=== PATIENT | male | born 1950 | race Caucasian/White ===

== ENCOUNTER 2016-04-30 11:04 | Emergency (ER) | payer MEDICARE, MEDICAID ==
[2016-04-30 11:28] VITALS: BP 114/54
--- NOTE | 2016-04-30 14:00 | UC ---
Yoshi Garcia Matthew, [facility] on 04/30/16 at 1247 . Lower Extremity/Ankle HPI - HPI Summary HPI Summary: Nurse's Note: pt states that over the past few weeks he's had a red, swollen, hard left lower leg that has been worsening, and is much worse over the past few days. pt's son states that the house pt is staying in may also have bedbugs. per pt's son, pt has "hardening of the arteries", and both legs have this problem off and on, though usually more on the right leg. on his right leg he had surgery 5 years ago and has had continual problems and infections with right leg. pt also sleeps with both legs dependent, he cannot elevate them. MD Note: MD Note; Afebrile, pulse oxygen 99%, 10/10 discomfort , weekly alcohol , .5 ppd smoker, NM 15 years ago, chronic right leg infections. In Room Note: A 66 y/o male presents to [facility] with increased pre tibial right leg pain. He always has chronic right leg pain. The patient has been taking amoxicillin for 5 years according to the son for a chronic knee infection. The patient is unable to move his right leg at the joint. He denies nausea, vomiting , and diarrhea today. He also has chronic back pain. Dr. Covington requested the patient present to [facility] for possible skin infection. No Hx of diabetes. Where the patient's living has an infestation of bed bugs and the son states the patient may have bee scratching his legs. - History of Current Complaint Chief Complaint: UCLowerExtremity Stated Complaint: LEG COMPLAINT Time Seen by Provider: 04/30/16 12:25 Hx Obtained From: Patient Onset/Duration: Still Present Severity Initially: Moderate Severity Currently: Moderate Pain Intensity: 10 Pain Scale Used: 0-10 Numeric - Allergies/Home Medications Allergies/Adverse Reactions: Allergies Allergy/AdvReac Type Severity Reaction Status Date / Time Fentanyl Allergy Severe Itching Verified 04/30/16 11:28 FENTANYL PATCH Allergy Severe SEVERE Uncoded 04/30/16 11:28 ITCHING PMH/Surg Hx/FS Hx/Imm Hx Endocrine History Of: Denies: Diabetes, Thyroid Disease Cardiovascular History Of: Reports: Cardiac Disorders - Heart attack 15 years ago, 8 years ago "on life support bc heart stopped", Myocardial Infarction, Deep Vein Thrombosis Denies: Hypertension, Pacemaker/ICD, Congestive Heart Failure Respiratory History Of: Reports: COPD, Asthma Denies: Bronchitis, Pulmonary Embolism GI/ History Of: Denies: Ulcer, Renal Disease Neurological History Of: Denies: Seizures, Migraine Psychological History Of: Reports: Depression Denies: Anxiety Other History Of: Negative For: Anticoagulant Therapy - Surgical History Surgical History: Yes Surgery Procedure, Year, and Place: femur rodding @ [facility] [place] in june 2012; RTHR June 2013; [place]ust 08 2013[place] [facility] [place] - Family History Known Family History: Positive: Cardiac Disease, Other - CANCER - Social History Alcohol Use: Weekly Alcohol Amount: NOT SINCE NEW YEARS Substance Use Type: None Smoking Status (MU): Current Every Day Smoker Type: Cigarettes Amount Used/How Often: 1 - 2 PPD Length of Time of Smoking/Using Tobacco: 50 YEARS Have You Smoked in the Last Year: Yes When Did the Patient Quit Smoking/Using Tobacco: 2 MONTHS AGO Household Exposure Type: Cigarettes - Immunization History Most Recent Influenza Vaccination: 2012 Most Recent Tetanus Shot: Within past 10 years Most Recent Pneumonia Vaccination: 2011 Review of Systems Constitutional: Negative Skin: Other - Right leg erythema Eyes: Negative ENT: Negative Respiratory: Negative Cardiovascular: Negative Gastrointestinal: Negative Genitourinary: Negative Motor: Negative Neurovascular: Negative Musculoskeletal: Myalgia - Increased right leg pain Neurological: Negative Psychological: Negative All Other Systems Reviewed And Are Negative: Yes Physical Exam Triage Information Reviewed: Yes Appearance: Other: - unkempt Vital Signs: Initial Vital Signs Temp 98.6 F 04/30/16 11:17 Pulse 94 04/30/16 11:17 Resp 16 04/30/16 11:17 BP 114/54 04/30/16 11:17 Pulse Ox 99 04/30/16 11:17 Vital Signs Reviewed: Yes Eyes: Positive: Conjunctiva Clear ENT: Positive: Hearing grossly normal, Pharynx normal, TMs normal, Other: - [place] CHIN. Negative: Muffled/hoarse voice Neck: Positive: Supple, Nontender Respiratory: Positive: Chest non-tender, Lungs clear, Normal breath sounds, No respiratory distress Cardiovascular: Positive: RRR, No Murmur Abdomen Description: Positive: Nontender, No Organomegaly, Soft Bowel Sounds: Positive: Present Musculoskeletal: Positive: Other: - THE RIGHT LEG WILL NOT EXTENDED AT THE KNEE JOIN; Neurological: Positive: Alert Psychological: Positive: Age Appropriate Behavior Skin Exam: Other - STASIS DERMATITIS BILATERAL LE; BOTH LEGS SHOW ERYTHEMA AND ITS DIFFICULTY TO TELL WHETHER THIS IS AN INFECTION OR CHRONIC Lower Extremity Course/Dx - Course Course Of Treatment: Discussed with the patient and his son who is his caregiver , the fact that his examination is difficulty because of chronic leg changes. The fact that hes c/o of increase RLE pain and erythema could be a new skin infection that would not be covered by the amoxicillin. I am therefore changing him to Keflex and the patient son will recheck with Dr. Covington on Monday. - Differential Dx/Diagnosis Differential Diagnosis/HQI/PQRI: Other - New onset RLE cellulitis vs chronic stasis changes Provider Diagnoses: Cellulitis, pre-tibial, right Discharge - Discharge Plan Condition: Stable Disposition: HOME Prescriptions: Cephalexin CAP* [Keflex CAP*] 500 mg PO TID #30 cap MDD 3 Patient Education Materials: Cellulitis (ED) Referrals: Anamika Covington MD [Primary Care Provider] - Additional Instructions: WE DISCUSSED: You may have a new skin infection of your right lower leg. It's hard to tell because of your chronic changes. Change your medication for the next 10 days and check with Dr. Covington on Monday. GO TO ED FOR INCREASED PAIN, TEMPERATURE, SWELLING REDNESS. Warm moist heat to the area of discomfort and redness. The documentation as recorded by the Yoshi acevedo Matthew accurately reflects the service I personally performed and the decisions made by me, Parveen Greenfield MD.
== END 2016-04-30 12:49 | disposition home or self-care (01) ==
LOC: UCEAST 11:04
DX: L03.90 Cellulitis, unspecified (principal); I25.2 Old myocardial infarction; F17.290 Nicotine dependence, other tobacco product, uncomplicated
CPT/HCPCS: 99212; G0463

== ENCOUNTER 2016-10-17 16:20 | Inpatient (IN) | payer MEDICARE, MEDICAID ==
[2016-10-17 17:05] LABS: Hematocrit 38 % (42-52); Hemoglobin 12.2 g/dl (14.0-18.0); Mean Corpuscular HGB Conc 32 g/dl (31-36); Mean Corpuscular Hemoglobin 25 pg (27-31); Mean Corpuscular Volume 79 fL (80-94); Mean Platelet Volume 8 um3 (7.4-10.4); Red Blood Count 4.81 10^6/ul (4.0-5.4); Red Cell Distribution Width 20 % (10.5-15); White Blood Count 8.3 10^3/ul (3.5-10.8)
[2016-10-17 17:19] LABS: Albumin 3.3 g/dL (3.2-5.2); BUN/Creatinine Ratio 7.5 (8-20); C Reactive Protein 4.94 mg/L (< 5.00); Calcium 8.3 mg/dL (8.6-10.3); EGFR African American 152.2 (>60); EGFR Non-African American 118.3 (>60); Globulin 5.6 g/dL (2-4); Potassium 3.8 mmol/L (3.5-5.0); Total Bilirubin 0.5 mg/dL (0.2-1.0); Total Protein 8.9 g/dL (6.4-8.9)
--- NOTE | 2016-10-17 18:01 | RAD ---
INDICATION: Right lower extremity swelling and erythema. COMPARISON: Comparison is made with a prior lower extremity venous duplex study from May 13, 2016. TECHNIQUE: Multiple real-time, color flow and Doppler tracings of the right lower extremity were obtained. FINDINGS: The common femoral, femoral, profunda femoral and popliteal veins all demonstrate normal compressibility, augmentation with compression and phasic response with respiration. The posterior tibial and peroneal veins demonstrate normal compressibility and augmentation with compression. IMPRESSION: NO EVIDENCE FOR DEEP VENOUS THROMBOSIS.
--- NOTE | 2016-10-17 18:51 | RAD ---
INDICATION: Shortness of breath. COMPARISON: Comparison is made with a prior chest x-ray study from November 14, 2013. TECHNIQUE: AP and lateral views of the chest were obtained. FINDINGS: The heart is within normal limits in size. Mediastinal and hilar contours appear within normal limits. The right lung base is cut off in the AP view limiting the study. The lungs are hyperinflated with flattening of the diaphragms consistent with chronic obstructive pulmonary disease. There are small bibasilar infiltrates. No pleural effusion is seen. IMPRESSION: 1. LIMITED STUDY. 2. SMALL BIBASILAR INFILTRATES. 3. COPD.
[2016-10-17] MEDS ORDERED: Ondansetron INJ* 2 MG/ML VIAL IV PRN (20:05)
[2016-10-17] MEDS ORDERED: Acetaminophen TAB* 325 MG PO PRN (20:10)
[2016-10-17] MEDS ORDERED: HYDROmorphone* 1 MG/ML 1 ML SYR IV SLOW PU PRN (20:11)
[2016-10-17] MEDS ORDERED: Vancomycin per Pharmacy* NOTE FOLLOW UP PRN (20:23)
[2016-10-17] MEDS ORDERED: Vancomycin(*) 1,000 MG in NS 0.9% 250 ML* 250 ML IVPB ONE (20:30)
[2016-10-17 20:35] LABS: Urine Bilirubin Negative (Negative); Urine Glucose Negative (Negative); Urine Nitrite Negative (Negative)
[2016-10-17] MEDS: Heparin VIAL(*) 5000 UNITS/ML VIAL (FIVE THOUSAND) SUBCUT SCH (21:55)
--- NOTE | 2016-10-18 00:16 | HP ---
CC: Anamika Covington MD * HISTORY AND PHYSICAL: DATE OF ADMISSION: 10/17/16 PRIMARY CARE PHYSICIAN: Anamika Covington MD. CHIEF COMPLAINT: Right leg pain. HISTORY OF PRESENT ILLNESS: The patient is a 66-year-old gentleman who presented to [facility] with a chief complaint of right leg pain. He cannot tell me precisely when it started but it has been getting worse over the last couple of months. He became more worried today when there was fluid actually draining out of his leg. His son insisted he go to the emergency room for evaluation. In fact, he was at his PCP's yesterday for evaluation and treatment. He denies any fevers, but has had chills occasionally. It is red, warm and somewhat tender. He took some pain medicine prescribed to him by his PCP, but he said it did not help that much. He denies any shortness of breath, chest pain or palpitations. In the ED, the patient was evaluated and found likely to have a cellulitis. There was also concern for a possible pneumonia but he has no white count, he is afebrile and he is not short of breath. PAST MEDICAL HISTORY: He has got a past medical history significant for COPD, thrombocytopenia, peripheral vascular disease, coronary artery disease, history of an HI, chronic hyponatremia, alcohol abuse, osteoporosis, GI bleed, history of factor v Leiden deficiency. PAST SURGICAL HISTORY: Significant for distal femur replacement, right hip ORIF , right hip replacement, hernia repair, ear surgery. MEDICATIONS: The patient is unaware of his medications. We will attempt to get the list tomorrow. ALLERGIES: Adverse reaction to FENTANYL. FAMILY HISTORY: Mother had a heart disease. Father had history of unknown cancer. SOCIAL HISTORY: He still smokes about 3 cigars a day. Occasional alcohol, last week he had 4 to 5 cans in 1 day. No recreational drug use. He apparently has a history of more significant alcohol use. He is a retired worker. He is . He has 2 sons. His son, Gera Miller, is his healthcare proxy. REVIEW OF SYSTEMS: A 14-point review of systems was completed with the patient. All pertinent positives and negatives are in the history of present illness, otherwise it is negative. PHYSICAL EXAMINATION GENERAL: A very pleasant gentleman, sitting up in bed, in no acute distress. VITAL SIGNS: Temperature 98 degrees, heart rate 90 beats per minute, respiratory rate 20 breaths per minute, pulse ox 92% on room air, blood pressure 130/72. HEENT: Normocephalic, atraumatic. Pupils equal, round, and reactive to light. Poor dentition. CHEST: Clear to auscultation and percussion bilaterally. CARDIOVASCULAR: S1, S2 appreciated. Regular rate and rhythm. ABDOMEN: Positive bowel sounds in all 4 quadrants. Soft and nontender. EXTREMITIES: No cyanosis or clubbing. He has got edema, redness, warmth and tenderness on his right lower calf. NEUROLOGIC: He is alert and oriented x3. Moves all extremities. SKIN: No rashes. The only abnormality is the erythema on his right lower extremity and the onychomycosis on his toenails. DIAGNOSTIC STUDIES/LABORATORY DATA: White count 8.3, hemoglobin 12.2, hematocrit 38, platelets 256,000. Sodium is 127, potassium 3.8, chloride 92, CO2 30, BUN 5, creatinine 0.67, glucose is 98, lactic acid is 1.2. Urinalysis is unremarkable. EKG shows normal sinus rhythm at 86 beats per minute. Normal axis. No acute ST or T-wave changes. Venous Duplex was interpreted by Radiology as no evidence for DVT. Chest x-ray showed limited study, small basilar infiltrates, bibasilar infiltrates and COPD. ASSESSMENT AND PLAN: 1. Cellulitis, likely diagnosis. I think it is unlikely he has a deep vein thrombosis, especially with a negative venous Duplex. Apparently he has factor V Leiden deficiency; however, and was supposed to be on anticoagulation. This has been in the past and he is still not on it. I am not sure how compliant he is with his followup and his medications. For now, I will put him on vancomycin and Zosyn because his cellulitis appears fairly significant and I do not know how long this has been going on for. It may benefit from ID consult. Right now, there does not appear to be any kind of a wound culture. 2. Chronic obstructive pulmonary disease. His current medications are unknown. We will await his medications and place him on them as soon as we are aware. 3. Gastroesophageal reflux disease. We will place him on PPIs that he has been on before. 4. Coronary artery disease. Again unclear what medications, but we will reinitiate once we are given his appropriate list. 5. Factor V Leiden deficiency. See above. Thought he should be on anticoagulation, but has not been. This should be addressed, but probably best as an outpatient. 6. FEN. Regular diet. 7. DVT prophylaxis. Heparin subcu. 8. The patient is a full code. TIME SPENT: Over 85 minutes were spent on this H and P; more than 45 minutes was spent in direct [id number] contact with the patient in evaluation, physical exam, counseling, and coordination of care. [id number]/[facility] #: [id number] MTDD
[2016-10-18] MEDS: Heparin VIAL(*) 5000 UNITS/ML VIAL (FIVE THOUSAND) SUBCUT SCH ×3 (05:56→21:56)
[2016-10-18] MEDS: Vancomycin(*) 1,000 MG in NS 0.9% 250 ML* 250 ML IVPB SCH ×2 (05:56→16:25)
[2016-10-18 09:22] LABS: Hematocrit 37 % (42-52); Hemoglobin 11.9 g/dl (14.0-18.0); Mean Corpuscular HGB Conc 32 g/dl (31-36); Mean Corpuscular Hemoglobin 25 pg (27-31); Mean Corpuscular Volume 80 fL (80-94); Mean Platelet Volume 8 um3 (7.4-10.4); Red Blood Count 4.68 10^6/ul (4.0-5.4); Red Cell Distribution Width 20 % (10.5-15); White Blood Count 7.4 10^3/ul (3.5-10.8)
[2016-10-18 09:23] LABS: Add Diff/Slide Review? Manual Diff Added; Comments Flag Yes
[2016-10-18 09:36] LABS: BUN/Creatinine Ratio 6.9 (8-20); Calcium 8.1 mg/dL (8.6-10.3); EGFR Non-African American 108.9 (>60); Potassium 4.1 mmol/L (3.5-5.0)
[2016-10-18 09:51] LABS: Add Path Review? YES; Eosinophils % 8 % (0-6); Hypochromasia 1+; Neutrophil % 70 % (38-83); Reactive Lymph % 1 % (0-6)
[2016-10-18] MEDS: Morphine INJ* 2 MG/ML 1 ML SYRINGE IV PRN ×4 (11:38→21:56)
--- NOTE | 2016-10-18 11:42 | PN ---
Subjective Date of Service: 10/18/16 Interval History: This is a 66 yo gentleman with multiple medical problems including PVD who presented yesterday with c/o RLE pain. Pain has been present for the last couple of month but progressively worse and he noted some drainage yesterday. He was admitted yesterday with concern for cellulitis but no leukocytosis or fever noted. Today, patient reports his pain and appearance of his leg is similar to the time of admission. He has remained afebrile. He reports improvement in pain with legs in a dependent position. Objective Active Medications: Acetaminophen (Tylenol Tab*) 650 mg PO Q4H PRN PRN Reason: FEVER/PAIN Last Admin: 10/18/16 09:17 Dose: 650 mg Heparin Sodium (Porcine) (Heparin Vial(*)) 5,000 units SUBCUT Q8HR ON LICENSE OF [facility] Last Admin: 10/18/16 05:56 Dose: 5,000 units Hydromorphone HCl (Dilaudid Iv*) 1 mg IV SLOW PU Q4H PRN PRN Reason: PAIN Piperacillin Sod/Tazobactam (Sod 3.375 gm/ Sodium Chloride) 100 mls @ 25 mls/ hr IVPB Q8H ON LICENSE OF [facility] Last Admin: 10/18/16 10:59 Dose: 25 mls/hr Vancomycin HCl 1,000 mg/ (Sodium Chloride) 250 mls @ 166.667 mls/hr IVPB Q8H ON LICENSE OF [facility] Last Admin: 10/18/16 05:56 Dose: 166.667 mls/hr Morphine Sulfate (Morphine Inj (Syringe)*) 2 mg IV Q2H PRN PRN Reason: PAIN Ondansetron HCl (Zofran Inj*) 4 mg IV Q4H PRN PRN Reason: NAUSEA Pharmacy Consult (Vancomycin Per Pharmacy*) 1 note FOLLOW UP . PRN PRN Reason: PER PROTOCOL Pharmacy Profile Note (Vancomycin Trough Check) 1 note FOLLOW UP 0530 ONE Stop: 10/19/16 05:31 Vital Signs: Temp Pulse Resp BP Pulse Ox 98.0 F 84 20 114/67 96 10/18/16 09:13 10/18/16 09:13 10/18/16 11:38 10/18/16 09:13 10/18/16 09:13 Oxygen Devices in Use Now: None Appearance: 66 yo gentleman who appears much older than stated age in NAD, but very uncomfortable with manipulation of his R leg Respiratory: Symmetrical Chest Expansion and Respiratory Effort, - - few exp wheezes noted Cardiovascular: NL Sounds; No Murmurs; No JVD, RRR Extremities: - - 1+RLE edema and trace LLE edema, RLE is very TTP, no palpable pulses Skin: - - erythema of RLE including the foot and lower leg to the knee Result Diagrams: 10/18/16 09:12 10/18/16 09:12 Assess/Plan/Problems-Billing Assessment: This is a 66 yo gentleman with COPD, thrombocytopenia, PVD, CAD with h/o AMI, chronic hyponatremia, alcoholism, factor V leiden who presented with c/o RLE pain who was admitted for possible cellulitis. - Patient Problems (1) Acute pain of right lower extremity Comment: Initial treatment for cellulitis, but he has no leukocytosis or fever He reports improvement with legs in a dependent position and he has no palpable distal pulses with known PVD, so concern for arterial insufficiency is higher on my differential Will cont abx, but obtain CTA with runoff to assess vascular status (2) COPD (chronic obstructive pulmonary disease) Comment: Few wheezes on exam but no hypoxia or resp distress to suggest exacerbation Cont home inhalers and prn DuoNebs (3) PVD (peripheral vascular disease) Comment: Start ASA, unsure if he is on a statin at home (4) CAD (coronary artery disease) Comment: No evidence of ACS Cont med management (5) Hyponatremia Comment: Mild and appears chronic Asymptomatic, will cont to monitor (6) Alcoholism Comment: No evidence of acute withdrawal at this time (7) Factor V Leiden mutation Comment: Reported h/o of anticoagulation, but patient is unclear on this history (8) Full code status (9) DVT prophylaxis Comment: SQ heparin Status and Disposition: Inpatient. Unsure of discharge plan at this time
[2016-10-18] MEDS ORDERED: Albuterol/Ipratropium NEB.SOL* Albuterol 2.5 MG/Ipratropium 0.5 MG 3 ML INH PRN (11:50)
--- NOTE | 2016-10-18 11:51 | ECHO ---
Patient: JONATAN LINK [facility] Rec#: [id number] : 1950 Date: 10/18/2016 Age: 66y Height: 175.3 cm / 69.0 in Weight: 75.3 kg / 166.0 lbs Sex: M BSA: 1.9 Room#: [facility] Admit Date#: 10/17/2016 Type: Inpatient Referring: Rashad Velazquez Reading: Dallas Mccauley MD Regional Coordinator: Isadora Hanley RN RDCS CC: Anamika Covington MD Transthoracic Echocardiogram Indication: Lower extremity edema BP: 105/57 HR: 87 Rhythm: NSR with PACs Findings History: CAD, [place], PVD, COPD, factor V Leiden deficiency, ETOH abuse, smokes cigars Technical Comments: The study is technically limited due to poor parasternal windows. The study is technically limited due to the patient's history of COPD. The study is technically limited due to the patient's smoking history. Completed at 1000. Left Ventricle: The left ventricular chamber size is normal. Septal wall hypertrophy is observed. There is a focal wall motion abnormality present.The posterior wall wall appears more hypokinetic than the anteroseptal inferior wall. There is mildly decreased left ventricular systolic function. The estimated ejection fraction is 40-45%. Abnormal left ventricular diastolic filling is observed, consistent with impaired relaxation. The absence of left atrial enlargement suggests this finding is not of a chronic nature. Left Atrium: The left atrial chamber size is normal. Right Ventricle: The right ventricle wall thickness is mildly increased. The right ventricular cavity size is normal. The right ventricular global systolic function is mildly reduced. Right Atrium: The right atrial cavity size is normal. There is evidence of an atrial septal aneurysm. Aortic Valve: The aortic valve leaflets are mildly thickened. There is no evidence of aortic regurgitation. There is no evidence of aortic stenosis. Mitral Valve: The mitral valve leaflets appear normal. There is a trace of mitral regurgitation. There is no evidence of mitral stenosis. Tricuspid Valve: The tricuspid valve leaflets are normal. There is trace to mild tricuspid regurgitation. There is evidence of moderate pulmonary hypertension. Pulmonic Valve: The pulmonic valve structure is not well visualized. Pericardium: There is no significant pericardial effusion. A pericardial fat pad is visualized. Aorta: The ascending aorta is not well visualized. The aortic arch is not well visualized. There is no dilation of the aortic root. Pulmonary Artery: The main pulmonary artery is not well visualized. Venous: The inferior vena cava is dilated. There is a greater than 50% respiratory change in the inferior vena cava dimension. Conclusions The posterior wall wall appears more hypokinetic than the anteroseptal inferior wall. There is mildly decreased left ventricular systolic function. The estimated ejection fraction is 40-45%. Abnormal left ventricular diastolic filling is observed, consistent with impaired relaxation. The absence of left atrial enlargement suggests this finding is not of a chronic nature. The right ventricular global systolic function is mildly reduced. There is a trace of mitral regurgitation. There is trace to mild tricuspid regurgitation. There is evidence of moderate pulmonary hypertension. The inferior vena cava is dilated. There is a greater than 50% respiratory change in the inferior vena cava dimension. Compared to 06/14/2012 the pulmonary HTN is now noted. Measurements Name Value Normal Range RVDdMajor (2D) 3.3 cm (2.2 - 4.4) RVAW (2D) 0.9 cm (0.2 - 0.5) RAd ISD 4CH 4.4 cm (3.4 - 4.9) RA (A4C)W 4 cm (2.9 - 4.6) IVSd (2D) 1.1 cm (0.6 - 1) LVPWd (2D) 1 cm (0.6 - 1) LVIDd (2D) 4.4 cm (3.6 - 5.4) LVIDs (2D) 3.4 cm - LV FS (2D) 23 % (25 - 45) Aortic Annulus 2.3 cm (1.4 - 2.6) Ao root diameter (2D) 3.2 cm (2.1 - 3.5) LA dimension (AP) 2D 3.6 cm (2.3 - 3.8) LAd ISD 4CH 4.3 cm (2.9 - 5.3) LA ISD 4CH W 3.7 cm (2.5 - 4.5) Name Value Normal Range LA ESV SP 4CH (A/L) 28 ml - LA ESV SP 2CH (A/L) 44 ml - LA ESV BP (A/L) 37 ml - LA ESV BP (A/L) index 19.4 ml/m2 - LA ESV SP 4CH (MOD) 25 ml - LA ESV SP 2CH (MOD) 38 ml - Name Value Normal Range MV E-wave Vmax 0.41 m/sec - MV deceleration time 174 msec - MV A-wave Vmax 0.83 m/sec - MV E:A ratio 0.5 ratio - LV septal e' Vmax 0.07 m/sec - LV lateral e' Vmax 0.08 m/sec - LV E:e' septal ratio 5.9 ratio - LV E:e' lateral ratio 5.1 ratio - Name Value Normal Range AV Vmax 1.3 m/sec - AV VTI 29.1 cm - AV peak gradient 6.4 mmHg - AV mean gradient 4.3 mmHg - LVOT Vmax 0.93 m/sec - LVOT VTI 17.6 cm - LVOT peak gradient 3.5 mmHg - LVOT mean gradient 1.7 mmHg - Name Value Normal Range TR Vmax 3.2 m/sec - TR peak gradient 41 mmHg - RAP 8 mmHg - RVSP 49 mmHg - IVC diameter 2.2 cm - Name Value Normal Range PV Vmax 0.61 m/sec -
[2016-10-18] MEDS ORDERED: Iohexol 350* (CONTRAST) 500 ML MDV IV ONE (11:52)
[2016-10-18] MEDS ORDERED: Spiriva Inhaler DEVICE* 1 EACH DEVICE SCH (12:00)
[2016-10-18] MEDS: Aspirin Low Dose CHEW TAB* 81 MG PO SCH (13:26)
--- NOTE | 2016-10-18 14:27 | RAD ---
Indication: Right lower extremity arterial insufficiency. Contrast: Administered 125.1 ml of OMNIPAQUE 350 mg/ml CTA of the abdominal aorta and lower extremity runoff was performed. Noncontrast and arterial phase images were obtained. The abdominal aorta demonstrates no aneurysmal dilatation. Celiac axis and superior mesenteric artery are patent although there is calcified origin of the superior mesenteric artery. Atherosclerotic aorta is noted. Calcified common iliac arteries are noted. Atherosclerosis of both external iliac artery is noted. The right common femoral artery, femoral artery and popliteal artery are limited in evaluation of the right lower extremity. The left lower extremity demonstrates atherosclerosis without definite stenosis of the left common femoral artery and femoral artery. Atherosclerosis of the distal left femoral artery is present. In the right calf pain appears to be a patent posterior artery and anterior tibial artery. The left calf demonstrates patent anterior tibial, peroneal and posterior tibial artery. The liver demonstrates hepatic steatosis. The pancreas demonstrates no mass or pancreatic ductal dilatation. The spleen is normal in size. No adrenal lesions are noted. The kidneys demonstrate symmetric nephrograms. Pancreas demonstrates no mass or pancreatic duct dilatation. The colon is filled with stool. IMPRESSION: Extensive hardware is noted in the right lower extremity. The calf vessels demonstrates patent posterior tibial and anterior tibial arteries. The left lower extremity demonstrates three-vessel runoff with atherosclerosis throughout. The aorta and iliac arteries demonstrates atherosclerosis.
[2016-10-18] MEDS: Tiotropium CAP.INH* CAP.INH/18 MCG INH SCH (14:53)
--- NOTE | 2016-10-18 17:33 | ED ---
Anoop Garcia Thomas, scribed for Orville Oswald MD on 10/17/16 at 1654 . Lower Extremity - HPI Summary HPI Summary: The pt is a 66 y/o M presenting to the ED c/o chronic R leg pain that began two months ago. The pain is aggravated by movement and the pain is alleviated by nothing. 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 Pt additionally c/o fluid drainage to his R leg, R leg erythema, and SOB .PMHx: ND , DVT, asthma, and COPD. PSHx: femur rodding, R knee replacement, and ear surgery. SHx: smoking (1/2 PPD), occasional alcohol use, no illicit drug use. FHx: cardiac disease, CA. The patient does not shower and reports that he occasionally takes sponge baths. - History of Current Complaint Chief Complaint: EDShortnessOfBreath Stated Complaint: SWELLING IN LEGS Time Seen by Provider: 10/17/16 16:39 Hx Obtained From: Patient Severity Currently: Moderate Timing: Constant Associated Signs And Symptoms: Positive: Other - POS: R leg pain, R leg erythema , drainage to R leg, and SOB Aggravating Factor(s): Movement Alleviating Factor(s): Nothing - Allergies/Home Medications Allergies/Adverse Reactions: Allergies Allergy/AdvReac Type Severity Reaction Status Date / Time Fentanyl Allergy Severe Itching Verified 04/30/16 11:28 FENTANYL PATCH Allergy Severe SEVERE Uncoded 04/30/16 11:28 ITCHING PMH/Surg Hx/FS Hx/Imm Hx Previously Healthy: No Endocrine/Hematology History: Reports: Hx Blood Disorders - factor 5 clotting disorder Denies: Hx Anticoagulant Therapy, Hx Diabetes, Hx Thyroid Disease Cardiovascular History: Reports: Hx Angina, Hx Coronary Artery Disease, Hx Deep Vein Thrombosis, Hx Myocardial Infarction, Hx Peripheral Vascular Disease, Other Cardiovascular Problems/Disorders - fACTOR V LEIDEN CLOTTING DISORDER Denies: Hx Cardiomegaly, Hx Congestive Heart Failure, Hx Hypertension, Hx Pacemaker/ICD, Hx Rheumatic Fever, Hx Valvular Heart Disease Respiratory History: Reports: Hx Asthma, Hx Chronic Obstructive Pulmonary Disease (COPD), Other Respiratory Problems/Disorders - [facility] smoker Denies: Hx Pulmonary Edema, Hx Pulmonary Embolism GI History: Reports: Hx Gastroesophageal Reflux Disease, Other GI Disorders - HX OF GI BLEED - NO PROBLEMS NOW Denies: Hx Cirrhosis, Hx Crohn's Disease, Hx Hiatal Hernia, Hx Irritable Bowel, Hx Jaundice, Hx Ulcer History: Denies: Hx Renal Disease, Other Problems/Disorders Musculoskeletal History: Reports: Hx Arthritis, Hx Back Problems, Hx Osteoporosis, Other Musculoskeletal History - Fx hip sp fall at home hx Denies: Hx Rheumatoid Arthritis, Hx Bursitis Sensory History: Reports: Hx Cataracts - HAVING CATARACT SURGERY, Hx Contacts or Glasses - for reading, Hx Hearing Problem - deaf R ear, 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 Denies: Hx Hearing Aid Opthamlomology History: Reports: Hx Cataracts - HAVING CATARACT SURGERY, Hx Contacts or Glasses - for reading Neurological History: Denies: Hx Headaches, Hx Migraine, Hx Seizures Comment Only: Other Neuro Impairments/Disorders - NEUROPATHY/HX SUBSTANCE ABUSE Psychiatric History: Reports: Hx Depression, Hx Substance Abuse Denies: Hx Anxiety, Hx Panic Disorder - Cancer History Hx Chemotherapy: No - Surgical History Surgery Procedure, Year, and Place: femur rodding @ [facility] [place] in june 2012; RTHR June 2013; Right total knee replacement august 08 2013, [facility] [place]. right ear surgery Hx Anesthesia Reactions: No - Immunization History Date of Tetanus Vaccine: 2010 Date of Influenza Vaccine: None Infectious Disease History: No Infectious Disease History: Reports: Hx of Known/Suspected MRSA Denies: Hx Hepatitis, Traveled Outside the [place] in Last 30 Days - Family History Known Family History: Positive: Cardiac Disease, Other - CANCER - Social History Alcohol Use: Weekly Alcohol Amount: NOT SINCE NEW YEARS Substance Use Type: Reports: None Hx Tobacco Use: Yes Smoking Status (MU): Current Every Day Smoker Type: Cigarettes Amount Used/How Often: 1 - 2 PPD Length of Time of Smoking/Using Tobacco: 50 YEARS Have You Smoked in the Last Year: Yes Review of Systems Positive: Shortness Of Breath Positive: Other - POS: R leg pain with drainage Positive: Other - POS: R leg erythema All Other Systems Reviewed And Are Negative: Yes Physical Exam - Summary Physical Exam Summary: VITAL SIGNS: Reviewed. GENERAL: ~Patient is an elderly male with poor hygiene who is lying comfortable in the stretcher. ~Patient is not in any acute respiratory distress. HEAD AND FACE: No signs of trauma. ~No ecchymosis, hematomas or skull depressions. No sinus tenderness. EYES: PERRLA, EOMI x 2, No injected conjunctiva, no nystagmus. EARS: Hearing grossly intact. Ear canals and tympanic membranes are within normal limits. MOUTH: Oropharynx within normal limits. NECK: Supple, trachea is midline, no adenopathy, no JVD, no carotid bruit, no c- spine tenderness, neck with full ROM. CHEST: Symmetric, no tenderness at palpation LUNGS: Clear to auscultation bilaterally. No wheezing or crackles. CVS: Regular rate and rhythm, S1 and S2 present, no murmurs or gallops appreciated. ABDOMEN: Soft, non-tender. No signs of distention. No rebound no guarding, and no masses palpated. Bowel sounds are normal. EXTREMITIES: He has RLE pain. The RLE is with positive erythema and positive tenderness to the calf. He has good pulses in his extremities. FROM in all major joints, no edema, no cyanosis or clubbing. NEURO: Alert and oriented x 3. No acute neurological deficits. Speech is normal and follows commands. SKIN: Dry and warm Triage Information Reviewed: Yes Vital Signs On Initial Exam: Initial Vitals Pulse BP Pulse Ox 155 121/57 89 10/17/16 16:26 10/17/16 16:26 10/17/16 16:26 Vital Signs Reviewed: Yes - Benito Coma Scale Coma Scale Total: 15 Diagnostics - Vital Signs Vital Signs Temp Pulse Resp BP Pulse Ox 10/17/16 16:33 98.7 F 85 16 121/57 99 10/17/16 16:30 83 16 125/62 97 10/17/16 16:26 155 121/57 89 - Laboratory Lab Results: Lab Results 10/17/16 10/17/16 10/17/16 Range/Units 16:45 16:45 16:45 WBC 8.3 (3.5-10.8) 10^3/ul RBC 4.81 (4.0-5.4) 10^6/ul Hgb 12.2 L (14.0-18.0) g/dl Hct 38 L (42-52) % MCV 79 L (80-94) fL MCH 25 L (27-31) pg MCHC 32 (31-36) g/dl RDW 20 H (10.5-15) % Plt Count 256 (150-450) 10^3/ul MPV 8 (7.4-10.4) um3 Neut % (Auto) 68.0 (38-83) % Lymph % (Auto) 11.0 L (25-47) % Gulf % (Auto) 14.9 H (1-9) % Eos % (Auto) 4.8 (0-6) % Baso % (Auto) 1.3 (0-2) % Absolute Neuts (auto) 5.6 (1.5-7.7) 10^3/ul Absolute Lymphs (auto) 0.9 L (1.0-4.8) 10^3/ul Absolute Monos (auto) 1.2 H (0-0.8) 10^3/ul Absolute Eos (auto) 0.4 (0-0.6) 10^3/ul Absolute Basos (auto) 0.1 (0-0.2) 10^3/ul Absolute Nucleated RBC 0.01 10^3/ul Nucleated RBC % 0.1 Sodium 127 L (133-145) mmol/L Potassium 3.8 (3.5-5.0) mmol/L Chloride 92 L (101-111) mmol/L Carbon Dioxide 30 (22-32) mmol/L Anion Gap 5 (2-11) mmol/L BUN 5 L (6-24) mg/dL Creatinine 0.67 (0.67-1.17) mg/dL Est GFR ( Amer) 152.2 (>60) Est GFR (Non-Af Amer) 118.3 (>60) BUN/Creatinine Ratio 7.5 L (8-20) Glucose 98 (70-100) mg/dL Lactic Acid 1.2 (0.5-2.0) mmol/L Calcium 8.3 L (8.6-10.3) mg/dL Total Bilirubin 0.50 (0.2-1.0) mg/dL AST 17 (13-39) U/L ALT 7 (7-52) U/L Alkaline Phosphatase 124 H (34-104) U/L C-Reactive Protein 4.94 (< 5.00) mg/L Total Protein 8.9 (6.4-8.9) g/dL Albumin 3.3 (3.2-5.2) g/dL Globulin 5.6 H (2-4) g/dL Albumin/Globulin Ratio 0.6 L (1-3) Result Diagrams: 10/18/16 09:12 10/18/16 09:12 Lab Statement: Any lab studies that have been ordered have been reviewed, and results considered in the medical decision making process. - Radiology CXR Xray Interpretation: Positive (See Comments) - 1. LIMITED STUDY. 2. SMALL BIBASILAR INFILTRATES. 3. COPD. Radiology Interpretation Completed By: Radiologist - EKG 18:37 Cardiac Rate: NL - 86 BPM EKG Interpretation: Sinus rhythm with no ST elevations. - Additional Comments Diagnostic Additional Comments: US Lower extremity. Interpreted by radiologist. Impression: No evidence for DVT. Lower Extremity Course/Dx - Course Assessment/Plan: The pt is a 66 y/o M presenting to the ED c/o chronic R leg pain that began two months ago. The pain is aggravated by movement and the pain is alleviated by nothing. 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 Pt additionally c/o fluid drainage to his R leg, R leg erythema, and SOB .PMHx: ND, DVT, asthma, and COPD. PSHx: femur rodding, R knee replacement, and ear surgery. SHx: smoking (1/2 PPD), occasional alcohol use, no illicit drug use. FHx: cardiac disease, CA. The patient does not shower and reports that he occasionally takes sponge baths. Test results are without significant abnormality except a chronic anemia and a chronic hyponatremia. The US of the RLE is negative for DVT. However, the CXR reveals 1. LIMITED STUDY. 2. SMALL BIBASILAR INFILTRATES. 3. COPD. I have made the hospitalists aware of the patients condition. The patient is a sign out from Dr. Oswald to Dr. Benedict pending the hospitalists evaluation of the patient. - Diagnoses Provider Diagnoses: Pneumonia, Cellulitis - Physician Notifications Discussed Care Of Patient With: Cory Patino Time Discussed With Above Provider: 19:22 Instructed by Provider To: Other - Dr. Patino was made aware of the patient at 19:22. Discharge - Discharge Plan Condition: Fair Disposition: OTHER Discharge Disposition Comment: Sign out from Dr. Oswald to Dr. Benedict pending hospitalist evaluation. The documentation as recorded by the Anoop acevedo Thomas accurately reflects the service I personally performed and the decisions made by me, Orville Oswald MD.
[2016-10-19] MEDS: Vancomycin(*) 1,000 MG in NS 0.9% 250 ML* 250 ML IVPB SCH ×2 (00:19→06:07)
[2016-10-19] MEDS ORDERED: Vancomycin Trough Check NOTE FOLLOW UP ONE (05:30)
[2016-10-19] MEDS: Heparin VIAL(*) 5000 UNITS/ML VIAL (FIVE THOUSAND) SUBCUT SCH ×3 (06:08→21:35)
[2016-10-19] MEDS: Morphine INJ* 2 MG/ML 1 ML SYRINGE IV PRN ×6 (06:15→23:35)
[2016-10-19] MEDS ORDERED: Furosemide IV* 10 MG/ML 2 ML VIAL (20 MG) IV ONE (07:10)
[2016-10-19 07:30] LABS: Hematocrit 34 % (42-52); Hemoglobin 10.6 g/dl (14.0-18.0); Mean Corpuscular HGB Conc 32 g/dl (31-36); Mean Corpuscular Hemoglobin 25 pg (27-31); Mean Corpuscular Volume 80 fL (80-94); Mean Platelet Volume 9 um3 (7.4-10.4); Red Cell Distribution Width 20 % (10.5-15); White Blood Count 5.8 10^3/ul (3.5-10.8)
[2016-10-19 07:48] LABS: BUN/Creatinine Ratio 7.1 (8-20); C Reactive Protein 6.02 mg/L (< 5.00); Calcium 7.9 mg/dL (8.6-10.3); EGFR African American 117.2 (>60); EGFR Non-African American 91.1 (>60); Potassium 3.6 mmol/L (3.5-5.0)
[2016-10-19] MEDS: Tiotropium CAP.INH* CAP.INH/18 MCG INH SCH (07:57)
[2016-10-19] MEDS: Aspirin Low Dose CHEW TAB* 81 MG PO SCH (08:17)
[2016-10-19] MEDS: ceFAZolin 1 GM VIAL(*) 1 GM in NS 0.9% 50 ML* 50 ML IVPB SCH ×3 (08:43→23:35)
[2016-10-19] MEDS ORDERED: traZODone TAB* 50 MG TAB PO PRN (11:30)
--- NOTE | 2016-10-19 11:46 | PN ---
Subjective Date of Service: 10/19/16 Interval History: Patient reports some improvement in his leg pain. Swelling appears somewhat improved. Remains afebrile. No c/o CP or SOB Objective Active Medications: Acetaminophen (Tylenol Tab*) 650 mg PO Q4H PRN PRN Reason: FEVER/PAIN Last Admin: 10/18/16 09:17 Dose: 650 mg Albuterol/Ipratropium (Duoneb (Albuterol 2.5 Mg/Ipratropium 0.5 Mg)) 1 neb INH Q4H PRN PRN Reason: SOB/WHEEZING Aspirin (Aspirin Low Dose Tab*) 81 mg PO DAILY [facility] Last Admin: 10/19/16 08:17 Dose: 81 mg Atorvastatin Calcium (Lipitor*) 10 mg PO DAILY [facility] Cilostazol (Pletal Tab*) 100 mg PO DAILY [facility] Device (Tiotropium Inhaler Device*) 1 each .SEE ORDER .USE w/ SPIRIVA CAPS [facility] Heparin Sodium (Porcine) (Heparin Vial(*)) 5,000 units SUBCUT Q8HR [facility] Last Admin: 10/19/16 06:08 Dose: 5,000 units Hydromorphone HCl (Dilaudid Iv*) 1 mg IV SLOW PU Q4H PRN PRN Reason: PAIN Cefazolin Sodium 1 gm/ Sodium (Chloride) 50 mls @ 200 mls/hr IVPB Q8H [facility] Last Admin: 10/19/16 08:43 Dose: 200 mls/hr Morphine Sulfate (Morphine Inj (Syringe)*) 2 mg IV Q2H PRN PRN Reason: PAIN Last Admin: 10/19/16 08:16 Dose: 2 mg Omeprazole (Prilosec Cap*) 40 mg PO DAILY [facility] Ondansetron HCl (Zofran Inj*) 4 mg IV Q4H PRN PRN Reason: NAUSEA Tiotropium [place] (Spiriva Cap.Inh*) 1 cap INH DAILY [facility] Last Admin: 10/19/16 07:57 Dose: 1 cap Trazodone HCl (Desyrel Tab*) 150 mg PO BEDTIME PRN PRN Reason: SLEEP Vital Signs: Temp Pulse Resp BP Pulse Ox 98.3 F 75 18 125/56 95 10/19/16 07:30 10/19/16 07:30 10/19/16 09:16 10/19/16 07:30 10/19/16 07:30 Oxygen Devices in Use Now: None Appearance: Chronically ill appearing 66 yo gentleman in NAD Respiratory: Symmetrical Chest Expansion and Respiratory Effort, Clear to Auscultation, - - breath sounds somewhat reduced diffusely Cardiovascular: NL Sounds; No Murmurs; No JVD, RRR Abdominal: NL Sounds; No Tenderness; No Distention Extremities: - - bilateral LE edema, R>L ~1+ Skin: - - RLE erythema to the knee, few excoriated areas, but nothing open Result Diagrams: 10/19/16 05:39 10/19/16 05:39 Additional Lab and Data: . Diagnostic Imaging: CTA aorta with runoff - patent R calf anterior and posterior tibial arteries, LLE shows intact flow with evidence of atherosclerosis Echo - EF 40-45% with diastolic dysfunction and dilated IVC Assess/Plan/Problems-Billing Assessment: This is a 66 yo gentleman with COPD, thrombocytopenia, PVD, CAD with h/o AMI, chronic hyponatremia, alcoholism, factor V leiden who presented with c/o RLE pain who was admitted for possible cellulitis. - Patient Problems (1) Acute pain of right lower extremity Comment: Initial treatment for cellulitis, but he has no leukocytosis or fever Arterial studies shows intact flow in the R calf Cont abx, switched to Cefazolin Echo demonstrated fluid overload, initiate diuresis with IV Lasix (2) Chronic combined systolic and diastolic CHF (congestive heart failure) Comment: Echo demonstrates mild fluid overload, but no evidence of acute exacerbation EF 40-45% Start IV Lasix (3) COPD (chronic obstructive pulmonary disease) Comment: Few wheezes on exam but no hypoxia or resp distress to suggest exacerbation Cont home inhalers and prn DuoNebs (4) PVD (peripheral vascular disease) Comment: Start ASA Cont atorvastatin and cilostazol (5) CAD (coronary artery disease) Comment: No evidence of ACS Cont med management (6) Hyponatremia Comment: Mild and appears chronic Asymptomatic, will cont to monitor (7) Alcoholism Comment: No evidence of acute withdrawal at this time (8) Factor V Leiden mutation Comment: Reported h/o of anticoagulation, but patient is unclear on this history (9) Full code status (10) DVT prophylaxis Comment: SQ heparin Status and Disposition: Inpatient. Anticipate dc in 1-2d
[2016-10-19] MEDS: Cilostazol TAB* 100 MG PO SCH (13:08)
[2016-10-20] MEDS: Morphine INJ* 2 MG/ML 1 ML SYRINGE IV PRN ×4 (04:21→23:49)
[2016-10-20] MEDS: Heparin VIAL(*) 5000 UNITS/ML VIAL (FIVE THOUSAND) SUBCUT SCH ×3 (05:13→21:18)
[2016-10-20] MEDS: Tiotropium CAP.INH* CAP.INH/18 MCG INH SCH (08:01)
[2016-10-20] MEDS: ceFAZolin 1 GM VIAL(*) 1 GM in NS 0.9% 50 ML* 50 ML IVPB SCH ×3 (08:19→23:48)
[2016-10-20] MEDS: Omeprazole CAP* 20 MG PO SCH (08:20)
[2016-10-20] MEDS: Cilostazol TAB* 100 MG PO SCH (08:20)
[2016-10-20] MEDS: Aspirin Low Dose CHEW TAB* 81 MG PO SCH (08:20)
[2016-10-20] MEDS: Atorvastatin* 10 MG TAB PO SCH (08:21)
--- NOTE | 2016-10-20 10:33 | PN ---
Subjective Date of Service: 10/20/16 Interval History: Patient reports little change in symptoms. He continues to have pain in the RLE and reports more comfort with his legs in a dependent position. Objective Active Medications: Acetaminophen (Tylenol Tab*) 650 mg PO Q4H PRN PRN Reason: FEVER/PAIN Last Admin: 10/18/16 09:17 Dose: 650 mg Albuterol/Ipratropium (Duoneb (Albuterol 2.5 Mg/Ipratropium 0.5 Mg)) 1 neb INH Q4H PRN PRN Reason: SOB/WHEEZING Aspirin (Aspirin Low Dose Tab*) 81 mg PO DAILY [facility] Last Admin: 10/20/16 08:20 Dose: 81 mg Atorvastatin Calcium (Lipitor*) 10 mg PO DAILY [facility] Last Admin: 10/20/16 08:21 Dose: 10 mg Cilostazol (Pletal Tab*) 100 mg PO DAILY [facility] Last Admin: 10/20/16 08:20 Dose: 100 mg Device (Tiotropium Inhaler Device*) 1 each .SEE ORDER .USE w/ SPIRIVA CAPS [facility] Heparin Sodium (Porcine) (Heparin Vial(*)) 5,000 units SUBCUT Q8HR [facility] Last Admin: 10/20/16 05:13 Dose: 5,000 units Hydromorphone HCl (Dilaudid Iv*) 1 mg IV SLOW PU Q4H PRN PRN Reason: PAIN Cefazolin Sodium 1 gm/ Sodium (Chloride) 50 mls @ 200 mls/hr IVPB Q8H [facility] Last Admin: 10/20/16 08:19 Dose: 200 mls/hr Morphine Sulfate (Morphine Inj (Syringe)*) 2 mg IV Q2H PRN PRN Reason: PAIN Last Admin: 10/20/16 08:35 Dose: 2 mg Omeprazole (Prilosec Cap*) 40 mg PO DAILY [facility] Last Admin: 10/20/16 08:20 Dose: 40 mg Ondansetron HCl (Zofran Inj*) 4 mg IV Q4H PRN PRN Reason: NAUSEA Tiotropium [place] (Spiriva Cap.Inh*) 1 cap INH DAILY [facility] Last Admin: 10/20/16 08:01 Dose: 1 cap Trazodone HCl (Desyrel Tab*) 150 mg PO BEDTIME PRN PRN Reason: SLEEP Vital Signs: Temp Pulse Resp BP Pulse Ox 98.3 F 90 18 116/63 92 10/20/16 07:41 10/20/16 08:02 10/20/16 08:35 10/20/16 07:41 10/20/16 08:02 Oxygen Devices in Use Now: None Appearance: 66 yo gentleman who appears older than stated age. He appears mildly uncomfortable Respiratory: Symmetrical Chest Expansion and Respiratory Effort, Clear to Auscultation Cardiovascular: NL Sounds; No Murmurs; No JVD, RRR Extremities: - - bilateral LE edema, R>L with extreme TTP over the R lower leg Skin: - - RLE erythema Neurological: Alert and Oriented x 3 Result Diagrams: 10/19/16 05:39 10/19/16 05:39 Additional Lab and Data: . Diagnostic Imaging: CTA aorta with runoff - patent R calf anterior and posterior tibial arteries, LLE shows intact flow with evidence of atherosclerosis Echo - EF 40-45% with diastolic dysfunction and dilated IVC Assess/Plan/Problems-Billing Assessment: This is a 66 yo gentleman with COPD, thrombocytopenia, PVD, CAD with h/o AMI, chronic hyponatremia, alcoholism, factor V leiden who presented with c/o RLE pain who was admitted for possible cellulitis. - Patient Problems (1) Acute pain of right lower extremity Comment: Initial treatment for cellulitis, but he has no leukocytosis or fever Arterial studies shows intact flow in the R calf Cont empiric tx for cellulitis with IV abx, switched to Cefazolin Echo demonstrated fluid overload, initiated diuresis with IV Lasix with good response Will attempt compression for further treatment of his LE edema in hopes it will help improve his pain (2) Chronic combined systolic and diastolic CHF (congestive heart failure) Comment: Echo demonstrates mild fluid overload, but no evidence of acute exacerbation EF 40-45% Start IV Lasix (3) COPD (chronic obstructive pulmonary disease) Comment: Few wheezes on exam but no hypoxia or resp distress to suggest exacerbation Cont home inhalers and prn DuoNebs (4) PVD (peripheral vascular disease) Comment: Start ASA Cont atorvastatin and cilostazol (5) CAD (coronary artery disease) Comment: No evidence of ACS Cont med management (6) Hyponatremia Comment: Mild and appears chronic Asymptomatic, will cont to monitor (7) Alcoholism Comment: No evidence of acute withdrawal at this time (8) Factor V Leiden mutation Comment: Reported h/o of anticoagulation, but patient is unclear on this history (9) Full code status (10) DVT prophylaxis Comment: SQ heparin Status and Disposition: Inpatient. Anticipate dc in 1-2d
--- NOTE | 2016-10-20 18:57 | PN ---
Hospitalist Progress Note Patient's family arrived this evening and provided a history to his nurse that he has a h/o prosthesis infection and has been on suppressive antibiotic therapy. Will order contrasted MRI to eval for osteomyelitis that may explain his pain and indolent history. Patient's family has also requested an orthopedic evaluation which can be addressed tomorrow.
--- NOTE | 2016-10-20 21:21 | RAD ---
INDICATION: Right lower extremity pain evaluate for osteomyelitis. COMPARISON: Comparison is made with a prior CT of the abdomen and pelvis and lower extremities from October 18, 2016 and a prior x-ray study of the right knee from June 29, 2015. TECHNIQUE: Axial, sagittal and coronal T1 and T2-weighted images of the right lower leg were obtained. The exam is limited due to motion artifact. The patient refused intravenous contrast and refused to finish the study. FINDINGS: There is a metallic knee prostheses which causes artifact limiting the study. There is diffuse soft tissue swelling present throughout the right lower leg. No focal fluid collection or abscess is seen. No bone marrow edema or suspicious findings for osteomyelitis are seen. IMPRESSION: LIMITED STUDY, NO GROSS EVIDENCE FOR OSTEOMYELITIS OR ABSCESS.
[2016-10-21] MEDS: Morphine INJ* 2 MG/ML 1 ML SYRINGE IV PRN ×2 (04:07→08:23)
[2016-10-21] MEDS: Heparin VIAL(*) 5000 UNITS/ML VIAL (FIVE THOUSAND) SUBCUT SCH ×3 (05:53→21:00)
--- NOTE | 2016-10-21 08:04 | PN ---
Subjective Date of Service: 10/21/16 Interval History: Mr. Miller reports severe pain to his right leg, from the knee down into his foot. He notes that he has had severe pain for quite some time. He denies chest pain, SOB, nausea, or abdominal pain. Objective Active Medications: Acetaminophen (Tylenol Tab*) 650 mg PO Q4H PRN Albuterol/Ipratropium (Duoneb (Albuterol 2.5 Mg/Ipratropium 0.5 Mg)) 1 neb INH Q4H PRN Aspirin (Aspirin Low Dose Tab*) 81 mg PO DAILY JORDON Atorvastatin Calcium (Lipitor*) 10 mg PO DAILY JORDON Cilostazol (Pletal Tab*) 100 mg PO DAILY JORDON Device (Tiotropium Inhaler Device*) 1 each .SEE ORDER .USE w/ SPIRIVA CAPS JORDON Heparin Sodium (Porcine) (Heparin Vial(*)) 5,000 units SUBCUT Q8HR JORDON Hydromorphone HCl (Dilaudid Iv*) 1 mg IV SLOW PU Q4H PRN Cefazolin Sodium 1 gm/ Sodium (Chloride) 50 mls @ 200 mls/hr IVPB Q8H JORDON Morphine Sulfate (Morphine Inj (Syringe)*) 2 mg IV Q2H PRN Omeprazole (Prilosec Cap*) 40 mg PO DAILY JORDON Ondansetron HCl (Zofran Inj*) 4 mg IV Q4H PRN Tiotropium [place] (Spiriva Cap.Inh*) 1 cap INH DAILY JORDON Trazodone HCl (Desyrel Tab*) 150 mg PO BEDTIME PRN Vital Signs 10/20/16 10/20/16 10/20/16 08:00 08:02 08:35 Temperature Pulse Rate 90 Respiratory 18 14 18 Rate Blood Pressure (mmHg) O2 Sat by Pulse 92 Oximetry 10/20/16 10/20/16 10/20/16 09:35 11:26 14:45 Temperature 98.9 F Pulse Rate 102 Respiratory 18 16 18 Rate Blood Pressure 109/50 (mmHg) O2 Sat by Pulse 94 Oximetry 10/20/16 10/20/16 10/20/16 15:40 15:45 19:27 Temperature 98.5 F 98.4 F Pulse Rate 92 89 Respiratory 16 18 20 Rate Blood Pressure 116/55 114/55 (mmHg) O2 Sat by Pulse 95 96 Oximetry 10/20/16 10/20/16 10/20/16 20:00 23:17 23:49 Temperature 98.7 F Pulse Rate 86 Respiratory 18 17 18 Rate Blood Pressure 114/49 (mmHg) O2 Sat by Pulse 96 Oximetry 10/21/16 10/21/16 10/21/16 00:49 03:40 04:07 Temperature 98.7 F Pulse Rate 75 Respiratory 16 16 18 Rate Blood Pressure 122/59 (mmHg) O2 Sat by Pulse 98 Oximetry 10/21/16 05:07 Temperature Pulse Rate Respiratory 18 Rate Blood Pressure (mmHg) O2 Sat by Pulse Oximetry Oxygen Devices in Use Now: None Appearance: Male sitting up in chair in NAD Eyes: No Scleral Icterus Ears/Nose/Mouth/Throat: Mucous Membranes Moist Neck: Trachea Midline Respiratory: Symmetrical Chest Expansion and Respiratory Effort, Clear to Auscultation Cardiovascular: NL Sounds; No Murmurs; No JVD Abdominal: NL Sounds; No Tenderness; No Distention Lymphatic: No Cervical Adenopathy Extremities: - - +1 edema, compression jorge wraps in place Skin: No Rash or Ulcers Neurological: Alert and Oriented x 3, NL Muscle Strength and Tone Result Diagrams: 10/19/16 05:39 10/19/16 05:39 Additional Lab and Data: . Diagnostic Imaging: CTA aorta with runoff - patent R calf anterior and posterior tibial arteries, LLE shows intact flow with evidence of atherosclerosis Echo - EF 40-45% with diastolic dysfunction and dilated IVC Assess/Plan/Problems-Billing Assessment: Mr. Miller is a 66 yo gentleman with COPD, thrombocytopenia, PVD, CAD with h/o AMI, chronic hyponatremia, alcoholism, factor V leiden who presented with c/ o RLE pain who was admitted for possible cellulitis. - Patient Problems (1) Acute pain of right lower extremity Comment: - Patient reports chronic right lower extremity pain, unclear that there has been any acute change based on his description today. - Stop cefazolin, no clear evidence for cellulitis. Resume routine amoxicillin for hx of joint prosthesis infection. - Arterial studies shows intact flow in the R calf. Continue pletal for PVD. - No evidence of infection to right knee prosthesis, MRI negative, CRP essentially normal. - No evidence of DVT, doppler negative. - Continue lasix and compression for edema with new weeping noted at PCP visit which prompted referral to ED. - Continue tramadol and oxycodone for now. (2) COPD (chronic obstructive pulmonary disease) Comment: - Patient with wheezing that appears to be all upper airway. Lungs are essentially clear to ausculation. - No evidence of acute exacerbation. - Cont spiriva and duonebs prn, monitor closely. (3) Alcoholism Comment: - No evidence of acute withdrawal. (4) CAD (coronary artery disease) Comment: - Asymptomatic. - Continue aspirin and atorvastatin. (5) Chronic combined systolic and diastolic CHF (congestive heart failure) Comment: - Echo demonstrates EF 40-45%. - Switch to po lasix. (6) Factor V Leiden mutation Comment: - Patient no longer on anticoagulation due to hx of GI bleed. (7) Anemia Comment: - Chronic normocytic, but Hgb drifting down during this admission. - Check stool for occult blood. Check iron, B12, folate. Suspect secondary to chronic alcoholism. - Dr. Covington's records note iron deficiency anemia, start iron supplementation with senna to prevent constipation. (8) Hyponatremia Comment: - Asymptomatic, mild, chronic. - Monitor. 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 - Noted to be on amoxicillin suppressive therapy "for life" per Dr. Covington. (10) DVT prophylaxis Comment: - SQ heparin (11) Full code status Status and Disposition: Inpatient.
[2016-10-21] MEDS: Omeprazole CAP* 20 MG PO SCH (08:22)
[2016-10-21] MEDS: Cilostazol TAB* 100 MG PO SCH (08:22)
[2016-10-21] MEDS: Tiotropium CAP.INH* CAP.INH/18 MCG INH SCH (08:22)
[2016-10-21] MEDS: Atorvastatin* 10 MG TAB PO SCH (08:23)
[2016-10-21] MEDS: ceFAZolin 1 GM VIAL(*) 1 GM in NS 0.9% 50 ML* 50 ML IVPB SCH (08:23)
[2016-10-21] MEDS: Aspirin Low Dose CHEW TAB* 81 MG PO SCH (08:23)
[2016-10-21] MEDS: Ferrous Sulfate TAB* 325 MG PO SCH (08:37)
[2016-10-21] MEDS: Amoxicillin PO (*) 500 MG CAP PO SCH ×3 (11:00→21:01)
[2016-10-21] MEDS: Furosemide TAB* 20 MG PO SCH (11:00)
[2016-10-21] MEDS: oxyCODONE/Acetamin 5/325 MG* TAB PO PRN ×4 (11:00→23:24)
[2016-10-21 11:12] LABS: Folate 9.83 ng/mL (>3.99)
[2016-10-21] MEDS: Senna TAB PO SCH (21:01)
[2016-10-22] MEDS: oxyCODONE/Acetamin 5/325 MG* TAB PO PRN ×3 (03:39→15:05)
[2016-10-22] MEDS: Heparin VIAL(*) 5000 UNITS/ML VIAL (FIVE THOUSAND) SUBCUT SCH ×3 (05:30→21:33)
[2016-10-22] MEDS: Tiotropium CAP.INH* CAP.INH/18 MCG INH SCH (07:36)
[2016-10-22] MEDS: Atorvastatin* 10 MG TAB PO SCH (08:06)
[2016-10-22] MEDS: Ferrous Sulfate TAB* 325 MG PO SCH (08:06)
[2016-10-22] MEDS: Aspirin Low Dose CHEW TAB* 81 MG PO SCH (08:06)
[2016-10-22] MEDS: Omeprazole CAP* 20 MG PO SCH (08:06)
[2016-10-22] MEDS: Cilostazol TAB* 100 MG PO SCH (08:06)
[2016-10-22] MEDS: Amoxicillin PO (*) 500 MG CAP PO SCH ×3 (08:06→21:14)
[2016-10-22] MEDS: Furosemide TAB* 20 MG PO SCH (08:07)
--- NOTE | 2016-10-22 12:14 | PN ---
Subjective Date of Service: 10/22/16 Interval History: Mr. Miller states that he is feeling relatively well today. He continues to have pain in his right knee but it is better than yesterday. He is not interested in continuing with oxycodone now and would like to go back to his tramadol. He denies chest pain, SOB, nausea, or abdominal pain. Objective Active Medications: Acetaminophen (Tylenol Tab*) 650 mg PO Q4H PRN Albuterol/Ipratropium (Duoneb (Albuterol 2.5 Mg/Ipratropium 0.5 Mg)) 1 neb INH Q4H PRN Amoxicillin (Amoxicillin Po (*)) 500 mg PO TID JORDON Aspirin (Aspirin Low Dose Tab*) 81 mg PO DAILY JORDON Atorvastatin Calcium (Lipitor*) 10 mg PO DAILY JORDON Cilostazol (Pletal Tab*) 100 mg PO DAILY JORDON Device (Tiotropium Inhaler Device*) 1 each .SEE ORDER .USE w/ SPIRIVA CAPS JORDON Ferrous Sulfate (Ferrous Sulfate Tab*) 325 mg PO DAILY JORDON Furosemide (Lasix Tab*) 20 mg PO DAILY JORDON Heparin Sodium (Porcine) (Heparin Vial(*)) 5,000 units SUBCUT Q8HR JORDON Omeprazole (Prilosec Cap*) 40 mg PO DAILY JORDON Ondansetron HCl (Zofran Inj*) 4 mg IV Q4H PRN Oxycodone/Acetaminophen (Percocet 5/325 Tab*) 1 tab PO Q4H PRN Oxycodone/Acetaminophen (Percocet 5/325 Tab*) 2 tab PO Q4H PRN Senna (Senokot Tab*) 1 tab PO BEDTIME JORDON Tiotropium [place] (Spiriva Cap.Inh*) 1 cap INH DAILY JORDON Trazodone HCl (Desyrel Tab*) 150 mg PO BEDTIME PRN Vital Signs 10/21/16 10/21/16 10/21/16 15:16 15:28 17:22 Temperature 98.3 F Pulse Rate 94 Respiratory 20 20 18 Rate Blood Pressure 110/48 (mmHg) O2 Sat by Pulse 94 Oximetry 10/21/16 10/21/16 10/21/16 19:28 19:33 20:00 Temperature 98.6 F Pulse Rate 87 Respiratory 18 16 18 Rate Blood Pressure 116/54 (mmHg) O2 Sat by Pulse 93 Oximetry 10/21/16 10/21/16 10/22/16 23:24 23:36 01:24 Temperature 98.0 F Pulse Rate 85 Respiratory 16 16 18 Rate Blood Pressure 117/62 (mmHg) O2 Sat by Pulse 95 Oximetry 10/22/16 10/22/16 10/22/16 03:06 03:37 03:39 Temperature 98.0 F Pulse Rate 81 Respiratory 18 16 16 Rate Blood Pressure 124/68 (mmHg) O2 Sat by Pulse 98 Oximetry 10/22/16 10/22/16 10/22/16 05:31 07:22 08:00 Temperature 98.4 F Pulse Rate 74 Respiratory 16 16 18 Rate Blood Pressure 115/60 (mmHg) O2 Sat by Pulse 93 Oximetry 10/22/16 10/22/16 08:06 11:22 Temperature 97.9 F Pulse Rate 86 Respiratory 18 16 Rate Blood Pressure 108/60 (mmHg) O2 Sat by Pulse 93 Oximetry Oxygen Devices in Use Now: None Appearance: Male sitting up in bed in NAD Eyes: No Scleral Icterus Ears/Nose/Mouth/Throat: Mucous Membranes Moist Neck: Trachea Midline Respiratory: Symmetrical Chest Expansion and Respiratory Effort, Clear to Auscultation Cardiovascular: NL Sounds; No Murmurs; No JVD Abdominal: NL Sounds; No Tenderness; No Distention Lymphatic: No Cervical Adenopathy Extremities: - - R knee contracted, +1 edema with compression stockings on Neurological: Alert and Oriented x 3, - Nutrition: Taking PO's Result Diagrams: 10/19/16 05:39 10/19/16 05:39 Additional Lab and Data: . Diagnostic Imaging: CTA aorta with runoff - patent R calf anterior and posterior tibial arteries, LLE shows intact flow with evidence of atherosclerosis Echo - EF 40-45% with diastolic dysfunction and dilated IVC Assess/Plan/Problems-Billing Assessment: Mr. Miller is a 66 yo gentleman with COPD, thrombocytopenia, PVD, CAD with h/o AMI, chronic hyponatremia, alcoholism, factor V leiden who presented with c/ o RLE pain who was admitted for possible cellulitis. - Patient Problems (1) Acute pain of right lower extremity Comment: - Patient reports chronic right lower extremity pain, unclear that there has been any acute change based on his description. - Stop cefazolin, no clear evidence for cellulitis. Resume routine amoxicillin for hx of joint prosthesis infection. - Arterial studies shows intact flow in the R calf. Continue pletal for PVD. - No evidence of infection to right knee prosthesis, MRI negative, CRP essentially normal. - No evidence of DVT, doppler negative. - Continue lasix and compression for edema with new weeping noted at PCP visit which prompted referral to ED. - Continue tramadol and oxycodone for now. (2) COPD (chronic obstructive pulmonary disease) Comment: - Patient with wheezing that appears to be all upper airway. Lungs are essentially clear to ausculation. - No evidence of acute exacerbation. - Cont spiriva and duonebs prn, monitor closely. (3) Alcoholism Comment: - No evidence of acute withdrawal. (4) CAD (coronary artery disease) Comment: - Asymptomatic. - Continue aspirin and atorvastatin. (5) Chronic combined systolic and diastolic CHF (congestive heart failure) Comment: - Echo demonstrates EF 40-45%. - Switch to po lasix. (6) Factor V Leiden mutation Comment: - Patient no longer on anticoagulation due to hx of GI bleed. (7) Anemia Comment: - Chronic normocytic, but Hgb drifting down during this admission. - Check stool for occult blood. Check iron, B12, folate. Suspect secondary to chronic alcoholism. - Dr. Covington's records note iron deficiency anemia, start iron supplementation with senna to prevent constipation. (8) Hyponatremia Comment: - Asymptomatic, mild, chronic. - Monitor. 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 - Noted to be on amoxicillin suppressive therapy "for life" per Dr. Covington. (10) DVT prophylaxis Comment: - SQ heparin (11) Full code status Status and Disposition: Inpatient. Patient from home, concern for safety of living situation with son. Hearing Impaired [employer]iner[employer] following.
[2016-10-22] MEDS: Senna TAB PO SCH (21:15)
[2016-10-23] MEDS: oxyCODONE/Acetamin 5/325 MG* TAB PO PRN (04:10)
[2016-10-23] MEDS: Heparin VIAL(*) 5000 UNITS/ML VIAL (FIVE THOUSAND) SUBCUT SCH (05:27)
[2016-10-23] MEDS ORDERED: traMADol TAB* 50 MG PO PRN (07:19)
[2016-10-23] MEDS: Tiotropium CAP.INH* CAP.INH/18 MCG INH SCH (07:58)
[2016-10-23 09:10] VITALS: BP 114/59
[2016-10-23] MEDS: Cilostazol TAB* 100 MG PO SCH (09:20)
[2016-10-23] MEDS: Furosemide TAB* 20 MG PO SCH (09:20)
[2016-10-23] MEDS: Amoxicillin PO (*) 500 MG CAP PO SCH (09:20)
[2016-10-23] MEDS: Omeprazole CAP* 20 MG PO SCH (09:20)
[2016-10-23] MEDS: Aspirin Low Dose CHEW TAB* 81 MG PO SCH (09:20)
[2016-10-23] MEDS: Ferrous Sulfate TAB* 325 MG PO SCH (09:21)
[2016-10-23] MEDS: Atorvastatin* 10 MG TAB PO SCH (09:21)
--- NOTE | 2016-10-23 09:51 | PN ---
Subjective Date of Service: 10/23/16 Interval History: Mr. Miller is eager for discharge to home. He continues to complain of chronic right knee pain. He denies chest pain, SOB, nausea, or abdominal pain. Objective Active Medications: Acetaminophen (Tylenol Tab*) 650 mg PO Q4H PRN Albuterol/Ipratropium (Duoneb (Albuterol 2.5 Mg/Ipratropium 0.5 Mg)) 1 neb INH Q4H PRN Amoxicillin (Amoxicillin Po (*)) 500 mg PO TID JORDON Aspirin (Aspirin Low Dose Tab*) 81 mg PO DAILY JORDON Atorvastatin Calcium (Lipitor*) 10 mg PO DAILY JORDON Cilostazol (Pletal Tab*) 100 mg PO DAILY JORDON Device (Tiotropium Inhaler Device*) 1 each .SEE ORDER .USE w/ SPIRIVA CAPS JORDON Ferrous Sulfate (Ferrous Sulfate Tab*) 325 mg PO DAILY JORDON Furosemide (Lasix Tab*) 20 mg PO DAILY JORDON Heparin Sodium (Porcine) (Heparin Vial(*)) 5,000 units SUBCUT Q8HR JORDON Omeprazole (Prilosec Cap*) 40 mg PO DAILY JORDON Ondansetron HCl (Zofran Inj*) 4 mg IV Q4H PRN Senna (Senokot Tab*) 1 tab PO BEDTIME JORDON Tiotropium [place] (Spiriva Cap.Inh*) 1 cap INH DAILY JORDON Tramadol HCl (Ultram*) 100 mg PO Q6HR PRN Trazodone HCl (Desyrel Tab*) 150 mg PO BEDTIME PRN Vital Signs 10/22/16 10/22/16 10/22/16 10:06 11:22 15:05 Temperature 97.9 F Pulse Rate 86 Respiratory 16 16 16 Rate Blood Pressure 108/60 (mmHg) O2 Sat by Pulse 93 Oximetry 10/22/16 10/22/16 10/22/16 15:17 17:05 20:00 Temperature 98.0 F Pulse Rate 91 Respiratory 16 18 16 Rate Blood Pressure 122/63 (mmHg) O2 Sat by Pulse 97 Oximetry 10/22/16 10/23/16 10/23/16 20:01 00:13 04:00 Temperature 98.4 F 98.6 F 98.4 F Pulse Rate 87 79 82 Respiratory 16 16 18 Rate Blood Pressure 128/50 111/55 126/59 (mmHg) O2 Sat by Pulse 95 94 94 Oximetry 10/23/16 10/23/16 10/23/16 04:10 06:10 07:35 Temperature 98.9 F Pulse Rate 66 Respiratory 20 16 22 Rate Blood Pressure 114/59 (mmHg) O2 Sat by Pulse 96 Oximetry 10/23/16 10/23/16 10/23/16 07:59 08:00 09:21 Temperature Pulse Rate 68 Respiratory 14 22 16 Rate Blood Pressure (mmHg) O2 Sat by Pulse 92 Oximetry Oxygen Devices in Use Now: None Appearance: Male sitting up in chair in NAD Eyes: No Scleral Icterus Ears/Nose/Mouth/Throat: Mucous Membranes Moist Neck: Trachea Midline Respiratory: Symmetrical Chest Expansion and Respiratory Effort, Clear to Auscultation Cardiovascular: NL Sounds; No Murmurs; No JVD Abdominal: NL Sounds; No Tenderness; No Distention Lymphatic: No Cervical Adenopathy Extremities: - - Improved edema to B LEs, no further weeping noted today Skin: No Rash or Ulcers Neurological: Alert and Oriented x 3, NL Muscle Strength and Tone, - - Right knee contracted Nutrition: Taking PO's Result Diagrams: 10/19/16 05:39 10/19/16 05:39 Additional Lab and Data: . Microbiology and Other Data: Microbiology 10/21/16 14:30 Stool Occult Blood (MAHNAZ) - Final Stool Diagnostic Imaging: CTA aorta with runoff - patent R calf anterior and posterior tibial arteries, LLE shows intact flow with evidence of atherosclerosis Echo - EF 40-45% with diastolic dysfunction and dilated IVC Assess/Plan/Problems-Billing Assessment: Mr. Miller is a 66 yo gentleman with COPD, thrombocytopenia, PVD, CAD with h/o AMI, chronic hyponatremia, alcoholism, factor V leiden who presented with c/ o RLE pain who was admitted for possible cellulitis. - Patient Problems (1) Acute pain of right lower extremity Comment: - Patient reports chronic right lower extremity pain, unclear that there has been any acute change based on his description. - Stop cefazolin, no clear evidence for cellulitis. Resume routine amoxicillin for hx of joint prosthesis infection. - Arterial studies shows intact flow in the R calf. Continue pletal for PVD. - No evidence of infection to right knee prosthesis, MRI negative, CRP essentially normal. - No evidence of DVT, doppler negative. - Continue lasix and compression for edema with new weeping noted at PCP visit which prompted referral to ED. - Continue tramadol for pain, patient not a good candidate for opiate therapy as PCP notes that he is often lost to follow up outpatient. (2) COPD (chronic obstructive pulmonary disease) Comment: - Patient with wheezing that appears to be all upper airway. Lungs are essentially clear to ausculation. - No evidence of acute exacerbation. - Cont spiriva and duonebs prn, monitor closely. (3) Alcoholism Comment: - No evidence of acute withdrawal. (4) CAD (coronary artery disease) Comment: - Asymptomatic. - Continue aspirin and atorvastatin. (5) Chronic combined systolic and diastolic CHF (congestive heart failure) Comment: - Echo demonstrates EF 40-45%. - Switch to po lasix. (6) Factor V Leiden mutation Comment: - Patient no longer on anticoagulation due to hx of GI bleed. (7) Anemia Comment: - Chronic normocytic, but Hgb drifting down during this admission. - Stool for occult blood negative. Suspect secondary to chronic alcoholism. - Dr. Covington's records note iron deficiency anemia, start iron supplementation with senna to prevent constipation. (8) Hyponatremia Comment: - Asymptomatic, mild, chronic. - Monitor. 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 - Noted to be on amoxicillin suppressive therapy "for life" per Dr. Covington. (10) DVT prophylaxis Comment: - SQ heparin (11) Full code status Status and Disposition: Inpatient. Reviewed discharge plan with nurse outreach case manager and patient's family. Patient appears to be safe at home at this point with support from his son. Discharge to home.
--- NOTE | 2016-10-23 22:37 | DS ---
CC: Dr. Covington * HOSPITAL MEDICINE DISCHARGE SUMMARY: DATE OF ADMISSION: 10/17/16 DATE OF DISCHARGE: 10/23/16 PRIMARY CARE PHYSICIAN: Dr. Covington. ATTENDING PHYSICIAN: Dr. Hernan Huddleston * (dictation provided by Georgette Drake NP ) PRIMARY DIAGNOSES: 1. Acute on chronic right lower extremity pain. 2. Acute on chronic congestive heart failure exacerbation with lower extremity edema. SECONDARY DIAGNOSES: 1. Chronic obstructive pulmonary disease. 2. History of alcoholism. 3. History of coronary artery disease, history of myocardial infarction. 4. History of chronic combined systolic and diastolic congestive heart failure. 5. History of factor V Leiden mutation, not on anticoagulation due to gastrointestinal bleed. 6. Chronic iron deficiency anemia. 7. Chronic hyponatremia, mild. 8. History of infection of prosthetic knee joint with Clostridium perfringens since 2013. 9. Chronic thrombocytopenia. 10. Peripheral vascular disease. 11. History of gastrointestinal bleed. PAST SURGICAL HISTORY: 1. Distal femur replacement. 2. Right hip ORIF. 3. Right hip replacement. 4. Hernia repair. 5. Ear surgery. MEDICATIONS: 1. Spiriva 1 cap inhaled q.a.m. 2. Atorvastatin 10 mg p.o. daily. 3. Cyanocobalamin 1000 mg p.o. daily. 4. Pletal 100 mg p.o. daily. 5. Amoxicillin 500 mg p.o. t.i.d. 6. Tylenol 650 mg p.o. q.4 hours p.r.n. 7. Vitamin D3 1000 units p.o. daily. 8. Multivitamin with minerals 1 tab p.o. daily. 9. Tramadol 100 mg p.o. q.6 hours p.r.n. pain. 10. Omeprazole 40 mg p.o. daily. 11. Trazodone 150 mg p.o. at bedtime p.r.n. 12. Senna 1 tab p.o. at bedtime. 13. Polyethylene glycol 17 g p.o. daily p.r.n. constipation. 14. Furosemide 20 mg p.o. daily. 15. Ferrous sulfate 325 mg p.o. daily. I called the patient's pharmacy to determine if he has been on Dilantin, per them he has not picked that up since June. At this point, I am not continuing it until he follows up with Dr. Covington to discuss its indications and necessity. HOSPITAL COURSE: Mr. Miller is a 66-year-old male with a past medical history of coronary artery disease with ID, chronic alcoholism, chronic nicotine use with COPD, and contracted right knee with history of infected right knee hardware, as well as combined diastolic and systolic CHF, who presented to the hospital on 10/17/16, with concern for shortness of breath and drainage from the legs noted at primary care physician's office. Please see dictated H and P from Dr. Cory Patino for complete details. In brief, I spoke with Dr. Covington on the phone, she indicated that the patient appeared short of breath at rest in her office. He also had significant drainage from his legs and they were both very swollen. She, therefore, requested that he come to the emergency room for evaluation. In the emergency room, the patient had labs that were essentially unremarkable just reflecting his chronic anemia and chronic hyponatremia. He had no evidence of infection with a normal white blood cell count and he was afebrile and his vital signs are stable. He had a venous Doppler study of the right lower extremity, which showed no evidence for DVT. He had a chest x-ray that showed small bibasilar infiltrates only, although this was not interpreted to reflect a true pneumonia based on paucity of other evidence to support that. Initially, it was felt that Mr. Miller had cellulitis and he was admitted for treatment of that with vancomycin and Zosyn. Mr. Miller had a transthoracic echocardiogram on 10/18/16, which showed persistent estimated ejection fraction of 40% to 45% with abnormal diastolic filling observed. It showed a new moderate pulmonary hypertension. The patient also had an aorta with run-off CTA, which showed " hardware is noted in the right lower extremity, the calf vessels demonstrate patent posterior tibial and anterior tibial arteries. The left lower extremity demonstrates 3-vessel run off with atherosclerosis throughout. The aorta and iliac arteries demonstrate atherosclerosis." Though it was initially felt that Mr. Miller had cellulitis, as his hospitalization unfolded, it was felt more likely that the patient had lower extremity edema related to his CHF without clear evidence of infection. He had been switched over to cefazolin and this was ultimately discontinued. He has done well with Lasix therapy and compression wraps to both legs. He now has significantly decreased edema and no further weeping noted. There is no erythema or purulent drainage to suggest infection. Because of the patient's history of infected hardware to his right knee back in 2013, he did undergo a lower extremity MRI on 10/20/16. It showed "limited study, no gross evidence for osteomyelitis or abscess." It was not felt that there was any evidence that the extremity was newly infected and the plan was to continue the patient's routine amoxicillin. Mr. Miller has severe contractures to the right knee, and therefore, he has to sit up in the chair at all times due to the fact that he feels very uncomfortable lying in bed. I considered initiating narcotic therapy regimen for his pain so he could have greater mobility; however, on discussing this with Dr. Covington, she noted that the patient was frequently lost to follow up and due to his history of alcoholism and limited support system that narcotics might not be the best option. I spoke with Mr. Miller about this as well and he is agreeing to continue on his tramadol therapy. I will note that he certainly remains uncomfortable and has limited mobility and that he would benefit from greater analgesia if he comes into a situation where he has greater stability in his home life. Mr. Miller is doing well today. Plans are for him to be discharged to home to follow up closely with Dr. Covington in her office, an appointment will be made for him. He is also noted to be following up with the wound clinic for open area on his leg. DISPOSITION: Home. DIET: Low salt. ACTIVITY: As tolerated. FOLLOWUP PLANS: Please follow up with Dr. Covington, an appointment will be made in the next 1 to 2 weeks. TIME SPENT: Approximately 60 minutes was spent in the discharge of this patient , more than half the time spent with the patient at the bedside reviewing the events leading up to this hospitalization, performing the physical examination, and reviewing my plan of care. GEORGETTE DRAKE NP [id number]/CPS #: [id number] MTDD
== END 2016-10-23 12:40 | disposition home or self-care (01) | DRG 602 ==
LOC: ED 16:20 → MED 20:11
PROVIDERS: ADMIT Internal Medicine; ATTEND Internal Medicine
DX: L03.115 Cellulitis of right lower limb (principal); I50.43 Acute on chronic combined systolic (congestive) and diastolic (congestive) heart failure; D68.51 Activated protein C resistance; D69.6 Thrombocytopenia, unspecified; E87.1 Hypo-osmolality and hyponatremia; I73.9 Peripheral vascular disease, unspecified; J44.9 Chronic obstructive pulmonary disease, unspecified; I25.10 Atherosclerotic heart disease of native coronary artery without angina pectoris; D50.9 Iron deficiency anemia, unspecified; Z96.641 Presence of right artificial hip joint; F10.20 Alcohol dependence, uncomplicated; Y90.1 Blood alcohol level of 20-39 mg/100 ml; F17.210 Nicotine dependence, cigarettes, uncomplicated; K21.9 Gastro-esophageal reflux disease without esophagitis; M81.0 Age-related osteoporosis without current pathological fracture; Z82.49 Family history of ischemic heart disease and other diseases of the circulatory system; I25.2 Old myocardial infarction; Z80.9 Family history of malignant neoplasm, unspecified
CPT/HCPCS: 36415; 71020; 75635; 80048; 80053; 80202; 81003; 82272; 82607; 82728; 82746; 83540; 83550; 83605; 85025; 85060; 86140; 87040; 93005; 93306; 94640; A9270-GY; J0690; J1644; J1940; J2270; J2543; J3370; Q9967

== ENCOUNTER 2017-04-10 11:41 | Emergency (ER) | payer MEDICARE, MEDICAID ==
[2017-04-10] MEDS ORDERED: NS 0.9% 1000 ML*IV.FLUID IV ONE (12:06)
[2017-04-10] MEDS ORDERED: Cefepime(*) 2 GM in NS 0.9% 50 ML* 50 ML IVPB ONE (12:12)
[2017-04-10] MEDS ORDERED: metroNIDAZOLE IV 500 MG/100ML* 500 MG/100 ML BAG IVPB ONE (12:12)
[2017-04-10] MEDS ORDERED: Vancomycin(*) 1,000 MG in NS 0.9% 250 ML* 250 ML IVPB ONE (12:12)
[2017-04-10] MEDS ORDERED: NS 0.9% 50 ML* 100 ML ONE (12:20)
[2017-04-10] MEDS ORDERED: NS 0.9% 250 ML* 500 ML ONE (12:20)
[2017-04-10] MEDS ORDERED: Cefepime 2 GM in Dextrose(*) 2 GM/50 ML BAG IV STA (12:23)
[2017-04-10 12:24] LABS: Hematocrit 35 % (42-52); Hemoglobin 11.5 g/dl (14.0-18.0); Mean Corpuscular HGB Conc 33 g/dl (31-36); Mean Corpuscular Hemoglobin 27 pg (27-31); Mean Corpuscular Volume 81 fL (80-94); Mean Platelet Volume 8 um3 (7.4-10.4); Platelet Count 379 10^3/ul (150-450); Red Blood Count 4.36 10^6/ul (4.0-5.4); Red Cell Distribution Width 22 % (10.5-15); White Blood Count 31.1 10^3/ul (3.5-10.8)
[2017-04-10] MEDS ORDERED: Vancomycin(*) 1,000 MG in NS 0.9% 250 ML* 250 ML IVPB STA (12:25)
[2017-04-10 12:40] LABS: INR 1.67 (0.77-1.02)
[2017-04-10 12:41] LABS: EGFR Non-African American 186.7 (>60)
[2017-04-10 12:47] LABS: Urine Appearance Clear; Urine Blood 1+ (Negative); Urine Color Amber; Urine Ketones Trace (Negative); Urine Protein 1+(30 mg/dL) (Negative); Urine Specific Gravity 1.017 (1.010-1.030); Urine Urobilinogen Negative (Negative)
--- NOTE | 2017-04-10 13:05 | RAD ---
Indication: Altered mental status. Severe swelling to lower abdomen radiating to both feet. COPD. Comparison: October 17, 2016 chest radiograph and October 18, [address] Technique: Upright AP 1227 hours Report: Chronic RIGHT lower lobe volume loss with partial atelectasis. Small dependent RIGHT pleural effusion not excluded. Upper normal heart size. Unremarkable central pulmonary vasculature and mediastinal contours. IMPRESSION: 1.Chronic RIGHT lower lobe volume loss with partial atelectasis. Small dependent RIGHT pleural effusion not excluded. 2. No evidence for pulmonary edema.
[2017-04-10 13:10] LABS: ABS Basophils 0.3 10^3/ul (0-0.2); ABS Eosinophils 0 10^3/ul (0-0.6); ABS Lymphocytes 0.7 10^3/ul (1.0-4.8); ABS Neutrophils 29.1 10^3/ul (1.5-7.7); ABS Nucleated RBC 0 10^3/ul; Eosinophil % 0.1 % (0-6); Lymphocyte % 2.1 % (25-47); Nucleated Red Blood Cells % 0.1
[2017-04-10] MEDS ORDERED: NS 0.9% 1000 ML* 1,000 ML IV SCH (13:45)
--- NOTE | 2017-04-10 14:09 | RAD ---
HISTORY: Altered mental status COMPARISONS: October 05, 2013 TECHNIQUE: Multiple contiguous axial CT scans were obtained of the head without intravenous contrast. FINDINGS: The study is limited by patient motion artifact. HEMORRHAGE/INFARCT: There is no hemorrhage or acute infarct. MASSES/SHIFT: There is no mass or shift. EXTRA-AXIAL SPACES: There are no extra-axial fluid collections. SULCI AND VENTRICLES: There is mild diffuse and proportional enlargement of the sulci and ventricles. CEREBRUM: There are no focal parenchymal abnormalities. BRAINSTEM: There are no focal parenchymal abnormalities. CEREBELLUM: There are no focal parenchymal abnormalities. VESSELS: The vessels are grossly normal. PARANASAL SINUSES: The paranasal sinuses are clear. ORBITS: The orbits are unremarkable. BONES AND SOFT TISSUE: No bone or soft tissue abnormalities are noted. OTHER: None IMPRESSION: NO ACUTE INTRACRANIAL PATHOLOGY.
--- NOTE | 2017-04-10 14:13 | RAD ---
CLINICAL HISTORY: Soft tissue swelling, erythema, altered mental status COMPARISON: September 22, 2013 TECHNIQUE: Multiple contiguous axial CT scans were obtained of the abdomen and pelvis, without intravenous contrast enhancement. Coronal and sagittal multiplanar reformations are submitted for review. Oral contrast was not administered. FINDINGS: The study is limited by the lack of intravenous contrast. This limits evaluation of the solid organs and vasculature. Evaluation is also limited by patient motion artifact. LUNG BASES: There is patchy linear opacification of the right middle lobe LIVER: The liver is normal in shape, size, contour, and attenuation. BILE DUCTS: There is no intrahepatic or extrahepatic biliary dilatation. GALLBLADDER: The gallbladder is normal, without pericholecystic inflammatory change. PANCREAS: The pancreas is normal, without mass or ductal dilatation. SPLEEN: Normal in size and appearance. UPPER GI TRACT: Evaluation of the gastrointestinal tract is limited by incomplete gastric distention. The upper GI tract is unremarkable. SMALL BOWEL AND MESENTERY: The small bowel is normal in contour, course, and caliber. There is no obstruction or dilatation. COLON: The colon is normal in contour, course, caliber. There is no pericolonic inflammatory change. ADRENALS: Normal bilaterally. KIDNEYS: The kidneys are normal in shape, size, contour, and axis. There is no hydronephrosis or nephrolithiasis. BLADDER: The bladder is not well evaluated secondary to streak artifact from a right hip prosthesis, and from the presence of a Etienne catheter. PELVIC ORGANS: The pelvic organs are not well evaluated secondary to streak artifact from a right hip prosthesis. AORTA: There is extensive calcific atherosclerotic disease of the abdominal aorta and its branches, without aneurysmal dilatation IVC: Unremarkable LYMPH NODES: There are enlarged right inguinal lymph nodes measuring up to 1.7 cm in short axis. ABDOMINAL WALL: There is no evidence for abdominal wall hernia. BONES AND SOFT TISSUES: The patient is status post right hip arthroplasty. There is diffuse osteopenia. There are multiple chronic or age indeterminate compression deformities of the lumbar spine, with progression at L3 compared to September 22, 2013. There is no significant osseous retropulsion. There is subcutaneous edema along the right thigh and proximal lower extremity. There is atrophy of the gluteal musculature on the right. OTHER: None IMPRESSION: 1. RIGHT INGUINAL LYMPHADENOPATHY. 2. THERE IS SUBCUTANEOUS EDEMA ALONG THE PROXIMAL RIGHT LOWER EXTREMITY. 3. ATHEROSCLEROSIS. 4. MULTIPLE CHRONIC AND AGE-INDETERMINATE COMPRESSION FRACTURES, WITH PROGRESSION AT L2 TO COMPARED TO SEPTEMBER 22, 2013. THERE IS NO SIGNIFICANT OSSEOUS RETROPULSION.
--- NOTE | 2017-04-10 14:37 | RAD ---
INDICATION: Soft tissue swelling, erythema, deformity. COMPARISON: Comparison is made with a prior x-ray study of the right hip from June 29, 2015 and a prior x-ray study of the right knee from August 08, 2013. TECHNIQUE: Contiguous axial sections were obtained of the right lower extremity. Images were reconstructed in the sagittal and coronal planes. FINDINGS: There is diffuse soft tissue swelling present throughout the right thigh, calf and foot with fluid tracking in the subcutaneous tissues. There is also suggestion of deep soft tissue swelling in the thigh. No focal fluid collection or abscess is seen. The bones are osteopenic. There are total right hip and knee prostheses. There is a transverse slightly comminuted fracture of the mid diaphysis of the femur between the 2 stems of the metallic rods of the prostheses. The fracture fragments are overriding. The distal fragment is displaced one shaft diameter posterior relative to the proximal fragment. In addition the distal fragment is angulated posterior and medial relative to the proximal fragment. There is a catheter within the urinary bladder. No free intraperitoneal fluid is seen. The visualized portion of the small bowel colon appear nondistended. IMPRESSION: 1. THERE IS A DISPLACED ANGULATED PERIPROSTHETIC FRACTURE PRESENT IN THE MID DIAPHYSIS OF THE RIGHT FEMUR LOCATED BETWEEN THE STEMS OF THE TOTAL HIP AND TOTAL KNEE PROSTHESES. 2. FINDINGS MOST CONSISTENT WITH CELLULITIS AND POSSIBLE FASCIITIS IN THE RIGHT LOWER EXTREMITY.
[2017-04-10] MEDS ORDERED: NS 0.9% 1000 ML* 2,000 ML IV ONE (15:02)
[2017-04-10] MEDS ORDERED: Folic Acid IV* 1 MG/0.2 ML SYRINGE IV ONE (15:02)
[2017-04-10] MEDS ORDERED: Thiamine IV* 100 MG/ML 2 ML VIAL IV ONE (15:02)
--- NOTE | 2017-04-10 15:44 | ED ---
Perfecto Garcia Jennifer, scribed for Aashish Hollingsworth MD on 04/10/17 at 1212 . Altered Mental Status - HPI Summary HPI Summary: The patient is a 67 year old male who was brought into the ED with AMS today. The patient was shaking uncontrollably and unresponsive today when his son went to visit him. The patient lives with his brother in a poorly kept house that smells of feces. He was confused, immobile, his right leg was swollen, and he had redness in his lower abdomen. The son reports he did not observe any of these symptoms when he visited his father last week. The son also states that the patient has his heart and artery in his stomach and has blood flow problems in the legs. The patient was told he could lose both legs if he didnt stop smoking, but he never stopped smoking. LEVEL 5 CAVEAT: HPI limited due to AMS. - History Of Current Complaint Chief Complaint: EDAltMentalStatus Stated Complaint: ABD PAIN Time Seen by Provider: 04/10/17 11:49 Hx Obtained From: Family/Quarter Doper, EMS Onset/Duration: Still Present Severity Currently: Severe - Allergies/Home Medications Allergies/Adverse Reactions: Allergies Allergy/AdvReac Type Severity Reaction Status Date / Time fentanyl Allergy Itching Verified 04/10/17 12:19 Home Medications: Home Medications Cholecalciferol TAB* [Vitamin D TAB*] 1,000 unit PO DAILY 04/10/17 [History Confirmed 04/10/17] Cyanocobalamin TAB* [Vitamin B12 TAB*] 1,000 mcg PO DAILY 04/10/17 [History Confirmed 04/10/17] Hydrocortisone 2.5% CREAM(NF) 1 applic TOPICAL BID 04/10/17 [History Confirmed 04/10/17] PMH/Surg Hx/FS Hx/Imm Hx Endocrine/Hematology History: Reports: Hx Blood Disorders - factor 5 clotting disorder Denies: Hx Anticoagulant Therapy, Hx Diabetes, Hx Thyroid Disease Cardiovascular History: Reports: Hx Angina, Hx Coronary Artery Disease, Hx Deep Vein Thrombosis, Hx Myocardial Infarction, Hx Peripheral Vascular Disease, Other Cardiovascular Problems/Disorders - fACTOR V LEIDEN CLOTTING DISORDER Denies: Hx Cardiomegaly, Hx Congestive Heart Failure, Hx Hypertension, Hx Pacemaker/ICD, Hx Rheumatic Fever, Hx Valvular Heart Disease Respiratory History: Reports: Hx Asthma, Hx Chronic Obstructive Pulmonary Disease (COPD), Other Respiratory Problems/Disorders - Group Home smoker Denies: Hx Pulmonary Edema, Hx Pulmonary Embolism GI History: Reports: Hx Gastroesophageal Reflux Disease, Other GI Disorders - HX OF GI BLEED - NO PROBLEMS NOW Denies: Hx Cirrhosis, Hx Crohn's Disease, Hx Hiatal Hernia, Hx Irritable Bowel, Hx Jaundice, Hx Ulcer History: Denies: Hx Renal Disease, Other Problems/Disorders Musculoskeletal History: Reports: Hx Arthritis, Hx Back Problems, Hx Osteoporosis, Other Musculoskeletal History - Fx hip sp fall at home hx Denies: Hx Rheumatoid Arthritis, Hx Bursitis Sensory History: Reports: Hx Cataracts - HAVING CATARACT SURGERY, Hx Contacts or Glasses - for reading, Hx Hearing Problem - deaf R ear, 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 Denies: Hx Hearing Aid Opthamlomology History: Reports: Hx Cataracts - HAVING CATARACT SURGERY, Hx Contacts or Glasses - for reading Neurological History: Denies: Hx Headaches, Hx Migraine, Hx Seizures Comment Only: Other Neuro Impairments/Disorders - NEUROPATHY/HX SUBSTANCE ABUSE Psychiatric History: Reports: Hx Depression, Hx Substance Abuse Denies: Hx Anxiety, Hx Panic Disorder - Cancer History Hx Chemotherapy: No - Surgical History Surgery Procedure, Year, and Place: femur rodding @ [facility] [place] in june 2012; RTHR June 2013; Right total knee replacement august 08 2013, [facility] [place]. right ear surgery, HERNIA REPAIR Hx Anesthesia Reactions: No - Immunization History Date of Tetanus Vaccine: 2010 Date of Influenza Vaccine: None Infectious Disease History: Reports: Hx of Known/Suspected MRSA Denies: Hx Hepatitis - Family History Known Family History: Positive: Cardiac Disease, Other - CANCER - Social History Alcohol Use: Weekly Alcohol Amount: NOT SINCE NEW YEARS Substance Use Type: Reports: None Hx Tobacco Use: Yes Smoking Status (MU): Current Every Day Smoker Type: Cigarettes Amount Used/How Often: 1 - 2 PPD Length of Time of Smoking/Using Tobacco: 50 YEARS Have You Smoked in the Last Year: Yes Review of Systems - ROS Summary Review of Systems Summary: LEVEL 5 CAVET Positive: Other - Right leg swollen, redness of lower abdomen Positive: Other - Confused, unresponsive All Other Systems Reviewed And Are Negative: No - Comments Additional Review of Systems Comments: LEVEL 5 CAVEAT: ROS limited due to AMS. Physical Exam - Summary Physical Exam Summary: General: awake, responds to voice. Skin: warm, color reflects adequate perfusion, dry Head: normal Eyes: EOMI, LATASHA ENT: normal Neck: supple, nontender Respiratory: CTA, breath sounds present Cardiovascular: No pulse is palpated. Capillary refill is poor. Abdomen: soft, nontender Bowel: present Musculoskeletal: Right leg, from the thigh up to the abdomen, is erythematous and swollen. Right foot is dusky. Neurological: sensory/motor intact LEVEL 5 CAVEAT: Physical Exam limited due to AMS. Triage Information Reviewed: Yes Vital Signs On Initial Exam: Initial Vitals Temp Pulse Resp BP Pulse Ox 96.1 F 97 26 156/102 92 04/10/17 12:00 04/10/17 12:00 04/10/17 12:00 04/10/17 12:00 04/10/17 12:00 Vital Signs Reviewed: Yes - [place] Coma Scale Best Eye Response: 4 - Spontaneous Best Motor Response: 5 - Purposeful Movement Best Verbal Response: 4 - Confused Coma Scale Total: 13 Diagnostics - Vital Signs Vital Signs Temp Pulse Resp BP Pulse Ox 04/10/17 15:34 97.5 F 109 28 158/97 96 04/10/17 14:30 109 22 94 04/10/17 14:20 103 26 119/73 96 04/10/17 14:10 100 28 110/73 99 04/10/17 14:08 104/80 04/10/17 14:03 101 29 79/48 90 04/10/17 14:00 90 21 71/47 90 04/10/17 13:51 52 21 91/73 80 04/10/17 13:50 22 04/10/17 13:40 101 22 98 04/10/17 13:30 27 107/90 04/10/17 13:20 19 125/72 04/10/17 13:10 95 25 110/68 97 04/10/17 13:08 94 25 104/51 97 04/10/17 13:00 95 25 108/62 97 04/10/17 12:55 98 04/10/17 12:50 25 04/10/17 12:32 91 26 94 04/10/17 12:30 109/65 04/10/17 12:00 96.1 F 97 26 156/102 92 - Laboratory Lab Results: Lab Results 04/10/17 04/10/17 04/10/17 Range/Units 12:10 12:10 12:10 WBC (3.5-10.8) 10^3/ul RBC (4.0-5.4) 10^6/ul Hgb (14.0-18.0) g/dl Hct (42-52) % MCV (80-94) fL MCH (27-31) pg MCHC (31-36) g/dl RDW (10.5-15) % Plt Count (150-450) 10^3/ul MPV (7.4-10.4) um3 Neut % (Auto) (38-83) % Lymph % (Auto) (25-47) % [place] % (Auto) (1-9) % Eos % (Auto) (0-6) % Baso % (Auto) (0-2) % Absolute Neuts (auto) (1.5-7.7) 10^3/ul Absolute Lymphs (auto) (1.0-4.8) 10^3/ul Absolute Monos (auto) (0-0.8) 10^3/ul Absolute Eos (auto) (0-0.6) 10^3/ul Absolute Basos (auto) (0-0.2) 10^3/ul Absolute Nucleated RBC 10^3/ul Nucleated RBC % INR (Anticoag Therapy) (0.77-1.02) APTT (26.0-36.3) seconds VBG pH (7.33-7.43) VBG pCO2 (41-51) mmHg VBG pO2 (35-45) mmHg VBG HCO3 (24-28) mmol/L VBG O2 Saturation (70-80) % VBG Base Excess (0-4) Sodium 107 L* (133-145) mmol/L Potassium 4.3 (3.5-5.0) mmol/L Chloride 72 L (101-111) mmol/L Carbon Dioxide 25 (22-32) mmol/L Anion Gap 10 (2-11) mmol/L BUN 8 (6-24) mg/dL Creatinine 0.45 L (0.67-1.17) mg/dL Est GFR ( Amer) 240.2 (>60) Est GFR (Non-Af Amer) 186.7 (>60) BUN/Creatinine Ratio 17.8 (8-20) Glucose 81 (70-100) mg/dL Lactic Acid (0.5-2.0) mmol/L Calcium 7.6 L (8.6-10.3) mg/dL Total Bilirubin 0.70 (0.2-1.0) mg/dL AST 52 H (13-39) U/L ALT 27 (7-52) U/L Alkaline Phosphatase 115 H (34-104) U/L Troponin I 0.05 H* (<0.04) ng/mL C-Reactive Protein 147.80 H (< 5.00) mg/L B-Natriuretic Peptide 208 H ( - 100) pg/mL Total Protein 6.3 L (6.4-8.9) g/dL Albumin 2.6 L (3.2-5.2) g/dL Globulin 3.7 (2-4) g/dL Albumin/Globulin Ratio 0.7 L (1-3) Lipase < 10 L (11.0-82.0) U/L Procalcitonin 0.3 (<0.6) ng/mL Urine Color Urine Appearance Urine pH (5-9) Ur Specific [place] (1.010-1.030) Urine Protein (Negative) Urine Ketones (Negative) Urine Blood (Negative) Urine Nitrate (Negative) Urine Bilirubin (Negative) Urine Urobilinogen (Negative) Ur Leukocyte Esterase (Negative) Urine WBC (Auto) (Absent) Urine RBC (Auto) (Absent) Urine Bacteria (Absent) Urine Glucose (Negative) Blood Type Antibody Screen 04/10/17 04/10/17 04/10/17 Range/Units 12:10 12:10 12:10 WBC 31.1 H (3.5-10.8) 10^3/ul RBC 4.36 (4.0-5.4) 10^6/ul Hgb 11.5 L (14.0-18.0) g/dl Hct 35 L (42-52) % MCV 81 (80-94) fL MCH 27 (27-31) pg MCHC 33 (31-36) g/dl RDW 22 H (10.5-15) % Plt Count 379 (150-450) 10^3/ul MPV 8 (7.4-10.4) um3 Neut % (Auto) 93.5 H (38-83) % Lymph % (Auto) 2.1 L (25-47) % [place] % (Auto) 3.2 (1-9) % Eos % (Auto) 0.1 (0-6) % Baso % (Auto) 1.1 (0-2) % Absolute Neuts (auto) 29.1 H (1.5-7.7) 10^3/ul Absolute Lymphs (auto) 0.7 L (1.0-4.8) 10^3/ul Absolute Monos (auto) 1.0 H (0-0.8) 10^3/ul Absolute Eos (auto) 0 (0-0.6) 10^3/ul Absolute Basos (auto) 0.3 H (0-0.2) 10^3/ul Absolute Nucleated RBC 0 10^3/ul Nucleated RBC % 0.1 INR (Anticoag Therapy) 1.67 H (0.77-1.02) APTT 41.4 H (26.0-36.3) seconds VBG pH (7.33-7.43) VBG pCO2 (41-51) mmHg VBG pO2 (35-45) mmHg VBG HCO3 (24-28) mmol/L VBG O2 Saturation (70-80) % VBG Base Excess (0-4) Sodium (133-145) mmol/L Potassium (3.5-5.0) mmol/L Chloride (101-111) mmol/L Carbon Dioxide (22-32) mmol/L Anion Gap (2-11) mmol/L BUN (6-24) mg/dL Creatinine (0.67-1.17) mg/dL Est GFR ( Amer) (>60) Est GFR (Non-Af Amer) (>60) BUN/Creatinine Ratio (8-20) Glucose (70-100) mg/dL Lactic Acid (0.5-2.0) mmol/L Calcium (8.6-10.3) mg/dL Total Bilirubin (0.2-1.0) mg/dL AST (13-39) U/L ALT (7-52) U/L Alkaline Phosphatase (34-104) U/L Troponin I (<0.04) ng/mL C-Reactive Protein (< 5.00) mg/L B-Natriuretic Peptide ( - 100) pg/mL Total Protein (6.4-8.9) g/dL Albumin (3.2-5.2) g/dL Globulin (2-4) g/dL Albumin/Globulin Ratio (1-3) Lipase (11.0-82.0) U/L Procalcitonin (<0.6) ng/mL Urine Color Urine Appearance Urine pH (5-9) Ur Specific [place] (1.010-1.030) Urine Protein (Negative) Urine Ketones (Negative) Urine Blood (Negative) Urine Nitrate (Negative) Urine Bilirubin (Negative) Urine Urobilinogen (Negative) Ur Leukocyte Esterase (Negative) Urine WBC (Auto) (Absent) Urine RBC (Auto) (Absent) Urine Bacteria (Absent) Urine Glucose (Negative) Blood Type O Positive Antibody Screen Negative 04/10/17 04/10/17 04/10/17 Range/Units 12:10 12:20 12:25 WBC (3.5-10.8) 10^3/ul RBC (4.0-5.4) 10^6/ul Hgb (14.0-18.0) g/dl Hct (42-52) % MCV (80-94) fL MCH (27-31) pg MCHC (31-36) g/dl RDW (10.5-15) % Plt Count (150-450) 10^3/ul MPV (7.4-10.4) um3 Neut % (Auto) (38-83) % Lymph % (Auto) (25-47) % [place] % (Auto) (1-9) % Eos % (Auto) (0-6) % Baso % (Auto) (0-2) % Absolute Neuts (auto) (1.5-7.7) 10^3/ul Absolute Lymphs (auto) (1.0-4.8) 10^3/ul Absolute Monos (auto) (0-0.8) 10^3/ul Absolute Eos (auto) (0-0.6) 10^3/ul Absolute Basos (auto) (0-0.2) 10^3/ul Absolute Nucleated RBC 10^3/ul Nucleated RBC % INR (Anticoag Therapy) (0.77-1.02) APTT (26.0-36.3) seconds VBG pH 7.45 H (7.33-7.43) VBG pCO2 36 L (41-51) mmHg VBG pO2 19 L (35-45) mmHg VBG HCO3 24.3 (24-28) mmol/L VBG O2 Saturation 32.2 L (70-80) % VBG Base Excess 1.2 (0-4) Sodium (133-145) mmol/L Potassium (3.5-5.0) mmol/L Chloride (101-111) mmol/L Carbon Dioxide (22-32) mmol/L Anion Gap (2-11) mmol/L BUN (6-24) mg/dL Creatinine (0.67-1.17) mg/dL Est GFR ( Amer) (>60) Est GFR (Non-Af Amer) (>60) BUN/Creatinine Ratio (8-20) Glucose (70-100) mg/dL Lactic Acid 3.9 H* (0.5-2.0) mmol/L Calcium (8.6-10.3) mg/dL Total Bilirubin (0.2-1.0) mg/dL AST (13-39) U/L ALT (7-52) U/L Alkaline Phosphatase (34-104) U/L Troponin I (<0.04) ng/mL C-Reactive Protein (< 5.00) mg/L B-Natriuretic Peptide ( - 100) pg/mL Total Protein (6.4-8.9) g/dL Albumin (3.2-5.2) g/dL Globulin (2-4) g/dL Albumin/Globulin Ratio (1-3) Lipase (11.0-82.0) U/L Procalcitonin (<0.6) ng/mL Urine Color Lynnette Urine Appearance Clear Urine pH 5.0 (5-9) Ur Specific [place] 1.017 (1.010-1.030) Urine Protein 1+(30 mg/dl) H (Negative) Urine Ketones Trace H (Negative) Urine Blood 1+ H (Negative) Urine Nitrate Negative (Negative) Urine Bilirubin Negative (Negative) Urine Urobilinogen Negative (Negative) Ur Leukocyte Esterase Negative (Negative) Urine WBC (Auto) Trace(0-5/hpf) (Absent) Urine RBC (Auto) Trace(0-2/hpf) (Absent) Urine Bacteria Absent (Absent) Urine Glucose Negative (Negative) Blood Type Antibody Screen Result Diagrams: 04/10/17 12:10 04/10/17 12:10 Lab Statement: Any lab studies that have been ordered have been reviewed, and results considered in the medical decision making process. - Radiology CXR Xray Interpretation: Positive (See Comments) - 1.Chronic RIGHT lower lobe volume loss with partial atelectasis. Small dependent RIGHT pleural effusion not excluded. 2. No evidence for pulmonary edema. Dr. Hollingsworth has reviewed this report. Radiology Interpretation Completed By: Radiologist - CT CT Brain CT Interpretation: No Acute Changes - NO ACUTE INTRACRANIAL PATHOLOGY. Dr. Hollingsworth has reviewed this report. CT Interpretation Completed By: Radiologist CT Abd/Pel CT Interpretation: Positive (See Comments) - 1. RIGHT INGUINAL LYMPHADENOPATHY. 2. THERE IS SUBCUTANEOUS EDEMA ALONG THE PROXIMAL RIGHT LOWER EXTREMITY. 3. ATHEROSCLEROSIS. 4. MULTIPLE CHRONIC AND AGE-INDETERMINATE COMPRESSION FRACTURES, WITH PROGRESSION AT L2 TO COMPARED TO SEPTEMBER 22, 2013. THERE IS NO SIGNIFICANT OSSEOUS RETROPULSION. Dr. Hollingsworth has reviewed this report. CT Interpretation Completed By: Radiologist CT Lower Extremities CT Interpretation: Positive (See Comments) - 1. THERE IS A DISPLACED ANGULATED PERIPROSTHETIC FRACTURE PRESENT IN THE MID DIAPHYSIS OF THE RIGHT FEMUR LOCATED BETWEEN THE STEMS OF THE TOTAL HIP AND TOTAL KNEE PROSTHESES. 2. FINDINGS MOST CONSISTENT WITH CELLULITIS AND POSSIBLE FASCIITIS IN THE RIGHT LOWER EXTREMITY. Dr. Hollingsworth has reviewed this report. CT Interpretation Completed By: Radiologist - EKG 12:44 Cardiac Rate: NL EKG Rhythm: Sinus Rhythm - 92 BPM Ectopy: None EKG Interpretation: QT interval prolonged at 515 Altered Mental Statu Course/Dx - Course Course Of Treatment: BP noted and advised to follow up with PCP. Allergies noted. Medications reviewed. DISCUSSED WITH ORTHOPEDICS; DR ROD AND DR GALLARDO. HERE AT [facility] [place], WE ARE UNABLE TO CARE FOR THIS TYPE OF FEMUR FRACTURE. TRANSFER TO [facility]. ACCEPTED IN TRANSFER TO THE ICU BY DR OLGUIN. SPLINTED RIGHT LEG IN POSITION. DP PULSES PALPATED BEFORE AND AFTER SPLINTING. CAPILLARY REFILL IS SLIGHTLY DELAYED IN BOTH FEET. PER SON, RT KNEE ALWAYS IS FLEXED; THE PATIENT HAS NOT BEEN ABLE TO STRAIGHTEN IT FOR YEARS. TREATED WITH NS FOR SEPSIS AND HYPONATREMIA. - Diagnoses Discharge Diagnoses: Blood pressure elevated without history of HTN, Sepsis, Cellulitis, Open femur fracture, right - Provider Notifications Discussed Care Of Patient With: Raf Boyce Time Discussed With Above Provider: 13:23 Instructed by Provider To: Other - Dr. Boyce, extension service specialist in charge, recommends that the patient go to [place]. Dr. Rod, orthopedic surgeon, agrees that the femur fracture is beyond the capabilities of [facility] [place] and recommends the patient go to [place]. - Critical Care Time Critical Care Time: 75-104 min Discharge - Discharge Plan Condition: Guarded Disposition: TRANS HIGHER LVL OF CARE FAC Referrals: Anamika Covington MD [Primary Care Provider] - Additional Instructions: Your blood pressure was elevated during todays visit; please follow up with your primary care provider within a week for further evaluation. Follow up with your primary care physician. Return to the emergency department for any new or worsening symptoms. The documentation as recorded by the Perfecto acevedo Jennifer accurately reflects the service I personally performed and the decisions made by me, Aashish Hollingsworth MD.
[2017-04-10] MEDS ORDERED: Thiamine IV* 100 MG in NS 0.9% 100 ML* 100 ML IV ONE (16:00)
[2017-04-10] MEDS ORDERED: NS 0.9% IVPB ONE (16:00)
[2017-04-10] MEDS ORDERED: FOLIC ACID IVPB ONE (16:00)
[2017-04-10 16:23] VITALS: BP 103/64
== END 2017-04-10 17:06 | disposition short-term general hospital (02) ==
LOC: ED 11:41
DX: S72.91XB Unspecified fracture of right femur, initial encounter for open fracture type I or II (principal); R03.0 Elevated blood-pressure reading, without diagnosis of hypertension; L03.90 Cellulitis, unspecified; A41.9 Sepsis, unspecified organism; R41.82 Altered mental status, unspecified; M97.01XA Periprosthetic fracture around internal prosthetic right hip joint, initial encounter; X58.XXXA Exposure to other specified factors, initial encounter; Y92.9 Unspecified place or not applicable; F17.210 Nicotine dependence, cigarettes, uncomplicated
CPT/HCPCS: 36415; 70450; 71045; 74176; 80053; 81003; 81015; 82803; 83605; 83690; 83880; 84145; 84484; 85025; 85610; 85730; 86140; 86850; 86900; 86901; 87040; 93005; 96365; 99285; J0692; J3370; J3411; J3490

== ENCOUNTER 2018-03-06 15:20 | Inpatient (IN) | payer MEDICARE, MEDICAID ==
[2018-03-06] MEDS ORDERED: Nicotine Inhaler* 10 MG AMP INH PRN (15:28)
[2018-03-06] MEDS ORDERED: LORazepam TAB(*) 1 MG PO PRN (15:28)
[2018-03-06] MEDS ORDERED: Mouth Piece, Nicotine* 1 EACH CARTRIDGE INH PRN (15:52)
--- NOTE | 2018-03-06 16:19 | ED ---
GI/ HPI - HPI Summary HPI Summary: This patient is a 68 year old M brought in by ambulance with a chief complaint of incontinence since the last few weeks. The patients son called EMS because the patient has been binge drinking and is unable to care for himself. The patient was discharged from [facility] in January for rehab. Patient reports erythema under abdominal fold. PMHX hearing problems, right leg amputation 2 years ago. SHX lives at home with son, EtOH abuse. - History of Current Complaint Chief Complaint: EDSubstanceAbuse Time Seen by Provider: 03/06/18 15:26 Stated Complaint: 2208 Hx Obtained From: Patient, EMS Onset/Duration: Started Weeks Ago Pain Intensity: 0 - Additional Pertinent History Primary Care Physician: BENSON - Allergy/Home Medications Allergies/Adverse Reactions: Allergies Allergy/AdvReac Type Severity Reaction Status Date / Time fentanyl Allergy Itching Verified 03/06/18 15:59 Home Medications: Home Medications Aspirin [Aspirin EC] 81 mg PO DAILY 03/06/18 [History Confirmed 03/06/18] Cephalexin CAP* [Keflex 500 CAP*] 500 mg PO QID 03/06/18 [History Confirmed 03/24] DULoxetine DR CAP* [Cymbalta CAP*] 30 mg PO DAILY 03/06/18 [History Confirmed ] Gabapentin CAP(*) [Neurontin 100 mg CAP(*)] 300 mg PO TID 03/06/18 [History Confirmed 03/06/18] Hydrocodone/Acetaminophen [Hydrocodone-Acetamin 5-325 mg] 1 tab PO TID PRN 03/06 [History Confirmed 03/06/18] Lisinopril [Lisinopril 2.5 MG-] 2.5 mg PO DAILY 03/06/18 [History Confirmed 03/24] Nystatin TOP POWDER* 1 applic TOPICAL BID PRN 03/06/18 [History Confirmed ] Ondansetron TAB* [Zofran 4 MG Tab*] 4 mg PO Q6H PRN 03/06/18 [History Confirmed 03/06/18] Oxycodone HCl 5 mg PO TID PRN 03/06/18 [History Confirmed 03/06/18] Pantoprazole TAB (NF) [Protonix TAB (NF)] 40 mg PO DAILY 03/06/18 [History Confirmed 03/06/18] Sennosides/Docusate Sodium [Ra P-Col Rite Tablet] 2 tab PO BID 03/06/18 [ History Confirmed 03/06/18] PMH/Surg Hx/FS Hx/Imm Hx Endocrine/Hematology History: Reports: Hx Blood Disorders - factor 5 clotting disorder Denies: Hx Anticoagulant Therapy, Hx Diabetes, Hx Thyroid Disease Cardiovascular History: Reports: Hx Angina, Hx Coronary Artery Disease, Hx Deep Vein Thrombosis, Hx Myocardial Infarction, Hx Peripheral Vascular Disease, Other Cardiovascular Problems/Disorders - fACTOR V LEIDEN CLOTTING DISORDER Denies: Hx Cardiomegaly, Hx Congestive Heart Failure, Hx Hypertension, Hx Pacemaker/ICD, Hx Rheumatic Fever, Hx Valvular Heart Disease Respiratory History: Reports: Hx Asthma, Hx Chronic Obstructive Pulmonary Disease (COPD), Other Respiratory Problems/Disorders - Fdc smoker Denies: Hx Pulmonary Edema, Hx Pulmonary Embolism GI History: Reports: Hx Gastroesophageal Reflux Disease, Other GI Disorders - HX OF GI BLEED - NO PROBLEMS NOW Denies: Hx Cirrhosis, Hx Crohn's Disease, Hx Hiatal Hernia, Hx Irritable Bowel, Hx Jaundice, Hx Ulcer History: Denies: Hx Renal Disease, Other Problems/Disorders Musculoskeletal History: Reports: Hx Arthritis, Hx Back Problems, Hx Osteoporosis, Other Musculoskeletal History - Fx hip sp fall at home hx Denies: Hx Rheumatoid Arthritis, Hx Bursitis Sensory History: Reports: Hx Cataracts - HAVING CATARACT SURGERY, Hx Contacts or Glasses - for reading, Hx Hearing Problem - deaf R ear, 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 Denies: Hx Hearing Aid Opthamlomology History: Reports: Hx Cataracts - HAVING CATARACT SURGERY, Hx Contacts or Glasses - for reading Neurological History: Denies: Hx Headaches, Hx Migraine, Hx Seizures Comment Only: Other Neuro Impairments/Disorders - NEUROPATHY/HX SUBSTANCE ABUSE Psychiatric History: Reports: Hx Depression, Hx Substance Abuse Denies: Hx Anxiety, Hx Panic Disorder - Cancer History Hx Chemotherapy: No - Surgical History Surgery Procedure, Year, and Place: femur rodding [place] [facility] [place]; RTHR June 2013; Right total knee replacement august 08 2013, [facility] [place]. right ear surgery, HERNIA REPAIR Hx Anesthesia Reactions: No - Immunization History Date of Tetanus Vaccine: 2010 Date of Influenza Vaccine: None Infectious Disease History: No Infectious Disease History: Reports: Hx of Known/Suspected MRSA Denies: Hx Hepatitis, Traveled Outside the [place] in Last 30 Days - Family History Known Family History: Positive: Cardiac Disease, Other - CANCER - Social History Alcohol Use: Daily Alcohol Amount: NOT SINCE NEW YEARS Substance Use Type: Reports: None Hx Tobacco Use: Yes Smoking Status (MU): Heavy Every Day Tobacco Smoker Type: Cigarettes Amount Used/How Often: 1 - 2 PPD Length of Time of Smoking/Using Tobacco: 50 YEARS Have You Smoked in the Last Year: Yes Review of Systems Positive: Rash - under abd fold Positive: Other - EtOH abuse All Other Systems Reviewed And Are Negative: Yes Physical Exam - Summary Physical Exam Summary: Appearance: Unkempt looking, elderly, lying in bed comfortably. When changed, had a large amount of stool in his pants that he was unaware of. Skin: Warm, dry, no obvious rash Eyes: sclera anicteric, no conjunctival pallor ENT: mucous membranes moist, pharynx appears normal Neck: Supple, nontender Respiratory: Clear to auscultation, no signs of respiratory distress Cardiovascular: Normal S1, S2. No murmurs. Normal distal pulses in tibial and radial bilaterally. Abdomen: Soft, nontender, normal active bowel sounds present Musculoskeletal: Normal, Strength/ROM Intact. Right AKA, knee amputation Neurological: A&Ox3, awake and alert, mentation is normal, speech is fluent and appropriate Psychiatric: affect is normal, does not appear anxious or depressed Triage Information Reviewed: Yes Vital Signs On Initial Exam: Initial Vitals Temp Pulse Resp BP Pulse Ox 97.3 F 76 16 120/67 95 03/06/18 15:26 03/06/18 15:26 03/06/18 15:26 03/06/18 15:26 03/06/18 15:26 Vital Signs Reviewed: Yes Diagnostics - Vital Signs Vital Signs Temp Pulse Resp BP Pulse Ox 03/06/18 15:26 97.3 F 76 16 120/67 95 - Laboratory Result Diagrams: 03/07/18 06:23 03/07/18 06:23 Lab Statement: Any lab studies that have been ordered have been reviewed, and results considered in the medical decision making process. GIGU Course/Dx - Course Course Of Treatment: This patient is a 68 year old M brought in by ambulance with a chief complaint of incontinence since the last few weeks. The patients son called EMS because the patient has been binge drinking and is unable to care for himself. The patient was discharged from [facility] in January for rehab. Patient reports erythema under abdominal fold. Test results with no significant abnormalities except for sodium 118 L. In the ED course the patient was given Lorazepam, IV fluids, and Nicotine. We discussed patient care with Dr. Eduardo and they recommended admission. - Diagnoses Provider Diagnoses: Hyponatremia, Altered mental status, Alcoholism - Physician Notifications Discussed Care Of Patient With: Jodie Eduardo Time Discussed With Above Provider: 17:15 Instructed by Provider To: Admit As Inpatient Discharge - Sign-Out/Discharge Documenting (check all that apply): Patient Departure - admission - Discharge Plan Condition: Fair Disposition: ADMITTED TO [facility] - Billing Disposition and Condition Condition: FAIR Disposition: Admitted to [facility] - Attestation Statements Document Initiated by Marshall: Yes Documenting Scribe: Poli Meyer Provider For Whom Marshall is Documenting (Include Credential): Bright Francis MD Scribe Attestation: Poli Garcia scribed for Bright Francis MD on 03/07/18 at 1823. Scribe Documentation Reviewed: Yes Provider Attestation: The documentation as recorded by the Poli acevedo accurately reflects the service I personally performed and the decisions made by Bright khalil MD Status of Scribe Document: Viewed
[2018-03-06 16:35] LABS: ABS Basophils 0.1 10^3/ul (0-0.2); ABS Eosinophils 0.2 10^3/ul (0-0.6); ABS Lymphocytes 2.1 10^3/ul (1.0-4.8); ABS Monocytes 1.3 10^3/ul (0-0.8); ABS Neutrophils 7.2 10^3/ul (1.5-7.7); ABS Nucleated RBC 0 10^3/ul; Eosinophil % 1.8 %; Hematocrit 35 % (42-52); Hemoglobin 11.1 g/dl (14.0-18.0); Lymphocyte % 19.4 %; Mean Corpuscular HGB Conc 32 g/dl (31-36); Mean Corpuscular Hemoglobin 22 pg (27-31); Mean Corpuscular Volume 70 fL (80-94); Mean Platelet Volume 8.8 fL (7.4-10.4); Nucleated Red Blood Cells % 0; Platelet Count 268 10^3/ul (150-450); Red Blood Count 5.03 10^6/ul (4.00-5.40); Red Cell Distribution Width 19 % (10.5-15); White Blood Count 10.8 10^3/ul (3.5-10.8)
[2018-03-06 16:47] LABS: Albumin 3.9 g/dL (3.2-5.2); Albumin/Globulin Ratio 1.1 (1-3); BUN/Creatinine Ratio 5.7 (8-20); Calcium 8.5 mg/dL (8.6-10.3); EGFR Non-African American 154.1 (>60); Globulin 3.4 g/dL (2-4); Potassium 3.9 mmol/L (3.5-5.0); Total Bilirubin 0.4 mg/dL (0.2-1.0); Total Protein 7.3 g/dL (6.4-8.9)
[2018-03-06] MEDS ORDERED: NS 0.9% 1000 ML* 1,000 ML IV ONE (16:51)
[2018-03-06 17:29] LABS: Urine Appearance Clear; Urine Bilirubin Negative (Negative); Urine Blood Negative (Negative); Urine Color Yellow; Urine Glucose Negative (Negative); Urine Ketones Negative (Negative); Urine Nitrite Negative (Negative); Urine Protein Negative (Negative); Urine Specific Gravity 1.005 (1.010-1.030); Urine Urobilinogen Negative (Negative)
[2018-03-06 17:41] LABS: TSH (Thyroid Stimulating Horm) 0.82 mcIU/mL (0.34-5.60)
[2018-03-06 17:55] LABS: Barbiturates Urine Screen None Detected (None Detect); Benzodiazepine Urine Screen None Detected (None Detect); Urine Cannabinoids Screen None Detected (None Detect)
[2018-03-06] MEDS ORDERED: Acetaminophen TAB* 325 MG PO PRN (17:57)
[2018-03-06] MEDS ORDERED: Nystatin TOP POWDER* 15 GM BTL TOPICAL PRN (18:00)
[2018-03-06] MEDS ORDERED: traZODone TAB* 100 MG PO PRN (18:00)
[2018-03-06] MEDS: oxyCODONE TAB* 5 MG TAB PO PRN (18:59)
[2018-03-06] MEDS ORDERED: Docusate CAP* 100 MG PO PRN (20:12)
--- NOTE | 2018-03-06 20:26 | HP ---
CC: Dr. Anamika Covington * HISTORY AND PHYSICAL: DATE OF ADMISSION: 03/06/18. PROVIDER: Mamta Gonzales NP. PRIMARY CARE PROVIDER: Dr. Anamika Covington. ATTENDING PHYSICIAN WHILE IN THE HOSPITAL: Dr. Millie Abraham * (dictated by Mamta Gonzales NP). CHIEF COMPLAINT: Posterior thigh pain. HISTORY OF PRESENT ILLNESS: The patient reports that his son called the ambulance due to the inability to control his pain to right posterior thigh and an area of an open sore. According to the emergency room record, it was reported to them that the son had called EMS because the father had been binge drinking as he was unable to care for himself and was discharged from [facility] in January and has increased incontinence for the last few weeks. The patient himself reports that he has an open sore on the right posterior thigh that has been there for approximately 1 week. He does report a fever, but did not take his temperature. The patient reports that he drinks 4 cans of beer daily and did not drink 4 cans of beer today. He also reports urinary urgency x1 week, but no frequency, burning or hematuria. He denies any cough, hemoptysis or shortness of breath. He denies any nausea, vomiting or diarrhea or abdominal pain. He denies any focal weakness or sensory loss. Denies any dysphagia. He does report an open sore to the right posterior thigh that is very painful. He denies any psychosis or anxiety. PAST MEDICAL HISTORY: Significant for: 1. History of alcohol abuse. 2. ID. 3. Back pain. 4. Osteoporosis. 5. COPD. 6. Thrombocytopenia history. 7. Peripheral vascular disease. 8. Coronary artery disease. 9. Chronic hyponatremia. 10. History of GI bleed. 11. History of factor V Leiden deficiency. PAST SURGICAL HISTORY: 1. Right hip ORIF. 2. Hernia repair. 3. Ear surgery. 4. Right [id number] amputation. HOME MEDICATIONS: 1. Nystatin powder topically b.i.d. 2. Trazodone 100 mg p.o. at bedtime as needed. 3. Senna 2 tabs p.o. b.i.d. 4. Protonix 40 mg p.o. daily. 5. Oxycodone 5 mg p.o. t.i.d. p.r.n. 6. Zofran 4 mg p.o. q.6 hours as needed. 7. Lisinopril 2.5 mg p.o. daily. 8. Hydrocodone/acetaminophen 5/325 mg 1 tablet p.o. every 8 hours as needed. 9. Gabapentin 300 mg p.o. t.i.d. 10. Duloxetine 30 mg p.o. daily. 11. Keflex 500 mg p.o. 4 times a day. 12. Aspirin 81 mg p.o. daily. ALLERGIES TO MEDICATIONS: FENTANYL. FAMILY HISTORY: Brother with heart disease, at the age of 50. No reported history of diabetes. Cancer: Brother, father, and mother all with lung cancer. SOCIAL HISTORY: The patient reports he smokes a half a pack per day. He does report he drinks approximately 4 beers daily. Denies any illicit drug use. He is single. He lives with his son. Surrogate decision in the event he is unable to make his own decisions is his son. He is a full code. REVIEW OF SYSTEMS: The patient reports fevers at home. He denies any chest pain, cough, hemoptysis or shortness of breath. Denies any nausea, vomiting or diarrhea. He denies any gross hematuria or dysuria. He does report urgency x1 week. He denies any weakness or sensory loss, visual complaints, dysphagia, arthralgias or myalgias. He does complain of posterior right thigh pain with open sore. He denies any anxiety or depression. PHYSICAL EXAMINATION GENERAL: At this time, Mr. Miller is a 68-year-old male. He appears uncomfortable sitting on the stretcher in the emergency room. VITAL SIGNS: Blood pressure 114/59, heart rate 72, respirations are 16, O2 saturation 95%, temperature was 97.3 on arrival. HEENT: Head is atraumatic and normocephalic. Eyes: EOMs are intact. Sclerae are anicteric and not pale. Oral mucosa appears to be dry. NECK: Supple. LUNGS: With expiratory wheezes bilaterally, diminished throughout. CARDIAC: S1, S2. Regular rate and rhythm. No murmurs, rubs or gallops. ABDOMEN: Soft and nontender. Bowel sounds are present x4. EXTREMITIES: Left pedal pulse is +1. He is able to move his upper extremities with 5/5 strength, his left lower leg with 4/5 strength. His right lower leg is amputated. Stump is warm to touch. NEUROLOGIC: He is awake, alert, oriented x3. Speech is clear. He is hard of hearing. There are no gross focal deficits. SKIN: He has a round open area noted to the right posterior thigh with surrounding erythema. DIAGNOSTIC STUDIES/LAB DATA: WBCs are 10.8, RBCs 5.03, hemoglobin 11.1, hematocrit was 35, platelet count was 268,000. Sodium was 118, potassium 3.9, chloride was 86, carbon dioxide was 25, anion gap was 7, BUN was 13, creatinine 0.53, glucose was 95, calcium 8.5. ASTs were 12, ALTs were 4, TSH was 0.82. Urine color was yellow, appearance clear, pH was 6, specific gravity 1.005. Urine protein, ketones, blood, nitrites, bilirubin, urobilinogen, and leukocyte esterase, and glucose were all negative. Urine opiates, barbiturates, amphetamines, benzodiazepines, cocaine, and cannabis were all not detected. Serum alcohol was 226. EKG pending. Chest x-ray is pending. ASSESSMENT AND PLAN: Mr. Miller is a 68-year-old male, who presented to the emergency room today with the complaints of increased pain to right posterior thigh. Per EMS report, the patient has had increased incontinence times a week and unable to care for himself at home as well as binge drinking. He will be admitted inpatient for: 1. Hyponatremia. I suspect this is related to alcohol abuse. He did receive 1 L normal saline bolus in the emergency room. I will start normal saline at 125 an hour. I will repeat electrolyte panel at 10 p.m. tonight and monitor his sodium. We will also repeat a BMP and CBC in the a.m. I will get a serum osmolality, a urine sodium and osmolality as well. 2. Right posterior thigh open wound/cellulitis. The patient was started on Keflex yesterday. I will continue Keflex 500 mg p.o. 4 times a day and monitor the wound for any changes. I will get a wound culture as well. 3. Coronary artery disease. Continue him on aspirin 81 mg p.o. daily. 4. Hypertension. He will continue on lisinopril 2.5 mg p.o. daily. 5. Chronic pain. He will continue on gabapentin 300 mg p.o. t.i.d. 6. Anxiety/depression. I am going to hold his Cymbalta at this time as it can be contributing to his hyponatremia. 7. FEN. He can be placed on a heart healthy, decaf-okay diet. 8. DVT prophylaxis. I will place him on Lovenox 40 mg subcu q.24 hours. 9. Code status. He is a full code. TIME SPENT: Time spent on this admission was 60 minutes, greater than half of that time was spent [id number] with the patient obtaining my history and physical and the other half of the time was spent going over my plan of care and implementing my plan of care. I have discussed this with my attending, Dr. Millie Abraham. She is in agreement with my plan. MAMTA GONZALES NP [id number]/CPS #: [id number] JOSÉ ANTONIO
[2018-03-06] MEDS: Cephalexin CAP* 500 MG PO SCH (20:43)
[2018-03-06] MEDS: Enoxaparin(*) 40 MG/0.4 ML SYR SUBCUT SCH (20:43)
[2018-03-06] MEDS: oxyCODONE/Acetamin 5/325 MG* TAB PO PRN (20:45)
[2018-03-06] MEDS ORDERED: Gabapentin CAP(*) 300 MG PO SCH (21:00)
[2018-03-06] MEDS ORDERED: Senna/Docusate (NF) TAB PO SCH (21:00)
[2018-03-06] MEDS: NS 0.9% 1000 ML* 1,000 ML IV SCH (22:15)
[2018-03-06] MEDS ORDERED: LORazepam TAB(*) 1 MG PO SCH (23:45)
[2018-03-06] MEDS ORDERED: Thiamine IV* 100 MG/ML 2 ML VIAL IM ONE (23:51)
[2018-03-07 00:26] LABS: Potassium 4.1 mmol/L (3.5-5.0)
[2018-03-07] MEDS: oxyCODONE TAB* 5 MG TAB PO PRN (01:08)
[2018-03-07] MEDS ORDERED: Vancomycin(*) 1,000 MG in NS 0.9% 250 ML* 250 ML IVPB ONE ×2 (04:51→10:30)
--- NOTE | 2018-03-07 04:53 | PN ---
Progress Note - Progress Note Date of Service: 03/07/18 Note: Paged due to significant phantom limb pain - Nasal swab positive for MRSA. Will give one dose of Vancomycin and recommend reassessing antibiotic regimen in AM. Will increase his gabapentin to QID for phantom pain. Hesitant to increase his opiates in setting of his EtOH abuse history. Not currently scoring high on WAM protocol.
[2018-03-07] MEDS: Gabapentin CAP(*) 300 MG PO SCH ×5 (05:11→21:41)
[2018-03-07 07:06] LABS: ABS Basophils 0.1 10^3/ul (0-0.2); ABS Eosinophils 0.2 10^3/ul (0-0.6); ABS Lymphocytes 1.3 10^3/ul (1.0-4.8); ABS Monocytes 1.4 10^3/ul (0-0.8); ABS Neutrophils 5.2 10^3/ul (1.5-7.7); ABS Nucleated RBC 0 10^3/ul; Eosinophil % 2.4 %; Hematocrit 33 % (42-52); Hemoglobin 10.4 g/dl (14.0-18.0); Lymphocyte % 15.7 %; Mean Corpuscular HGB Conc 32 g/dl (31-36); Mean Corpuscular Hemoglobin 22 pg (27-31); Mean Corpuscular Volume 70 fL (80-94); Mean Platelet Volume 9.3 fL (7.4-10.4); Nucleated Red Blood Cells % 0; Platelet Count 217 10^3/ul (150-450); Red Blood Count 4.71 10^6/ul (4.00-5.40); Red Cell Distribution Width 20 % (10.5-15); White Blood Count 8.2 10^3/ul (3.5-10.8)
[2018-03-07 07:35] LABS: BUN/Creatinine Ratio 7.8 (8-20); Calcium 8.6 mg/dL (8.6-10.3); EGFR Non-African American 161.1 (>60); Potassium 4.2 mmol/L (3.5-5.0)
[2018-03-07] MEDS: NS 0.9% 1000 ML* 1,000 ML IV SCH (08:40)
[2018-03-07] MEDS: Aspirin EC TAB* 81 MG TAB.EC PO SCH (08:47)
[2018-03-07] MEDS: Cephalexin CAP* 500 MG PO SCH ×3 (08:47→17:54)
[2018-03-07] MEDS: Lisinopril TAB* 5 MG PO SCH (08:47)
[2018-03-07] MEDS: Thiamine TAB* 100 MG TAB PO SCH (08:48)
[2018-03-07] MEDS: Multivitamins/Minerals TAB PO SCH (08:48)
[2018-03-07] MEDS: Folic Acid TAB* 1 MG PO SCH (08:48)
[2018-03-07] MEDS: Omeprazole CAP (NF) 20 MG CAP.DR PO SCH (08:48)
[2018-03-07] MEDS ORDERED: DULoxetine DR CAP* 30 MG CAP.DR PO SCH (09:00)
--- NOTE | 2018-03-07 17:53 | PN ---
Subjective Date of Service: 03/07/18 Interval History: HOSPITALIST PROGRESS NOTE Patient seen and examined at bedside. Care reviewed and d/w Mamta Jeffrey RN. He c/o right stump pain and is concerned it is more swollen than the left. " This is not normal!" Family History: Unchanged from Admission Social History: Unchanged from Admission Past Medical History: Unchanged from Admission Objective Active Medications: Acetaminophen (Tylenol Tab*) 650 mg PO Q4H PRN PRN Reason: FEVER/PAIN Aspirin (Aspirin Ec Tab*) 81 mg PO DAILY [facility] Last Admin: 03/07/18 08:47 Dose: 81 mg Cephalexin HCl (Keflex Cap*) 500 mg PO QID [facility] Last Admin: 03/07/18 13:55 Dose: 500 mg Device (Nicotine Mouth Piece*) 1 each INH ONCE PRN PRN Reason: CRAVINGS Docusate Sodium (Colace Cap*) 100 mg PO BID PRN PRN Reason: CONSTIPATION Enoxaparin Sodium (Lovenox(*)) 40 mg SUBCUT Q24H [facility] Last Admin: 03/06/18 20:43 Dose: 40 mg Folic Acid (Folvite Tab*) 1 mg PO DAILY [facility] Last Admin: 03/07/18 08:48 Dose: 1 mg Gabapentin (Neurontin Cap(*)) 300 mg PO QID [facility] Last Admin: 03/07/18 13:54 Dose: 300 mg Sodium Chloride (Ns 0.9% 1000 Ml*) 1,000 mls @ 125 mls/hr IV PER RATE [facility] Last Admin: 03/07/18 08:40 Dose: 125 mls/hr Vancomycin HCl 1,000 mg/ (Sodium Chloride) 250 mls @ 166.667 mls/hr IVPB Q8H [facility]; Protocol Lisinopril (Prinivil Tab*) 2.5 mg PO DAILY [facility] Last Admin: 03/07/18 08:47 Dose: 2.5 mg Lorazepam (Ativan Tab(*)) 0 - 6 mg PO .PER [facility] PROTOCOL [facility]; Protocol Multivitamins/Minerals (Theragran/Minerals Tab*) 1 tab PO DAILY [facility] Last Admin: 03/07/18 08:48 Dose: 1 tab Nicotine (Nicotine Inhaler*) 10 mg INH Q2H PRN PRN Reason: CRAVING Nystatin (Nystatin Top Powder*) 1 applic TOPICAL BID PRN PRN Reason: RASH Last Admin: 03/07/18 00:24 Dose: 1 applic Omeprazole (Prilosec Cap*) 20 mg PO DAILY@0730 JORDON Last Admin: 03/07/18 08:48 Dose: 20 mg Oxycodone HCl (Roxycodone Tab*) 5 mg PO TID PRN PRN Reason: PAIN Last Admin: 03/07/18 01:08 Dose: 5 mg Oxycodone/Acetaminophen (Percocet 5/325 Tab*) 1 tab PO Q4H PRN PRN Reason: Pain Last Admin: 03/06/18 20:45 Dose: 1 tab Pharmacy Profile Note (Vancomycin Trough Check) 1 note FOLLOW UP ONCE ONE Stop: 03/08/18 12:31 Thiamine HCl (Vitamin B-1 Tab*) 100 mg PO DAILY [facility] Last Admin: 03/07/18 08:48 Dose: 100 mg Trazodone HCl (Desyrel Tab*) 100 mg PO BEDTIME PRN PRN Reason: SLEEP Vital Signs - 8 hr 03/07/18 03/07/18 03/07/18 11:00 11:45 12:00 Temperature 98.0 F Pulse Rate 87 Respiratory 18 18 18 Rate Blood Pressure 119/63 (mmHg) O2 Sat by Pulse 95 Oximetry 03/07/18 13:54 Temperature Pulse Rate Respiratory 18 Rate Blood Pressure (mmHg) O2 Sat by Pulse Oximetry Oxygen Devices in Use Now: None Appearance: Elderly gentlema with disheveled appearance sitting up in bed in NAD Eyes: No Scleral Icterus Ears/Nose/Mouth/Throat: Mucous Membranes Moist Neck: Trachea Midline Respiratory: Symmetrical Chest Expansion and Respiratory Effort, Clear to Auscultation Cardiovascular: RRR - Normal S1 and S2 Extremities: - - Right stump is swollen, with decubitus ulcer on posterior aspect, + erythema, no drainage Neurological: Alert and Oriented x 3, - - Very PICAYUNE Result Diagrams: 03/07/18 06:23 03/07/18 06:23 Microbiology and Other Data: Microbiology 03/07/18 03:15 Nasal Screen MRSA (PCR) - Final Nasal Mrsa Detected Assess/Plan/Problems-Billing Assessment: Mr Miller is a 68yo M with PMH of ETOH abuse, CAD, GI bleed, back pain, COPD, PVD, GI bleed, Factor V Leiden, right AKA, who presented to ED with c/o right thigh pain, found to have right thigh pressure ulcer with surrounding cellulitis and severe hyponatremia. - Patient Problems (1) Hyponatremia Comment: - Severe hyponatremia - likely beer potomania on top of SIADH. - Improving. (2) Pressure ulcer Comment: - Posterior right thigh, present on admission. - Wound care appreciated - cover with Duoderm. (3) Cellulitis Comment: - Right posterior thigh - wound culture grew MRSA - continue Vancomycin. - US was negative for DVT. - ID consult requested. (4) Alcoholism Comment: - No evidence of withdrawal at this time. - Continue WAM protocol. (5) Chronic pain Comment: - Neuropathic in nature - continue Gabapentin. (6) DVT prophylaxis Comment: - Lovenox. (7) Full code status Status and Disposition: Inpatient.
[2018-03-07] MEDS ORDERED: NS 0.9% 1000 ML* 1,000 ML IV SCH (17:54)
[2018-03-07] MEDS: Enoxaparin(*) 40 MG/0.4 ML SYR SUBCUT SCH (21:41)
[2018-03-08] MEDS: oxyCODONE TAB* 5 MG TAB PO PRN ×2 (01:24→15:55)
[2018-03-08] MEDS: Vancomycin(*) 1,000 MG in NS 0.9% 250 ML* 250 ML IVPB SCH ×3 (03:27→20:01)
[2018-03-08 05:43] LABS: BUN/Creatinine Ratio 8.6 (8-20); Calcium 8.6 mg/dL (8.6-10.3); EGFR Non-African American 138.9 (>60); Potassium 3.8 mmol/L (3.5-5.0)
[2018-03-08] MEDS: Folic Acid TAB* 1 MG PO SCH (09:26)
[2018-03-08] MEDS: Omeprazole CAP (NF) 20 MG CAP.DR PO SCH (09:26)
[2018-03-08] MEDS: Lisinopril TAB* 5 MG PO SCH (09:27)
[2018-03-08] MEDS: Aspirin EC TAB* 81 MG TAB.EC PO SCH (09:27)
[2018-03-08] MEDS: Multivitamins/Minerals TAB PO SCH (09:27)
[2018-03-08] MEDS: Thiamine TAB* 100 MG TAB PO SCH (09:27)
[2018-03-08] MEDS: Gabapentin CAP(*) 300 MG PO SCH ×4 (09:28→20:02)
[2018-03-08] MEDS ORDERED: Vancomycin Trough Check NOTE FOLLOW UP ONE (12:30)
--- NOTE | 2018-03-08 15:21 | CONS ---
CONSULTATION REPORT: DATE OF CONSULT: 03/08/18 REQUESTING PHYSICIAN: Dr. Moncada. CONSULTING SERVICE: Infectious Disease. REASON FOR CONSULT: Right thigh stump infection. IMPRESSION: 1. Status post right [id number] amputation and now decubitus ulceration of the right posterior thigh with surrounding cellulitis. Wound culture grew methicillin- resistant Staphylococcus aureus. His leg is overall improving. 2. Alcohol abuse on date of admission. 3. Status post right hip arthroplasty. 4. Coronary artery disease. RECOMMENDATIONS: We will continue vancomycin here probably another 24 hours and then as long as he is continuing to improve, we can change antibiotics to Bactrim as isolate is tetracycline resistant. 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 Ultrasound showed no DVT, but he was found to have a decubitus ulceration, was cultured, growing MRSA. He was started on vancomycin. He thinks the pain and swelling is much improved over the last day and half. His white count obtained on admission down to 8000 yesterday. PAST MEDICAL HISTORY: 1. Right knee arthroplasty and infection, status post yjqso-pbq-[id number] amputation. 2. Right hip open reduction internal fixation. 3. Hernia repair. 4. Alcohol abuse. 5. Coronary artery disease and AR. 6. Osteoporosis. 7. COPD. 8. Thrombocytopenia. 9. Peripheral vascular disease. 10. Hyponatremia. 11. GI bleed. 12. Factor V Leiden deficiency. ALLERGIES: FENTANYL. MEDICATIONS: 1. Tylenol. 2. Aspirin. 3. Enoxaparin. 4. Folic acid. 5. Gabapentin. 6. Lisinopril. 7. Multivitamin. 8. Nicotine inhaler. 9. Omeprazole. 10. Thiamine. 11. Trazodone. 12. Vancomycin 1 g IV every 8 hours. SOCIAL HISTORY: He lives on his own. Smokes tobacco. Drinks 4 beers a day. No injection drugs. FAMILY HISTORY: Brother with heart disease, at age 50 from same. Brother and parents both have lung cancer. REVIEW OF SYSTEMS: A 14-point review is all negative as noted above in the history of present illness. PHYSICAL EXAM: Vital Signs: Temperature 36.7, heart rate 70, respiratory rate 18, blood pressure 128/77, oxygen saturation 95% on room air. In general, he is awake, not in distress. Neurologic: He is oriented x3. Follows all commands. HEENT: There is no conjunctival hemorrhage. Oropharynx without lesions. Neck: Neck is supple without mass. Heart is regular rate and rhythm without murmurs, rubs, or gallops. Lungs are clear to auscultation bilaterally. Abdomen: Soft, nontender, nondistended. Bowel sounds present. Skin: There are no rash or hemorrhage. Musculoskeletal: Right above-knee amputation site is well healed. There is a right posterior thigh area of devitalized skin with the surrounding edema, mild tenderness, and erythema. LABORATORY DATA: White blood cell count 8, hemoglobin 10, platelets 217, creatinine 0.5. Please see impressions and recommendations outlined above. Thank you for asking me to see Mr. Miller in consultation. [id number]/[facility] #: [id number] JOSÉ ANTONIO
--- NOTE | 2018-03-08 15:36 | PN ---
Subjective Date of Service: 03/08/18 Interval History: HOSPITALIST PROGRESS NOTE Patient seen and examined at bedside. Care reviewed and d/w Mamta Jeffrey RN. He is in good spirits today. Right stump pain is less intense, appetite is good. Family History: Unchanged from Admission Social History: Unchanged from Admission Past Medical History: Unchanged from Admission Objective Active Medications: Acetaminophen (Tylenol Tab*) 650 mg PO Q4H PRN PRN Reason: FEVER/PAIN Aspirin (Aspirin Ec Tab*) 81 mg PO DAILY [facility] Last Admin: 03/08/18 09:27 Dose: 81 mg Device (Nicotine Mouth Piece*) 1 each INH ONCE PRN PRN Reason: CRAVINGS Docusate Sodium (Colace Cap*) 100 mg PO BID PRN PRN Reason: CONSTIPATION Enoxaparin Sodium (Lovenox(*)) 40 mg SUBCUT Q24H [facility] Last Admin: 03/07/18 21:41 Dose: 40 mg Folic Acid (Folvite Tab*) 1 mg PO DAILY [facility] Last Admin: 03/08/18 09:26 Dose: 1 mg Gabapentin (Neurontin Cap(*)) 300 mg PO QID [facility] Last Admin: 03/08/18 14:10 Dose: 300 mg Vancomycin HCl 1,000 mg/ (Sodium Chloride) 250 mls @ 166.667 mls/hr IVPB Q8H [facility]; Protocol Last Admin: 03/08/18 12:18 Dose: 166.667 mls/hr Sodium Chloride (Ns 0.9% 1000 Ml*) 1,000 mls @ 75 mls/hr IV PER RATE [facility] Lisinopril (Prinivil Tab*) 2.5 mg PO DAILY [facility] Last Admin: 03/08/18 09:27 Dose: 2.5 mg Lorazepam (Ativan Tab(*)) 0 - 6 mg PO .PER [place] PROTOCOL [facility]; Protocol Multivitamins/Minerals (Theragran/Minerals Tab*) 1 tab PO DAILY [facility] Last Admin: 03/08/18 09:27 Dose: 1 tab Nicotine (Nicotine Inhaler*) 10 mg INH Q2H PRN PRN Reason: CRAVING Nystatin (Nystatin Top Powder*) 1 applic TOPICAL BID PRN PRN Reason: RASH Last Admin: 03/07/18 00:24 Dose: 1 applic Omeprazole (Prilosec Cap*) 20 mg PO DAILY@0730 [facility] Last Admin: 03/08/18 09:26 Dose: 20 mg Oxycodone HCl (Roxycodone Tab*) 5 mg PO TID PRN PRN Reason: PAIN Last Admin: 03/08/18 01:24 Dose: 5 mg Oxycodone/Acetaminophen (Percocet 5/325 Tab*) 1 tab PO Q4H PRN PRN Reason: Pain Last Admin: 03/06/18 20:45 Dose: 1 tab Thiamine HCl (Vitamin B-1 Tab*) 100 mg PO DAILY [facility] Last Admin: 03/08/18 09:27 Dose: 100 mg Trazodone HCl (Desyrel Tab*) 100 mg PO BEDTIME PRN PRN Reason: SLEEP Vital Signs - 8 hr 03/08/18 03/08/18 03/08/18 08:13 09:28 09:30 Temperature 98.0 F Pulse Rate 77 Respiratory 18 16 18 Rate Blood Pressure 128/77 (mmHg) O2 Sat by Pulse 95 Oximetry 03/08/18 03/08/18 12:35 14:10 Temperature 98.0 F Pulse Rate 79 Respiratory 20 16 Rate Blood Pressure 136/60 (mmHg) O2 Sat by Pulse 96 Oximetry Oxygen Devices in Use Now: None Appearance: Elderly disheveled gentleman sitting up in recliner in [facility]. Eyes: No Scleral Icterus Ears/Nose/Mouth/Throat: Mucous Membranes Moist Neck: Trachea Midline Respiratory: Symmetrical Chest Expansion and Respiratory Effort, Clear to Auscultation Cardiovascular: RRR - Normal S1 and S2 Extremities: - - Right stump shows less edema and erythema Neurological: Alert and Oriented x 3, - - Very AGUA CALIENTE Result Diagrams: 03/07/18 06:23 03/08/18 05:17 Microbiology and Other Data: Microbiology 03/07/18 03:15 Nasal Screen MRSA (PCR) - Final Nasal Mrsa Detected Assess/Plan/Problems-Billing Assessment: Mr Miller is a 68yo M with PMH of ETOH abuse, CAD, GI bleed, back pain, COPD, PVD, GI bleed, Factor V Leiden, right AKA, who presented to ED with c/o right thigh pain, found to have right thigh pressure ulcer with surrounding cellulitis and severe hyponatremia. - Patient Problems (1) Hyponatremia Comment: - Severe hyponatremia - likely beer potomania on top of SIADH. - Improving - sodium up to 133 - will d/c IVF. (2) Pressure ulcer Comment: - Posterior right thigh stage 2 pressure ulcer, present on admission. - Wound care appreciated - cover with Duoderm. (3) Cellulitis Comment: - Right posterior thigh - wound culture grew MRSA - continue Vancomycin. - US was negative for DVT. - ID consult requested. (4) Alcoholism Comment: - No evidence of withdrawal at this time. - Continue WAM protocol. (5) Chronic pain Comment: - Neuropathic in nature - continue Gabapentin. (6) DVT prophylaxis Comment: - Lovenox. (7) Full code status (8) Physical deconditioning Comment: - PT evaluation. - Patient will benefit of SNF as he's having difficulty caring for self at home. Status and Disposition: Inpatient.
[2018-03-08] MEDS: Enoxaparin(*) 40 MG/0.4 ML SYR SUBCUT SCH (20:02)
[2018-03-08] MEDS: Melatonin 3 MG TAB PO SCH (20:02)
[2018-03-08] MEDS: oxyCODONE/Acetamin 5/325 MG* TAB PO PRN (23:58)
[2018-03-09] MEDS: Enoxaparin(*) 40 MG/0.4 ML SYR SUBCUT SCH ×2 (00:13→20:12)
[2018-03-09] MEDS: Vancomycin(*) 1,000 MG in NS 0.9% 250 ML* 250 ML IVPB SCH (03:06)
[2018-03-09] MEDS ORDERED: Vancomycin per Pharmacy* NOTE FOLLOW UP PRN (08:42)
[2018-03-09] MEDS: Multivitamins/Minerals TAB PO SCH (09:07)
[2018-03-09] MEDS: Aspirin EC TAB* 81 MG TAB.EC PO SCH (09:07)
[2018-03-09] MEDS: Lisinopril TAB* 5 MG PO SCH (09:08)
[2018-03-09] MEDS: oxyCODONE TAB* 5 MG TAB PO PRN (09:08)
[2018-03-09] MEDS: Gabapentin CAP(*) 300 MG PO SCH ×4 (09:08→20:12)
[2018-03-09] MEDS: Thiamine TAB* 100 MG TAB PO SCH (09:08)
[2018-03-09] MEDS: Folic Acid TAB* 1 MG PO SCH (09:09)
[2018-03-09] MEDS: Omeprazole CAP (NF) 20 MG CAP.DR PO SCH (09:09)
[2018-03-09 11:05] LABS: Hematocrit 33 % (42-52); Hemoglobin 10.5 g/dl (14.0-18.0); Mean Corpuscular HGB Conc 32 g/dl (31-36); Mean Corpuscular Hemoglobin 22 pg (27-31); Mean Corpuscular Volume 70 fL (80-94); Mean Platelet Volume 8.9 fL (7.4-10.4); Platelet Count 210 10^3/ul (150-450); Red Blood Count 4.76 10^6/ul (4.00-5.40); Red Cell Distribution Width 20 % (10.5-15); White Blood Count 8.3 10^3/ul (3.5-10.8)
[2018-03-09 11:19] LABS: Albumin 3.6 g/dL (3.2-5.2); Albumin/Globulin Ratio 0.9 (1-3); BUN/Creatinine Ratio 7.5 (8-20); Calcium 8.9 mg/dL (8.6-10.3); EGFR Non-African American 154.1 (>60); Globulin 3.8 g/dL (2-4); Magnesium 1.7 mg/dL (1.9-2.7); Phosphorus 3.8 mg/dL (2.5-5.0); Potassium 4.1 mmol/L (3.5-5.0); Total Bilirubin 0.5 mg/dL (0.2-1.0); Total Protein 7.4 g/dL (6.4-8.9)
--- NOTE | 2018-03-09 17:01 | PN ---
Subjective Date of Service: 03/09/18 Interval History: Pt seen and examined. Meds and labs reviewed. CC: N/A ROS: Denied INFANTE/dizziness, F/C, N/V, CP, SOB, increased cough, sputum production , abd pain, diarrhea, constipation, dysuria, myalgias, arthralgias, throat pain , and new skin lesions. The rest of the 14 point ROS are unremarkable. PHYSICAL EXAM: GEN APPEARANCE: Awake, not in acute distress HEENT: NC/AT, PERRLA, moist oral mucosa, (-) throat erythema NECK: Soft, supple, (-) cervical LAD, (-)JVD HEART: S1S2 WNL, RRR, No MRG CHEST: CTA, BL, GAE, No R/R, intermittent mild wheeze ABD: Soft, ND/NT, NABS 4x Q EXT: No C/C/R. AKA SKIN: Warm to touch PSYCH: No active psychosis, hallucinations, depression, SI/HI Family History: Unchanged from Admission Social History: Unchanged from Admission Past Medical History: Unchanged from Admission Review of Systems - Measurements Intake and Output: Intake and Output Last 24 Hours 03/07/18 03/08/18 03/09/18 03/10/18 06:59 06:59 06:59 06:59 Intake Total 2446 1970 1805 1210 Output Total 1900 3465 2600 1530 Balance 546 -149 -795 -320 Weight 169 lb 8 oz Intake: IV Fluids 1926 550 ABX - VANCOMYCIN 250 NS (0.9%) 926 300 IVPB 250 ABX - VANCOMYCIN 250 Oral 520 1170 1805 1210 Output: Urine 1900 3465 2600 1530 Liquid Stool 0 Other: Estimated Void Medium # Bowel Movements 1 Estimated Stool Amount Large Small Objective Active Medications: Acetaminophen (Tylenol Tab*) 650 mg PO Q4H PRN PRN Reason: FEVER/PAIN Aspirin (Aspirin Ec Tab*) 81 mg PO DAILY [facility] Last Admin: 03/09/18 09:07 Dose: 81 mg Device (Nicotine Mouth Piece*) 1 each INH ONCE PRN PRN Reason: CRAVINGS Docusate Sodium (Colace Cap*) 100 mg PO BID PRN PRN Reason: CONSTIPATION Enoxaparin Sodium (Lovenox(*)) 40 mg SUBCUT Q24H [facility] Last Admin: 03/09/18 00:13 Dose: 40 mg Folic Acid (Folvite Tab*) 1 mg PO DAILY [facility] Last Admin: 03/09/18 09:09 Dose: 1 mg Gabapentin (Neurontin Cap(*)) 300 mg PO QID [facility] Last Admin: 03/09/18 14:44 Dose: 300 mg Lisinopril (Prinivil Tab*) 2.5 mg PO DAILY [facility] Last Admin: 03/09/18 09:08 Dose: 2.5 mg Lorazepam (Ativan Tab(*)) 0 - 6 mg PO .PER [facility] PROTOCOL [facility]; Protocol Melatonin (Melatonin) 6 mg PO BEDTIME [facility]; Protocol Last Admin: 03/08/18 20:02 Dose: 6 mg Multivitamins/Minerals (Theragran/Minerals Tab*) 1 tab PO DAILY [facility] Last Admin: 03/09/18 09:07 Dose: 1 tab Nicotine (Nicotine Inhaler*) 10 mg INH Q2H PRN PRN Reason: CRAVING Nystatin (Nystatin Top Powder*) 1 applic TOPICAL BID PRN PRN Reason: RASH Last Admin: 03/07/18 00:24 Dose: 1 applic Omeprazole (Prilosec Cap*) 20 mg PO DAILY@0730 [facility] Last Admin: 03/09/18 09:09 Dose: 20 mg Oxycodone HCl (Roxycodone Tab*) 5 mg PO TID PRN PRN Reason: PAIN Last Admin: 03/09/18 09:08 Dose: 5 mg Oxycodone/Acetaminophen (Percocet 5/325 Tab*) 1 tab PO Q4H PRN PRN Reason: Pain Last Admin: 03/08/18 23:58 Dose: 1 tab Thiamine HCl (Vitamin B-1 Tab*) 100 mg PO DAILY [facility] Last Admin: 03/09/18 09:08 Dose: 100 mg Trazodone HCl (Desyrel Tab*) 100 mg PO BEDTIME PRN PRN Reason: SLEEP Trimethoprim/Sulfamethoxazole (Bactrim Ds 800/160 Tab*) 1 tab PO ONCE ONE Stop: 03/10/18 09:01 Vital Signs - 8 hr 03/09/18 03/09/18 03/09/18 09:06 09:08 11:55 Temperature 98.5 F 98.6 F Pulse Rate 85 81 Respiratory 16 16 12 Rate Blood Pressure 123/63 138/77 (mmHg) O2 Sat by Pulse 97 97 Oximetry 03/09/18 03/09/18 14:44 15:50 Temperature 98.4 F Pulse Rate 81 Respiratory 18 16 Rate Blood Pressure 132/68 (mmHg) O2 Sat by Pulse 96 Oximetry Oxygen Devices in Use Now: None Result Diagrams: 03/09/18 10:54 03/09/18 10:54 Microbiology and Other Data: Microbiology 03/07/18 03:15 Nasal Screen MRSA (PCR) - Final Nasal Mrsa Detected Assess/Plan/Problems-Billing Assessment: Mr Miller is a 68yo M with PMH of ETOH abuse, CAD, GI bleed, back pain, COPD, PVD, GI bleed, Factor V Leiden, right AKA, who presented to ED with c/o right thigh pain, found to have right thigh pressure ulcer with surrounding cellulitis and severe hyponatremia. - Patient Problems (1) Hyponatremia Current Visit: Yes Status: Acute Code(s): E87.1 - HYPO-OSMOLALITY AND HYPONATREMIA SNOMED Code(s): 32858651 Comment: - Severe hyponatremia - likely beer potomania on top of SIADH per Dr. Manuela rowley -Agree that pt is hypovolemic, however, will obtain FENa, urine sodium, urine Osm, and serum Osm, as well as TSH and Cortisol levels to confirm above suspicion -Stable (2) Pressure ulcer Current Visit: Yes Status: Acute Code(s): L89.90 - PRESSURE ULCER OF UNSPECIFIED SITE, UNSPECIFIED STAGE SNOMED Code(s): 961569327 Comment: - Posterior right thigh stage 2 pressure ulcer, present on admission. - Wound care appreciated - cover with Duoderm. (3) Cellulitis Current Visit: Yes Status: Acute Code(s): L03.90 - CELLULITIS, UNSPECIFIED SNOMED Code(s): 059082338 Comment: - Right posterior thigh - wound culture grew MRSA - continue Vancomycin. - US was negative for DVT. -Appreciate ID input; Continue vanco for now and consider transitioning to Bactrim later (4) Alcoholism Current Visit: Yes Status: Acute Code(s): F10.20 - ALCOHOL DEPENDENCE, UNCOMPLICATED SNOMED Code(s): 8519342 Comment: - No evidence of withdrawal at this time. - Continue WAM protocol. (5) Chronic pain Current Visit: Yes Status: Acute Code(s): G89.29 - OTHER CHRONIC PAIN SNOMED Code(s): 07321394 Comment: - Neuropathic in nature - continue Gabapentin. (6) DVT prophylaxis Current Visit: Yes Status: Acute Code(s): EFQ0252 - SNOMED Code(s): 252968935 Comment: - Lovenox. Status and Disposition: -Pt refuses AJNICE, therefore, will continue to observe and possible D/C in 1-2 days -For ambulatory sats in AM
[2018-03-09] MEDS: oxyCODONE/Acetamin 5/325 MG* TAB PO PRN (20:12)
[2018-03-09] MEDS: Melatonin 3 MG TAB PO SCH (20:12)
[2018-03-10 06:19] LABS: Albumin 3.7 g/dL (3.2-5.2); Albumin/Globulin Ratio 1.2 (1-3); BUN/Creatinine Ratio 7.1 (8-20); Calcium 8.7 mg/dL (8.6-10.3); EGFR Non-African American 144.7 (>60); Hematocrit 33 % (42-52); Hemoglobin 10.6 g/dl (14.0-18.0); Magnesium 1.8 mg/dL (1.9-2.7); Mean Corpuscular HGB Conc 32 g/dl (31-36); Mean Corpuscular Hemoglobin 22 pg (27-31); Mean Corpuscular Volume 71 fL (80-94); Mean Platelet Volume 9.1 fL (7.4-10.4); Phosphorus 4.7 mg/dL (2.5-5.0); Platelet Count 220 10^3/ul (150-450); Potassium 3.8 mmol/L (3.5-5.0); Red Blood Count 4.72 10^6/ul (4.00-5.40); Red Cell Distribution Width 20 % (10.5-15); Total Bilirubin 0.4 mg/dL (0.2-1.0); Total Protein 6.7 g/dL (6.4-8.9); White Blood Count 8.7 10^3/ul (3.5-10.8)
[2018-03-10] MEDS: Folic Acid TAB* 1 MG PO SCH (08:36)
[2018-03-10] MEDS: Lisinopril TAB* 5 MG PO SCH (08:36)
[2018-03-10] MEDS: Multivitamins/Minerals TAB PO SCH (08:37)
[2018-03-10] MEDS: Omeprazole CAP (NF) 20 MG CAP.DR PO SCH (08:37)
[2018-03-10] MEDS: Thiamine TAB* 100 MG TAB PO SCH (08:37)
[2018-03-10] MEDS: Aspirin EC TAB* 81 MG TAB.EC PO SCH (08:37)
[2018-03-10] MEDS: Gabapentin CAP(*) 300 MG PO SCH ×4 (08:38→20:00)
[2018-03-10] MEDS ORDERED: Sulfamethox/Trimethoprim DS 800/160* TAB PO ONE (09:00)
[2018-03-10] MEDS ORDERED: Magnesium Sulfate 2 GM IV* 2 GM/50 ML BAG IVPB ONE (10:32)
--- NOTE | 2018-03-10 19:08 | PN ---
Subjective Date of Service: 03/10/18 Interval History: Pt seen and examined. Meds and labs reviewed. CC: N/A ROS: Denied INFANTE/dizziness, F/C, N/V, CP, SOB, increased cough, sputum production , abd pain, diarrhea, constipation, dysuria, myalgias, arthralgias, throat pain , and new skin lesions. The rest of the 14 point ROS are unremarkable. PHYSICAL EXAM: GEN APPEARANCE: Awake, not in acute distress HEENT: NC/AT, PERRLA, moist oral mucosa, (-) throat erythema NECK: Soft, supple, (-) cervical LAD, (-)JVD HEART: S1S2 WNL, RRR, No MRG CHEST: CTA, BL, GAE, No W/R/R ABD: Soft, ND/NT, NABS 4x Q EXT: No C/C/R. AKA SKIN: Warm to touch PSYCH: No active psychosis, hallucinations, depression, SI/HI Family History: Unchanged from Admission Social History: Unchanged from Admission Past Medical History: Unchanged from Admission Objective Active Medications: Acetaminophen (Tylenol Tab*) 650 mg PO Q4H PRN PRN Reason: FEVER/PAIN Aspirin (Aspirin Ec Tab*) 81 mg PO DAILY [facility] Last Admin: 03/10/18 08:37 Dose: 81 mg Device (Nicotine Mouth Piece*) 1 each INH ONCE PRN PRN Reason: CRAVINGS Last Admin: 03/10/18 11:28 Dose: 1 each Docusate Sodium (Colace Cap*) 100 mg PO BID PRN PRN Reason: CONSTIPATION Enoxaparin Sodium (Lovenox(*)) 40 mg SUBCUT Q24H [facility] Last Admin: 03/09/18 20:12 Dose: 40 mg Folic Acid (Folvite Tab*) 1 mg PO DAILY [facility] Last Admin: 03/10/18 08:36 Dose: 1 mg Gabapentin (Neurontin Cap(*)) 300 mg PO QID [facility] Last Admin: 03/10/18 17:39 Dose: 300 mg Lisinopril (Prinivil Tab*) 2.5 mg PO DAILY [facility] Last Admin: 03/10/18 08:36 Dose: 2.5 mg Lorazepam (Ativan Tab(*)) 0 - 6 mg PO .PER [facility] PROTOCOL [facility]; Protocol Melatonin (Melatonin) 6 mg PO BEDTIME [facility]; Protocol Last Admin: 03/09/18 20:12 Dose: 6 mg Multivitamins/Minerals (Theragran/Minerals Tab*) 1 tab PO DAILY [facility] Last Admin: 03/10/18 08:37 Dose: 1 tab Nicotine (Nicotine Inhaler*) 10 mg INH Q2H PRN PRN Reason: CRAVING Last Admin: 03/10/18 11:28 Dose: 10 mg Nystatin (Nystatin Top Powder*) 1 applic TOPICAL BID PRN PRN Reason: RASH Last Admin: 03/07/18 00:24 Dose: 1 applic Omeprazole (Prilosec Cap*) 20 mg PO DAILY@0730 [facility] Last Admin: 03/10/18 08:37 Dose: 20 mg Oxycodone HCl (Roxycodone Tab*) 5 mg PO TID PRN PRN Reason: PAIN Last Admin: 03/09/18 09:08 Dose: 5 mg Oxycodone/Acetaminophen (Percocet 5/325 Tab*) 1 tab PO Q4H PRN PRN Reason: Pain Last Admin: 03/09/18 20:12 Dose: 1 tab Thiamine HCl (Vitamin B-1 Tab*) 100 mg PO DAILY [facility] Last Admin: 03/10/18 08:37 Dose: 100 mg Trazodone HCl (Desyrel Tab*) 100 mg PO BEDTIME PRN PRN Reason: SLEEP Vital Signs - 8 hr 03/10/18 03/10/18 03/10/18 12:17 13:34 15:20 Temperature 98.1 F 97.8 F Pulse Rate 78 81 Respiratory 18 18 16 Rate Blood Pressure 113/62 132/72 (mmHg) O2 Sat by Pulse 96 96 Oximetry 03/10/18 03/10/18 17:18 17:39 Temperature Pulse Rate Respiratory 18 18 Rate Blood Pressure (mmHg) O2 Sat by Pulse Oximetry Oxygen Devices in Use Now: None Result Diagrams: 03/10/18 05:43 03/10/18 05:43 Microbiology and Other Data: Microbiology 03/07/18 03:15 Nasal Screen MRSA (PCR) - Final Nasal Mrsa Detected Assess/Plan/Problems-Billing Assessment: Mr Miller is a 68yo M with PMH of ETOH abuse, CAD, GI bleed, back pain, COPD, PVD, GI bleed, Factor V Leiden, right AKA, who presented to ED with c/o right thigh pain, found to have right thigh pressure ulcer with surrounding cellulitis and severe hyponatremia. - Patient Problems (1) Hyponatremia Current Visit: Yes Status: Acute Code(s): E87.1 - HYPO-OSMOLALITY AND HYPONATREMIA SNOMED Code(s): 24213473 Comment: - Severe hyponatremia - likely beer potomania on top of SIADH per Dr. Manuela rowley -Stable -Still waiting on urine labs ordered but likely too late by now as Sodium concentration almost normal (2) Pressure ulcer Current Visit: Yes Status: Acute Code(s): L89.90 - PRESSURE ULCER OF UNSPECIFIED SITE, UNSPECIFIED STAGE SNOMED Code(s): 765228920 Comment: - Posterior right thigh stage 2 pressure ulcer, present on admission. - Wound care appreciated - cover with Duoderm. (3) Cellulitis Current Visit: Yes Status: Acute Code(s): L03.90 - CELLULITIS, UNSPECIFIED SNOMED Code(s): 004850240 Comment: - Right posterior thigh - wound culture grew MRSA - continue Vancomycin. - US was negative for DVT. -Appreciate ID input; Continue vanco for now and consider transitioning to Bactrim later (4) Alcoholism Current Visit: Yes Status: Acute Code(s): F10.20 - ALCOHOL DEPENDENCE, UNCOMPLICATED SNOMED Code(s): 0991411 Comment: - No evidence of withdrawal at this time. - Continue WAM protocol. (5) Chronic pain Current Visit: Yes Status: Acute Code(s): G89.29 - OTHER CHRONIC PAIN SNOMED Code(s): 82518749 Comment: - Neuropathic in nature - continue Gabapentin. (6) DVT prophylaxis Current Visit: Yes Status: Acute Code(s): ODL3904 - SNOMED Code(s): 562208377 Comment: - Lovenox. Status and Disposition: -Pt refuses JANICE, therefore, will continue to observe and possible D/C in 1-2 days -Continue PT and possible D/C in AM -Touch base with ID
[2018-03-10] MEDS: Melatonin 3 MG TAB PO SCH (20:00)
[2018-03-10] MEDS: Enoxaparin(*) 40 MG/0.4 ML SYR SUBCUT SCH (20:03)
[2018-03-11] MEDS: Folic Acid TAB* 1 MG PO SCH (08:24)
[2018-03-11] MEDS: oxyCODONE/Acetamin 5/325 MG* TAB PO PRN (08:24)
[2018-03-11] MEDS: Thiamine TAB* 100 MG TAB PO SCH (08:24)
[2018-03-11] MEDS: Multivitamins/Minerals TAB PO SCH (08:24)
[2018-03-11] MEDS: Gabapentin CAP(*) 300 MG PO SCH ×2 (08:24→12:39)
[2018-03-11] MEDS: Omeprazole CAP (NF) 20 MG CAP.DR PO SCH (08:24)
[2018-03-11] MEDS: Aspirin EC TAB* 81 MG TAB.EC PO SCH (08:25)
[2018-03-11] MEDS: Lisinopril TAB* 5 MG PO SCH (08:25)
[2018-03-11] MEDS ORDERED: Sulfamethox/Trimethoprim DS 800/160* TAB PO SCH (11:00)
[2018-03-11 14:30] VITALS: BP 121/60
--- NOTE | 2018-03-11 23:09 | DS ---
CC: Dr. Eliza Hardy; Dr. Bright Francis; Dr. Aly Acuña; Dr. Anamika Covington.* DISCHARGE SUMMARY: DATE OF ADMISSION: 03/06/18 DATE OF DISCHARGE: 03/11/18 DISCHARGE DIAGNOSES: 1. Severe hyponatremia, improved to almost normal, likely due to beer potomania. 2. ulcer. 3. Cellulitis of the right posterior thigh, improved. DISCHARGE MEDICATIONS: 1. Aspirin 81 mg p.o. q. daily. 2. Gabapentin 300 mg p.o. t.i.d. 3 Lisinopril 2.5 mg p.o. q. daily. 4. Nicotine inhaler 10 mg inhalation q.2 hours p.r.n. 5. Nystatin powder 1 application topically b.i.d. 6. Oxycodone 5 mg p.o. t.i.d. p.r.n. 7. Pantoprazole 40 mg p.o. q. daily. 8. TMP-SMX 1 tab p.o. b.i.d. 800/160 mg tab for 5 more days, then stop. 9. Trazodone 100 mg p.o. q.h.s. 10. Duloxetine DR capsule 30 mg p.o. q. daily. 11. Floranex tablets 2 tabs p.o. q. daily for 8 days. 12. Ondansetron 4 mg p.o. q.6 p.r.n. 13. Senna Plus 2 tabs p.o. b.i.d. HISTORY OF PRESENT ILLNESS/HOSPITAL COURSE: The patient is a 68-year-old gentleman with a history of ETOH abuse, CAD status post MO and COPD, who was in his usual state of health until he started complaining of posterior thigh pain a few days prior to admission where his son called the ambulance due to his inability to control his pain where they also mentioned right posterior thigh pain as well as an area of an open sore that they were concerned about. On evaluation, he was diagnosed with a right posterior thigh open wound and cellulitis as well as severe hyponatremia likely due to beer potomania. Unfortunately, during his hospital stay, I had ordered urine lytes and urine osmolality and they were not sent or the patient was unwilling to have the laboratories drawn, and by the time the most recent laboratories done yesterday showed resolution or close to resolution of his hyponatremia at 134 and hence, while ordered, the urine lytes and laboratory tests to confirm a possible SIADH on top of beer potomania could not be confirmed, although this is the impression at the time of his admission, likely due to beer potomania as discussed above given the temporal sequence of events as well as its quick resolution to close to normal. His cellulitis was initially treated on IV antibiotics and was then subsequently seen by Dr. Acuña who recommended completion of his antibiotic therapy with Bactrim and hence, he will be placed on 5 more days of Bactrim on discharge to complete a 10-day treatment therapy. He was also seen by Physical Therapy, who recommended that he be placed on subacute rehab on discharge. Unfortunately, the patient declined this offer and for the past day and a half, we have been working on him physically and was once again reevaluated by physical therapist who recommended certain activities that will decrease the chances of fall and for him to recover his strength faster and hence, we will defer. He had been advised to follow up and/or call his PCP within 3 days post DC. He was advised to follow up with Dr. Acuña 1 week post DC and to call his office and make/confirm an appointment. He had also been advised and is aware that it is recommended that he discharged to subacute rehab; however, given his refusal we will defer with the patient and hence the patient has been set up for an outpatient PT for discharge to home. He was advised that if his symptoms resume or develop new ones or feel unwell for any reason, to call his PCP first. If her PCP cannot entertain him due to scheduling issues alone, he was advised to call [facility] if the issue is nonemergent. He was advised to call my office regarding any questions , concerns, or further clarifications regarding his discharge plans and/or prescriptions and to take his medications as prescribed. The patient was also found to be hypomagnesemic and his magnesium has been replenished prior to his discharge; however, he is aware that he has a repeat magnesium level to be done as an outpatient in 3 days post DC and he will need to touch base with his primary care to see if he needs more supplementation. REVIEW OF SYSTEMS: The patient currently denies any headaches, dizziness, fevers, chills, nausea, vomiting, chest pain, shortness of breath, increased cough nor sputum production. Denies any abdominal pain, diarrhea, constipation , pain and/or increased frequency on urination, myalgias or arthralgias, throat pain or new skin lesions. The rest of the 14-point review of systems are otherwise unremarkable. PHYSICAL EXAMINATION: Shows the most recent vital signs of records with BP of 127/63, heart rate of 85 beats per minute, 18 per minute respiratory rate, saturating 97% on room air, temperature of 97.4 degrees Fahrenheit. General Appearance: The patient is awake, not in acute distress. HEENT: Normocephalic , atraumatic. PERRLA. Extraocular muscles intact. Negative for icterus. Moist oral mucosa. Negative throat erythema. Neck is soft, supple with no cervical lymphadenopathy, no JVD. Heart: S1, S2 within normal limits. Regular rate and rhythm. No murmurs, rubs, or gallops. Chest: Clear to auscultation bilaterally. Good air entry. No wheezes, rales, or rhonchi. Abdomen is soft, nondistended, nontender. Normoactive bowel sounds x4 quadrants. Extremities: No cyanosis, clubbing or edema, with a right AKA. Psychiatric: No active psychosis, depression, suicidal or homicidal ideation. Skin is warm to touch. TIME SPENT: The total time spent evaluating the patient, reviewing pertinent data, and appropriate documentation is 65 minutes. [id number]/CPS #: [id number] MTDD
== END 2018-03-11 14:36 | disposition home or self-care (01) | DRG 644 ==
LOC: ED 15:20 → MEDTELE 17:57
PROVIDERS: ADMIT Pediatrics; ATTEND Student in an Organized Health Care Education/Training Program
DX: E22.2 Syndrome of inappropriate secretion of antidiuretic hormone (principal); L03.115 Cellulitis of right lower limb; D68.2 Hereditary deficiency of other clotting factors; L89.892 Pressure ulcer of other site, stage 2; E83.42 Hypomagnesemia; J44.9 Chronic obstructive pulmonary disease, unspecified; Y90.7 Blood alcohol level of 200-239 mg/100 ml; I25.10 Atherosclerotic heart disease of native coronary artery without angina pectoris; Z89.611 Acquired absence of right leg above knee; M54.9 Dorsalgia, unspecified; M81.0 Age-related osteoporosis without current pathological fracture; F10.20 Alcohol dependence, uncomplicated; B95.62 Methicillin resistant Staphylococcus aureus infection as the cause of diseases classified elsewhere; R32 Unspecified urinary incontinence; G89.29 Other chronic pain; G54.6 Phantom limb syndrome with pain; F41.8 Other specified anxiety disorders; F17.210 Nicotine dependence, cigarettes, uncomplicated; I73.9 Peripheral vascular disease, unspecified; I25.2 Old myocardial infarction; Z79.82 Long term (current) use of aspirin; Z79.891 Long term (current) use of opiate analgesic; Z79.899 Other long term (current) drug therapy; Z88.8 Allergy status to other drugs, medicaments and biological substances; Z82.49 Family history of ischemic heart disease and other diseases of the circulatory system
CPT/HCPCS: 36415; 71046; 80048; 80051; 80053; 80202; 80307; 80320; 81003; 83735; 84100; 84443; 85025; 85027; 87641; 99284; A9270-GY; G0480; G8978-GP-CI; G8979-GP-CI; J1650; J3370; J3411; J3475

== ENCOUNTER 2018-04-27 11:04 | Inpatient (IN) | payer MEDICARE, MEDICAID ==
[2018-04-27] MEDS ORDERED: Ondansetron INJ* 2 MG/ML VIAL IV ONE (11:17)
[2018-04-27] MEDS ORDERED: NS 0.9% 1000 ML** 1,000 ML IV ONE ×2 (11:17→13:02)
--- NOTE | 2018-04-27 11:18 | ED ---
Nausea/Vomiting/Diarrhea HPI - HPI Summary HPI Summary: Patient is a 68-year-old male who presents emergency department for abdominal pain and vomiting times one week. She denies diarrhea, fever, cough, chest pain , shortness of breath. Patient states he resides at home with his son. Pt. denies a hx of ETOH abuse but it appears pt. was admitted last month for alcoholism related complications. Symptoms are moderate in severity. No current modifying factors. - History of Current Complaint Chief Complaint: EDNauseaVomitDiarrh Stated Complaint: GENERAL ILLNESS Time Seen by Provider: 04/27/18 11:14 Hx Obtained From: Patient Pain Intensity: 0 - Allergies/Home Medications Allergies/Adverse Reactions: Allergies Allergy/AdvReac Type Severity Reaction Status Date / Time fentanyl Allergy Itching Verified 03/06/18 15:59 Home Medications: Home Medications Aspirin EC TAB* [Ecotrin EC Low Dose 81 MG*] 81 mg PO DAILY 04/27/18 [History Confirmed 04/27/18] HYDROcodone/ACETAMIN 5-325 MG* [[place] 5-325 TAB*] 1 tab PO TID PRN 04/27/18 [ History Confirmed 04/27/18] Ipratropium/Albuterol Sulfate [Iprat-Albut 0.5-3(2.5) mg/3 ml] 3 ml INH QID PRN 04/27/18 [History Confirmed 04/27/18] Lisinopril TAB* [Prinivil TAB*] 2.5 mg PO DAILY 04/27/18 [History Confirmed ] Nystatin TOP POWDER* 1 applic TOPICAL Q8HR PRN 04/27/18 [History Confirmed 04/27] Sennosides/Docusate Sodium [Ra P-Col Rite Tablet] 1 tab PO DAILY PRN 04/27/18 [ History Confirmed 04/27/18] PMH/Surg Hx/FS Hx/Imm Hx Endocrine/Hematology History: Reports: Hx Blood Disorders - factor 5 clotting disorder Denies: Hx Anticoagulant Therapy, Hx Diabetes, Hx Thyroid Disease Cardiovascular History: Reports: Hx Angina, Hx Coronary Artery Disease, Hx Deep Vein Thrombosis, Hx Myocardial Infarction, Hx Peripheral Vascular Disease, Other Cardiovascular Problems/Disorders - fACTOR V LEIDEN CLOTTING DISORDER Denies: Hx Cardiomegaly, Hx Congestive Heart Failure, Hx Hypertension, Hx Pacemaker/ICD, Hx Rheumatic Fever, Hx Valvular Heart Disease Respiratory History: Reports: Hx Asthma, Hx Chronic Obstructive Pulmonary Disease (COPD), Other Respiratory Problems/Disorders - Snf smoker Denies: Hx Pulmonary Edema, Hx Pulmonary Embolism GI History: Reports: Hx Gastroesophageal Reflux Disease, Other GI Disorders - HX OF GI BLEED - NO PROBLEMS NOW Denies: Hx Cirrhosis, Hx Crohn's Disease, Hx Hiatal Hernia, Hx Irritable Bowel, Hx Jaundice, Hx Ulcer History: Denies: Hx Renal Disease, Other Problems/Disorders Musculoskeletal History: Reports: Hx Arthritis, Hx Back Problems, Hx Osteoporosis, Other Musculoskeletal History - Fx hip sp fall at home hx Denies: Hx Rheumatoid Arthritis, Hx Bursitis Sensory History: Reports: Hx Cataracts - HAVING CATARACT SURGERY, Hx Contacts or Glasses - for reading, Hx Hearing Problem - deaf R ear, 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 Denies: Hx Hearing Aid Opthamlomology History: Reports: Hx Cataracts - HAVING CATARACT SURGERY, Hx Contacts or Glasses - for reading Neurological History: Denies: Hx Headaches, Hx Migraine, Hx Seizures Comment Only: Other Neuro Impairments/Disorders - NEUROPATHY/HX SUBSTANCE ABUSE Psychiatric History: Reports: Hx Depression, Hx Substance Abuse Denies: Hx Anxiety, Hx Panic Disorder - Cancer History Hx Chemotherapy: No - Surgical History Surgery Procedure, Year, and Place: femur rodding [place] [facility] [place]; RTHR June 2013; Right total knee replacement august 08 2013, [facility] [place]. right ear surgery, HERNIA REPAIR Hx Anesthesia Reactions: No - Immunization History Date of Tetanus Vaccine: 2010 Date of Influenza Vaccine: None Infectious Disease History: Unable to Obtain/Confirm Infectious Disease History: Reports: Hx of Known/Suspected MRSA Denies: Hx Hepatitis, Traveled Outside the [place] in Last 30 Days - Family History Known Family History: Positive: Cardiac Disease, Other - CANCER - Social History Alcohol Use: Daily Alcohol Amount: NOT SINCE NEW YEARS Substance Use Type: Reports: None Hx Tobacco Use: Yes Smoking Status (MU): Heavy Every Day Tobacco Smoker Type: Cigarettes Amount Used/How Often: 1 - 2 PPD Length of Time of Smoking/Using Tobacco: 50 YEARS Have You Smoked in the Last Year: Yes Review of Systems Constitutional: Negative Eyes: Negative ENT: Negative Cardiovascular: Negative Respiratory: Negative Positive: Abdominal Pain, Vomiting Genitourinary: Negative Musculoskeletal: Negative Neurological: Negative All Other Systems Reviewed And Are Negative: Yes Physical Exam Triage Information Reviewed: Yes Vital Signs On Initial Exam: Initial Vitals Temp Pulse Resp BP Pulse Ox 96.2 F 86 20 152/74 95 04/27/18 11:05 04/27/18 11:05 04/27/18 11:05 04/27/18 11:05 04/27/18 11:05 Vital Signs Reviewed: Yes Appearance: Positive: Pain Distress - Pt. sitting up in bed, appears uncomfortable but nontoxic. Holding emesis bag with small amount of brownish liquid in it. Appears holding than stated age. Skin: Positive: Warm, Dry Head/Face: Positive: Normal Head/Face Inspection Eyes: Positive: Normal, EOMI Neck: Positive: Supple Respiratory/Lung Sounds: Positive: Clear to Auscultation Cardiovascular: Positive: Normal Abdomen Description: Positive: Other: - Distended with diffuse tenderness. Neurological: Positive: Normal, CN Intact II-III Psychiatric: Positive: Affect/Mood Appropriate Diagnostics - Vital Signs Vital Signs Temp Pulse Resp BP Pulse Ox 04/27/18 11:05 96.2 F 86 20 152/74 95 - Laboratory Result Diagrams: 04/29/18 07:23 04/29/18 07:23 Lab Statement: Any lab studies that have been ordered have been reviewed, and results considered in the medical decision making process. Naus/Vom/Diarrhea Course/Dx - Course Course Of Treatment: Pt. presenting with abd. pain and vomiting. He is afebrile with stable VS. Pt. started on IV fluids and zofran. ECG nonacute. Labs show significant leukocytosis of 21k. Low Na, Cl, CO2, and ca. CXR shows lower lobe infiltrate per radiology. Pt. given a dose of zosyn. CT abd./pelvis per radiology: IMPRESSION: #. Consider chronic or recurrent diffuse severe esophagitis with periesophageal. inflammatory change versus long segment infiltrating esophageal tumor with mediastinal. extension. Correlate with clinical assessment and consider endoscopy for further. evaluation. #. Cholelithiasis without additional CT abnormality of the gallbladder. #. Normal appendix documented. Colonic diverticulosis without findings of acute. diverticulitis. #. Negative for ascites. #. Negative for lymphadenopathy. #. Negative for obstructive uropathy. Hospitalist consulted for admission. I spoke with Dr. Solo and pt has been accepted to her service. They will consult GI and get endoscopy set up for further evaluation of potential esophageal mass. Pt. has had no further vomiting in ED and has remained stable. - Differential Dx/Diagnosis Differential Diagnoses - Male: SC, Bowel Obstruction, Diverticulitis, Pancreatitis, Gall Bladder Disease, Ureteral Calculi, Aspiration, Gastroenteritis (Viral), Gastroenteritis (Bacterial), Vomiting, Colitis Provider Diagnosis: Pneumonia, Esophageal mass Discharge - Sign-Out/Discharge Documenting (check all that apply): Patient Departure Patient Received Moderate/Deep Sedation with Procedure: No - Discharge Plan Condition: Stable Disposition: ADMITTED TO [facility] - Billing Disposition and Condition Condition: STABLE Disposition: Admitted to [facility]
[2018-04-27 12:35] LABS: Hematocrit 36 % (42-52); Hemoglobin 11.4 g/dl (14.0-18.0); Mean Corpuscular HGB Conc 32 g/dl (31-36); Mean Corpuscular Hemoglobin 22 pg (27-31); Mean Corpuscular Volume 70 fL (80-94); Mean Platelet Volume 8.3 fL (7.4-10.4); Platelet Count 370 10^3/ul (150-450); Red Blood Count 5.18 10^6/ul (4.00-5.40); Red Cell Distribution Width 19 % (10.5-15)
[2018-04-27 12:41] LABS: Alcohol < 10 mg/dL (<10)
[2018-04-27 12:55] LABS: ALT 5 U/L (7-52); AST 13 U/L (13-39); Albumin 4.1 g/dL (3.2-5.2); Albumin/Globulin Ratio 1.1 (1-3); Alkaline Phosphatase 90 U/L (34-104); Anion Gap 11 mmol/L (2-11); BUN/Creatinine Ratio 10.2 (8-20); Blood Urea Nitrogen 5 mg/dL (6-24); CO2 Carbon Dioxide 24 mmol/L (22-32); Calcium 9.4 mg/dL (8.6-10.3); Chloride 85 mmol/L (101-111); EGFR African American 204.2 (>60); EGFR Non-African American 168.8 (>60); Globulin 3.8 g/dL (2-4); Glucose 114 mg/dL (70-100); Potassium 3.9 mmol/L (3.5-5.0); Sodium 120 mmol/L (135-145); Total Protein 7.9 g/dL (6.4-8.9)
[2018-04-27 12:57] LABS: Troponin I 0.03 ng/mL (<0.04)
[2018-04-27] MEDS ORDERED: Iohexol 300* (CONTRAST) 10 ML SDV IV ONE (13:59)
[2018-04-27] MEDS ORDERED: ED Piperacillin/Tazobac 3.375 3.375 GM/100 ML PREMIX.SET IVPB ONE (14:10)
[2018-04-27] MEDS ORDERED: Piperacillin/Tazobac (*) 3.375 GM BAG ONE (14:57)
[2018-04-27] MEDS ORDERED: Nystatin TOP POWDER* 15 GM BTL TOPICAL PRN (15:13)
[2018-04-27] MEDS ORDERED: NS 0.9% 500 ML* 500 ML IV ONE (15:13)
[2018-04-27] MEDS ORDERED: Benzonatate CAP* 100 MG PO PRN (15:14)
[2018-04-27] MEDS ORDERED: Ondansetron INJ* 2 MG/ML VIAL IV PRN (15:14)
[2018-04-27] MEDS ORDERED: Acetaminophen TAB* 325 MG PO PRN (15:14)
[2018-04-27] MEDS ORDERED: Albuterol/Ipratropium NEB.SOL* Albuterol 2.5 MG/Ipratropium 0.5 MG 3 ML INH PRN (15:48)
[2018-04-27] MEDS ORDERED: Trimethobenzamide CAP* 300 MG PO PRN (15:58)
[2018-04-27 16:27] LABS: Magnesium 1.5 mg/dL (1.9-2.7)
[2018-04-27] MEDS ORDERED: Pantoprazole* 80 mg IN NS 80 MG/250 ML BAG IVPB SCH (16:30)
[2018-04-27 16:31] LABS: Activated Partial Thrombo Time 35.2 seconds (26.0-36.3); INR 0.98 (0.77-1.02)
[2018-04-27 16:54] LABS: % Iron Saturation 7 % (15-55); Iron 29 ug/dL (50-212); Total Iron Binding Capacity 399 mcg/dL (250-450); Transferrin 285 mg/dL (203-362)
[2018-04-27] MEDS ORDERED: Azithromycin IV(*) 500 MG in NS 0.9% 250 ML* 250 ML IVPB SCH (17:00)
[2018-04-27 17:13] LABS: Ferritin 12.2 ng/mL (24-336)
[2018-04-27] MEDS ORDERED: Magnesium Sulf 4 GM/100 ML IV* 4,000 MG/100 ML BAG IVPB ONE (18:15)
[2018-04-27] MEDS: Sucralfate SUSP 1 GM/10 ml 10 ML UDC PO SCH ×2 (18:18→20:00)
[2018-04-27 19:41] LABS: Hematocrit 35 % (42-52); Hemoglobin 10.8 g/dl (14.0-18.0)
[2018-04-27] MEDS: Gabapentin CAP(*) 300 MG PO SCH (19:48)
[2018-04-27] MEDS: HYDROcodone/ACETAMIN 5-325 MG* 1 TAB PO PRN (19:49)
[2018-04-27] MEDS: guaiFENesin ER TAB 600 MG PO SCH (19:49)
[2018-04-27 20:00] LABS: Calcium 8.5 mg/dL (8.6-10.3); Potassium 3.7 mmol/L (3.5-5.0)
[2018-04-27] MEDS ORDERED: Zosyn per Pharmacy* NOTE FOLLOW UP SCH (20:00)
[2018-04-27 20:06] LABS: BUN/Creatinine Ratio 7.8 (8-20); EGFR Non-African American 161.1 (>60)
[2018-04-27] MEDS ORDERED: Famotidine IV* 10 MG/ML 2 ML (20 mg) IV SCH (21:00)
[2018-04-27] MEDS ORDERED: Famotidine IV * 20 MG in NS 0.9% 100 ML* 100 ML IVPB SCH (21:00)
[2018-04-27 21:07] LABS: Urine Appearance Clear; Urine Bacteria Absent (Absent); Urine Bilirubin Negative (Negative); Urine Blood Negative (Negative); Urine Color Yellow; Urine Glucose Negative (Negative); Urine Ketones 1+ (Negative); Urine Nitrite Negative (Negative); Urine Protein 1+(30 mg/dL) (Negative); Urine Red Blood Cell Trace(0-2/hpf) (Absent); Urine Urobilinogen Negative (Negative); Urine White Blood Cell Trace(0-5/hpf) (Absent)
--- NOTE | 2018-04-27 21:19 | HP ---
CC: Dr. Anamika Covington * HISTORY AND PHYSICAL: DATE OF ADMISSION: 04/27/18 PRIMARY CARE PROVIDER: Dr. Anamika Covington. MY ATTENDING WHILE IN THE HOSPITAL: Dr. Karen Moncada.* (DICTATED BY ERNESTO JEAN) CHIEF COMPLAINT: Coffee-ground emesis x1 day. HISTORY OF PRESENT ILLNESS: Mr. Miller is a 68-year-old male with past medical history significant for alcohol abuse, myocardial infarction, history of GI bleeding associated with severe erosive esophagitis and chronic hyponatremia, who presents to the emergency department with severe vomiting of coffee-ground emesis and blood clots for 1 day in association with epigastric abdominal pain. The patient has a history of this in 2012, but his erosive esophagitis at the time was able to be resolved with treatment on repeat EGD in 2013. The patient until the day before had been in his normal state of health, though the patient is generally relatively sedentary and non-communicative per his family. The patient had no fevers, chills, or chest pain. The patient has chronic shortness of breath. The patient has been vomiting approximately every 10 to 15 minutes overnight. The patient had been unable to take anything in by mouth and has felt that when he did take anything by mouth, that made his pain worse. The patient became less responsive on the morning of 04/27/18 and his family activated EMS at that time. The patient was recently diagnosed with pneumonia approximately 3 weeks ago and treated with antibiotics. The patient is generally uncooperative with medical care, but has been taking his meds per his son, who lives with him. The patient was recently admitted to this institution with lower extremity cellulitis. The patient has abdominal pain at the time of this interview, which he describes as epigastric, moderate intensity , but is unable to describe the quality. He denies any radiation. The patient has no other respiratory symptoms. In the emergency department, the patient was found to have an elevated white blood cell count of 21.0, slight anemia with a microcytic pattern consistent with iron efficiency, hyponatremia, and otherwise unremarkable labs. The patient had an abdomen and pelvis CT, which showed inflammation of the esophagus concerning for possible esophageal cancer and a chest x-ray with lobar consolidation in the right lower lung. The patient has been coughing significantly with his vomiting over the past day. Due to concern for upper GI bleeding, erosive esophagitis, and possible aspiration pneumonia, we are asked to follow the patient for admission to hospital. PAST MEDICAL HISTORY: Alcohol abuse, NC, heart failure, reduced ejection fraction, COPD, osteoporosis, peripheral vascular disease, coronary artery disease, chronic hyponatremia, factor V Leiden, erosive esophagitis with GI bleeding, femur fracture complicated by osteomyelitis necessitating right above- knee amputation. PAST SURGICAL HISTORY: Right hip ORIF with revisions, hernia repair, right above- knee amputation. MEDICATIONS: 1. Trazodone 100 mg p.o. at bedtime as needed. 2. Pantoprazole 40 mg p.o. daily. 3. Neurontin 300 mg p.o. t.i.d. 4. Duloxetine 30 mg p.o. daily. 5. [place] 5/325 one tab p.o. t.i.d. as needed. 6. Ipratropium albuterol sulfate 3 mL inhalation q.i.d. as needed. 7. Lisinopril 2.5 mg p.o. daily. 8. Nystatin 1 application topical q.8 hours as needed. 9. Aspirin 81 mg p.o. daily. 10. Senna/docusate 1 tab p.o. daily as needed. ALLERGIES: FENTANYL. FAMILY HISTORY: The patient's father had lung cancer and esophageal cancer. The patient's mother had lung cancer. The patient had a brother who of an NC. Brother of lung cancer and a son who of complications of cirrhosis. This patient has another son who has severe acid reflux, but who is otherwise alive and well. SOCIAL HISTORY: The patient smokes approximately 7 to 8 cigarettes a day. The patient attempted to quit, but only was successful in doing so for 2 months. The patient quit drinking 4 months ago, but has a significant history of alcohol abuse. The patient denies having illicit drug use. The patient has worked at [employer], but has been on disability since he is 39 years old. The patient reports he has one child. The patient's surrogate decision maker will be his son, Gera Miller. REVIEW OF SYSTEMS: A 14-point review of systems was reviewed with the patient and is negative except as above in the HPI, except the patient has been complaining of urinary frequency and a feeling of incomplete emptying. PHYSICAL EXAMINATION GENERAL: The patient is a 68-year-old male who appears much older than stated age and sitting in the bed in moderate distress from abdominal pain, slightly increased work of breathing. VITAL SIGNS: At the time of evaluation, temperature 96.2, pulse rate 96, respiratory rate 18, oxygen saturate 93% on room air, blood pressure 131/62. HEENT: Head normocephalic, atraumatic. Sclerae anicteric. No conjunctival injection. Nasal mucosa dry. No pharyngeal erythema, discharge, or exudate. NECK: Supple, nontender. No lymphadenopathy. No carotid bruit auscultated. No JVD. RESPIRATORY: Severely diminished breath sounds. No wheezes, rales, or rhonchi. CARDIAC: Tachycardic. No clicks, murmurs, gallops, or rubs. Distant heart sounds, likely due to COPD. ABDOMEN: Soft, tender to palpation over the epigastric area. Hypertympanic to percussion over the epigastric area as well. Tympanic to percussion, otherwise. Bowel sounds present and normoactive in all 4 quadrants. No hepatosplenomegaly. No abdominal bruits auscultated. No hepatojugular reflux. GENITOURINARY: No suprapubic or CVA tenderness. Bladder nonpalpable. NEUROLOGIC: Cranial nerves II through XII intact. No focal deficits. The patient is alert and oriented x3, but drowsy. SKIN: The patient's right leg is surgically absent below the knee. PSYCHIATRIC: Pleasant and cooperative. LABORATORY DATA: White blood cell count 12.1, hemoglobin 11.4, hematocrit 36, MCV 70, MCH 22, platelet count 370. Sodium 120, potassium 3.9, chloride 85, carbon dioxide 24, anion gap 11, BUN 5, creatinine 0.49, glucose 114, calcium 9.4. Bilirubin 0.8, AST 13, ALT 5, alkaline phosphatase 90. Troponin I 0.03. Protein 7.9, albumin 4.1, globulin 3.8, lipase 11, serum alcohol less than 10. DIAGNOSTIC STUDIES: Abdomen and pelvis CT read as chronic or recurrent diffuse severe esophagitis with paraesophageal inflammatory change versus long segment infiltrating esophageal tumor with mediastinal expansion, correlate with clinical assessment, consider endoscopy for further evaluation, cholelithiasis without additional CT abnormality of the gallbladder, normal appendix and documented colonic diverticulosis without findings of the acute diverticulitis. Negative for ascites. Negative for lymphadenopathy. Negative for obstructive uropathy. Chest x-ray read as patchy right lower lung consolidation requiring followup until resolution to exclude underlying pulmonary parenchymal pathology. Electrocardiogram shows normal sinus rhythm, normal axis, incomplete right bundle- branch block, normal R-wave progression, rate 84, QTc of 551. ASSESSMENT AND PLAN: Impression: Mr. Miller is a 68-year-old male with a complicated past medical history significant for myocardial infarction, heart failure, reduced ejection fraction, chronic hyponatremia, and history of severe erosive esophagitis with upper gastrointestinal bleeding, who presents to the emergency department with nausea and vomiting for 1 day with coffee-ground emesis and signs of recurrent erosive esophagitis on CT examination of the abdomen. The patient was admitted to the hospital for management of upper gastrointestinal bleeding and erosive esophagitis with GI consultation, possible EGD, as well as treatment for likely aspiration pneumonia in association with his vomiting. 1. Likely erosive esophagitis causing upper gastrointestinal bleeding. The patient has a history of severe erosive esophagitis. The patient has been on pantoprazole 40 mg daily. The patient, however, has evidence of worsening esophagitis on his CT scan. The patient is started on pantoprazole drip, sucralfate suspension. The patient will be n.p.o. The patient also will have famotidine IV. The patient will be seen in consultation by Dr. Lew Dale of Gastroenterology with consideration for an endoscopy with possible biopsies to assess for esophageal cancer with concerns on the abdomen. The patient will have antiemetics as needed; however, concern will be exercised with this given patient's prolonged QT interval. The patient will have Tigan initially with a repeat EKG in the morning. We will attempt to replace patient's electrolytes if indicated. Magnesium is currently pending. 2. Pneumonia with sepsis. The patient has a patchy infiltrate on chest x-ray consistent with aspiration pneumonia. The patient is tachycardic and has leukocytosis. The patient will be started on Zosyn and azithromycin for empiric coverage of aspiration pneumonia as well as Legionella. The patient will have urinary antigens. The patient has received 2 L of fluid while in the emergency department. The patient will have 500 mL more to complete his 30 mL/ kg bolus. The patient will not receive additional fluids after that due to reduced ejection fraction. He will be monitored closely for hypotension. The patient will have 2 IVs in case he needs further fluid resuscitation or blood products. 3. Anemia. The patient has what appears to be chronic iron deficiency anemia, which is consistent with his baseline. We will repeat iron panel at this time. The patient may need IV iron if his blood cultures come back negative. The patient is not on iron supplementation at home. 4. Heart failure, reduced ejection fraction. The patient is not on full treatment for this. We will hold lisinopril at this time. The patient's more recent EF was 40 to 45%. If the patient begins to show signs of fluid overload , we will repeat echocardiogram. 5. Coronary artery disease. Hold patient's aspirin. The patient is not on a statin at home. The patient's most recent LDL in 2017 was 64. We will not start statin therapy at this time. 6. Factor V Leiden. Due to his concern for GI bleed, the patient will not have DVT prophylaxis. The patient is a heterozygote and has not been on anticoagulation for a long period due to GI bleeding. 7. Hyponatremia. The patient has a sodium of 120, which has slightly decreased from his baseline. Differential for this includes a poor solute intake, which has been the previous cause of his hyponatremia; however, SIADH from vomiting is also on differential. The patient received a normal saline bolus while in the emergency department. We will recheck a short-interval BMP to assess for changes in his sodium. The patient will be monitored closely for changes in mental status. 8. DVT prophylaxis held in the setting of gastrointestinal bleeding. 9. FEN. The patient will be n.p.o. except for medications, pending possible EGD and GI consultation. The patient is on fluids as above. 10. Disposition. The patient is admitted inpatient. 11. Estimated length of stay is greater than 2 days. TIME SPENT: Approximately 75 minutes spent on the admission of this patient, 45 of which was spent [id number] with the patient obtaining history and physical and discussing treatment plan. The plan was discussed with my attending, Dr. Karen Moncada, and she is in agreement. ERNESTO JEAN [id number]/[facility] #: [id number] JOSÉ ANTONIO
[2018-04-27] MEDS: ZOSYN 3.375 GM Q8H per EXTENDED INFUSION IVPB SCH ×2 (22:32)
[2018-04-28] MEDS: ZOSYN 3.375 GM IVPB SCH ×6 (05:18→17:46)
[2018-04-28] MEDS: ZOSYN 3.375 GM Q8H per EXTENDED INFUSION IVPB SCH ×2 (05:18)
[2018-04-28] MEDS: Sucralfate SUSP 1 GM/10 ml 10 ML UDC PO SCH ×4 (05:19→22:47)
[2018-04-28] MEDS: Pantoprazole* 80 mg IN NS 80 MG/250 ML BAG IVPB SCH ×3 (05:51→22:53)
[2018-04-28 06:49] LABS: Hematocrit 33 % (42-52); Hemoglobin 10.4 g/dl (14.0-18.0); Mean Corpuscular HGB Conc 31 g/dl (31-36); Mean Corpuscular Hemoglobin 22 pg (27-31); Mean Corpuscular Volume 71 fL (80-94); Mean Platelet Volume 8.9 fL (7.4-10.4); Platelet Count 308 10^3/ul (150-450); Red Blood Count 4.71 10^6/ul (4.00-5.40); Red Cell Distribution Width 20 % (10.5-15)
[2018-04-28 06:59] LABS: BUN/Creatinine Ratio 5.5 (8-20); Calcium 8.5 mg/dL (8.6-10.3); EGFR African American 178.7 (>60); EGFR Non-African American 147.7 (>60); Magnesium 1.9 mg/dL (1.9-2.7); Potassium 3.6 mmol/L (3.5-5.0)
[2018-04-28 07:29] LABS: ABS Basophils 0.1 10^3/ul (0-0.2); ABS Eosinophils 0 10^3/ul (0-0.6); ABS Lymphocytes 1.1 10^3/ul (1.0-4.8); ABS Neutrophils 16.7 10^3/ul (1.5-7.7); ABS Nucleated RBC 0 10^3/ul; Eosinophil % 0.1 %; Lymphocyte % 5.5 %; Nucleated Red Blood Cells % 0.1
[2018-04-28] MEDS ORDERED: Midazolam* 1 MG/ML 10 ML VIAL (10 MG) ONE (10:05)
[2018-04-28] MEDS ORDERED: Meperidine Ampule* 100 MG/2 ML AMPUL IV SLOW PU ONE (11:00)
[2018-04-28] MEDS: Gabapentin CAP(*) 300 MG PO SCH ×3 (11:56→22:46)
--- NOTE | 2018-04-28 12:01 | CONS ---
GASTROENTEROLOGY CONSULT: DATE: 04/28/18 CONSULTING PHYSICIAN: ERNESTO Calvo. REASON FOR CONSULTATION: Repetitive vomiting and coffee-ground emesis. HISTORY: This 68-year-old man with alcoholism, COPD, and continued intermittent abuse of those toxins was brought in with a couple of days of recurring vomiting. In the emergency room, he was found to have pulmonary infiltrates with a white count of 21,000, though he did not appear septic. Sodium was 122 with a history of prior low sodium at times, down into the mid 120s recurrently and once on this year 118. He has a history of GERD, treated with a PPI, though it is unclear at this time whether he has been taking it. He is seen alone and is hard of hearing and has very limited medical insight. His family is not present. He lives with his son and [id number]. CT of the chest in the ER showed thickening of the esophagus and mediastinal abnormalities. There is a history of esophageal cancer reportedly in his father. All this will need to be re-verified from old records and with his son. Since admission, he has not had any further vomiting. He has appeared comfortable and afebrile. PAST MEDICAL HISTORY: 1. Alcoholism - recurrently over the years and most recent elevation this year 226. He has never had any alcoholic liver disease and his INR has been normal. His ALT has been generally under 20. 2. COPD - tobacco abuse. 3. Factor V Leiden - recurring DVTs in the setting of complex right leg surgeries 4 to 8 years ago. 4. 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 5. History of coronary artery disease, status post coronary angiogram at [facility] around 2011. 6. Chronic hyponatremia. 7. Erosive GERD - healed up with 1 year of PPI treatment as documented by 1- year followup endoscopy by Dr. Licona in 2013. 8. Colon polyps - 4 removed [place] [address] Fischer. 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 9. Status post right hip fracture surgery, then prosthesis and revisions. 10. Hard of hearing. MEDICATIONS: Per medication reconciliation at home, he is to be on pantoprazole 40 mg, lisinopril 2.5 mg, aspirin 81 mg, trazodone 100 mg h.s., Neurontin 100 mg t.i.d., duloxetine 30 mg, [place] 5/325, senna and docusate. He did make the comment, however, that he is not taking all of them as they are too weak anyway. SOCIAL HISTORY: He worked for [employer], but has been on disability since age 39. He lives with his only child, his son Gera and his . He still smokes upwards of half pack a day. REVIEW OF SYSTEMS: No history of seizure, CVA , fainting, hepatitis, alcoholic hepatitis. He had had thrombocytopenia, but in recent years platelet count has been over 200. He has had no intraabdominal surgery. He has had chronic iron deficiency with hemoglobin under 13, except for one value at 13.4 in December 2014 and MCV has generally been under 80 with the December 2014 being at 84 when presumably he was relatively iron replete. PHYSICAL EXAMINATION: He is a chronically ill appearing man with a full black rose, lying in bed, comfortable, but very hard of hearing. He is afebrile. Blood pressure 112/55. HEENT exam shows no icterus. Mucous membranes are little bit dry. He has no adenopathy. Breast sounds are diminished symmetrically. He has no rhonchi. Heart sounds are regular. The abdomen is obese with multiple faded, smudged tattoos. There is some protuberance, but no organomegaly palpated. There is no scar. Rectal deferred. There is a right AKA. The left leg has no edema. Neurologic is nonfocal with symmetric cranial nerves and movement of the arms. Ambulation cannot be tested. DIAGNOSTIC STUDIES/LAB DATA: Hemoglobin 10.4, hematocrit 33, MCV 71. Sodium 127, BUN 3, creatinine 0.55. Iron 29, TIBC 399, ferritin 12.2. LFTs normal. Albumin 4.1 in January 2018. B12 of 437 on . TSH 0.82. IMPRESSION: Debilitated man status post right leg amputation who presents with recurring nausea and vomiting. He has chronic iron deficiency anemia - reassessment of control of his gastroesophageal reflux disease is appropriate and he appears stable to undergo this. Repleting his iron would likely have to be done intravenously. This will be arduous given his overall situation and his family will have to be engaged. [id number]/[facility] #: [id number] [facility]
[2018-04-28] MEDS: DULoxetine DR CAP* 30 MG CAP.DR PO SCH (12:07)
[2018-04-28] MEDS: guaiFENesin ER TAB 600 MG PO SCH ×2 (12:07→22:46)
--- NOTE | 2018-04-28 12:27 | PRO ---
DATE: 04/28/18 - ROOM #422 REFERRING PHYSICIAN: Anamika Covington MD * PROCEDURE: Upper gastrointestinal endoscopy and biopsy of esophagus at 25 cm and nodule at EG junction 37 cm. INDICATION: This 68-year-old man with prior severe erosive GERD in 2012 healed up after a year of PPI therapy, was admitted with repetitive nausea and vomiting. It is not certain that he has been compliant with maintenance a.m. pantoprazole 40 mg. He has a chronic iron-deficiency anemia. Four colon polyps were removed in 2011, one a tubulo-villous adenoma. He has a family history of multiple cancers, potentially one in the colon. He has improved overnight. He has no sign of respiratory insufficiency, fever, or cough. ENDOSCOPIST: Dr. Dale MEDICATIONS: Midazolam 2, meperidine (he referenced FENTANYL allergy and it was chosen not to challenge that, although it was only itching that could be documented). He tolerated the exam very well. FINDINGS: He is a chronically ill appearing man with a full rose, in no respiratory distress whatsoever. He was positioned left side down, and moderate sedation induced easily, and he tolerated the exam very well. ESOPHAGOGASTRODUODENOSCOPY: Larynx - symmetric, limited views. Esophagus - easily entered, the mucosa is normal from about 17 down to 23 and then speckled exudate is seen diffusely and increasing through to about 29 when the exudate was confluent and circumferential down to the EG junction at 37. The esophagitis was severe. There were no focal ulcers. Uncertain about potential Padilla margin. Biopsies were taken at 25. Biopsies were also taken of an EG junction nodule about 7 o'clock. There was then a moderate hiatal hernia. There was no fundic prolapse as the patient was not gagging. Stomach - generally normal mucosa seen in the cardia, fundus, body, and antrum. No erosions were seen. Duodenum - the pylorus, bulb, and second through fourth portions were normal. IMPRESSION: 1. Moderate hiatal hernia. 2. Severe erosive gastroesophageal reflux disease over two-thirds of the esophagus - this is certainly enough to influence the CT result. 3. Focal esophagogastric nodule - probably inflammatory in nature and not the exclusive cause of the CT result. Repeat exam in 2 months would be indicated on intense treatment, if that can be orchestrated by the family. [id number]/[facility] #: [id number] [facility]
[2018-04-28] MEDS: HYDROcodone/ACETAMIN 5-325 MG* 1 TAB PO PRN (12:29)
--- NOTE | 2018-04-28 12:50 | PN ---
Subjective Date of Service: 04/28/18 Interval History: Patient feeling better today. Patient denies abdominal pain, nausea, hematemesis , diarrhea, constipation, or other pain. Patient is more alert than yesterday. Patient denies F/C, cough, SOB, lightheadedness, CP, or other pain. Patient is alert but has very little insight into his current situation. Family History: Unchanged from Admission Social History: Unchanged from Admission Past Medical History: Unchanged from Admission Objective Active Medications: Acetaminophen (Tylenol Tab*) 650 mg PO Q6H PRN PRN Reason: FEVER/PAIN Hydrocodone Bitart/Acetaminophen ([place] 5-325 Tab*) 1 tab PO TID PRN PRN Reason: PAIN Last Admin: 04/28/18 12:29 Dose: 1 tab Albuterol/Ipratropium (Duoneb (Albuterol 2.5 Mg/Ipratropium 0.5 Mg)) 1 neb INH Q4H PRN PRN Reason: SOB/WHEEZING Benzonatate (Tessalon Cap*) 100 mg PO BID PRN PRN Reason: COUGH Duloxetine HCl (Cymbalta Cap*) 30 mg PO DAILY [facility] Last Admin: 04/28/18 12:07 Dose: 30 mg Gabapentin (Neurontin Cap(*)) 300 mg PO TID [facility] Last Admin: 04/28/18 11:56 Dose: Not Given Guaifenesin (Mucinex*) 1,200 mg PO BID [facility] Last Admin: 04/28/18 12:07 Dose: 1,200 mg Azithromycin 500 mg/ Sodium (Chloride) 250 mls @ 250 mls/hr IVPB Q24H [facility] Last Admin: 04/27/18 18:18 Dose: 250 mls/hr Pantoprazole Sodium (Protonix Iv Bag*) 80 mg in 250 mls @ 25 mls/hr IVPB Q10H [facility] Last Admin: 04/28/18 05:51 Dose: 25 mls/hr Piperacillin Sod/Tazobactam (Sod 3.375 gm/ Sodium Chloride) 100 mls @ 200 mls/ hr IVPB 0000,0600,1200,1800 [facility] Last Admin: 04/28/18 12:09 Dose: 200 mls/hr Nicotine (Nicotine Inhaler*) 10 mg INH Q2H PRN PRN Reason: CRAVING Nystatin (Nystatin Top Powder*) 1 applic TOPICAL Q8HR PRN PRN Reason: ITCHING Pharmacy Consult (Zosyn Per Pharmacy*) 1 note FOLLOW UP .ZOSYN PER PHARMACY [facility] Sucralfate (Sucralfate Susp) 1 gm PO Q6H [facility] Last Admin: 04/28/18 12:09 Dose: 1 gm Trazodone HCl (Desyrel Tab*) 100 mg PO BEDTIME PRN PRN Reason: SLEEP Trimethobenzamide HCl (Tigan Cap*) 300 mg PO Q6H PRN PRN Reason: NAUSEA Vital Signs - 8 hr 04/28/18 04/28/18 07:37 12:29 Temperature 98.6 F Pulse Rate 93 Respiratory 18 20 Rate Blood Pressure 112/55 (mmHg) O2 Sat by Pulse 91 Oximetry Oxygen Devices in Use Now: None Appearance: Patient is a 68yo male who appears older than stated age and is sitting in the bed in [place]. Eyes: No Scleral Icterus, PERRLA Ears/Nose/Mouth/Throat: NL Teeth, Lips, Gums, Clear Oropharnyx, Mucous Membranes Moist Neck: NL Appearance and Movements; NL JVP, Trachea Midline Respiratory: Symmetrical Chest Expansion and Respiratory Effort, Clear to Auscultation Cardiovascular: NL Sounds; No Murmurs; No JVD, RRR, No Edema Abdominal: NL Sounds; No Tenderness; No Distention, No Hepatosplenomegaly Lymphatic: No Cervical Adenopathy Extremities: No Edema, No Clubbing, Cyanosis, - - Left leg surgically absent above knee. Skin: No Rash or Ulcers, No Nodules or Sclerosis Neurological: NL Sensation, NL Muscle Strength and Tone Result Diagrams: 04/28/18 06:08 04/28/18 06:08 Microbiology and Other Data: Microbiology 04/27/18 19:15 Legionella Urinary Antigen - Final Urine Negative Legionella Antigen Streptococcus pneumoniae Ag Screen - Final Negative S. pneumo Antigen Assess/Plan/Problems-Billing Assessment: Patient is a 68yo male with a PMH for GI Bleeding due to erosive esophagitis, HFrEF, COPD, Alcoholism, chronic hyponatremia, who presents to the hospital with severe nausea and vomiting for 1 day with hematemesis and was found to have recurrent severe erosive esophagitis. Patient also has hyponatremia and likely aspiriation pneumonia. - Patient Problems (1) Erosive esophagitis Current Visit: Yes Status: Acute Code(s): K22.10 - ULCER OF ESOPHAGUS WITHOUT BLEEDING SNOMED Code(s): 21246290 Comment: - Appreciate GI input, confirmed by EGD, Polyp, but no other signs of malignancy - Continue Sucralfate and Protonix Drip - Will need close follow up EGD - Symptoms have subsided at this time. - Continue to avoid anticoagulation at this time. (2) Anemia Current Visit: No Status: Acute Code(s): D64.9 - ANEMIA, UNSPECIFIED SNOMED Code(s): 325880431 Comment: - Chronic microcytic - Has Iron studies consistent with MARTIR - Cannot supplement orally due to Erosive Esophagitis - Start IV Iron when Blood Cultures negative. - Worsening with likely component of dilution and blood loss from esophagus. (3) CAD (coronary artery disease) Current Visit: No Status: Acute Code(s): I25.10 - ATHSCL HEART DISEASE OF [place] CORONARY ARTERY W/O ANG PCTRS SNOMED Code(s): 50196364 Comment: - Asymptomatic. - Continue atorvastatin. - Hold anticoagulants at this time. (4) COPD (chronic obstructive pulmonary disease) Current Visit: No Status: Acute Code(s): J44.9 - CHRONIC OBSTRUCTIVE PULMONARY DISEASE, UNSPECIFIED SNOMED Code(s): 50493389 Comment: - No signs of exacerbation - Cont spiriva and duonebs prn, monitor closely. (5) Chronic combined systolic and diastolic CHF (congestive heart failure) Current Visit: No Status: Acute Code(s): I50.42 - CHRONIC COMBINED SYSTOLIC AND DIASTOLIC HRT FAIL SNOMED Code(s): 913359743731839 Comment: - Echo demonstrates EF 40-45%. 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 (7) Aspiration pneumonia Current Visit: Yes Status: Acute Code(s): J69.0 - PNEUMONITIS DUE TO INHALATION OF FOOD AND VOMIT SNOMED Code(s): 468771391 Comment: - Due to extreme vomiting - Treat with Zosyn - With associated sepsis which has now resolved - No Current Respiratory symptoms. (8) Hyponatremia Current Visit: No Status: Acute Code(s): E87.1 - HYPO-OSMOLALITY AND HYPONATREMIA SNOMED Code(s): 49081596 Comment: - Chronic but below baseline on admission - Likely combination of solute deficiency and Transient SIADH with severe vomiting - Stop fluids, recheck this PM to avoid overcorrection. (9) Full code status Current Visit: No Status: Acute Code(s): Z78.9 - OTHER SPECIFIED HEALTH STATUS SNOMED Code(s): 491396662 Status and Disposition: Inpatient for GI bleed.
[2018-04-28 14:11] LABS: BUN/Creatinine Ratio 6.7 (8-20); Calcium 8.4 mg/dL (8.6-10.3); EGFR African American 161.6 (>60); EGFR Non-African American 133.6 (>60); Potassium 3.6 mmol/L (3.5-5.0)
[2018-04-29] MEDS: ZOSYN 3.375 GM IVPB SCH ×4 (01:11→05:36)
[2018-04-29] MEDS: Sucralfate SUSP 1 GM/10 ml 10 ML UDC PO SCH ×5 (05:36→22:19)
[2018-04-29 07:57] LABS: ABS Basophils 0.1 10^3/ul (0-0.2); ABS Eosinophils 0.1 10^3/ul (0-0.6); ABS Lymphocytes 1.3 10^3/ul (1.0-4.8); ABS Monocytes 1.3 10^3/ul (0-0.8); ABS Nucleated RBC 0 10^3/ul; Eosinophil % 1.1 %; Hematocrit 30 % (42-52); Hemoglobin 9.8 g/dl (14.0-18.0); Lymphocyte % 12.3 %; Mean Corpuscular HGB Conc 33 g/dl (31-36); Mean Corpuscular Hemoglobin 23 pg (27-31); Mean Corpuscular Volume 70 fL (80-94); Mean Platelet Volume 8.8 fL (7.4-10.4); Nucleated Red Blood Cells % 0; Platelet Count 273 10^3/ul (150-450); Red Blood Count 4.28 10^6/ul (4.00-5.40); Red Cell Distribution Width 20 % (10.5-15); White Blood Count 10.9 10^3/ul (3.5-10.8)
[2018-04-29 08:03] LABS: BUN/Creatinine Ratio 5.3 (8-20); Calcium 8.5 mg/dL (8.6-10.3); EGFR African American 171.5 (>60); EGFR Non-African American 141.7 (>60); Magnesium 1.6 mg/dL (1.9-2.7); Potassium 3.4 mmol/L (3.5-5.0)
[2018-04-29] MEDS: Gabapentin CAP(*) 300 MG PO SCH ×3 (10:17→22:17)
[2018-04-29] MEDS: guaiFENesin ER TAB 600 MG PO SCH ×2 (10:18→22:17)
[2018-04-29] MEDS: DULoxetine DR CAP* 30 MG CAP.DR PO SCH (10:19)
[2018-04-29] MEDS ORDERED: Senna/Docusate (NF) TAB PO PRN (11:21)
[2018-04-29] MEDS ORDERED: Docusate CAP* 100 MG PO PRN (11:26)
[2018-04-29] MEDS ORDERED: Senna TAB PO PRN (11:27)
[2018-04-29] MEDS ORDERED: Iron Sucrose* 200 MG in NS 0.9% 100 ML* 100 ML IVPB ONE (11:30)
[2018-04-29] MEDS ORDERED: Magnesium Sulfate IV* 3 GM in NS 0.9% 100 ML* 100 ML IVPB ONE (11:30)
[2018-04-29] MEDS: Pantoprazole* 80 mg IN NS 80 MG/250 ML BAG IVPB SCH (11:36)
--- NOTE | 2018-04-29 13:05 | PN ---
Subjective Date of Service: 04/29/18 Interval History: Patient is feeling well. Patient denies abdominal pain, nausea, chest pain, shortness of breath, cough, or other pain. Patient is anxious to go home. Patient denies F/C, dizziness, or other pain. Family History: Unchanged from Admission Social History: Unchanged from Admission Past Medical History: Unchanged from Admission Objective Active Medications: Acetaminophen (Tylenol Tab*) 650 mg PO Q6H PRN PRN Reason: FEVER/PAIN Hydrocodone Bitart/Acetaminophen ([place] 5-325 Tab*) 1 tab PO TID PRN PRN Reason: PAIN Last Admin: 04/28/18 12:29 Dose: 1 tab Albuterol/Ipratropium (Duoneb (Albuterol 2.5 Mg/Ipratropium 0.5 Mg)) 1 neb INH Q4H PRN PRN Reason: SOB/WHEEZING Amoxicillin/Clavulanate Potassium (Augmentin Tab*) 875 mg PO BID [facility] Benzonatate (Tessalon Cap*) 100 mg PO BID PRN PRN Reason: COUGH Docusate Sodium (Colace Cap*) 100 mg PO DAILY PRN PRN Reason: CONSTIPATION Duloxetine HCl (Cymbalta Cap*) 30 mg PO DAILY [facility] Last Admin: 04/29/18 10:19 Dose: 30 mg Gabapentin (Neurontin Cap(*)) 300 mg PO TID [facility] Last Admin: 04/29/18 10:17 Dose: 300 mg Guaifenesin (Mucinex*) 1,200 mg PO BID [facility] Last Admin: 04/29/18 10:18 Dose: 1,200 mg Magnesium Sulfate 3 gm/ Sodium (Chloride) 106 mls @ 53 mls/hr IVPB ONCE ONE Stop: 04/29/18 13:29 Potassium Chloride (Potassium Chloride 20 Meq/100 Ml Ivpremix*) 20 meq in 100 mls @ 50 mls/hr IV Q2H [facility] Stop: 04/29/18 17:59 Lisinopril (Prinivil Tab*) 2.5 mg PO DAILY [facility] Nicotine (Nicotine Inhaler*) 10 mg INH Q2H PRN PRN Reason: CRAVING Nystatin (Nystatin Top Powder*) 1 applic TOPICAL Q8HR PRN PRN Reason: ITCHING Pantoprazole Sodium (Protonix Tab*) 40 mg PO BID [facility] Senna (Senokot Tab*) 1 tab PO DAILY PRN PRN Reason: CONSTIPATION Sucralfate (Sucralfate Susp) 1 gm PO ACHS [facility] Trazodone HCl (Desyrel Tab*) 100 mg PO BEDTIME PRN PRN Reason: SLEEP Trimethobenzamide HCl (Tigan Cap*) 300 mg PO Q6H PRN PRN Reason: NAUSEA Vital Signs - 8 hr 04/29/18 04/29/18 04/29/18 07:49 08:00 10:17 Temperature 98.0 F Pulse Rate 77 Respiratory 18 16 18 Rate Blood Pressure 139/68 (mmHg) O2 Sat by Pulse 94 Oximetry Oxygen Devices in Use Now: None Appearance: Patient is a 68yo male who appears older than stated age and is sitting in the bed in [facility]. Eyes: No Scleral Icterus, PERRLA Ears/Nose/Mouth/Throat: NL Teeth, Lips, Gums, Clear Oropharnyx, Mucous Membranes Moist Neck: NL Appearance and Movements; NL JVP, Trachea Midline Respiratory: Symmetrical Chest Expansion and Respiratory Effort, Clear to Auscultation, - - Diminished. Cardiovascular: NL Sounds; No Murmurs; No JVD, RRR, No Edema Abdominal: NL Sounds; No Tenderness; No Distention, No Hepatosplenomegaly Lymphatic: No Cervical Adenopathy Extremities: No Edema, No Clubbing, Cyanosis, - - Right Leg surgically absent above knee. Skin: No Rash or Ulcers, No Nodules or Sclerosis Neurological: Alert and Oriented x 3, NL Sensation, NL Muscle Strength and Tone , - - CN II-XII intact. Result Diagrams: 04/29/18 07:23 04/29/18 07:23 Microbiology and Other Data: Microbiology 04/27/18 19:15 Legionella Urinary Antigen - Final Urine Negative Legionella Antigen Streptococcus pneumoniae Ag Screen - Final Negative S. pneumo Antigen Assess/Plan/Problems-Billing Assessment: Patient is a 68yo male with a PMH for GI Bleeding due to erosive esophagitis, HFrEF, COPD, Alcoholism, chronic hyponatremia, who presents to the hospital with severe nausea and vomiting for 1 day with hematemesis and was found to have recurrent severe erosive esophagitis. Patient also has hyponatremia and likely aspiriation pneumonia. - Patient Problems (1) Erosive esophagitis Current Visit: Yes Status: Acute Code(s): K22.10 - ULCER OF ESOPHAGUS WITHOUT BLEEDING SNOMED Code(s): 88174845 Comment: - Appreciate GI input, confirmed by EGD, Polyp, but no other signs of malignancy - Continue Sucralfate and Transition to PO Protonix BID - Will need close follow up EGD - Symptoms have subsided at this time. - Continue to avoid anticoagulation at this time. (2) Anemia Current Visit: No Status: Acute Code(s): D64.9 - ANEMIA, UNSPECIFIED SNOMED Code(s): 672933553 Comment: - Chronic microcytic - Has Iron studies consistent with MARTIR - Cannot supplement orally due to Erosive Esophagitis - Start IV Iron and will need additional dosing outpatient. - Worsening with likely component of dilution and blood loss from esophagus. - No Hemodynamic instability. (3) CAD (coronary artery disease) Current Visit: No Status: Acute Code(s): I25.10 - ATHSCL HEART DISEASE OF [place] CORONARY ARTERY W/O ANG PCTRS SNOMED Code(s): 95659970 Comment: - Asymptomatic. - Continue atorvastatin. - Hold anticoagulants at this time. (4) COPD (chronic obstructive pulmonary disease) Current Visit: No Status: Acute Code(s): J44.9 - CHRONIC OBSTRUCTIVE PULMONARY DISEASE, UNSPECIFIED SNOMED Code(s): 25760458 Comment: - No signs of exacerbation - Cont spiriva and duonebs prn, monitor closely. (5) Chronic combined systolic and diastolic CHF (congestive heart failure) Current Visit: No Status: Acute Code(s): I50.42 - CHRONIC COMBINED SYSTOLIC AND DIASTOLIC HRT FAIL SNOMED Code(s): 309790759085272 Comment: - Echo demonstrates EF 40-45%. 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 (7) Aspiration pneumonia Current Visit: Yes Status: Acute Code(s): J69.0 - PNEUMONITIS DUE TO INHALATION OF FOOD AND VOMIT SNOMED Code(s): 201181169 Comment: - Due to extreme vomiting - Treated with Zosyn, Transition to Augmentin - With associated sepsis which has now resolved - No Current Respiratory symptoms. (8) Hyponatremia Current Visit: No Status: Acute Code(s): E87.1 - HYPO-OSMOLALITY AND HYPONATREMIA SNOMED Code(s): 52947343 Comment: - Chronic but below baseline on admission - Likely combination of solute deficiency and Transient SIADH with severe vomiting - Stop fluids, rising at reasonable rate. (9) Full code status Current Visit: No Status: Acute Code(s): Z78.9 - OTHER SPECIFIED HEALTH STATUS SNOMED Code(s): 513302676 Status and Disposition: Inpatient for GI bleed. Hopeful discharge tomorrow.
[2018-04-29] MEDS: Pantoprazole TAB * 40 MG TAB PO SCH ×2 (13:26→22:16)
[2018-04-29] MEDS: KCL 20 MEQ/100 ML IVPREMIX* 20 MEQ/100 ML BAG IV SCH ×2 (16:56→23:18)
[2018-04-29] MEDS: Amoxicillin/Clavulanate TAB* 875 MG PO SCH (22:17)
[2018-04-29] MEDS: HYDROcodone/ACETAMIN 5-325 MG* 1 TAB PO PRN (23:14)
[2018-04-30] MEDS: KCL 20 MEQ/100 ML IVPREMIX* 20 MEQ/100 ML BAG IV SCH ×2 (00:07→02:05)
[2018-04-30 07:12] LABS: ABS Basophils 0.1 10^3/ul (0-0.2); ABS Eosinophils 0.1 10^3/ul (0-0.6); ABS Lymphocytes 1.2 10^3/ul (1.0-4.8); ABS Monocytes 1.2 10^3/ul (0-0.8); ABS Neutrophils 6.8 10^3/ul (1.5-7.7); ABS Nucleated RBC 0 10^3/ul; Eosinophil % 1.6 %; Hematocrit 32 % (42-52); Hemoglobin 10.1 g/dl (14.0-18.0); Lymphocyte % 12.6 %; Mean Corpuscular HGB Conc 32 g/dl (31-36); Mean Corpuscular Hemoglobin 23 pg (27-31); Mean Corpuscular Volume 71 fL (80-94); Mean Platelet Volume 8.8 fL (7.4-10.4); Nucleated Red Blood Cells % 0; Platelet Count 294 10^3/ul (150-450); Red Blood Count 4.46 10^6/ul (4.00-5.40); Red Cell Distribution Width 20 % (10.5-15); White Blood Count 9.4 10^3/ul (3.5-10.8)
[2018-04-30 07:26] LABS: Albumin 3.7 g/dL (3.2-5.2); Albumin/Globulin Ratio 1.1 (1-3); BUN/Creatinine Ratio 3.8 (8-20); Calcium 8.9 mg/dL (8.6-10.3); EGFR African American 190.7 (>60); EGFR Non-African American 157.6 (>60); Globulin 3.3 g/dL (2-4); Magnesium 1.6 mg/dL (1.9-2.7); Total Bilirubin 0.4 mg/dL (0.2-1.0)
[2018-04-30] MEDS ORDERED: Iron Sucrose* 200 MG in NS 0.9% 100 ML* 100 ML IVPB ONE (08:01)
[2018-04-30] MEDS ORDERED: Magnesium Sulf 4 GM/100 ML IV* 4,000 MG/100 ML BAG IVPB ONE (08:02)
[2018-04-30] MEDS: Sucralfate SUSP 1 GM/10 ml 10 ML UDC PO SCH ×4 (09:26→22:03)
[2018-04-30] MEDS: guaiFENesin ER TAB 600 MG PO SCH ×2 (09:26→21:39)
[2018-04-30] MEDS: DULoxetine DR CAP* 30 MG CAP.DR PO SCH (09:26)
[2018-04-30] MEDS: Amoxicillin/Clavulanate TAB* 875 MG PO SCH ×2 (09:27→21:39)
[2018-04-30] MEDS: Gabapentin CAP(*) 300 MG PO SCH ×3 (09:27→21:39)
[2018-04-30] MEDS: Lisinopril TAB* 5 MG PO SCH (09:27)
[2018-04-30] MEDS: Pantoprazole TAB * 40 MG TAB PO SCH ×2 (09:27→21:39)
[2018-04-30] MEDS: HYDROcodone/ACETAMIN 5-325 MG* 1 TAB PO PRN ×2 (09:42→21:39)
[2018-04-30] MEDS ORDERED: LORazepam INJ* 2 MG/ML 1 ML VIAL IV PUSH PRN ×2 (16:19→18:28)
--- NOTE | 2018-04-30 16:26 | PN ---
Subjective Date of Service: 04/30/18 Interval History: Patient is feeling well today. Patient denies N/V, abdominal pain, diarrhea, CP , SOB, diarrhea, melena, F/C. Patient was amenable for discharge this AM, but upon arrival of Son and daughter in law, patient became agitated and vomited. Son expressed serious concerns about his ability to care for his father at home. Son states there is no food or heat in the house. Son states that he feels that he cannot take care of his father any more and thinks he would need placement. Family History: Unchanged from Admission Social History: Unchanged from Admission Past Medical History: Unchanged from Admission Objective Active Medications: Acetaminophen (Tylenol Tab*) 650 mg PO Q6H PRN PRN Reason: FEVER/PAIN Hydrocodone Bitart/Acetaminophen ([place] 5-325 Tab*) 1 tab PO TID PRN PRN Reason: PAIN Last Admin: 04/30/18 09:42 Dose: 1 tab Albuterol/Ipratropium (Duoneb (Albuterol 2.5 Mg/Ipratropium 0.5 Mg)) 1 neb INH Q4H PRN PRN Reason: SOB/WHEEZING Amoxicillin/Clavulanate Potassium (Augmentin Tab*) 875 mg PO BID [facility] Last Admin: 04/30/18 09:27 Dose: 875 mg Benzonatate (Tessalon Cap*) 100 mg PO BID PRN PRN Reason: COUGH Docusate Sodium (Colace Cap*) 100 mg PO DAILY PRN PRN Reason: CONSTIPATION Duloxetine HCl (Cymbalta Cap*) 30 mg PO DAILY [facility] Last Admin: 04/30/18 09:26 Dose: 30 mg Gabapentin (Neurontin Cap(*)) 300 mg PO TID [facility] Last Admin: 04/30/18 15:56 Dose: 300 mg Guaifenesin (Mucinex*) 1,200 mg PO BID [facility] Last Admin: 04/30/18 09:26 Dose: 1,200 mg Lisinopril (Prinivil Tab*) 2.5 mg PO DAILY [facility] Last Admin: 04/30/18 09:27 Dose: 2.5 mg Nicotine (Nicotine Inhaler*) 10 mg INH Q2H PRN PRN Reason: CRAVING Nystatin (Nystatin Top Powder*) 1 applic TOPICAL Q8HR PRN PRN Reason: ITCHING Pantoprazole Sodium (Protonix Tab*) 40 mg PO BID [facility] Last Admin: 04/30/18 09:27 Dose: 40 mg Senna (Senokot Tab*) 1 tab PO DAILY PRN PRN Reason: CONSTIPATION Sucralfate (Sucralfate Susp) 1 gm PO ACHS [facility] Last Admin: 04/30/18 12:34 Dose: Not Given Trazodone HCl (Desyrel Tab*) 100 mg PO BEDTIME PRN PRN Reason: SLEEP Trimethobenzamide HCl (Tigan Cap*) 300 mg PO Q6H PRN PRN Reason: NAUSEA Vital Signs - 8 hr 04/30/18 04/30/18 04/30/18 09:27 09:42 12:09 Temperature 98.1 F Pulse Rate 71 Respiratory 16 20 18 Rate Blood Pressure 141/67 (mmHg) O2 Sat by Pulse 95 Oximetry 04/30/18 04/30/18 04/30/18 12:28 14:28 15:56 Temperature Pulse Rate Respiratory 20 18 18 Rate Blood Pressure (mmHg) O2 Sat by Pulse Oximetry Oxygen Devices in Use Now: None Appearance: Patient is a 68yo male who appears older than stated age and is sitting in the bed in [facility]. Eyes: No Scleral Icterus, PERRLA Ears/Nose/Mouth/Throat: NL Teeth, Lips, Gums, Clear Oropharnyx, Mucous Membranes Moist Neck: NL Appearance and Movements; NL JVP, Trachea Midline Respiratory: Symmetrical Chest Expansion and Respiratory Effort, - - Diminished throughout. Cardiovascular: NL Sounds; No Murmurs; No JVD, RRR, No Edema Abdominal: NL Sounds; No Tenderness; No Distention, No Hepatosplenomegaly Lymphatic: No Cervical Adenopathy Extremities: No Edema, No Clubbing, Cyanosis, - - Right lower extremity surgically absent above the knee. Skin: No Rash or Ulcers, No Nodules or Sclerosis Neurological: NL Sensation, NL Muscle Strength and Tone, - - Alert to Self and place. Confused generally. CN II-XII intact. Result Diagrams: 04/30/18 06:49 04/30/18 06:49 Microbiology and Other Data: Microbiology 04/27/18 19:15 Legionella Urinary Antigen - Final Urine Negative Legionella Antigen Streptococcus pneumoniae Ag Screen - Final Negative S. pneumo Antigen Assess/Plan/Problems-Billing Assessment: Patient is a 68yo male with a PMH for GI Bleeding due to erosive esophagitis, HFrEF, COPD, Alcoholism, chronic hyponatremia, who presents to the hospital with severe nausea and vomiting for 1 day with hematemesis and was found to have recurrent severe erosive esophagitis. Patient also has hyponatremia and likely aspiriation pneumonia. - Patient Problems (1) Erosive esophagitis Current Visit: Yes Status: Acute Code(s): K22.10 - ULCER OF ESOPHAGUS WITHOUT BLEEDING SNOMED Code(s): 56788307 Comment: - Appreciate GI input, confirmed by EGD, Polyp, but no other signs of malignancy - Continue Sucralfate and PO Protonix BID - Will need close follow up EGD - Symptoms have subsided at this time. - Continue to avoid anticoagulation at this time. (2) Anemia Current Visit: No Status: Acute Code(s): D64.9 - ANEMIA, UNSPECIFIED SNOMED Code(s): 196477457 Comment: - Chronic microcytic - Has Iron studies consistent with MARTIR - Cannot supplement orally due to Erosive Esophagitis - Start IV Iron and will need additional dosing outpatient. - Give doses as long as patient is in the hospital. - Polyps on previous colonoscopy, Outpatient GI provider will decide on timing of repeat colonoscopy if indicated. - Worsening with likely component of dilution and blood loss from esophagus. - No Hemodynamic instability. (3) CAD (coronary artery disease) Current Visit: No Status: Acute Code(s): I25.10 - ATHSCL HEART DISEASE OF [place] CORONARY ARTERY W/O ANG PCTRS SNOMED Code(s): 33726474 Comment: - Asymptomatic. - Continue atorvastatin - Hold anticoagulants at this time. (4) COPD (chronic obstructive pulmonary disease) Current Visit: No Status: Acute Code(s): J44.9 - CHRONIC OBSTRUCTIVE PULMONARY DISEASE, UNSPECIFIED SNOMED Code(s): 89287467 Comment: - No signs of exacerbation - Cont spiriva and duonebs prn, monitor closely. (5) Chronic combined systolic and diastolic CHF (congestive heart failure) Current Visit: No Status: Acute Code(s): I50.42 - CHRONIC COMBINED SYSTOLIC AND DIASTOLIC HRT FAIL SNOMED Code(s): 699008954898398 Comment: - Echo demonstrates EF 40-45%. 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 (7) Aspiration pneumonia Current Visit: Yes Status: Acute Code(s): J69.0 - PNEUMONITIS DUE TO INHALATION OF FOOD AND VOMIT SNOMED Code(s): 082833562 Comment: - Due to extreme vomiting - Transition to Augmentin - With associated sepsis which has now resolved - No Current Respiratory symptoms. (8) Hyponatremia Current Visit: No Status: Acute Code(s): E87.1 - HYPO-OSMOLALITY AND HYPONATREMIA SNOMED Code(s): 71917220 Comment: - Chronic but below baseline on admission - Likely combination of solute deficiency and Transient SIADH with severe vomiting - Now at baseline (9) Full code status Current Visit: No Status: Acute Code(s): Z78.9 - OTHER SPECIFIED HEALTH STATUS SNOMED Code(s): 495992623 Status and Disposition: Inpatient for GI bleed. Patient was scheduled for discharge today, but son has significant concerns about his ability to care for patient at home. Will attempt to get placement at SNF.
[2018-04-30] MEDS ORDERED: LORazepam INJ* 2 MG/ML 1 ML VIAL IM ONE (18:03)
[2018-04-30] MEDS ORDERED: LORazepam INJ* 2 MG/ML 1 ML VIAL IV PUSH ONE (18:03)
[2018-04-30] MEDS ORDERED: Haloperidol INJ IV/IM* 5 MG/ML AMP IM ONE (18:03)
[2018-04-30] MEDS ORDERED: Haloperidol INJ IV/IM* 5 MG/ML AMP IV SLOW PU PRN (18:29)
[2018-04-30] MEDS: traZODone TAB* 50 MG TAB PO PRN (21:39)
[2018-05-01] MEDS ORDERED: Iron Sucrose* 200 MG in NS 0.9% 100 ML* 100 ML IVPB ONE (08:00)
[2018-05-01] MEDS: Sucralfate SUSP 1 GM/10 ml 10 ML UDC PO SCH ×4 (08:43→22:32)
[2018-05-01] MEDS: Gabapentin CAP(*) 300 MG PO SCH ×3 (08:44→22:31)
[2018-05-01] MEDS: Amoxicillin/Clavulanate TAB* 875 MG PO SCH ×2 (08:44→22:32)
[2018-05-01] MEDS: guaiFENesin ER TAB 600 MG PO SCH ×2 (08:44→22:31)
[2018-05-01] MEDS: DULoxetine DR CAP* 30 MG CAP.DR PO SCH (08:44)
[2018-05-01] MEDS: Lisinopril TAB* 5 MG PO SCH (08:44)
[2018-05-01] MEDS: Pantoprazole TAB * 40 MG TAB PO SCH ×2 (08:44→22:31)
[2018-05-01] MEDS: HYDROcodone/ACETAMIN 5-325 MG* 1 TAB PO PRN (12:56)
[2018-05-01] MEDS ORDERED: Mouth Piece, Nicotine* 1 EACH CARTRIDGE ONE (13:05)
[2018-05-01] MEDS: Nicotine Inhaler* 10 MG AMP INH PRN ×2 (13:06→22:41)
--- NOTE | 2018-05-01 14:09 | PN ---
Subjective Date of Service: 05/01/18 Interval History: Patient seen and examined. No events today. Per RN, patient was combative overnight and required haldol, security at bedside for behavior. Today, patient appears calm with no recollection of events. Denies SOB, no chest pain, no fevers or chills. Extremely WALES. Family History: Unchanged from Admission Social History: Unchanged from Admission Past Medical History: Unchanged from Admission Objective Active Medications: Acetaminophen (Tylenol Tab*) 650 mg PO Q6H PRN PRN Reason: FEVER/PAIN Hydrocodone Bitart/Acetaminophen (Perkins 5-325 Tab*) 1 tab PO TID PRN PRN Reason: PAIN Last Admin: 05/01/18 12:56 Dose: 1 tab Albuterol/Ipratropium (Duoneb (Albuterol 2.5 Mg/Ipratropium 0.5 Mg)) 1 neb INH Q4H PRN PRN Reason: SOB/WHEEZING Amoxicillin/Clavulanate Potassium (Augmentin Tab*) 875 mg PO BID [facility] Last Admin: 05/01/18 08:44 Dose: 875 mg Benzonatate (Tessalon Cap*) 100 mg PO BID PRN PRN Reason: COUGH Docusate Sodium (Colace Cap*) 100 mg PO DAILY PRN PRN Reason: CONSTIPATION Duloxetine HCl (Cymbalta Cap*) 30 mg PO DAILY [facility] Last Admin: 05/01/18 08:44 Dose: 30 mg Gabapentin (Neurontin Cap(*)) 300 mg PO TID [facility] Last Admin: 05/01/18 12:56 Dose: 300 mg Guaifenesin (Mucinex*) 1,200 mg PO BID [facility] Last Admin: 05/01/18 08:44 Dose: 1,200 mg Haloperidol Lactate (Haldol Inj Iv/Im*) 2.5 mg IV SLOW PU Q6H PRN PRN Reason: AGITATION Lisinopril (Prinivil Tab*) 2.5 mg PO DAILY [facility] Last Admin: 05/01/18 08:44 Dose: 2.5 mg Lorazepam (Ativan Inj*) 1 mg IV PUSH Q4H PRN PRN Reason: ANXIETY Nicotine (Nicotine Inhaler*) 10 mg INH Q2H PRN PRN Reason: CRAVING Last Admin: 05/01/18 13:06 Dose: 10 mg Nystatin (Nystatin Top Powder*) 1 applic TOPICAL Q8HR PRN PRN Reason: ITCHING Pantoprazole Sodium (Protonix Tab*) 40 mg PO BID [facility] Last Admin: 05/01/18 08:44 Dose: 40 mg Senna (Senokot Tab*) 1 tab PO DAILY PRN PRN Reason: CONSTIPATION Sucralfate (Sucralfate Susp) 1 gm PO ACHS [facility] Last Admin: 05/01/18 13:04 Dose: 1 gm Trazodone HCl (Desyrel Tab*) 100 mg PO BEDTIME PRN PRN Reason: SLEEP Last Admin: 04/30/18 21:39 Dose: 100 mg Trimethobenzamide HCl (Tigan Cap*) 300 mg PO Q6H PRN PRN Reason: NAUSEA Vital Signs - 8 hr 05/01/18 05/01/18 05/01/18 07:54 08:44 10:03 Temperature 98.5 F Pulse Rate 88 Respiratory 18 18 18 Rate Blood Pressure 122/63 (mmHg) O2 Sat by Pulse 92 Oximetry 05/01/18 05/01/18 05/01/18 11:27 11:36 12:56 Temperature 98.4 F Pulse Rate 79 Respiratory 18 18 16 Rate Blood Pressure 134/66 (mmHg) O2 Sat by Pulse 95 Oximetry Oxygen Devices in Use Now: None Appearance: alert, NAD Eyes: No Scleral Icterus, PERRLA Ears/Nose/Mouth/Throat: - - edentulous and extremely hard of hearing Neck: NL Appearance and Movements; NL JVP, Trachea Midline Respiratory: Symmetrical Chest Expansion and Respiratory Effort, Clear to Auscultation Cardiovascular: NL Sounds; No Murmurs; No JVD, No Edema Abdominal: NL Sounds; No Tenderness; No Distention Extremities: No Edema, No Clubbing, Cyanosis Skin: No Rash or Ulcers Neurological: - - A&Ox2 Nutrition: Taking PO's Result Diagrams: 04/30/18 06:49 04/30/18 06:49 Microbiology and Other Data: Microbiology 04/27/18 19:15 Legionella Urinary Antigen - Final Urine Negative Legionella Antigen Streptococcus pneumoniae Ag Screen - Final Negative S. pneumo Antigen Assess/Plan/Problems-Billing Assessment: Patient is a 68yo male with a PMH for GI Bleeding due to erosive esophagitis, HFrEF, COPD, Alcoholism, chronic hyponatremia, who presents to the hospital with severe nausea and vomiting for 1 day with hematemesis and was found to have recurrent severe erosive esophagitis. Patient also has hyponatremia and likely aspiriation pneumonia. - Patient Problems (1) Aspiration pneumonia Code(s): J69.0 - PNEUMONITIS DUE TO INHALATION OF FOOD AND VOMIT SNOMED Code(s ): 949815048 Comment: - Resolving, 2/2 extreme vomiting - Transition to Augmentin - With associated sepsis which has now resolved (2) Erosive esophagitis Code(s): K22.10 - ULCER OF ESOPHAGUS WITHOUT BLEEDING SNOMED Code(s): 84098969 Comment: - Appreciate GI input, confirmed by EGD, Polyp, but no other signs of malignancy - Continue Sucralfate and PO Protonix BID - Will need close follow up EGD - Continue to avoid anticoagulation at this time. (3) Hyponatremia Code(s): E87.1 - HYPO-OSMOLALITY AND HYPONATREMIA SNOMED Code(s): 56821569 Comment: - Chronic but below baseline on admission - Likely combination of solute deficiency and Transient SIADH with severe vomiting - Now at baseline (4) Alcoholism Code(s): F10.20 - ALCOHOL DEPENDENCE, UNCOMPLICATED SNOMED Code(s): 5522325 Comment: - does not appear to be in withdrawal (5) Anemia Code(s): D64.9 - ANEMIA, UNSPECIFIED SNOMED Code(s): 113714673 Comment: - Chronic microcytic - Has Iron studies consistent with MARTIR - Cannot supplement orally due to Erosive Esophagitis - Start IV Iron and will need additional dosing outpatient - Give doses as long as patient is in the hospital. - Polyps on previous colonoscopy, Outpatient GI provider will decide on timing of repeat colonoscopy if indicated. - Worsening with likely component of dilution and blood loss from esophagus. - No Hemodynamic instability. (6) DVT prophylaxis Code(s): NBK1092 - SNOMED Code(s): 472308888 Comment: - SCDs, high risk for bleeding (7) Full code status Code(s): Z78.9 - OTHER SPECIFIED HEALTH STATUS SNOMED Code(s): 065131948 Status and Disposition: Medically stable for DC to STR when bed available.
--- NOTE | 2018-05-01 15:58 | CONSULT ---
Consult Consult: Consult for Medical Decision Making Capacity S: Psychiatry is asked to evaluate capacity in this 68 y.o. single, white male with a complicated medical history including heart disease and alcoholism, admitted to the Hospitalist service on April 27 due to hematemesis. He has been medically treated and stabilized, and was pending discharge back to his son's trailer in [place], when his son, who is his HCP, indicated to the treatment team that he can no longer care for the patient do to having extreme financial limitations. Apparently there is no heat or food in the trailer. The family is requesting SNF placement. The primary team attempted to speak with Mr. Miller about a [place] but he is adamantly opposed to it. On exam, Mr. Miller is sitting in a wide chair next to the door so he can watch the nurse's station. He is calm and cooperative. He is told about my understanding of his situation but he denies it, saying "Oh no, my son told me he can't wait for me to come home." He is aware of no psychosocial issues in the household; states there are eggs and toast for breakfast and his son and [id number] cook lunch and dinner for him. On the subject of SNF placement he bitterly protests this, saying that he proudly took care of both his aging parents prior to their deaths in their own home. He is unable to identify any risks associated with refusing SNF placement and refuses to consider that his family lacks the means to care for him. O: aging white male with a large, dishevelled rose, dark skinned; dressed in a patient gown; overweight with limited grooming, cooperative; euthymic mood with a full affect; denies SI or HI; insight and judgment poor given insistence on returning to his son's; awake and alert; knows date and month but not day of week, year or season. Fully oriented to place with intact immediate recall, poor attention and significant deficits in delayed recall. A/P: Capacity: During our interaction, Mr. Miller failed to demonstrate a reasonable understanding of his illness, the recommended treatment or the associated risks of refusing said treatment. In my judgment, he lacks the capacity to make an informed decision about accepting or declining SNF placement. Capacity is subject to change in these situations and psychiatry can be re-consulted in the event of any significant changes in his presentation/ situation. Thank you for the consult..
[2018-05-01] MEDS: traZODone TAB* 50 MG TAB PO PRN (22:38)
[2018-05-02] MEDS: Nicotine Inhaler* 10 MG AMP INH PRN (06:34)
[2018-05-02] MEDS: Sucralfate SUSP 1 GM/10 ml 10 ML UDC PO SCH ×2 (08:55→13:10)
[2018-05-02] MEDS: Lisinopril TAB* 5 MG PO SCH (08:56)
[2018-05-02] MEDS: Gabapentin CAP(*) 300 MG PO SCH ×2 (08:57→13:16)
[2018-05-02] MEDS: Amoxicillin/Clavulanate TAB* 875 MG PO SCH (08:58)
[2018-05-02] MEDS: Pantoprazole TAB * 40 MG TAB PO SCH (08:58)
[2018-05-02] MEDS: DULoxetine DR CAP* 30 MG CAP.DR PO SCH (08:59)
[2018-05-02] MEDS: guaiFENesin ER TAB 600 MG PO SCH (08:59)
[2018-05-02 12:52] VITALS: BP 156/65
--- NOTE | 2018-05-02 14:56 | DS ---
AMENDED REPORT NOW INCLUDES COSIGNER DESIGNATION CC: Dr. Anamika Covington; Dr. Christoph Rios, Psychiatry; Dr. Dale, GI * DATE OF ADMISSION: 04/27/2018. DATE OF DISCHARGE: 05/02/2018. PRIMARY CARE PHYSICIAN: Dr. Anamika Covington. MY ATTENDING PHYSICIAN FOR TODAY: Dr. Jodie Eduardo * (dictated by Musa Erickson, SHANE). HOSPITAL COURSE: Please refer to admission history and physical dated 2018. In short, this is a 68-year-old male patient with a past medical history of alcohol abuse, VT, GI bleeding secondary to sever erosive esophagitis and chronic hyponatremia who presented to the emergency department with complaint of vomiting with coffee ground emesis and some blood clots. The patient also stated that he had some epigastric pain. The patient again does have history of erosive esophagitis and alcohol abuse. He was admitted for upper GI bleeding , hyponatremia, and also was found to have some aspiration pneumonia secondary to extreme vomiting and was meeting criteria for sepsis. He underwent endoscopy with Dr. Dale on the 28 of April. Report of his endoscopy showed a moderate hiatal hernia, severe erosive GERD with two-thirds of the esophagus, focal esophagogastric nodule, probably inflammatory in nature. It is also significant to note that the initial CAT scan showed that there was a possibly a mass in the esophagus which was proved not to be present when the patient had his endoscopic procedure. The patient was placed on Carafate and PPI by GI. He did have laboratory work-up for his hyponatremia and also his low iron. He received the start of iron infusion on 04/28/2018. He will need this monthly. His sodium did begin to correct. He is chronically low. He came in with a sodium of 122 and is usually around 127- 128. At one point he was 129, but his normal sodium is usually in the high 120s. His urinalysis did not show any acute infective process. Toxicology screen and serum alcohol was less than 10. His hemoglobin remained stable for the duration of his stay. The patient did have one episode of combative behavior which required security to be at the bedside and the patient did seem to be a bit disoriented and had no recollection of the events the following day. For this reason, Dr. Ehmke was consulted for capacity. He determined the patient does not have capacity for medical decision making or to refuse going to a short-term rehab environment. At this point it was questionable whether the patient would be able to go home. There are some social situations with his family and living circumstances. Given his current state, it was recommended that he go to short- term rehab. This is a 68-year-old man with a past medical history for GI bleeding who presented with the same. He has had recurrent severe erosive esophagitis. He may also have some underlying dementia that perhaps would be vascular in nature given his extensive history of alcoholism. Also, some of his bizarre behavior while he was here could be attributed to aspiration pneumonia and his GI bleeding. His mood has been calm. He is very hard of hearing; however, he does not complain of any nausea or vomiting, no abdominal pain, no chest pain, no shortness of breath, no fevers or chills, and no further constitutional complaints. 10 point review of systems is otherwise negative. PHYSICAL EXAMINATION: On the day of discharge reveals a moderately disheveled gentleman looking slightly older than his stated age. Vital Signs: Blood pressure 156/65, heart rate 80, respiratory rate 16, O2 saturation 97 percent on room air with a temperature of 97.7. HEENT: The patient is atraumatic, normocephalic. PERRLA with nonicteric sclerae. Oral mucosa is moist. He is edentulous. Tongue is midline. Neck: Supple, nontender, no JVD noted, no carotid bruit auscultated. Cardiovascular: S1, S2 present. Rate and rhythm are regular. No murmurs, gallops or rubs. Lungs: Clear at the apices, diminished at the bases bilaterally with no wheezing, rhonchi or rales. Abdomen : Soft, nontender, nondistended. Positive bowel sounds all four quadrants. : Deferred. Musculoskeletal: There is no clubbing and no cyanosis. He has no pedal edema. 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 Stump is intact with no discoloration noted to skin. Neurologic: Today he is alert and oriented times three. He does not present with any focal deficits. I think he does have difficulty understanding the results of his healthcare needs and his need for rehab, but he is otherwise appropriate today. LABORATORY DATA: WBC 9.4, RBC 4.46, hemoglobin 10.1, hematocrit 32, platelets 294; sodium 125, potassium 4.0, chloride 93, CO2 26, BUN 2, creatinine 0.52, GFR 157.6, glucose 96, calcium 8.9, iron 29, TIBC 399, percent saturation 7, unsaturated iron binding is less than 384, transferrin 285, ferritin 12.2, bilirubin 0.40, ALT 11, AST 4, alk phos 74, albumin 3.7, globulin 3.3. IMAGING STUDIES: 1. The patient had a chest x-ray on the which showed patchy right lower lung consolidation, recommend follow-up to resolution. 2. CT of the abdomen and pelvis shows consider chronic or recurrent diffuse severe esophagitis with inflammatory changes, cholelithiasis, normal appendix, negative for ascites, negative for lymphadenopathy, negative for obstructive uropathy. DISCHARGE DIAGNOSES: 1. Nausea and vomiting secondary to chronic severe erosive esophagitis, now stable. 2. Iron deficiency anemia. 3. Coronary artery disease, stable. 4. COPD, stable. 5. History of combined systolic and diastolic congestive heart failure, stable. 6. Factor V Leiden mutation, stable. 7. Aspiration pneumonia secondary to vomiting, now stable, with concurrent sepsis, now resolved. 8. Hyponatremia, acute on chronic, currently stable. DISCHARGE MEDICATIONS: 1. Shepherd 5/325 one tab p.o. t.i.d. as needed. 2. DuoNeb four times a day as needed. 3. Duloxetine 30 mg daily. 4. Lisinopril 2.5 mg daily. 5. Gabapentin 300 mg three times a day. 6. Nystatin topical as needed. 7. Trazodone 100 mg at bedtime as needed. 8. Ra P-Col one tablet p.o. daily as needed. 9. Mucinex 1200 mg p.o. b.i.d. 10. Carafate 1 gm p.o. a.c. at bedtime. 11. Protonix 40 mg p.o. b.i.d. 12. Nicotine inhaler 10 mg q.2 hours as needed. 13. Tessalon 100 mg p.o. b.i.d. 14. Augmentin 875 mg p.o. b.i.d. 15. Tylenol 650 mg q.6 hours as needed. DISPOSITION: The patient was discharged to [facility]. DIET: He should have a heart-healthy to regular diet as tolerated. ACTIVITY: Progress as tolerated. FOLLOW-UP: The patient is going to short-term rehab; however, he should follow- up with his primary care provider, Dr. Covington, within one to two weeks after discharge and to continue iron infusions as an outpatient. He should also see Dr. Dale within one month for a follow-up EGD. CONDITION ON DISCHARGE: The patient was discharged in stable condition. Case Management discussed the discharge plan of care with the patient's son who is in agreement with the patient going to [facility]. TIME SPENT: Approximately 40 minutes interfacing with the patient, staff, and determining discharge plan of care. MUSA ERICKSON NP [id number]/[facility] #: [id number] JOSÉ ANTONIO
== END 2018-05-02 16:05 | DRG 871 ==
LOC: ED 11:04 → MED 15:14
PROVIDERS: ADMIT Internal Medicine; ATTEND Hospitalist
PROC: 0DB48ZX Excision of Esophagogastric Junction, Via Natural or Artificial Opening Endoscopic, Diagnostic (ICD-10-PCS; principal; 2018-04-28)
DX: A41.9 Sepsis, unspecified organism (principal); J69.0 Pneumonitis due to inhalation of food and vomit; K22.11 Ulcer of esophagus with bleeding; D68.51 Activated protein C resistance; E87.1 Hypo-osmolality and hyponatremia; I50.42 Chronic combined systolic (congestive) and diastolic (congestive) heart failure; D50.9 Iron deficiency anemia, unspecified; H91.91 Unspecified hearing loss, right ear; I25.10 Atherosclerotic heart disease of native coronary artery without angina pectoris; I73.9 Peripheral vascular disease, unspecified; J44.9 Chronic obstructive pulmonary disease, unspecified; K21.9 Gastro-esophageal reflux disease without esophagitis; M19.90 Unspecified osteoarthritis, unspecified site; F03.90 Unspecified dementia, unspecified severity, without behavioral disturbance, psychotic disturbance, mood disturbance, and anxiety; K22.9 Disease of esophagus, unspecified; K44.9 Diaphragmatic hernia without obstruction or gangrene; F32.9 Major depressive disorder, single episode, unspecified; F17.210 Nicotine dependence, cigarettes, uncomplicated; M81.0 Age-related osteoporosis without current pathological fracture; Z98.42 Cataract extraction status, left eye; Z86.718 Personal history of other venous thrombosis and embolism; I25.2 Old myocardial infarction; Z88.6 Allergy status to analgesic agent; Z98.41 Cataract extraction status, right eye; Z72.89 Other problems related to lifestyle; Z89.611 Acquired absence of right leg above knee; Z80.0 Family history of malignant neoplasm of digestive organs; Z80.1 Family history of malignant neoplasm of trachea, bronchus and lung; Z82.49 Family history of ischemic heart disease and other diseases of the circulatory system; Z86.010 Personal history of colon polyps
CPT/HCPCS: 36415; 71045; 74177; 80048; 80053; 80320; 81003; 81015; 82728; 83540; 83550; 83605; 83690; 83735; 84484; 85014; 85018; 85025; 85027; 85610; 85730; 87040; 87086; 87899; 88305; 88312; 93005; 99156; 99157; 99283; 99406; A9270-GY; G0480; G8978-GP-CK; G8979-GP-CK; G8980-GP-CK; G8987-GO-CI; G8988-GO-CI; G8989-GO-CI; J0456; J1630; J1756; J2060; J2175; J2250; J2405; J2543; J3475; J3480; Q9967

== ENCOUNTER 2018-08-14 20:01 | Inpatient (IN) | payer MEDICARE, MEDICAID ==
[2018-08-14] MEDS ORDERED: NS 0.9% 1000 ML** 1,000 ML IV ONE (20:19)
[2018-08-14] MEDS ORDERED: Albuterol/Ipratropium NEB.SOL* Albuterol 2.5 MG/Ipratropium 0.5 MG 3 ML INH ONE (20:20)
[2018-08-14] MEDS ORDERED: methylPREDNISolone 125 MG* 2 ML VIAL IV ONE (20:25)
[2018-08-14] MEDS ORDERED: Ondansetron INJ* 2 MG/ML VIAL IV ONE (20:25)
[2018-08-14] MEDS ORDERED: Ondansetron INJ* 2 MG/ML VIAL ONE (20:35)
[2018-08-14 20:51] LABS: Hematocrit 40 % (42-52); Hemoglobin 13.3 g/dL (14.0-18.0); Mean Corpuscular HGB Conc 33 g/dL (31-36); Mean Corpuscular Hemoglobin 25 pg (27-31); Mean Corpuscular Volume 75 fL (80-94); Mean Platelet Volume 8.2 fL (7.4-10.4); Platelet Count 297 10^3/uL (150-450); Red Blood Count 5.32 10^6 /uL (4.18-5.48); Red Cell Distribution Width 19 % (10-15); White Blood Count 15.1 10^3/uL (3.5-10.8)
--- NOTE | 2018-08-14 20:55 | ED ---
Complex/Multi-Sys Presentation - HPI Summary HPI Summary: This patient is a 68 year old M brought in by [facility] to [facility] with a chief complaint of one seizure since 1700 today. The patient rates the pain 3/ 10 in severity. Symptoms aggravated by nothing. Symptoms alleviated by nothing. Patient has a right leg amputation. Son reports headache. Per [id number]-hp-tmi, she and patient were playing cards today before patient started shaking and clenching his mouth, making strange noises, leaning over for 7 minutes. Patient fell out of his chair and on to the floor per [id number] and was unresponsive for about 20 minutes. [id number]-[id number]-azd called EMS. Upon arrival, EMS noted that patient lived in poor living conditions. EMS found patient on the floor and with a purple face. EMS states that patient was mumbling when EMS arrived. Patient had 100 BPM and stable blood pressure en route. Per daughter-in -law, patient was transferred from [facility] a few months ago to [facility]. Patient was at [facility] for the last 2-3 months because he was not able to care for himself per son. Patient left [facility] yesterday AMA per son. Per son, patient had 1 seizure 7 years ago while admitted to hospital for an infection. Since then, patient has been confused at baseline per son. Per son, patient has not had alcohol for 2 years but patient does smoke. Per son, patient had right leg amputated after surgery 2-3 years ago. Son denies Fhx seizure. Per son, patient does not use O2 at home. - History Of Current Complaint Chief Complaint: EDSeizure Time Seen by Provider: 08/14/18 20:05 Hx Obtained From: Patient, Family/Towel Stretcher - Son and gnpdsdht-[id number], EMS Hx From Patient Unobtainable Due To: Altered Mental Status Onset/Duration: Lasting Hours - 1900 today, Still Present Timing: Constant Severity Currently: Mild Aggravating Factor(s): Nothing Alleviating Factor(s): Nothing Associated Signs And Symptoms: Positive: Other - headache per son - Allergies/Home Medications Allergies/Adverse Reactions: Allergies Allergy/AdvReac Type Severity Reaction Status Date / Time fentanyl Allergy Itching Verified 03/06/18 15:59 PMH/Surg Hx/FS Hx/Imm Hx Previously Healthy: No Endocrine/Hematology History: Reports: Hx Blood Disorders - factor 5 clotting disorder Denies: Hx Anticoagulant Therapy, Hx Diabetes, Hx Thyroid Disease Cardiovascular History: Reports: Hx Angina, Hx Coronary Artery Disease, Hx Deep Vein Thrombosis, Hx Myocardial Infarction, Hx Peripheral Vascular Disease, Other Cardiovascular Problems/Disorders - fACTOR V LEIDEN CLOTTING DISORDER Denies: Hx Cardiomegaly, Hx Congestive Heart Failure, Hx Hypertension, Hx Pacemaker/ICD, Hx Rheumatic Fever, Hx Valvular Heart Disease Respiratory History: Reports: Hx Asthma, Hx Chronic Obstructive Pulmonary Disease (COPD), Other Respiratory Problems/Disorders - Snf smoker Denies: Hx Pulmonary Edema, Hx Pulmonary Embolism GI History: Reports: Hx Gastroesophageal Reflux Disease, Other GI Disorders - HX OF GI BLEED - NO PROBLEMS NOW Denies: Hx Cirrhosis, Hx Crohn's Disease, Hx Hiatal Hernia, Hx Irritable Bowel, Hx Jaundice, Hx Ulcer History: Denies: Hx Renal Disease, Other Problems/Disorders Musculoskeletal History: Reports: Hx Arthritis, Hx Back Problems, Hx Osteoporosis, Other Musculoskeletal History - Fx hip sp fall at home hx Denies: Hx Rheumatoid Arthritis, Hx Bursitis Sensory History: Reports: Hx Cataracts - HAVING CATARACT SURGERY, Hx Contacts or Glasses - for reading, Hx Hearing Problem - deaf R ear, 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 Denies: Hx Hearing Aid Opthamlomology History: Reports: Hx Cataracts - HAVING CATARACT SURGERY, Hx Contacts or Glasses - for reading Neurological History: Denies: Hx Headaches, Hx Migraine, Hx Seizures Comment Only: Other Neuro Impairments/Disorders - NEUROPATHY/HX SUBSTANCE ABUSE Psychiatric History: Reports: Hx Depression, Hx Substance Abuse Denies: Hx Anxiety, Hx Panic Disorder - Cancer History Hx Chemotherapy: No - Surgical History Surgery Procedure, Year, and Place: [place] [facility] [place]; RTHR June 2013; Right total knee replacement august 08 2013, [facility] [place]. right ear surgery, HERNIA REPAIR Hx Anesthesia Reactions: No - Immunization History Date of Tetanus Vaccine: 2010 Date of Influenza Vaccine: None Infectious Disease History: Unable to Obtain/Confirm Infectious Disease History: Reports: Hx of Known/Suspected MRSA Denies: Hx Hepatitis, Traveled Outside the [place] in Last 30 Days - Family History Known Family History: Positive: Cardiac Disease, Other - CANCER - Social History Alcohol Use: Daily Alcohol Amount: NOT SINCE NEW YEARS Hx Substance Use: No Substance Use Type: Reports: None Hx Tobacco Use: Yes Smoking Status (MU): Heavy Every Day Tobacco Smoker Type: Cigarettes Amount Used/How Often: 1 - 2 PPD Length of Time of Smoking/Using Tobacco: 50 YEARS Have You Smoked in the Last Year: Yes Review of Systems Negative: Fever Neurological: Other - AMS, seizure Positive: Headache All Other Systems Reviewed And Are Negative: Yes Physical Exam - Summary Physical Exam Summary: NORMAL PHYSICAL EXAM VITAL SIGNS: Reviewed. GENERAL: Patient is a well-developed and nourished MALE who is lying comfortable in the stretcher. Patient is not in any acute respiratory distress. Patient is unkept. Patient is wrenching. HEAD AND FACE: No signs of trauma. No ecchymosis, hematomas or skull depressions. No sinus tenderness. EYES: PERRLA, EOMI x 2, No injected conjunctiva, no nystagmus. EARS: Hearing grossly intact. Ear canals and tympanic membranes are within normal limits. MOUTH: Oropharynx within normal limits. NECK: Supple, trachea is midline, no adenopathy, no JVD, no carotid bruit, no c- spine tenderness, neck with full ROM CHEST: Symmetric, no tenderness at palpation LUNGS: Decreased breath sounds bilaterally. No wheezing or crackles. CVS: Regular rate and rhythm, S1 and S2 present, no murmurs or gallops appreciated. ABDOMEN: Soft, non-tender. No signs of distention. No rebound no guarding, and no masses palpated. Bowel sounds are normal. EXTREMITIES: FROM in all major joints, no edema, no cyanosis or clubbing. Right total extremity amputation below the right hip. NEURO: Only oriented to name SKIN: Dry and warm Triage Information Reviewed: Yes Vital Signs On Initial Exam: Initial Vitals Temp Pulse Resp BP Pulse Ox 97.8 F 96 18 126/76 93 08/14/18 20:05 08/14/18 20:05 08/14/18 20:05 08/14/18 20:05 08/14/18 20:05 Vital Signs Reviewed: Yes Diagnostics - Vital Signs Vital Signs Temp Pulse Resp BP Pulse Ox 08/14/18 20:05 97.8 F 96 18 126/76 93 - Laboratory Result Diagrams: 08/15/18 05:40 08/15/18 01:00 Lab Statement: Any lab studies that have been ordered have been reviewed, and results considered in the medical decision making process. - Radiology Chest X-ray Summary of Radiographic Findings: Hyperinflation, COPD, no acute infilitrate. Pending official report. - EKG 2031 Cardiac Rate: NL - 77 BPM EKG Rhythm: Sinus Rhythm Summary of EKG Findings: sinus rhythm, 77 BPM, non specific intraventricular conduction delay, non-specifc T wave changes Complex Multi-Symp Course/Dx Course Of Treatment: This patient is a 68 year old M brought in by [facility] to [facility] with a chief complaint of one seizure since 1700 today. The patient rates the pain 3/10 in severity. Symptoms aggravated by nothing. Symptoms alleviated by nothing. Patient has a right leg amputation. Son reports headache. Per lzjjakzp-xc-fkq, she and patient were playing cards today before patient started shaking and clenching his mouth, making strange noises, leaning over for 7 minutes. Patient fell out of his chair and on to the floor per jhveraws-ny-jjn and was unresponsive for about 20 minutes. Xabkieki-lk-clr called EMS. Upon arrival, EMS noted that patient lived in poor living conditions. EMS found patient on the floor and with a purple face. Physical Exam shows the patient is unkept, wrenching, has decreased breath sounds bilaterally, and has right total extremity amputation below the right hip. Lab results show sodium 117 and lactic acid 2.2. Chest X-ray impression: Hyperinflation, COPD, no acute infilitrate. EKG results: sinus rhythm, 77 BPM , non specific intraventricular conduction delay, non-specifc T wave changes. During ED course, the patient was given Albuterol, Heparin sodium, methylprednisolone sodium succinate, IV fluids, Ondansetron. At 2121, Dr. Carrillo, pediatric care coordinator, recommends giving hypertonic saline to patient. Patient was given hypertonic saline in ED. At 2125, Dr. Hardy, hospitalist, agrees to admit patient. Patient will be admitted and is agreeable. - Diagnoses Provider Diagnoses: Seizure, Hyponatremia - Physician Notifications Discussed Care Of Patient With: Sole Cates Time Discussed With Above Provider: 21:22 Instructed by Provider To: Other - Dr Carrillo, pediatric care coordinator, recommends giving hypertonic saline to patient. At 2125, Dr. Hardy, hospitalist, agrees to admit patient. Discharge - Sign-Out/Discharge Documenting (check all that apply): Patient Departure - Admit Patient Received Moderate/Deep Sedation with Procedure: No - Discharge Plan Condition: Stable Disposition: ADMITTED TO [facility] - Billing Disposition and Condition Condition: STABLE Disposition: Admitted to [facility] - Attestation Statements Document Initiated by Ivaibe: Yes Documenting Scribe: Yusra Joseph Provider For Whom Jessicae is Documenting (Include Credential): Trisha Julio MD Scribe Attestation: Yusra Garcia, scribed for Trisha Julio MD on 08/15/18 at 0607. Scribe Documentation Reviewed: Yes Provider Attestation: The documentation as recorded by the ivaibeYusra accurately reflects the service I personally performed and the decisions made by me, Trisha Julio MD Status of Scribe Document: Viewed
[2018-08-14 21:00] LABS: Activated Partial Thrombo Time 39.4 seconds (26.0-38.0); INR 0.98 (0.82-1.09)
[2018-08-14] MEDS ORDERED: Albuterol 2.5 MG/3 ML NEB.SOL* (0.083%) INH SCH (21:00)
[2018-08-14 21:09] LABS: ALT 7 U/L (7-52); AST 17 U/L (13-39); Albumin 4.3 g/dL (3.2-5.2); Albumin/Globulin Ratio 1.2 (1-3); Alkaline Phosphatase 91 U/L (34-104); BUN/Creatinine Ratio 9.2 (8-20); Blood Urea Nitrogen 6 mg/dL (6-24); C Reactive Protein 10.07 mg/L (<8.01); CO2 Carbon Dioxide 26 mmol/L (22-32); Calcium 9.4 mg/dL (8.6-10.3); Chloride 81 mmol/L (101-111); EGFR African American 147.4 (>60); EGFR Non-African American 121.8 (>60); Globulin 3.7 g/dL (2-4); Glucose 150 mg/dL (70-100); Potassium 3.7 mmol/L (3.5-5.0)
[2018-08-14 21:10] LABS: Troponin I 0.02 ng/mL (<0.04)
[2018-08-14 21:11] LABS: Anion Gap 10 mmol/L (2-11); Sodium 117 mmol/L (135-145)
[2018-08-14 21:16] LABS: Alcohol < 10 mg/dL (<10)
[2018-08-14] MEDS ORDERED: Sodium Chloride 3% HYPERTONIC* 250 ML IV ONE (21:27)
[2018-08-14] MEDS ORDERED: Morphine 4 MG/ML VIAL (1 ml) 4 MG/ML VIAL IV ONE (21:29)
[2018-08-14 21:30] LABS: ABS Basophils 0.1 10^3/ul (0-0.2); ABS Lymphocytes 1.1 10^3/ul (1.0-4.8); ABS Monocytes 1.6 10^3/ul (0-0.8); ABS Neutrophils 12.4 10^3/ul (1.5-7.7); Eosinophil % 0.1 %; Lymphocyte % 7.3 %
[2018-08-14] MEDS ORDERED: Ondansetron INJ* 2 MG/ML VIAL IV PRN (22:31)
[2018-08-14 23:00] LABS: Urine Potassium Concentration 21.4 mmol/L
[2018-08-14] MEDS ORDERED: Albuterol/Ipratropium NEB.SOL* Albuterol 2.5 MG/Ipratropium 0.5 MG 3 ML INH SCH (23:00)
[2018-08-14 23:08] LABS: Urine Benzodiazepine Screen None Detected (None Detect); Urine Opiates Screen None Detected (None Detect)
[2018-08-14 23:13] LABS: Urine Appearance Clear; Urine Bacteria Absent (Absent); Urine Bilirubin Negative (Negative); Urine Blood Negative (Negative); Urine Color Yellow; Urine Glucose Negative (Negative); Urine Ketones Trace (Negative); Urine Nitrite Negative (Negative); Urine Protein 2+(100 mg/dL) (Negative); Urine Red Blood Cell Trace(0-2/hpf) (Absent); Urine Specific Gravity 1.006 (1.010-1.030); Urine Squamous Epithelial Cell Present (Absent); Urine Urobilinogen Negative (Negative); Urine White Blood Cell Trace(0-5/hpf) (Absent)
[2018-08-14 23:38] LABS: TSH (Thyroid Stimulating Horm) 3.72 mcIU/mL (0.34-5.60)
[2018-08-14] MEDS: cefTRIAXone(*) 1 GM in NS 0.9% 50 ML* 50 ML IVPB SCH (23:55)
[2018-08-15] MEDS: Acetaminophen TAB* 325 MG PO PRN ×2 (00:16→20:35)
[2018-08-15] MEDS ORDERED: Albuterol/Ipratropium NEB.SOL* Albuterol 2.5 MG/Ipratropium 0.5 MG 3 ML INH PRN (01:00)
[2018-08-15 01:34] LABS: BUN/Creatinine Ratio 8.5 (8-20); Calcium 8.8 mg/dL (8.6-10.3); EGFR African American 164.8 (>60); EGFR Non-African American 136.2 (>60)
--- NOTE | 2018-08-15 01:35 | HP ---
ADMISSION HISTORY AND PHYSICAL: DATE OF ADMISSION: 08/14/18 ATTENDING PROVIDER: Dr. Eliza Hardy * (DICTATED BY MUSA BARNETT NP) PRIMARY CARE PROVIDER: The patient's primary care provider was Dr. Anamika Covington. The patient has most recently been a resident [facility]. ENTRY LEVEL RECRUITER AND HEALTHCARE PROXY: The patient's son, Gera Miller, phone number is [phone]. CHIEF COMPLAINT: Seizure. HISTORY OF PRESENT ILLNESS: Mr. Miller is a 68-year-old male patient that was brought to the emergency department by EMS services when he was found by his son to have a generalized seizure while residing at his son's house. Per the son's report, the patient was residing at [facility] for the last several months after being discharged from the hospital this past April. It is unclear why the patient was released from [facility]. The son explained that the patient did not have capacity; however, [facility] allowed the patient to sign out against medical advice. The notes from the patient's hospitalization in April of this year from his last discharge indicated that Dr. Rios, Psychiatry, did note that the patient did not have capacity at the time of discharge, which was why he was sent to rehabilitation facility. It is unclear whether the patient's capacity changed or not. The patient's son does not feel that the patient did have capacity either; however, the events reported that [facility] allowed the patient to sign out against medical advice and they told the patient's son to come and pick him up. The patient's son did pick him up because he was concerned for his father's safety and he brought him to his home, where he subsequently had a seizure today and then was brought to the emergency department in a postictal state. Upon arrival in the emergency department, he was found to have profound hyponatremia with a sodium of 117 and elevated white count and lactic acidosis. For these reasons, we were requested to evaluate the patient for admission to the ICU with infusion of hypertonic saline. PAST MEDICAL HISTORY: Significant for coronary artery disease, COPD, heart failure, factor V Leiden mutation, chronic hyponatremia, recent diagnosis of chronic severe erosive esophagitis, chronic alcoholism, phantom limb pain and chronic pain, and right above the knee amputation. PAST SURGICAL HISTORY: Includes right above the knee amputation. MEDICATIONS: The patient was released from [facility] without a medication list. The nursing staff is unable to confirm his medications at this time. ALLERGIES: Include allergy to FENTANYL. FAMILY HISTORY: Unknown. SOCIAL HISTORY: The patient does have history of tobacco abuse and history of alcoholism, both in remission. REVIEW OF SYSTEMS: His review of systems is unreliable. The patient is postictal and confused. He is wincing and grimacing in pain and retching and vomiting small amounts of foamy to bilious liquid. PHYSICAL EXAMINATION GENERAL: Reveals a very disheveled gentleman older than his stated age. VITAL SIGNS: Blood pressure 126/76, heart rate of 96, respiratory rate of 18, O2 saturation 93% on 4 L nasal cannula, temperature of 97.8. HEENT: The patient is atraumatic, normocephalic. PERRLA. Nonicteric sclerae. Oral mucosa is dry. The patient is edentulous. NECK: Supple, nontender. No JVD noted. No carotid bruits auscultated. LUNGS: Clear at the apices. Diminished throughout. Slight crackles at the bases with bilateral expiratory wheeze. No rhonchi noted. CARDIOVASCULAR: S1, S2 present. No murmurs, gallops, or rubs noted. Rate and rhythm are regular. ABDOMEN: Soft, nontender, nondistended. Moderately obese. Positive bowel sounds noted. : A Etienne has been inserted, draining medium-toned yellow urine. MUSCULOSKELETAL: There is no clubbing or cyanosis on the left lower extremity. The right lower extremity has been amputated above the knee. The stump is benign. NEUROLOGIC: The patient is postictal, drowsy. He does answer to his name. He replies that he thinks he is currently in [facility], requires frequent reorientation and does appear to be confused at this time. PSYCHIATRIC: Although confused, he is cooperative and currently otherwise appropriate. DIAGNOSTIC STUDIES/LAB DATA: WBCs 15.1, RBCs 5.32, hemoglobin 13.3, hematocrit 40, MCV 75, MCH 25, MCHC 33, RDW 19, platelets 297, MPV 8.2. Sodium 117, potassium 3.7, chloride 81, CO2 of 26, anion gap 10, BUN 6, creatinine 0.65 , GFR 121.8, BUN 9.2, glucose 150. Serum osmolality 255. Lactic acid 2.2. Calcium 9.4. Bilirubin 0.50, AST 17, ALT 7, alk phos 91. Troponin 0.02. CRP 10.07. BNP 94. Protein 8.0. Albumin 4.3, globulin 3.7, albumin-globulin ratio 1.2. Toxicology serum alcohol is less than 10. Arterial blood gas; pH is 7.42, CO2 of 40, pO2 of 93, bicarb 25.8, O2 saturation 99.0, base excess of 1.3. APTT 39.4, INR is 0.98. Imaging: Chest x-ray is pending official read, wet read shows some scarring and some potential fibrotic changes in the right lower lobe. No acute changes from his previous chest x-ray in April of this year. Does not appear to have any acute consolidation. Brain CT shows no acute intracranial pathology. He does have some prominence of the ventricles and sulci, most likely attributed to parenchymal volume loss, some chronic small vessel ischemic changes. IMPRESSION: Mr. Miller is a 68-year-old male patient with a complex medical history who presents today with profound hyponatremia, status post seizure. PLAN: The patient will be admitted to ICU. DIAGNOSES: 1. Hyponatremia, acute on chronic. Dr. Cates has been consulted by the emergency physician. She recommends hypertonic saline infusion of 250 mL which is currently being started in the ED. We will recheck sodium level in 2 to 3 hours post infusion and check sodium levels q.6 hours thereafter. Serum osmolality and FENa are being checked. The patient is known to have chronic hyponatremia at baseline, however, this latest event with the seizure is new for him. I think there is some question that the patient may have had seizure disorder secondary to alcoholism in the past; however, he has not had any alcohol that we are aware of since his discharge. He has been outside of the [facility] for some 30 hours and his serum alcohol was negative, so it is likely that this is not related to that. CT of his head is negative. We should consult Neurology in the morning and continue to reassess the status after his sodium normalizes. 2. In terms of his seizure, again we will consult Neurology in the morning and order an EEG and assess for any additional epileptiform changes. 3. For his history of chronic erosive esophagitis, the patient did have gastrointestinal bleed and erosive esophagitis earlier this year with EGD with Dr. Dale. We will place him on Protonix for now. We are pending clarification of his medications. We will not place him on DVT prophylaxis because of his high risk for bleeding given his history of factor V Leiden and history of gastric bleeding. For now, we will place him on oral Protonix. 4. For his history of chronic obstructive pulmonary disease, he is currently wheezy, does not appear to have consolidation. We will place him on DuoNeb. He has had 1 dose of Solu-Medrol IV; however, he does not appear to be in a chronic obstructive pulmonary disease exacerbation at this time. Also given his history of GI bleeding and erosive esophagitis, I would be concerned with putting him on IV steroids at this time unless it was really indicated. This is something again that can be assessed after his hyponatremia and seizure are under control. 5. History of coronary artery disease, currently stable. 6. History of congestive heart failure. There is no current or recent echocardiogram for the patient. He does not appear to be in cardiac distress or volume overloaded on his chest x-ray. I do not think we need to do an echocardiogram; however, if his volume status changes or he has any additional cardiac changes, we may need to do an echocardiogram during this admission. 7. History of EtOH abuse and alcoholic encephalopathy. In terms of the patient 's capacity, we should consider having the patient evaluated by Psychiatry again after his acute illness is over. His disposition in terms of returning back to a retirement whether it is [facility] or another facility should be discussed with the patient's family once disposition needs to be determined for discharge. I did discuss DNR with the patient's son. He did state that the patient is still a DNR, he does not have the patient's MOLST. This would need to be signed during this admission. 8. For DVT prophylaxis, the patient is high risk for bleeding. Chemoprophylaxis will be contraindicated. He can have an SCD to his intact leg. 9. Diet: He can have a regular diet with pureed consistency. 10. Ambulation: For now, we will place the patient on bedrest. 11. Disposition: The patient has been admitted to ICU. CRITICAL CARE TIME: Approximately 75 minutes on admission planning. This plan of care has been discussed with Dr. Eliza Hardy, the attending on this admission, and she is in agreement with this plan of care. MUSA BARNETT, GEAR LAPPER [id number]/[facility] #: [id number] JOSÉ ANTONIO
[2018-08-15 01:41] LABS: Potassium 4.4 mmol/L (3.5-5.0)
[2018-08-15] MEDS: Morphine 4 MG/ML VIAL (1 ml) 4 MG/ML VIAL IV PRN ×3 (01:42→08:59)
[2018-08-15 05:58] LABS: ABS Lymphocytes 0.7 10^3/ul (1.0-4.8); ABS Monocytes 0.1 10^3/ul (0-0.8); ABS Neutrophils 7.7 10^3/ul (1.5-7.7); Eosinophil % 0.1 %; Hematocrit 40 % (42-52); Hemoglobin 13.1 g/dL (14.0-18.0); Lymphocyte % 8.1 %; Mean Corpuscular HGB Conc 33 g/dL (31-36); Mean Corpuscular Hemoglobin 25 pg (27-31); Mean Corpuscular Volume 76 fL (80-94); Mean Platelet Volume 8.8 fL (7.4-10.4); Nucleated Red Blood Cells % 0.1; Platelet Count 276 10^3/uL (150-450); Red Blood Count 5.26 10^6 /uL (4.18-5.48); Red Cell Distribution Width 19 % (10-15); White Blood Count 8.5 10^3/uL (3.5-10.8)
[2018-08-15] MEDS ORDERED: Heparin VIAL(*) 5000 UNITS/ML VIAL (FIVE THOUSAND) SUBCUT SCH (06:00)
[2018-08-15 06:08] LABS: Albumin 3.9 g/dL (3.2-5.2); Albumin/Globulin Ratio 1.2 (1-3); BUN/Creatinine Ratio 8.9 (8-20); Calcium 8.5 mg/dL (8.6-10.3); EGFR Non-African American 144.7 (>60); Globulin 3.3 g/dL (2-4); Potassium 4.7 mmol/L (3.5-5.0); Total Bilirubin 0.3 mg/dL (0.2-1.0); Total Protein 7.2 g/dL (6.4-8.9)
[2018-08-15] MEDS: Gabapentin CAP(*) 300 MG PO SCH ×2 (08:59→20:35)
[2018-08-15] MEDS: Pantoprazole TAB * 40 MG TAB PO SCH (08:59)
[2018-08-15] MEDS ORDERED: Lisinopril TAB* 5 MG PO SCH (09:00)
[2018-08-15 11:47] LABS: BUN/Creatinine Ratio 12.3 (8-20); Calcium 9.4 mg/dL (8.6-10.3); EGFR African American 171.5 (>60); EGFR Non-African American 141.7 (>60); Potassium 4.6 mmol/L (3.5-5.0); Uric Acid 6.3 mg/dL (4.4-7.6)
--- NOTE | 2018-08-15 14:15 | EEG ---
ELECTROENCEPHALOGRAPHY: DATE OF STUDY: 08/15/18 DATE READ: 08/15/18 ORDERED BY: Meghan Erickson NP. CLINICAL PROBLEM: Mr. Miller is a 68-year-old man with a chronic history of hyponatremia, who presented with seizure-like activity. This EEG was requested to evaluate for epileptiform abnormalities or electrographic seizures. MEDICATIONS: 1. Albuterol. 2. Ceftriaxone. 3. Morphine. 4. Ondansetron. 5. Pantoprazole. TIMING OF RECORDIN to 1004. CLINICAL STATE: Awake and drowsy. REPORT: The background lacked organization with clearly defined anterior- posterior voltage and frequency gradients. There was poorly sustained slow posterior dominant rhythm of approximately 7.5 Hz. Instead, the background consisted of diffuse medium amplitude polymorphic 3-7 Hz delta and theta range slowing. There were paroxysms of diffuse, higher amplitude, 2-4 Hz delta slowing lasting 30-90 seconds seen throughout the recording. There was no evolution or propagation of the frequency. It seems like this more prominent delta slowing was seen predominantly during drowsy state. Hyperventilation and photic stimulation were not performed. Single electrode EKG showed a normal sinus rhythm with a rate of 80 beats per minute. Throughout the recording, there were no epileptiform discharges or electrographic seizures. CLINICAL IMPRESSION: This is an abnormal EEG due to the presence of diffuse reactive slowing and poorly sustained posterior dominant rhythm. These findings are suggestive of a nonspecific mild-moderate diffuse encephalopathy, which can be seen in the setting of toxic metabolic disturbance, hypoxic encephalopathy, postictal state, or medication effect. There were no epileptiform discharges or electrographic seizures. [id number]/[facility] #: [id number] [facility]ITAL[facility]ha
--- NOTE | 2018-08-15 16:38 | PN ---
Subjective Date of Service: 08/15/18 Interval History: Patient has difficulty communicating, he is MOAPA and confused. He wants nam removed. He has been dislodging IV, telemetry lines. Denies pain. I had discussion with son Gera earlier this afternoon, he states father's wishes are to be DNR, DNI. He agrees he is suffering and this could end peacefully. Family History: Unchanged from Admission Social History: Unchanged from Admission Past Medical History: Unchanged from Admission Objective Active Medications: Acetaminophen (Tylenol Tab*) 650 mg PO Q6H PRN PRN Reason: FEVER Last Admin: 08/15/18 00:16 Dose: 650 mg Albuterol (Ventolin 2.5 Mg/3 Ml Neb.Aileen*) 2.5 mg INH .Q20M [facility] Albuterol/Ipratropium (Duoneb (Albuterol 2.5 Mg/Ipratropium 0.5 Mg)) 1 neb INH [id number] AWAKE PRN PRN Reason: SOB/WHEEZING Gabapentin (Neurontin Cap(*)) 600 mg PO BID [facility] Last Admin: 08/15/18 08:59 Dose: 600 mg Ceftriaxone Sodium 1 gm/ (Sodium Chloride) 50 mls @ 200 mls/hr IVPB Q24H [facility] Last Admin: 08/14/18 23:55 Dose: 200 mls/hr Morphine Sulfate (Morphine 4 Mg/Ml Vial (1 Ml)) 4 mg IV Q4H PRN PRN Reason: PAIN Last Admin: 08/15/18 08:59 Dose: 4 mg Ondansetron HCl (Zofran Inj*) 4 mg IV Q6H PRN PRN Reason: NAUSEA Pantoprazole Sodium (Protonix Tab*) 40 mg PO DAILY [facility] Last Admin: 08/15/18 08:59 Dose: 40 mg Vital Signs - 8 hr 08/15/18 08/15/18 08/15/18 08:59 09:00 10:00 Temperature Pulse Rate 93 85 Respiratory 19 15 14 Rate Blood Pressure 151/86 122/69 (mmHg) O2 Sat by Pulse 96 93 Oximetry 08/15/18 08/15/18 08/15/18 11:00 11:38 12:00 Temperature 36.9 C Pulse Rate 85 82 Respiratory 14 24 Rate Blood Pressure 132/82 129/70 (mmHg) O2 Sat by Pulse 92 88 Oximetry 08/15/18 08/15/18 13:00 14:00 Temperature Pulse Rate 77 89 Respiratory 14 13 Rate Blood Pressure 124/78 (mmHg) O2 Sat by Pulse 93 91 Oximetry Oxygen Devices in Use Now: Nasal Cannula Appearance: awake, trying to answer questions, good eye contact, coughing Eyes: No Scleral Icterus Ears/Nose/Mouth/Throat: - - poor dentition Neck: NL Appearance and Movements; NL JVP Respiratory: Symmetrical Chest Expansion and Respiratory Effort, Clear to Auscultation Cardiovascular: NL Sounds; No Murmurs; No JVD, No Edema Abdominal: NL Sounds; No Tenderness; No Distention, No Hepatosplenomegaly Lymphatic: No Cervical Adenopathy Extremities: - - [place] amputee RLE Skin: No Rash or Ulcers Lines/Tubes/Other Access: Clean, Dry and Intact Peripheral IV Nutrition: Taking PO's Result Diagrams: 08/15/18 05:40 08/15/18 11:16 Additional Lab and Data: Laboratory Tests 08/14/18 08/14/18 08/15/18 20:35 20:53 01:00 ABG pH 7.42 ABG pCO2 40 ABG pO2 93 ABG HCO3 25.8 ABG O2 Saturation 99.0 H ABG Base Excess 1.3 Glucose Lactic Acid 2.2 H* 0.9 Cortisol 08/15/18 08/15/18 05:40 11:16 ABG pH ABG pCO2 ABG pO2 ABG HCO3 ABG O2 Saturation ABG Base Excess Glucose 150 H 139 H Lactic Acid Cortisol 6.03 Microbiology and Other Data: Microbiology 08/14/18 23:55 Nasal Screen MRSA (PCR) - Final Nasal Mrsa Not Detected Assess/Plan/Problems-Billing Assessment: 68 year old man with history of COPD, alcohol abuse, here with severe hyponatremia, seizure. - Patient Problems (1) Hyponatremia Current Visit: Yes Status: Acute Priority: High Code(s): E87.1 - HYPO- OSMOLALITY AND HYPONATREMIA SNOMED Code(s): 95276163 Comment: - Acute on chronic - Patient corrected nicely with hypertonic saline, now on fluid restriction - no need to further correct today, will liberalize fluid - Discussed case with Dr. Cates (2) COPD (chronic obstructive pulmonary disease) Current Visit: Yes Status: Acute Priority: Medium Code(s): J44.9 - CHRONIC OBSTRUCTIVE PULMONARY DISEASE, UNSPECIFIED SNOMED Code(s): 97857054 Comment: - Only signs of exacerbation would be cough and fever overnight - Restart spiriva and duonebs prn, continue ceftriaxone (3) Seizures Current Visit: Yes Status: Acute Priority: Medium Code(s): R56.9 - UNSPECIFIED CONVULSIONS SNOMED Code(s): 66725615 Comment: -Seizures very likely due to hyponatremia -EEG normal, neurology input appreciated. (4) Erosive esophagitis Current Visit: No Status: Acute Priority: Medium Code(s): K22.10 - ULCER OF ESOPHAGUS WITHOUT BLEEDING SNOMED Code(s): 81135989 Comment: - reviewed past GI consult - Continue PO Protonix QD - Continue to avoid anticoagulation at this time. (5) DVT prophylaxis Current Visit: No Status: Acute Priority: Low Code(s): SIU9520 - SNOMED Code(s): 031096661 Comment: - SCDs, high risk for bleeding Status and Disposition: inpatient, can go to medical floor.
--- NOTE | 2018-08-15 19:36 | CONS ---
CONSULTATION NOTE: DATE OF CONSULT: 08/15/18 REQUESTING PHYSICIAN: Dr. Chen/ER. REASON FOR CONSULT: Hyponatremia. HISTORY OF PRESENT ILLNESS: A 68-year-old male with history of coronary artery disease, COPD, heart failure, factor V Leiden mutation, chronic hyponatremia, severe erosive esophagitis, chronic alcoholism, phantom limb pain, right above- the-knee amputation, and multiple medical problems, came into the ER after he was noted to have a generalized seizure when he was residing at his son's house. The patient had been at [facility] for several months. It also appears that the patient may have signed out against medical advice at [facility]. When the patient was evaluated in the ER, the patient was noted to have a sodium of 117 with elevated white count and lactic acidosis. The patient has a history of chronic hyponatremia with multiple episodes of acute on chronic hyponatremia per review of his old labs, significantly seen in March and April of this year. The patient has been typically in the 125 to 128 range. In light of his seizure and hyponatremia to 117, ER contacted me and recommended giving 3% saline 250 cc over an hour to get him past his seizure threshold and quickly increase his sodium. The patient was examined this morning and appears to be somewhat confused with no focal deficits. The patient is hard of hearing, but able to answer questions appropriately and is alert and oriented. PAST MEDICAL HISTORY: 1. Coronary artery disease. 2. COPD. 3. Heart failure. 4. Factor V Leiden mutation. 5. Chronic hyponatremia. 6. Chronic severe erosive esophagitis. 7. Chronic alcoholism. 8. Phantom limb syndrome. 9. Chronic pain. 10. Right xmcoh-tsu-aovg amputation. PAST SURGICAL HISTORY: Right nbgkt-sig-shve amputation. MEDICATION LIST: 1. Trazodone 100 mg p.o. at bedtime p.r.n. 2. Guaifenesin 1200 p.o. b.i.d. 3. Sucralfate 1 g p.o. a.c. h.s. 4. Senna. 5. Pantoprazole 40 mg b.i.d. 6. Nystatin powder. 7. Nicotine inhaler. 8. Lisinopril 2.5 mg p.o. daily. 9. DuoNeb p.r.n. 10. Hydrocodone/acetaminophen 1 tab p.o. t.i.d. p.r.n. 11. Gabapentin 300 mg p.o. t.i.d. 12. Duloxetine 30 mg p.o. daily. 13. Benzonatate (Tessalon Perles) 100 mg p.o. b.i.d. p.r.n. 14. Augmentin 875 mg p.o. b.i.d. 15. Tylenol. FAMILY HISTORY: Unknown. SOCIAL HISTORY: The patient reports history of alcohol use, but reports that he has not been drinking recently. Has a history of heavy alcohol abuse, but currently reports that he does not drink. REVIEW OF SYSTEMS: Denies any complaints at that time. Reports that he is having some leg pain and other than that does not complain of any headaches, dizziness. Reports that he is feeling well. PHYSICAL EXAM: General: He is disheveled, older than stated age. Vitals: Blood pressure 126/76, heart rate 96, respiratory rate 18, oxygen saturation 93 % on 4 L nasal cannula, temperature 97.8. HEENT: NC/AT. No scleral icterus. Oral mucosa dry. Neck: No JVD noted. Lungs: Decreased breath sounds bilaterally, minimal crackles at the bases and some expiratory wheezes. Cardiovascular: S1, S2 present. Tachycardic at the time of exam. Abdomen: Soft, nontender, nondistended, moderately obese. No rebound. No guarding. Extremities noted to have right nwdls-fcv-riqh amputation, other leg with no edema. DIAGNOSTIC STUDIES/LAB DATA: WBC 15.1 yesterday, hemoglobin 13.3, hematocrit 40 , platelets noted to be 297. On admission, sodium 117, potassium 3.7, chloride 81, CO2 of 26, BUN 6, creatinine 0.6, glucose noted to be 150. BNP noted to be 94. Chest x-ray: Not with significant consolidation. Brain CT: No acute intracranial pathology. ASSESSMENT AND PLAN: A 68-year-old male with multiple medical problems and chronic hyponatremia, here with profound hyponatremia and seizure. 1. Hyponatremia, acute on chronic, hypotonic hyponatremia. At this time, the patient has received his 3% 250 cc and this has nicely increased the patient's sodium to get him out of the seizure threshold. At this time on repeat labs, his sodium noted to be 125, which is at goal. For the first 24 hours, we would like the sodium to not increase beyond 10 mEq per day, ideally keeping him in the 8 mEq per day range. As his sodium has improved and the patient's seizure has resolved, recommend not pursuing further correction of his hyponatremia today. The patient is currently on fluid restriction. We will lift his fluid restriction today to avoid overcorrection of his sodium to avoid complications of central pontine myelinolysis. The patient at this time is doing well, does not have any focal deficits. The patient can be reinitiated on his fluid restriction if needed tomorrow and recommend checking his sodium levels again. The etiology of his hyponatremia is likely multifactorial. The patient's urine osmolality also noted to be low with low urine sodium, which does not completely go with a syndrome of inappropriate antidiuretic hormone secretion picture. It is still possible that the patient has incomplete SIADH or SIADH and hypovolemia. Most likely, the patient has low solute intake and hyponatremia related to it in light of his malnutrition and chronic alcoholism. The patient currently does not drink a lot of beer even though he used to drink heavily in the past. Reset osmostat is also a consideration in this patient as his urine osmolality is low, but not significantly low and could have an incomplete picture. Recommend repeating a urine osmolality, serum osmolality tomorrow. The patient's normal uric acid level also goes against syndrome of inappropriate antidiuretic hormone secretion. Hypovolemia is also a consideration and low solute intake in the setting of his chronic medical problems and malnutrition. 2. TSH and cortisol level noted to be in normal range. Also recommend checking aldosterone and renin level to rule out mineralocorticoid deficiency as a cause of the patient's hyponatremia. 3. Interestingly, the patient's prior x-ray had right lower lobe consolidation. The patient's current x-ray does not show any mass or adenocarcinoma sort of lesion. However, if the hyponatremia is persistent, in light of his history, can consider getting CAT scan of his chest to conclusively rule out lung malignancy that could be triggering hyponatremia and syndrome of inappropriate antidiuretic hormone secretion. 4. We will follow with the primary medical team. [id number]/[facility] #: [id number] JOSÉ ANTONIO
[2018-08-15] MEDS: cefTRIAXone(*) 1 GM in NS 0.9% 50 ML* 50 ML IVPB SCH (23:32)
[2018-08-16 06:04] LABS: Hematocrit 37 % (42-52); Hemoglobin 12.1 g/dL (14.0-18.0); Mean Corpuscular HGB Conc 32 g/dL (31-36); Mean Corpuscular Hemoglobin 25 pg (27-31); Mean Corpuscular Volume 77 fL (80-94); Mean Platelet Volume 8.8 fL (7.4-10.4); Platelet Count 290 10^3/uL (150-450); Red Blood Count 4.87 10^6 /uL (4.18-5.48); Red Cell Distribution Width 19 % (10-15); White Blood Count 12.9 10^3/uL (3.5-10.8)
[2018-08-16 06:22] LABS: Albumin 4.1 g/dL (3.2-5.2); Albumin/Globulin Ratio 1.3 (1-3); BUN/Creatinine Ratio 16.1 (8-20); Calcium 9.2 mg/dL (8.6-10.3); EGFR African American 155.6 (>60); EGFR Non-African American 128.6 (>60); Globulin 3.2 g/dL (2-4); Potassium 4.1 mmol/L (3.5-5.0); Total Bilirubin 0.3 mg/dL (0.2-1.0); Total Protein 7.3 g/dL (6.4-8.9)
[2018-08-16 07:35] LABS: ABS Basophils 0.2 10^3/ul (0-0.2); ABS Monocytes 1.9 10^3/ul (0-0.8); ABS Neutrophils 8.8 10^3/ul (1.5-7.7); Eosinophil % 0.2 %; Lymphocyte % 15.4 %
[2018-08-16] MEDS: Gabapentin CAP(*) 300 MG PO SCH ×2 (07:57→21:13)
[2018-08-16] MEDS: Pantoprazole TAB * 40 MG TAB PO SCH (07:58)
[2018-08-16] MEDS ORDERED: Spiriva Inhaler DEVICE* 1 EACH DEVICE INH ONE (09:00)
[2018-08-16] MEDS: Tiotropium CAP.INH* CAP.INH/18 MCG (USE ORDER SET !) INH SCH (09:50)
[2018-08-16 14:55] LABS: Urine Appearance Clear; Urine Bacteria Absent (Absent); Urine Bilirubin Negative (Negative); Urine Blood 1+ (Negative); Urine Color Yellow; Urine Glucose Negative (Negative); Urine Ketones Negative (Negative); Urine Nitrite Negative (Negative); Urine Protein 1+(30 mg/dL) (Negative); Urine Red Blood Cell 3+(>10/hpf) (Absent); Urine Specific Gravity 1.013 (1.010-1.030); Urine Squamous Epithelial Cell Present (Absent); Urine Urobilinogen Negative (Negative); Urine White Blood Cell Trace(0-5/hpf) (Absent)
--- NOTE | 2018-08-16 15:44 | CONSULT ---
Palliative / Hospice Consult Ordering Provider: Shahbaz Chen - PCP-Adria Referal Reason: care after leaving the hospital - Subjective Code Status: DNR Advance Directives Location: No Advance Directives MOLST Part A Completed: Yes - on chart MOLST Part E Completed:: Yes - on chart - History or Present Illness History or Present Illness: 68 yo male with seizure secondary to hyponatremia and COPD recently left [facility] and was living with son Gera. PMH CAD-WA, CHF, factor V Leiden mutation, chronic hyponatremia, severe erosive esophagitis, chronic alcoholism, phantom leg pain & PVD. Studies CXR-COPD and bilat ateletasis, EKG-NSR, brain CT -chronic small vessel ischemic changes otherwise no acute changes, EEG- nonspecific mild-moderate diffuse encephalopathy, H/H 12.1/37, BUN/Cr 10/.62, egfr 128.6, Ca 9.2, tprot 7.3 and Alb 4.1. Pt is a smoker/ex etoh abuse, no drugs, retired from [employer] on disability for 40yrs, one son other son Gera is his HCP. Pt was recently released from [facility] and was at home with his son for less than 40hrs when he developed a seizure and was brought to the hospital. Pt has resided at [facility] in the past. All history is from the son and medical records, pt is unable to contribute. Lab Values: Abnormal Lab Results 08/16/18 08/16/18 08/16/18 05:29 05:29 05:29 WBC 12.9 H RBC 4.87 Hgb 12.1 L Hct 37 L MCV 77 L MCH 25 L MCHC 32 RDW 19 H Plt Count 290 MPV 8.8 Neut % (Auto) 68.3 Lymph % (Auto) 15.4 [place] % (Auto) 14.8 Eos % (Auto) 0.2 Baso % (Auto) 1.3 Absolute Neuts (auto) 8.8 H Absolute Lymphs (auto) 2.0 Absolute Monos (auto) 1.9 H Absolute Eos (auto) 0.0 Absolute Basos (auto) 0.2 Absolute Nucleated RBC 0.0 Nucleated RBC % 0.0 Sodium 131 L Potassium 4.1 Chloride 95 L Carbon Dioxide 27 Anion Gap 9 BUN 10 Creatinine 0.62 L Est GFR ( Amer) 155.6 Est GFR (Non-Af Amer) 128.6 BUN/Creatinine Ratio 16.1 Glucose 97 Serum Osmolality 281 Calcium 9.2 Total Bilirubin 0.30 AST 18 ALT 7 Alkaline Phosphatase 70 Total Protein 7.3 Albumin 4.1 Globulin 3.2 Albumin/Globulin Ratio 1.3 Urine Color Urine Appearance Urine pH Ur Specific [place] Urine Protein Urine Ketones Urine Blood Urine Nitrate Urine Bilirubin Urine Urobilinogen Ur Leukocyte Esterase Urine WBC (Auto) Urine RBC (Auto) Ur Squamous Epith Cells Urine Bacteria Urine Glucose 08/16/18 14:30 WBC RBC Hgb Hct MCV MCH MCHC RDW Plt Count MPV Neut % (Auto) Lymph % (Auto) [place] % (Auto) Eos % (Auto) Baso % (Auto) Absolute Neuts (auto) Absolute Lymphs (auto) Absolute Monos (auto) Absolute Eos (auto) Absolute Basos (auto) Absolute Nucleated RBC Nucleated RBC % Sodium Potassium Chloride Carbon Dioxide Anion Gap BUN Creatinine Est GFR ( Amer) Est GFR (Non-Af Amer) BUN/Creatinine Ratio Glucose Serum Osmolality Calcium Total Bilirubin AST ALT Alkaline Phosphatase Total Protein Albumin Globulin Albumin/Globulin Ratio Urine Color Yellow Urine Appearance Clear Urine pH 6.0 Ur Specific [place] 1.013 Urine Protein 1+(30 mg/dl) A Urine Ketones Negative Urine Blood 1+ A Urine Nitrate Negative Urine Bilirubin Negative Urine Urobilinogen Negative Ur Leukocyte Esterase Negative Urine WBC (Auto) Trace(0-5/hpf) Urine RBC (Auto) 3+(>10/hpf) A Ur Squamous Epith Cells Present A Urine Bacteria Absent Urine Glucose Negative Laboratory Last Values WBC 12.9 10^3/uL (3.5-10.8) H 08/16/18 05:29 RBC 4.87 10^6 /uL (4.18-5.48) 08/16/18 05:29 Hgb 12.1 g/dL (14.0-18.0) L 08/16/18 05:29 Hct 37 % (42-52) L 08/16/18 05:29 MCV 77 fL (80-94) L 08/16/18 05:29 MCH 25 pg (27-31) L 08/16/18 05:29 MCHC 32 g/dL (31-36) 08/16/18 05:29 RDW 19 % (10-15) H 08/16/18 05:29 Plt Count 290 10^3/uL (150-450) 08/16/18 05:29 MPV 8.8 fL (7.4-10.4) 08/16/18 05:29 Neut % (Auto) 68.3 % 08/16/18 05:29 Lymph % (Auto) 15.4 % 08/16/18 05:29 [place] % (Auto) 14.8 % 08/16/18 05:29 Eos % (Auto) 0.2 % 08/16/18 05:29 Baso % (Auto) 1.3 % 08/16/18 05:29 Absolute Neuts (auto) 8.8 10^3/ul (1.5-7.7) H 08/16/18 05:29 Absolute Lymphs (auto) 2.0 10^3/ul (1.0-4.8) 08/16/18 05:29 Absolute Monos (auto) 1.9 10^3/ul (0-0.8) H 08/16/18 05:29 Absolute Eos (auto) 0.0 10^3/ul (0-0.6) 08/16/18 05:29 Absolute Basos (auto) 0.2 10^3/ul (0-0.2) 08/16/18 05:29 Absolute Nucleated RBC 0.0 10^3/ul 08/16/18 05:29 Nucleated RBC % 0.0 08/16/18 05:29 INR (Anticoag Therapy) 0.98 (0.82-1.09) 08/14/18 20:34 APTT 39.4 seconds (26.0-38.0) H 08/14/18 20:34 ABG pH 7.42 (7.35-7.45) 08/14/18 20:53 ABG pCO2 40 mmHg (35-45) 08/14/18 20:53 ABG pO2 93 mmHg (80-100) 08/14/18 20:53 ABG HCO3 25.8 mmol/L (19-31) 08/14/18 20:53 ABG O2 Saturation 99.0 % (94.0-98.0) H 08/14/18 20:53 ABG Base Excess 1.3 mmol/L (-2.0-2.0) 08/14/18 20:53 Sodium 131 mmol/L (135-145) L 08/16/18 05:29 Potassium 4.1 mmol/L (3.5-5.0) 08/16/18 05:29 Chloride 95 mmol/L (101-111) L 08/16/18 05:29 Carbon Dioxide 27 mmol/L (22-32) 08/16/18 05:29 Anion Gap 9 mmol/L (2-11) 08/16/18 05:29 BUN 10 mg/dL (6-24) 08/16/18 05:29 Creatinine 0.62 mg/dL (0.67-1.17) L 08/16/18 05:29 Est GFR ( Amer) 155.6 (>60) 08/16/18 05:29 Est GFR (Non-Af Amer) 128.6 (>60) 08/16/18 05:29 BUN/Creatinine Ratio 16.1 (8-20) 08/16/18 05:29 Glucose 97 mg/dL (70-100) 08/16/18 05:29 Serum Osmolality 281 mOsm/kg (275-295) 08/16/18 05:29 Lactic Acid 0.9 mmol/L (0.5-2.0) 08/15/18 01:00 Uric Acid 6.3 mg/dL (4.4-7.6) 08/15/18 11:16 Calcium 9.2 mg/dL (8.6-10.3) 08/16/18 05:29 Total Bilirubin 0.30 mg/dL (0.2-1.0) 08/16/18 05:29 AST 18 U/L (13-39) 08/16/18 05:29 ALT 7 U/L (7-52) 08/16/18 05:29 Alkaline Phosphatase 70 U/L (34-104) 08/16/18 05:29 Troponin I 0.02 ng/mL (<0.04) 08/14/18 20:34 C-Reactive Protein 10.07 mg/L (<8.01) H 08/14/18 20:34 B-Natriuretic Peptide 94 pg/mL (<=100) 08/14/18 20:34 Total Protein 7.3 g/dL (6.4-8.9) 08/16/18 05:29 Albumin 4.1 g/dL (3.2-5.2) 08/16/18 05:29 Globulin 3.2 g/dL (2-4) 08/16/18 05:29 Albumin/Globulin Ratio 1.3 (1-3) 08/16/18 05:29 TSH 3.72 mcIU/mL (0.34-5.60) 08/14/18 20:34 Cortisol 6.03 mcg/dL 08/15/18 05:40 Urine Color Yellow 08/16/18 14:30 Urine Appearance Clear 08/16/18 14:30 Urine pH 6.0 (5-9) 08/16/18 14:30 Ur Specific [place] 1.013 (1.010-1.030) 08/16/18 14:30 Urine Protein 1+(30 mg/dl) (Negative) A 08/16/18 14:30 Urine Ketones Negative (Negative) 08/16/18 14:30 Urine Blood 1+ (Negative) A 08/16/18 14:30 Urine Nitrate Negative (Negative) 08/16/18 14:30 Urine Bilirubin Negative (Negative) 08/16/18 14:30 Urine Urobilinogen Negative (Negative) 08/16/18 14:30 Ur Leukocyte Esterase Negative (Negative) 08/16/18 14:30 Urine WBC (Auto) Trace(0-5/hpf) (Absent) 08/16/18 14:30 Urine RBC (Auto) 3+(>10/hpf) (Absent) A 08/16/18 14:30 Ur Squamous Epith Cells Present (Absent) A 08/16/18 14:30 Urine Bacteria Absent (Absent) 08/16/18 14:30 Hyaline Casts Present (Absent) A 08/14/18 22:48 Urine Osmolality 184 mOsm/kg (100-1150) 08/14/18 22:48 U Sodium Concentration 28 mmol/L 08/14/18 22:48 Urine Potassium 21.4 mmol/L 08/14/18 22:48 Ur Chloride Concentrat 27 mmol/L 08/14/18 22:48 Urine Glucose Negative (Negative) 08/16/18 14:30 Urine Opiates Screen None detected (None Detect) 08/14/18 22:48 Ur Barbiturates Screen None detected (None Detect) 08/14/18 22:48 Ur Phencyclidine Scrn None detected (None Detect) 08/14/18 22:48 Ur Amphetamines Screen None detected (None Detect) 08/14/18 22:48 U Benzodiazepines Scrn None detected (None Detect) 08/14/18 22:48 Urine Cocaine Screen None detected (None Detect) 08/14/18 22:48 U Cannabinoids Screen None detected (None Detect) 08/14/18 22:48 Serum Alcohol < 10 mg/dL (<10) 08/14/18 20:34 - Objective Active Medications: Acetaminophen (Tylenol Tab*) 650 mg PO Q6H PRN PRN Reason: FEVER Last Admin: 08/15/18 20:35 Dose: 650 mg Albuterol (Ventolin 2.5 Mg/3 Ml Neb.Aileen*) 2.5 mg INH .Q20M [facility] Albuterol/Ipratropium (Duoneb (Albuterol 2.5 Mg/Ipratropium 0.5 Mg)) 1 neb INH [id number] AWAKE PRN PRN Reason: SOB/WHEEZING Last Admin: 08/16/18 14:09 Dose: 1 neb Gabapentin (Neurontin Cap(*)) 600 mg PO BID [facility] Last Admin: 08/16/18 07:57 Dose: 600 mg Ceftriaxone Sodium 1 gm/ (Sodium Chloride) 50 mls @ 200 mls/hr IVPB Q24H [facility] Last Admin: 08/15/18 23:32 Dose: 200 mls/hr Morphine Sulfate (Morphine 4 Mg/Ml Vial (1 Ml)) 4 mg IV Q4H PRN PRN Reason: PAIN Last Admin: 08/15/18 08:59 Dose: 4 mg Ondansetron HCl (Zofran Inj*) 4 mg IV Q6H PRN PRN Reason: NAUSEA Pantoprazole Sodium (Protonix Tab*) 40 mg PO DAILY [facility] Last Admin: 08/16/18 07:58 Dose: 40 mg Tiotropium [place] (Spiriva Cap.Inh*) 1 cap INH DAILY [facility] Last Admin: 08/16/18 09:50 Dose: 1 cap Vital Signs: Vital Signs: Temp Pulse Resp BP Pulse Ox 98.2 F 86 18 120/83 97 08/16/18 08:00 08/16/18 14:09 08/16/18 14:09 08/16/18 08:00 08/16/18 14:09 Patient Weight: Weight 78.925 kg Intake and Output: Intake & Output 08/14/18 08/15/18 08/16/18 08/17/18 06:59 06:59 06:59 06:59 Intake Total 7660 311 5796 Output Total 2600 1175 Balance -1268 -540 1450 Weight 81 kg 78.925 kg Intake: IV Fluids 1252 25 10 NS to Maintain IV Patency 2 25 10 IVPB 50 60 Ceftiaxone 60 NS to Maintain IV Patency 50 Oral 30 550 1440 Output: Urine 450 Etienne 1800 725 Residual 800 Etienne 16 Fr 800 Other: Date of Last Bowel unknown Movement # Bowel Movements 0 0 # Voids 1 ADLs: Meal Record Start: 08/14/18 22: 47 Freq: ,,18 Status: Complete Protocol: Created 08/14/18 22:47 System (Rec: 08/14/18 22:47 System ICU-C12) Document 08/15/18 09:00 [id number] (Rec: 08/15/18 09:11 [id number] ICU-C10) Document 08/15/18 13:30 [id number] (Rec: 08/15/18 13:59 [id number] ICU-C10) ADLs: Meal Record Start: 08/15/18 16: 46 Freq: DAILY@0900,1400,1800 Status: Active Protocol: Created 08/15/18 16:46 [id number] (Rec: 08/15/18 16:46 [id number] ICU-C16) Document 08/16/18 08:44 [id number] (Rec: 08/16/18 08:44 [id number] MED-C09) Document 08/16/18 14:00 [id number] (Rec: 08/16/18 14:25 [id number] MED-C09) Intake and Output Start: 08/14/18 20: 20 Freq: Status: Active Protocol: Created 08/14/18 20:20 System (Rec: 08/14/18 20:20 System [id number]) Intake and Output Start: 08/14/18 22: 47 Freq: Q1HR Status: Complete Protocol: Created 08/14/18 22:47 System (Rec: 08/14/18 22:47 System ICU-C12) Document 08/15/18 00:00 [id number] (Rec: 08/15/18 00:51 [id number] ICU-C16) Document 08/15/18 00:54 [id number] (Rec: 08/15/18 00:54 [id number] ICU-C16) Document 08/15/18 01:51 [id number] (Rec: 08/15/18 01:51 [id number] ICU-C16) Document 08/15/18 02:58 [id number] (Rec: 08/15/18 02:59 [id number] ICU-C16) Document 08/15/18 04:00 [id number] (Rec: 08/15/18 04:54 [id number] ICU-C16) Document 08/15/18 04:54 [id number] (Rec: 08/15/18 04:54 [id number] ICU-C16) Document 08/15/18 05:45 [id number] (Rec: 08/15/18 05:45 [id number] ICU-C16) Document 08/15/18 06:47 [id number] (Rec: 08/15/18 06:49 [id number] ICU-C16) Document 08/15/18 07:25 [id number] (Rec: 08/15/18 07:25 [id number] ICU-C10) Document 08/15/18 09:00 [id number] (Rec: 08/15/18 09:02 [id number] ICU-M35) Document 08/15/18 11:26 [id number] (Rec: 08/15/18 11:27 [id number] ICU-C10) Document 08/15/18 13:00 [id number] (Rec: 08/15/18 13:23 [id number] ICU-C10) Document 08/15/18 13:58 [id number] (Rec: 08/15/18 13:59 [id number] ICU-C10) Intake and Output Start: 08/15/18 16: 46 Freq: DAILY@0600,1400,2200 Status: Active Protocol: Created 08/15/18 16:46 [id number] (Rec: 08/15/18 16:46 [id number] ICU-C16) Document 08/16/18 06:00 [id number] (Rec: 08/16/18 06:06 [id number] MED-C16) Document 08/16/18 14:00 [id number] (Rec: 08/16/18 15:16 [id number] MED-C09) Eyes: No Scleral Icterus Ears/Nose/Mouth/Throat: - - poor dentition Neck: NL Appearance and Movements; NL JVP Cardiovascular: NL Sounds; No Murmurs; No JVD, No Edema Abdominal: NL Sounds; No Tenderness; No Distention, No Hepatosplenomegaly - Assessment Assessment: 68 yo male with hyponatremia, COPD and erosive esophagitis - Plan Consult Plan (MU): Palliative Plan: Spoke with pt and son separately. Pt would like to live with son he would prefer not to go to SNF. Son is agreeable to caring for his dad at home. Recommended VNS with [employer] program for the extra support. Son also requesting a padded wheelchair. Case management is aware. Son had 3 questions first whether his dad still needs to be on a pureed diet saying he doesn't have a consulting technical manager to puree the food. Second he was inquiring if it is possible to get some Disulfiram in case his dad starts drinking again. Third son is concerned his dad may not have adequate pain relief although not sure pain management is an issue in the hospital. Son has made reference to the fact that he thinks his dad has 1-2 more years left before dying. Pt is not hospice eligible at this time. KPS 60%, PPS 60%. - Time On Unit Date of Evaluation: 08/16/18 Hospice Consult Time in: 15:00 Hospice Consult Time Out: 16:30 Hospice Consult Time Total: 90 > 50% of Time Spend In Counseling or Coordinating Care: Yes
--- NOTE | 2018-08-16 16:57 | PN ---
Subjective Date of Service: 08/16/18 Interval History: Patient has recovered greatly since yesterday. He is answering questions, able to get from bed to chair and use wheelchair. He has threatened to leave hospital and smoke a cigarette. He denies dyspnea, chest pain, abdo pain, headache. Dr. Felder spoke with son, there was concern about reason for pureed food. Patient had swallow eval yesterday, cannot chew. Apparently son Gera does not want him to return to [facility], or anywhere outside [place]. He was also asking about pain control, and antabuse. Family History: Unchanged from Admission Social History: Unchanged from Admission Past Medical History: Unchanged from Admission Objective Active Medications: Acetaminophen (Tylenol Tab*) 650 mg PO Q6H PRN PRN Reason: FEVER Last Admin: 08/15/18 20:35 Dose: 650 mg Albuterol (Ventolin 2.5 Mg/3 Ml Neb.Aileen*) 2.5 mg INH .Q20M [facility] Albuterol/Ipratropium (Duoneb (Albuterol 2.5 Mg/Ipratropium 0.5 Mg)) 1 neb INH [id number] AWAKE PRN PRN Reason: SOB/WHEEZING Last Admin: 08/16/18 14:09 Dose: 1 neb Gabapentin (Neurontin Cap(*)) 600 mg PO BID [facility] Last Admin: 08/16/18 07:57 Dose: 600 mg Ceftriaxone Sodium 1 gm/ (Sodium Chloride) 50 mls @ 200 mls/hr IVPB Q24H [facility] Last Admin: 08/15/18 23:32 Dose: 200 mls/hr Morphine Sulfate (Morphine 4 Mg/Ml Vial (1 Ml)) 4 mg IV Q4H PRN PRN Reason: PAIN Last Admin: 08/15/18 08:59 Dose: 4 mg Ondansetron HCl (Zofran Inj*) 4 mg IV Q6H PRN PRN Reason: NAUSEA Pantoprazole Sodium (Protonix Tab*) 40 mg PO DAILY [facility] Last Admin: 08/16/18 07:58 Dose: 40 mg Tiotropium [place] (Spiriva Cap.Inh*) 1 cap INH DAILY [facility] Last Admin: 08/16/18 09:50 Dose: 1 cap Vital Signs - 8 hr 08/16/18 08/16/18 08/16/18 09:54 10:56 14:09 Pulse Rate 75 86 Respiratory 18 16 18 Rate O2 Sat by Pulse 92 97 Oximetry Oxygen Devices in Use Now: Nasal Cannula Appearance: alert, no distress Eyes: No Scleral Icterus Ears/Nose/Mouth/Throat: - - poor dentition Neck: NL Appearance and Movements; NL JVP Respiratory: Symmetrical Chest Expansion and Respiratory Effort, - - diminished Cardiovascular: NL Sounds; No Murmurs; No JVD Neurological: - - oriented to person, place Lines/Tubes/Other Access: Clean, Dry and Intact Peripheral IV Nutrition: Taking PO's Result Diagrams: 08/16/18 05:29 08/16/18 05:29 Additional Lab and Data: Laboratory Tests 08/16/18 08/16/18 05:29 05:29 Glucose 97 Serum Osmolality 281 Microbiology and Other Data: Microbiology 08/14/18 23:55 Nasal Screen MRSA (PCR) - Final Nasal Mrsa Not Detected Assess/Plan/Problems-Billing Assessment: 68 year old man with history of COPD, alcohol abuse, here with severe hyponatremia, seizure. - Patient Problems (1) Hyponatremia Current Visit: Yes Status: Acute Priority: High Code(s): E87.1 - HYPO- OSMOLALITY AND HYPONATREMIA SNOMED Code(s): 24574868 Comment: - Acute on chronic - Patient corrected nicely with hypertonic saline, now on fluid restriction - Improved again today. Will recheck in AM. - Likely near baseline tomorrow. (2) COPD (chronic obstructive pulmonary disease) Current Visit: Yes Status: Acute Priority: Medium Code(s): J44.9 - CHRONIC OBSTRUCTIVE PULMONARY DISEASE, UNSPECIFIED SNOMED Code(s): 01033278 Comment: - No current sign of COPD exacerbation - Restart spiriva and duonebs prn, stop ceftriaxone (3) Seizures Current Visit: Yes Status: Acute Priority: Medium Code(s): R56.9 - UNSPECIFIED CONVULSIONS SNOMED Code(s): 17965464 Comment: -Seizure appears due to hyponatremia -EEG normal, neurology input appreciated. (4) Erosive esophagitis Current Visit: No Status: Acute Priority: Medium Code(s): K22.10 - ULCER OF ESOPHAGUS WITHOUT BLEEDING SNOMED Code(s): 50202146 Comment: - reviewed past GI consult - Continue PO Protonix QD - Continue to avoid anticoagulation at this time. (5) DVT prophylaxis Current Visit: No Status: Acute Priority: Low Code(s): SID4126 - SNOMED Code(s): 899128900 Comment: - SCDs, high risk for bleeding Status and Disposition: will discuss home care with [id number] Esther [phone]
[2018-08-16] MEDS: Acetaminophen TAB* 325 MG PO PRN (21:13)
[2018-08-16] MEDS ORDERED: Nicotine PATCH 14 MG/24 HR* PATCH TRANSDERM SCH (22:00)
[2018-08-17 06:08] LABS: BUN/Creatinine Ratio 15.3 (8-20); EGFR African American 164.8 (>60); EGFR Non-African American 136.2 (>60); Potassium 4.5 mmol/L (3.5-5.0)
[2018-08-17] MEDS: Gabapentin CAP(*) 300 MG PO SCH (07:35)
[2018-08-17] MEDS: Pantoprazole TAB * 40 MG TAB PO SCH (07:36)
[2018-08-17] MEDS: Tiotropium CAP.INH* CAP.INH/18 MCG (USE ORDER SET !) INH SCH (07:51)
[2018-08-17 12:20] VITALS: BP 120/61
--- NOTE | 2018-08-17 14:26 | PN ---
PROGRESS NOTE: DATE OF SERVICE: 08/17/18 SUBJECTIVE: The patient was seen and examined at bedside. The patient, alert, and oriented, able to answer all questions today, oriented x3. Vitals and labs have been reviewed. Sodium back to baseli ne. PHYSICAL EXAM: HEENT: NCAT. Heart: S1, S2 present, tachycardic at the time of exam. Lungs: Decr eased breath sounds bilaterally. Abdomen: Soft. Extremities: Noted to have AKA and the other extre mity with no edema. Neuro: Alert and oriented. ASSESSMENT AND PLAN: 1. Acute on chronic hypotonic hyponatremia, which has corrected nicely with 3%. Etiology likely seco ndary to low solute intake. In light of his malnutrition and chronic alcoholism, reset osmostat is a lso a consideration. The patient's sodium has corrected to his baseline. The patient's chest x-ray has also been reviewed, not suggestive of any mass and only noted to have linear atelectasis at the l marlyn bases and features of chronic obstructive pulmonary disease. 2. Can continue free water fluid restriction; however, recommend nutrition eval and improved solute intake with no sodium restriction. 3. Will follow up on as needed basis with primary medical team. [id number]/[facility] #: [id number]
[2018-08-17] MEDS ORDERED: Nicotine Patch Removal NOTE FOLLOW UP SCH (21:00)
--- NOTE | 2018-08-18 00:18 | DS ---
DISCHARGE SUMMARY: DATE OF ADMISSION: 08/14/18 DATE OF DISCHARGE: 08/17/18 ADMITTING PROVIDER: Meghan Erickson NP PRIMARY CARE PHYSICIAN: Anamika Covington MD CHIEF COMPLAINT: Generalized seizure, altered mental status. PRINCIPAL DIAGNOSIS: Seizure in the setting of severe hyponatremia (thought secondary to low solutes in the setting of malnutrition and chronic alcoholism). HISTORY OF PRESENT ILLNESS: Jacinto Miller is a 68-year-old male with a past medical history of coronary artery disease, COPD, heart failure, factor V Leiden mutation, chronic hyponatremia, recent severe erosive esophagitis, phantom limb pain (status post right above-knee amputation). He has been in [facility] since April until he signed out against medical advice that day prior to admission. He was brought home and was found to have a generalized seizure. Please see [facility] Meghan Erickson for full details. In the [facility] Emergency Room, she was found to have profound hyponatremia with sodium of 117, lactic acidosis, and leukocytosis. He was admitted to the ICU. Dr. Cates of Nephrology was consulted. They recommended hypertonic saline infusion 250 cc. Repeat sodium was 125 five hours later, then 126 and 127 approximately 13 hours later. The next day 131 and then 129. His uric acid level was normal at 6.3, cortisol 6.03 with a normal TSH of 3.72, serum osmolality 255, urine osmolality 184, urine sodium 28. Dr. Cates thought most consistent with low solutes from his malnutrition and reportedly remote alcoholism versus reset osmostat. Aldosterone and renin levels were checked and still pending on discharge. There was a consultation with Dr. Marcella Felder to help this gentleman with the best plan of care. Son , Gera, did not want the patient to be returned to [facility] or transferred anywhere outside of [place]. He and his , Alicia, wanted to take the patient home. Therefore, that was the discharge plan. He was not deemed eligible for hospice at this time, but was recommended for VNS with an AIM program along with setting up a padded wheelchair. The patient otherwise was eager to leave the hospital, he was once found trying to leave the floor, so he could smoke a cigarette despite nicotine supplementation. He was afebrile, hemodynamically stable, and he was not deemed to have acute skilled physical therapy needs by PT. He did have a speech swallow test. The speech pathology demonstrated mild to moderate oral dysphagia characterized by confusion, status, reduced mastication of solid foods, and he tolerated pureed texture and thin liquids well. He was recommended pureed texture and thin liquids, straws okay. He had negative blood cultures. No growth on urine culture. MRSA nares were negative (had been positive in the past). CRP was 10. Toxicology screen negative. He had an EEG, which was abnormal due to diffuse reactive slowing suggestive of nonspecific mild to moderate diffuse encephalopathy, which can be seen in the setting of toxic metabolic disturbance, hypoxic encephalopathy, postictal state , or medication effect. No epileptiform discharges or seizures detected. He had a CT of the brain, no acute pathology, but paraventricular and deep subcortical white matter nonspecific hypodensities most likely secondary to chronic small vessel ischemic changes. A chest x-ray demonstrated linear atelectasis at the lung bases bilaterally and evidence of COPD. DISCHARGE FOLLOWUP: Recommended with Dr. Anamika Covington, primary care provider within 7 days. BMP should be rechecked. DIET: Pureed solids and thin liquids, straws okay. MEDICATIONS: Please note that multiple attempts were made to contact [facility] , but they would not give a list of discharge medications given that he left against medical advice and reportedly all his records were wiped from their system. We were able to determine some via pharmacy electronic records via [employer], which include: 1. Nicotrol inhaler. 2. Trazodone 100 mg daily. 3. Baclofen 10 mg daily (this was held on discharge given can reduce seizure threshold). 4. Lisinopril 2.5 mg daily. 5. Gabapentin 300 mg p.o. t.i.d. 6. Duloxetine 30 mg daily. 7. It seems he is on hydrocodone/acetaminophen 5/325 t.i.d. p.r.n. versus scheduled, unclear. 8. Omeprazole 40 mg daily. Additional medications he is discharged with include: 1. Spiriva 1 capsule inhaled daily. 2. Nicotine patch 14 mg daily. 3. Tessalon 100 mg p.o. b.i.d. 4. Tylenol 650 mg p.o. q.6 hours p.r.n. 5. Guaifenesin 1200 mg p.o. b.i.d. 6. Sennosides-docusate 1 tab p.o. daily p.r.n. 7. Carafate 1 g p.o. a.c. h.s. TIME SPENT ON DISCHARGE: 40 minutes. DISPOSITION: Home. CONDITION: Guarded. [id number]/[facility] #: [id number] MTDD
[2018-08-19 14:48] LABS: Renin 0.9 ng/mL/h
== END 2018-08-17 17:00 | disposition home health service (06) | DRG 641 ==
LOC: ED 20:01 → ICU 22:09 → MED 08-15 18:54
PROVIDERS: ADMIT Nurse Practitioner Adult Health; ATTEND Internal Medicine
PROC: 4A00X4Z Measurement of Central Nervous Electrical Activity, External Approach (ICD-10-PCS; principal; 2018-08-15)
DX: E87.1 Hypo-osmolality and hyponatremia (principal); D68.51 Activated protein C resistance; K22.10 Ulcer of esophagus without bleeding; E46 Unspecified protein-calorie malnutrition; G93.40 Encephalopathy, unspecified; I25.10 Atherosclerotic heart disease of native coronary artery without angina pectoris; I73.9 Peripheral vascular disease, unspecified; J44.9 Chronic obstructive pulmonary disease, unspecified; K21.9 Gastro-esophageal reflux disease without esophagitis; M19.90 Unspecified osteoarthritis, unspecified site; M81.0 Age-related osteoporosis without current pathological fracture; H91.8X3 Other specified hearing loss, bilateral; F32.9 Major depressive disorder, single episode, unspecified; Z96.641 Presence of right artificial hip joint; F17.210 Nicotine dependence, cigarettes, uncomplicated; I50.9 Heart failure, unspecified; G54.6 Phantom limb syndrome with pain; E87.2 Acidosis; G89.29 Other chronic pain; R56.9 Unspecified convulsions; F10.20 Alcohol dependence, uncomplicated; Y90.9 Presence of alcohol in blood, level not specified; Z88.6 Allergy status to analgesic agent; I25.2 Old myocardial infarction; Z86.718 Personal history of other venous thrombosis and embolism; Z98.42 Cataract extraction status, left eye; Z98.41 Cataract extraction status, right eye; Z82.49 Family history of ischemic heart disease and other diseases of the circulatory system; Z89.611 Acquired absence of right leg above knee; Z68.26 Body mass index [BMI] 26.0-26.9, adult; Z66 Do not resuscitate
CPT/HCPCS: 36415; 70450; 71045; 80048; 80053; 80307; 80320; 81003; 81015; 82088; 82436; 82533; 82803; 83605; 83880; 83930; 83935; 84133; 84244; 84300; 84443; 84484; 84550; 85025; 85610; 85730; 86140; 87040; 87086; 87641; 93005; 94640; 95816; 99285; A9270-GY; G0480; G8978-GP-CI; G8979-GP-CI; G8980-GP-CI; G8987-GO-CJ; G8988-GO-CJ; G8989-GO-CJ; J0696; J2270; J2405; J2930

== ENCOUNTER 2019-09-10 11:41 | Inpatient (IN) ==
[2019-09-10] MEDS ORDERED: Clotrimazole 1% CREAM 30 gm TOPICAL ONE (11:54)
[2019-09-10] MEDS: Polymyx/Trimethoprim OPTH.SOL 1 BTL BOTH EYES SCH ×4 (12:20→23:29)
[2019-09-10 12:39] LABS: ABS Basophils 0.1 10^3/ul (0-0.2); ABS Eosinophils 0.2 10^3/ul (0-0.6); ABS Lymphocytes 1.1 10^3/ul (1.0-4.8); ABS Monocytes 1.5 10^3/ul (0-0.8); Eosinophil % 1.6 %; Hematocrit 46 % (42-52); Hemoglobin 15.4 g/dL (14.0-18.0); Lymphocyte % 10.8 %; Mean Corpuscular HGB Conc 33 g/dL (31-36); Mean Corpuscular Hemoglobin 27 pg (27-31); Mean Corpuscular Volume 80 fL (80-94); Mean Platelet Volume 8.5 fL (7.4-10.4); Platelet Count 272 10^3/uL (150-450); Red Blood Count 5.75 10^6 /uL (4.18-5.48); Red Cell Distribution Width 17 % (10-15); White Blood Count 10.3 10^3/uL (3.5-10.8)
[2019-09-10 12:57] LABS: Albumin 3.7 g/dL (3.2-5.2); Albumin/Globulin Ratio 1.1 (1-3); BUN/Creatinine Ratio 5.4 (8-20); C Reactive Protein 45.3 mg/L (<8.01); Calcium 8.7 mg/dL (8.6-10.3); EGFR African American 174.5 (>60); EGFR Non-African American 144.2 (>60); Globulin 3.4 g/dL (2-4); Total Bilirubin 0.6 mg/dL (0.2-1.0); Total Protein 7.1 g/dL (6.4-8.9)
[2019-09-10] MEDS ORDERED: NS 0.9% 1000 ml BAG 1,000 ML IV ONE (13:21)
[2019-09-10] MEDS ORDERED: Albuterol (2.5 MG) 0.5 % CONC 0.5 ML NEB.SOLN INH PRN (14:24)
[2019-09-10] MEDS ORDERED: Ondansetron 4 mg VIAL 2 MG/ML 2 ml VIAL IV PRN (14:24)
[2019-09-10] MEDS ORDERED: NS 0.9% 1000 ml BAG 1,000 ML IV SCH (14:30)
[2019-09-10 15:14] LABS: Urine Chloride Concentration < 22 mmol/L; Urine Sodium Concentration 18 mmol/L
[2019-09-10 15:22] LABS: Urine Appearance Clear; Urine Bilirubin Negative (Negative); Urine Blood Negative (Negative); Urine Color Yellow; Urine Glucose Negative (Negative); Urine Ketones Negative (Negative); Urine Nitrite Negative (Negative); Urine Protein Negative (Negative); Urine Specific Gravity 1.002 (1.010-1.030); Urine Urobilinogen Negative (Negative)
[2019-09-10 15:49] LABS: Urine Potassium Concentration 6.3 mmol/L
[2019-09-10] MEDS: Enoxaparin 40 MG/0.4 ML SYR(*) SUBCUT SCH (17:23)
[2019-09-10] MEDS: Sucralfate 1 gm SUSP 1 GM/10 ML UDC PO SCH ×2 (17:23→21:08)
[2019-09-10 22:48] LABS: BUN/Creatinine Ratio 4.3 (8-20); Calcium 7.2 mg/dL (8.6-10.3); Magnesium 1.5 mg/dL (1.9-2.7); Phosphorus 2.6 mg/dL (2.5-5.0); Potassium 3.2 mmol/L (3.5-5.0)
[2019-09-10] MEDS ORDERED: Potassium Chlor 20 meq TAB.ER PO ONE (23:01)
[2019-09-10] MEDS ORDERED: Magnesium Sulfate 3 GM IV IVPB ONE (23:10)
[2019-09-10] MEDS ORDERED: Potassium Chloride LIQUID 20 MEQ/15 ML LIQUID PO ONE (23:10)
[2019-09-11 04:53] LABS: ABS Basophils 0.1 10^3/ul (0-0.2); ABS Eosinophils 0.2 10^3/ul (0-0.6); ABS Monocytes 1.1 10^3/ul (0-0.8); Eosinophil % 2.2 %; Hematocrit 43 % (42-52); Hemoglobin 14.6 g/dL (14.0-18.0); Lymphocyte % 11.8 %; Mean Corpuscular HGB Conc 34 g/dL (31-36); Mean Corpuscular Hemoglobin 28 pg (27-31); Mean Corpuscular Volume 81 fL (80-94); Mean Platelet Volume 8.9 fL (7.4-10.4); Nucleated Red Blood Cells % 0.1; Platelet Count 243 10^3/uL (150-450); Red Blood Count 5.31 10^6 /uL (4.18-5.48); Red Cell Distribution Width 17 % (10-15); White Blood Count 8.5 10^3/uL (3.5-10.8)
[2019-09-11 05:11] LABS: BUN/Creatinine Ratio 4.4 (8-20); EGFR African American 224.6 (>60); EGFR Non-African American 185.6 (>60); Potassium 4.6 mmol/L (3.5-5.0)
[2019-09-11] MEDS: Polymyx/Trimethoprim OPTH.SOL 1 BTL BOTH EYES SCH ×3 (05:13→17:50)
[2019-09-11] MEDS: NS 0.9% 1000 ml BAG 1,000 ML IV SCH ×3 (05:35→14:39)
[2019-09-11] MEDS: SPIRIVA Respimat (tiotropium) 2.5 mcg/inh Inhaler INH SCH (07:52)
[2019-09-11] MEDS: Aspirin EC 81 mg TAB.EC (enteric coated) PO SCH (07:53)
[2019-09-11 07:56] LABS: Magnesium 2.5 mg/dL (1.9-2.7)
[2019-09-11] MEDS: Sucralfate 1 gm SUSP 1 GM/10 ML UDC PO SCH ×4 (07:56→21:01)
[2019-09-11 10:38] LABS: TSH (Thyroid Stimulating Horm) 1.42 mcIU/mL (0.34-5.60)
[2019-09-11 17:13] LABS: BUN/Creatinine Ratio 4.3 (8-20); Blood Urea Nitrogen 2 mg/dL (6-24); CO2 Carbon Dioxide 23 mmol/L (22-32); Chloride 98 mmol/L (101-111); Glucose 89 mg/dL (70-100); Sodium 127 mmol/L (135-145)
[2019-09-11 17:30] LABS: Anion Gap 6 mmol/L (2-11)
[2019-09-11] MEDS: Enoxaparin 40 MG/0.4 ML SYR(*) SUBCUT SCH (17:52)
[2019-09-12 00:39] LABS: BUN/Creatinine Ratio 4.4 (8-20); Calcium 7.5 mg/dL (8.6-10.3); EGFR African American 224.6 (>60); EGFR Non-African American 185.6 (>60); Potassium 3.9 mmol/L (3.5-5.0)
[2019-09-12] MEDS: Polymyx/Trimethoprim OPTH.SOL 1 BTL BOTH EYES SCH ×5 (03:05→16:42)
[2019-09-12 06:44] LABS: ABS Basophils 0.1 10^3/ul (0-0.2); ABS Eosinophils 0.3 10^3/ul (0-0.6); ABS Lymphocytes 1.4 10^3/ul (1.0-4.8); ABS Monocytes 1.1 10^3/ul (0-0.8); Eosinophil % 3.4 %; Hematocrit 41 % (42-52); Hemoglobin 13.9 g/dL (14.0-18.0); Lymphocyte % 16.4 %; Mean Corpuscular HGB Conc 34 g/dL (31-36); Mean Corpuscular Hemoglobin 28 pg (27-31); Mean Corpuscular Volume 82 fL (80-94); Mean Platelet Volume 8.8 fL (7.4-10.4); Platelet Count 218 10^3/uL (150-450); Red Blood Count 5.03 10^6 /uL (4.18-5.48); Red Cell Distribution Width 17 % (10-15); White Blood Count 8.3 10^3/uL (3.5-10.8)
[2019-09-12 06:54] LABS: Calcium 7.6 mg/dL (8.6-10.3); Potassium 4.2 mmol/L (3.5-5.0)
[2019-09-12 06:59] LABS: BUN/Creatinine Ratio 4.8 (8-20); EGFR African American 243.2 (>60)
[2019-09-12] MEDS: Sucralfate 1 gm SUSP 1 GM/10 ML UDC PO SCH ×4 (07:57→20:09)
[2019-09-12] MEDS: SPIRIVA Respimat (tiotropium) 2.5 mcg/inh Inhaler INH SCH (08:09)
[2019-09-12 08:32] LABS: BUN/Creatinine Ratio 4.4 (8-20); Calcium 7.8 mg/dL (8.6-10.3); EGFR African American 224.6 (>60); EGFR Non-African American 185.6 (>60)
[2019-09-12] MEDS: Aspirin EC 81 mg TAB.EC (enteric coated) PO SCH (09:29)
[2019-09-12] MEDS: Enoxaparin 40 MG/0.4 ML SYR(*) SUBCUT SCH (16:42)
[2019-09-12] MEDS: NS 0.9% 1000 ml BAG 1,000 ML IV SCH (19:55)
[2019-09-13] MEDS: Polymyx/Trimethoprim OPTH.SOL 1 BTL BOTH EYES SCH ×2 (05:22→05:27)
[2019-09-13 05:51] LABS: ABS Basophils 0.1 10^3/ul (0-0.2); ABS Eosinophils 0.3 10^3/ul (0-0.6); ABS Lymphocytes 1.3 10^3/ul (1.0-4.8); ABS Monocytes 1.3 10^3/ul (0-0.8); Eosinophil % 3.4 %; Hematocrit 41 % (42-52); Hemoglobin 13.8 g/dL (14.0-18.0); Lymphocyte % 15.1 %; Mean Corpuscular HGB Conc 34 g/dL (31-36); Mean Corpuscular Hemoglobin 27 pg (27-31); Mean Corpuscular Volume 81 fL (80-94); Mean Platelet Volume 8.4 fL (7.4-10.4); Platelet Count 239 10^3/uL (150-450); Red Blood Count 5.08 10^6 /uL (4.18-5.48); Red Cell Distribution Width 17 % (10-15); White Blood Count 8.7 10^3/uL (3.5-10.8)
[2019-09-13 06:07] LABS: BUN/Creatinine Ratio 3.9 (8-20); Calcium 7.9 mg/dL (8.6-10.3); EGFR African American 194.4 (>60); EGFR Non-African American 160.7 (>60); Potassium 3.9 mmol/L (3.5-5.0)
[2019-09-13] MEDS: SPIRIVA Respimat (tiotropium) 2.5 mcg/inh Inhaler INH SCH (07:48)
[2019-09-13] MEDS: Sucralfate 1 gm SUSP 1 GM/10 ML UDC PO SCH (08:25)
[2019-09-13] MEDS: Aspirin EC 81 mg TAB.EC (enteric coated) PO SCH (08:31)
[2019-09-13 08:47] VITALS: BP 134/55
[2019-09-13] MEDS ORDERED: Furosemide 20 mg/2 ml IV VIAL IV SLOW PU ONE (08:57)
[2019-09-13] MEDS ORDERED: Polyethylene Glycol 3350 17 GM PACKET PO SCH (09:00)
== END 2019-09-13 11:45 | DRG 640 ==
LOC: ED 11:41 → ICU 14:12 → MED 09-11 14:10
PROVIDERS: ADMIT Surgery Surgical Critical Care; ATTEND Internal Medicine

== ENCOUNTER 2021-01-31 20:15 | Inpatient (IN) ==
[2021-01-31] MEDS ORDERED: methylPREDNISolone 125 mg 2 ML VIAL IV ONE (20:24)
[2021-01-31 21:03] LABS: Hematocrit 41 % (42-52); Hemoglobin 13.2 g/dL (14.0-18.0); Mean Corpuscular HGB Conc 32 g/dL (31-36); Mean Corpuscular Hemoglobin 27 pg (27-31); Mean Corpuscular Volume 84 fL (80-94); Mean Platelet Volume 9.8 fL (7.4-10.4); Platelet Count 219 10^3/uL (150-450); Red Blood Count 4.85 10^6 /uL (4.18-5.48); Red Cell Distribution Width 17 % (10-15); White Blood Count 15.8 10^3/uL (3.5-10.8)
[2021-01-31 21:21] LABS: Albumin/Globulin Ratio 1.4 (1-3); Calcium 8.6 mg/dL (8.6-10.3); Globulin 2.9 g/dL (2-4); Potassium 4.5 mmol/L (3.5-5.0); Total Bilirubin 0.3 mg/dL (0.2-1.0); Total Protein 6.9 g/dL (6.4-8.9); eGFR CKD-EPI 98.1 (>60)
[2021-01-31 21:22] LABS: Troponin I 0.01 ng/mL (<0.03)
[2021-01-31 21:49] LABS: ABS Basophils 0.1 10^3/ul (0-0.2); ABS Eosinophils 0.1 10^3/ul (0-0.6); ABS Lymphocytes 1.2 10^3/ul (1.0-4.8); ABS Neutrophils 12.5 10^3/ul (1.5-7.7); Eosinophil % 0.4 %; Lymphocyte % 7.4 %
[2021-01-31 22:19] LABS: C Reactive Protein 3.24 mg/L (<8.01)
[2021-01-31 22:23] LABS: Influenza A Molecular Negative (Negative); Influenza B Molecular Negative (Negative); Rapid COVID-19 Molecular Undetected (Undetected)
[2021-01-31 22:34] LABS: Venous Bicarbonate HCO3 29.8 mmol/L (24-28)
[2021-01-31] MEDS ORDERED: Albuterol HFA INHALER 8 gm MDI INH PRN (23:24)
[2021-01-31] MEDS ORDERED: Ipratropium HFA INHALER(NF) (ALTERNATIVE = NEBS) INH PRN (23:26)
[2021-01-31] MEDS ORDERED: Albuterol/Ipratropium NEB.SOL (2.5/0.5 MG) 3 ML NEB.SOLN INH SCH (23:45)
[2021-01-31] MEDS: Enoxaparin 40 MG/0.4 ML SYR SUBCUT SCH (23:47)
[2021-02-01] MEDS ORDERED: Lactated Ringers 1000 ml BAG 1,000 ML IV ONE (01:49)
[2021-02-01] MEDS ORDERED: Lactated Ringers 1000 ml BAG 1,000 ML IV SCH (02:00)
[2021-02-01] MEDS ORDERED: Saline NASAL SPRAY 0.65% BTL BOTH NARES PRN (02:29)
[2021-02-01] MEDS ORDERED: Magnesium Hydroxide LIQ 30 ML UDC PO PRN (02:29)
[2021-02-01] MEDS: Albuterol/Ipratropium NEB.SOL (2.5/0.5 MG) 3 ML NEB.SOLN INH SCH ×3 (03:17→11:48)
[2021-02-01] MEDS ORDERED: Senna/Docusate 8.6/50 mg (NF) TAB PO SCH (09:00)
[2021-02-01 11:17] LABS: Urine Osmo 295 mOsm/kg (150-1150)
[2021-02-01] MEDS: Mometasone/Formoter 200/5 MDI INH SCH ×2 (11:48→21:37)
[2021-02-01] MEDS ORDERED: Albuterol/Ipratropium NEB.SOL (2.5/0.5 MG) 3 ML NEB.SOLN INH PRN (11:52)
[2021-02-01] MEDS: Aspirin EC 81 mg TAB.EC (enteric coated) PO SCH (12:00)
[2021-02-01] MEDS: Senna TAB 8.6 mg TAB PO SCH ×2 (12:01→20:01)
[2021-02-01] MEDS: cefTRIAXone 1 gm/50 mL NS BAG 1 GM/50 ML BAG IVPB SCH (12:04)
[2021-02-01] MEDS: MENTHOL TOPICAL SCH (12:04)
[2021-02-01] MEDS: LIDOCAINE TOPICAL SCH (12:04)
[2021-02-01] MEDS ORDERED: NS 0.9% 1000 ml BAG 1,000 ML IV ONE ×2 (12:38→13:37)
[2021-02-01] MEDS ORDERED: NS 0.9% 1000 ml BAG 1,000 ML IV SCH (12:45)
[2021-02-01] MEDS: Olopatadine 0.2% (NF) 1 DROP BTL BOTH EYES SCH (12:53)
[2021-02-01 13:08] LABS: Osmolality Serum 291 mOsm/kg (275-295)
[2021-02-01] MEDS: Albuterol HFA INHALER 8 gm MDI INH SCH ×2 (16:24→21:47)
[2021-02-01] MEDS: NS 0.9% 1000 ml BAG 1,000 ML IV SCH ×2 (17:49→23:17)
[2021-02-01 19:19] LABS: Urine Appearance Clear; Urine Bilirubin Negative (Negative); Urine Blood Negative (Negative); Urine Color Colorless; Urine Glucose Negative (Negative); Urine Ketones Negative (Negative); Urine Nitrite Negative (Negative); Urine Protein Negative (Negative); Urine Specific Gravity 1.003 (1.002-1.030); Urine Urobilinogen Negative (Negative)
[2021-02-01] MEDS: Enoxaparin 40 MG/0.4 ML SYR SUBCUT SCH (20:03)
[2021-02-01 20:36] LABS: PCO2 Arterial 45 mmHg (35-45); PO2 Arterial 73 mmHg (80-100)
[2021-02-01] MEDS: Lactated Ringers 1000 ml BAG 1,000 ML IV ONE ×2 (22:31→22:44)
[2021-02-02] MEDS: NS 0.9% 1000 ml BAG 1,000 ML IV SCH (05:02)
[2021-02-02 06:01] LABS: Hematocrit 40 % (42-52); Hemoglobin 12.6 g/dL (14.0-18.0); Mean Corpuscular HGB Conc 31 g/dL (31-36); Mean Corpuscular Hemoglobin 27 pg (27-31); Mean Corpuscular Volume 85 fL (80-94); Mean Platelet Volume 9.7 fL (7.4-10.4); Platelet Count 190 10^3/uL (150-450); Red Blood Count 4.73 10^6 /uL (4.18-5.48); Red Cell Distribution Width 17 % (10-15); White Blood Count 15.8 10^3/uL (3.5-10.8)
[2021-02-02 06:15] LABS: Potassium 3.7 mmol/L (3.5-5.0); eGFR CKD-EPI 99.8 (>60)
[2021-02-02] MEDS: Mometasone/Formoter 200/5 MDI INH SCH ×2 (07:23→19:17)
[2021-02-02] MEDS: Albuterol HFA INHALER 8 gm MDI INH SCH ×4 (07:28→19:16)
[2021-02-02] MEDS: Senna TAB 8.6 mg TAB PO SCH ×2 (09:06→20:33)
[2021-02-02] MEDS: Aspirin EC 81 mg TAB.EC (enteric coated) PO SCH (09:06)
[2021-02-02] MEDS: Olopatadine 0.2% (NF) 1 DROP BTL BOTH EYES SCH (09:07)
[2021-02-02] MEDS: MENTHOL TOPICAL SCH (09:07)
[2021-02-02] MEDS: LIDOCAINE TOPICAL SCH (09:07)
[2021-02-02] MEDS ORDERED: Perflutren Lipid Microsphere 3 ML VIAL ONE (09:43)
[2021-02-02] MEDS: cefTRIAXone 1 gm/50 mL NS BAG 1 GM/50 ML BAG IVPB SCH (10:55)
[2021-02-02] MEDS ORDERED: Polyethylene Glycol 3350 17 GM PACKET PO PRN (12:15)
[2021-02-02 15:34] LABS: Adenovirus Undetected (Undetected); Bordetella parapertussis Undetected (Undetected); Bordetella pertussis Undetected (Undetected); Chlamydophila pneumoniae Undetected (Undetected); Coronavirus 229E Undetected (Undetected); Coronavirus HKU1 Undetected (Undetected); Coronavirus NL63 Undetected (Undetected); Coronavirus OC43 Undetected (Undetected); Human Metapneumovirus Undetected (Undetected); Human Rhinovirus/Enterovirus Undetected (Undetected); Influenza A Undetected (Undetected); Influenza B Undetected (Undetected); Mycoplasmoides pneumoniae Undetected (Undetected); Parainfluenza Virus 1 Undetected (Undetected); Parainfluenza Virus 2 Undetected (Undetected); Parainfluenza Virus 3 Undetected (Undetected); Parainfluenza Virus 4 Undetected (Undetected); Respiratory Syncytial Virus Undetected (Undetected); Specimen Source NASOPHARYNGEAL SWAB
[2021-02-02] MEDS: Enoxaparin 40 MG/0.4 ML SYR SUBCUT SCH (20:34)
[2021-02-03] MEDS: Albuterol HFA INHALER 8 gm MDI INH SCH ×3 (07:12→15:14)
[2021-02-03] MEDS: Mometasone/Formoter 200/5 MDI INH SCH ×2 (07:12→19:14)
[2021-02-03] MEDS: Aspirin EC 81 mg TAB.EC (enteric coated) PO SCH (07:57)
[2021-02-03] MEDS: Senna TAB 8.6 mg TAB PO SCH ×2 (07:57→20:37)
[2021-02-03] MEDS: MENTHOL TOPICAL SCH (08:01)
[2021-02-03] MEDS: LIDOCAINE TOPICAL SCH (08:01)
[2021-02-03] MEDS: Olopatadine 0.2% (NF) 1 DROP BTL BOTH EYES SCH (08:03)
[2021-02-03] MEDS: cefTRIAXone 1 gm/50 mL NS BAG 1 GM/50 ML BAG IVPB SCH (11:12)
[2021-02-03] MEDS ORDERED: Albuterol/Ipratropium NEB.SOL (2.5/0.5 MG) 3 ML NEB.SOLN INH PRN ×2 (12:45→18:29)
[2021-02-03] MEDS ORDERED: Albuterol/Ipratropium NEB.SOL (2.5/0.5 MG) 3 ML NEB.SOLN INH SCH (19:00)
[2021-02-03] MEDS: Enoxaparin 40 MG/0.4 ML SYR SUBCUT SCH (20:38)
[2021-02-04] MEDS: Mometasone/Formoter 200/5 MDI INH SCH (07:06)
[2021-02-04 07:57] VITALS: BP 126/57
[2021-02-04] MEDS: Senna TAB 8.6 mg TAB PO SCH (08:11)
[2021-02-04] MEDS: Aspirin EC 81 mg TAB.EC (enteric coated) PO SCH (08:11)
[2021-02-04] MEDS: Olopatadine 0.2% (NF) 1 DROP BTL BOTH EYES SCH (08:13)
[2021-02-04] MEDS: LIDOCAINE TOPICAL SCH (08:13)
[2021-02-04] MEDS: MENTHOL TOPICAL SCH (08:13)
== END 2021-02-04 10:30 | DRG 190 ==
LOC: ED 20:15 → SUATTDRO 23:02 → EDHOLD 23:02 → MED 02-01 08:11
PROVIDERS: ADMIT Internal Medicine; ATTEND Internal Medicine

== ENCOUNTER 2021-03-29 14:38 | Inpatient (IN) ==
[2021-03-29] MEDS ORDERED: Albuterol HFA INHALER 8 gm MDI INH ONE (15:35)
[2021-03-29 16:06] LABS: Hematocrit 35 % (42-52); Hemoglobin 11.4 g/dL (14.0-18.0); Mean Corpuscular HGB Conc 32 g/dL (31-36); Mean Corpuscular Hemoglobin 26 pg (27-31); Mean Corpuscular Volume 80 fL (80-94); Mean Platelet Volume 8.2 fL (7.4-10.4); Platelet Count 340 10^3/uL (150-450); Red Blood Count 4.43 10^6 /uL (4.18-5.48); Red Cell Distribution Width 17 % (10-15)
[2021-03-29 16:15] LABS: ABS Basophils 0.1 10^3/ul (0-0.2); ABS Eosinophils 0.3 10^3/ul (0-0.6); ABS Lymphocytes 1.1 10^3/ul (1.0-4.8); ABS Monocytes 2.1 10^3/ul (0-0.8); ABS Neutrophils 8.4 10^3/ul (1.5-7.7); Eosinophil % 2.3 %; Lymphocyte % 9.4 %; Nucleated Red Blood Cells % 0.2
[2021-03-29 16:26] LABS: Troponin I 0.01 ng/mL (<0.03)
[2021-03-29 16:34] LABS: Albumin 3.6 g/dL (3.2-5.2); Albumin/Globulin Ratio 1.2 (1-3); C Reactive Protein 88.63 mg/L (<8.01); Calcium 8.2 mg/dL (8.6-10.3); Globulin 2.9 g/dL (2-4); Potassium 4.2 mmol/L (3.5-5.0); Total Bilirubin 0.3 mg/dL (0.2-1.0); Total Protein 6.5 g/dL (6.4-8.9); eGFR CKD-EPI 98.3 (>60)
[2021-03-29] MEDS ORDERED: Azithromycin 500 mg/250 ml NS 500 MG/250 ML BAG IVPB ONE (16:41)
[2021-03-29] MEDS ORDERED: cefTRIAXone 1 gm/50 mL NS BAG 1 GM/50 ML BAG IV ONE (16:41)
[2021-03-29 16:44] LABS: Activated Partial Thrombo Time 34.5 seconds (26.0-38.0); INR 1.04 (0.86-1.15)
[2021-03-29] MEDS ORDERED: Albuterol/Ipratropium NEB.SOL (2.5/0.5 MG) 3 ML NEB.SOLN INH ONE (16:44)
[2021-03-29] MEDS ORDERED: methylPREDNISolone 125 mg 2 ML VIAL IV ONE (16:44)
[2021-03-29] MEDS ORDERED: NS 0.9% 1000 ml BAG 1,000 ML IV SCH (18:45)
[2021-03-29] MEDS ORDERED: Azithromycin 500 mg/250 mL NS IVPB ONE (20:00)
[2021-03-29] MEDS: Mometasone/Formoter 200/5 MDI INH SCH (20:34)
[2021-03-29] MEDS: SPIRIVA Respimat (tiotropium) 2.5 mcg/inh Inhaler INH SCH (20:35)
[2021-03-29] MEDS: Albuterol HFA INHALER 8 gm MDI INH SCH (21:26)
[2021-03-29] MEDS: Enoxaparin 40 MG/0.4 ML SYR SUBCUT SCH (22:16)
[2021-03-30] MEDS: Albuterol HFA INHALER 8 gm MDI INH SCH ×5 (02:39→20:14)
[2021-03-30 05:53] LABS: ABS Lymphocytes 0.5 10^3/ul (1.0-4.8); ABS Monocytes 0.2 10^3/ul (0-0.8); ABS Neutrophils 8.6 10^3/ul (1.5-7.7); Eosinophil % 0.3 %; Hematocrit 39 % (42-52); Hemoglobin 12.2 g/dL (14.0-18.0); Lymphocyte % 5.1 %; Mean Corpuscular HGB Conc 31 g/dL (31-36); Mean Corpuscular Hemoglobin 26 pg (27-31); Mean Corpuscular Volume 83 fL (80-94); Mean Platelet Volume 8.7 fL (7.4-10.4); Platelet Count 299 10^3/uL (150-450); Red Blood Count 4.72 10^6 /uL (4.18-5.48); Red Cell Distribution Width 18 % (10-15); White Blood Count 9.4 10^3/uL (3.5-10.8)
[2021-03-30 06:07] LABS: Calcium 8.5 mg/dL (8.6-10.3); Potassium 4.1 mmol/L (3.5-5.0)
[2021-03-30 06:13] LABS: eGFR CKD-EPI 99.7 (>60)
[2021-03-30] MEDS: SPIRIVA Respimat (tiotropium) 2.5 mcg/inh Inhaler INH SCH (07:40)
[2021-03-30] MEDS: CMCS: Olopatadine 0.1% OPHTH (NF) 1 DROP BTL BOTH EYES SCH (11:00)
[2021-03-30] MEDS: Aspirin EC 81 mg TAB.EC (enteric coated) PO SCH (11:02)
[2021-03-30] MEDS: cefTRIAXone 1 gm/50 mL NS BAG 1 GM/50 ML BAG IVPB SCH (18:21)
[2021-03-30] MEDS ORDERED: Azithromycin 500 mg/250 ml NS 500 MG/250 ML BAG IVPB SCH (18:30)
[2021-03-30] MEDS: DOXYcycline 100 MG in NS 0.9% 250 ml 250 ML IVPB SCH (20:07)
[2021-03-30] MEDS: Enoxaparin 40 MG/0.4 ML SYR SUBCUT SCH (20:19)
[2021-03-31] MEDS: SPIRIVA Respimat (tiotropium) 2.5 mcg/inh Inhaler INH SCH (07:27)
[2021-03-31] MEDS: Albuterol HFA INHALER 8 gm MDI INH SCH ×2 (07:27→11:30)
[2021-03-31] MEDS ORDERED: Albuterol HFA INHALER 8 gm MDI INH PRN ×2 (07:37→11:35)
[2021-03-31] MEDS: DOXYcycline 100 MG in NS 0.9% 250 ml 250 ML IVPB SCH ×2 (10:15→20:56)
[2021-03-31] MEDS: Aspirin EC 81 mg TAB.EC (enteric coated) PO SCH (10:21)
[2021-03-31] MEDS: CMCS: Olopatadine 0.1% OPHTH (NF) 1 DROP BTL BOTH EYES SCH (11:47)
[2021-03-31] MEDS: Mometasone/Formoter 200/5 MDI INH SCH (11:48)
[2021-03-31 12:27] LABS: ABS Basophils 0.1 10^3/ul (0-0.2); ABS Lymphocytes 0.7 10^3/ul (1.0-4.8); ABS Monocytes 1.4 10^3/ul (0-0.8); ABS Neutrophils 11.3 10^3/ul (1.5-7.7); Eosinophil % 0.1 %; Hematocrit 36 % (42-52); Hemoglobin 11.4 g/dL (14.0-18.0); Lymphocyte % 5.2 %; Mean Corpuscular HGB Conc 32 g/dL (31-36); Mean Corpuscular Hemoglobin 26 pg (27-31); Mean Corpuscular Volume 81 fL (80-94); Mean Platelet Volume 8.5 fL (7.4-10.4); Platelet Count 358 10^3/uL (150-450); Red Blood Count 4.43 10^6 /uL (4.18-5.48); Red Cell Distribution Width 17 % (10-15); White Blood Count 13.5 10^3/uL (3.5-10.8)
[2021-03-31 12:43] LABS: C Reactive Protein 13.83 mg/L (<8.01); Calcium 8.7 mg/dL (8.6-10.3); Potassium 4.3 mmol/L (3.5-5.0); eGFR CKD-EPI 96.3 (>60)
[2021-03-31] MEDS: cefTRIAXone 1 gm/50 mL NS BAG 1 GM/50 ML BAG IVPB SCH (18:09)
[2021-03-31] MEDS: Enoxaparin 40 MG/0.4 ML SYR SUBCUT SCH ×2 (21:12→21:14)
[2021-04-01] MEDS: Mometasone/Formoter 200/5 MDI INH SCH ×2 (07:09→13:13)
[2021-04-01] MEDS: SPIRIVA Respimat (tiotropium) 2.5 mcg/inh Inhaler INH SCH (07:32)
[2021-04-01] MEDS: Aspirin EC 81 mg TAB.EC (enteric coated) PO SCH (08:41)
[2021-04-01] MEDS: DOXYcycline 100 MG in NS 0.9% 250 ml 250 ML IVPB SCH (08:42)
[2021-04-01] MEDS: CMCS: Olopatadine 0.1% OPHTH (NF) 1 DROP BTL BOTH EYES SCH (08:50)
[2021-04-01 11:51] VITALS: BP 138/67
== END 2021-04-01 16:30 | DRG 191 ==
LOC: ED 14:38 → SUATTDRO 18:49 → EDHOLD 18:49 → MED 20:40
PROVIDERS: ADMIT Physician Assistant; ATTEND Student in an Organized Health Care Education/Training Program

== ENCOUNTER 2021-05-01 14:14 | Inpatient (IN) ==
[2021-05-01] MEDS ORDERED: Albuterol HFA INHALER 8 gm MDI INH ONE (14:43)
[2021-05-01] MEDS ORDERED: methylPREDNISolone 125 mg 2 ML VIAL IV ONE (14:43)
[2021-05-01] MEDS ORDERED: cefTRIAXone 1 gm/50 mL NS BAG 1 GM/50 ML BAG IV ONE (14:45)
[2021-05-01 16:51] LABS: Hematocrit 37 % (42-52); Hemoglobin 11.8 g/dL (14.0-18.0); Mean Corpuscular HGB Conc 32 g/dL (31-36); Mean Corpuscular Hemoglobin 25 pg (27-31); Mean Corpuscular Volume 80 fL (80-94); Mean Platelet Volume 8.8 fL (7.4-10.4); Platelet Count 286 10^3/uL (150-450); Red Cell Distribution Width 19 % (10-15); White Blood Count 13.3 10^3/uL (3.5-10.8)
[2021-05-01 17:04] LABS: Albumin 3.7 g/dL (3.2-5.2); Albumin/Globulin Ratio 1.2 (1-3); C Reactive Protein 107.11 mg/L (<8.01); Calcium 8.8 mg/dL (8.6-10.3); Globulin 3.2 g/dL (2-4); Potassium 4.5 mmol/L (3.5-5.0); Total Bilirubin 0.3 mg/dL (0.2-1.0); Total Protein 6.9 g/dL (6.4-8.9); eGFR CKD-EPI 97.9 (>60)
[2021-05-01 17:05] LABS: Troponin I 0.02 ng/mL (<0.03)
[2021-05-01 17:11] LABS: Urine Appearance Clear; Urine Bilirubin Negative (Negative); Urine Blood Negative (Negative); Urine Color Straw; Urine Glucose Negative (Negative); Urine Ketones Negative (Negative); Urine Nitrite Negative (Negative); Urine Protein Negative (Negative); Urine Specific Gravity 1.006 (1.002-1.030); Urine Urobilinogen Negative (Negative)
[2021-05-01 17:19] LABS: Activated Partial Thrombo Time 37.5 seconds (26.0-38.0); INR 1.01 (0.86-1.15)
[2021-05-01] MEDS ORDERED: DOXYcycline 100 MG in NS 0.9% 250 ml 250 ML IVPB ONE (17:48)
[2021-05-01 17:56] LABS: ABS Basophils 0.2 10^3/ul (0-0.2); ABS Lymphocytes 0.5 10^3/ul (1.0-4.8); ABS Monocytes 0.6 10^3/ul (0-0.8); Eosinophil % 0.2 %; Lymphocyte % 3.8 %; RBC Morphology Normal (Normal)
[2021-05-01] MEDS: Lactated Ringers 1000 ml BAG 1,000 ML IV ONE (18:29)
[2021-05-01] MEDS ORDERED: Furosemide 20 mg/2 ml IV VIAL IV ONE (18:48)
[2021-05-01] MEDS ORDERED: Iohexol 300 (CONTRAST) 10 ML SDV IV ONE (19:02)
[2021-05-01] MEDS: methylPREDNISolone SOD 40 mg/ml 1 ml VIAL IV SCH (19:31)
[2021-05-01] MEDS ORDERED: Magnesium Hydroxide LIQ 30 ML UDC PO PRN (19:56)
[2021-05-01] MEDS ORDERED: Piperacillin/Tazobac ADVAN 3.375 GM in NS 0.9% 100 ml BAG 100 ML IV ONE (20:30)
[2021-05-01] MEDS ORDERED: Vancomycin 1,000 MG in NS 0.9% 250 ml 250 ML IVPB ONE (20:30)
[2021-05-01] MEDS ORDERED: Enoxaparin 40 MG/0.4 ML SYR SUBCUT SCH (21:00)
[2021-05-01] MEDS ORDERED: Vancomycin 1,500 MG in NS 0.9% 250 ml 250 ML IVPB ONE (21:00)
[2021-05-01] MEDS ORDERED: Zosyn per Pharmacy NOTE FOLLOW UP SCH (21:00)
[2021-05-01] MEDS ORDERED: Vancomycin per Pharmacy 1 EA NOTE FOLLOW UP SCH (21:00)
[2021-05-01] MEDS ORDERED: Albuterol 2.5mg/3 ml (0.083%) NEB.SOLN INH PRN (21:44)
[2021-05-01] MEDS: Albuterol/Ipratropium NEB.SOL (2.5/0.5 MG) 3 ML NEB.SOLN INH SCH (22:08)
[2021-05-01] MEDS: Budesonide NEB 0.5 MG/2 ML NEB.SOLN INH SCH (22:13)
[2021-05-01] MEDS: Albuterol 2.5mg/3 ml (0.083%) NEB.SOLN INH SCH (23:30)
[2021-05-02] MEDS: NS 0.9% 1000 ml BAG 1,000 ML IV SCH (00:23)
[2021-05-02] MEDS ORDERED: Lactated Ringers 500 ml BAG 500 ML IV ONE (00:54)
[2021-05-02] MEDS: Lactated Ringers 1000 ml BAG 1,000 ML IV ONE (01:05)
[2021-05-02] MEDS: methylPREDNISolone SOD 40 mg/ml 1 ml VIAL IV SCH ×4 (02:43→16:41)
[2021-05-02] MEDS: ZOSYN 3.375 GM Q8H per EXTENDED INFUSION IV SCH ×3 (02:44→17:48)
[2021-05-02 04:40] LABS: Hematocrit 29 % (42-52); Hemoglobin 9.1 g/dL (14.0-18.0); Mean Corpuscular HGB Conc 31 g/dL (31-36); Mean Corpuscular Hemoglobin 25 pg (27-31); Mean Corpuscular Volume 79 fL (80-94); Mean Platelet Volume 8.6 fL (7.4-10.4); Platelet Count 289 10^3/uL (150-450); Red Blood Count 3.66 10^6 /uL (4.18-5.48); Red Cell Distribution Width 19 % (10-15); White Blood Count 17.5 10^3/uL (3.5-10.8)
[2021-05-02 04:54] LABS: Calcium 7.9 mg/dL (8.6-10.3); Magnesium 1.6 mg/dL (1.9-2.7); Phosphorus 3.7 mg/dL (2.5-5.0); Potassium 4.4 mmol/L (3.5-5.0); eGFR CKD-EPI 101.6 (>60)
[2021-05-02 04:58] LABS: ABS Basophils 0.2 10^3/ul (0-0.2); ABS Lymphocytes 0.8 10^3/ul (1.0-4.8); ABS Monocytes 0.7 10^3/ul (0-0.8); ABS Neutrophils 15.8 10^3/ul (1.5-7.7); Lymphocyte % 4.7 %
[2021-05-02 05:49] LABS: Erythrocyte Sed Rate 42 mm/Hr (0-19)
[2021-05-02] MEDS ORDERED: cefTRIAXone 1 gm/50 mL NS BAG 1 GM/50 ML BAG IVPB SCH (06:00)
[2021-05-02] MEDS ORDERED: Magnesium Sulf 4 GM/100 ML IV 4,000 MG/100 ML BAG IVPB ONE (06:54)
[2021-05-02] MEDS: Budesonide NEB 0.5 MG/2 ML NEB.SOLN INH SCH ×2 (08:48→19:51)
[2021-05-02] MEDS: Albuterol/Ipratropium NEB.SOL (2.5/0.5 MG) 3 ML NEB.SOLN INH SCH ×2 (08:48→13:06)
[2021-05-02] MEDS ORDERED: Furosemide 20 mg/2 ml IV VIAL IV SCH (09:00)
[2021-05-02] MEDS ORDERED: SPIRIVA Respimat (tiotropium) 2.5 mcg/inh Inhaler INH SCH (09:00)
[2021-05-02] MEDS ORDERED: Aspirin EC 81 mg TAB.EC (enteric coated) PO SCH (09:00)
[2021-05-02] MEDS: Azithromycin 500 mg/250 ml NS 500 MG/250 ML BAG IVPB SCH (09:59)
[2021-05-02] MEDS: CMCS: Olopatadine 0.1% OPHTH (NF) 1 DROP BTL BOTH EYES SCH (10:38)
[2021-05-02] MEDS ORDERED: Albuterol/Ipratropium NEB.SOL (2.5/0.5 MG) 3 ML NEB.SOLN INH PRN (11:07)
[2021-05-02] MEDS: Vancomycin 1,250 MG in NS 0.9% 250 ml 250 ML IVPB SCH ×2 (11:23→21:13)
[2021-05-02] MEDS: SPIRIVA Respimat (tiotropium) 2.5 mcg/inh Inhaler INH SCH (13:07)
[2021-05-02 14:24] LABS: Hematocrit 27 % (42-52); Hemoglobin 8.4 g/dL (14.0-18.0); Mean Corpuscular HGB Conc 31 g/dL (31-36); Mean Corpuscular Hemoglobin 25 pg (27-31); Mean Corpuscular Volume 79 fL (80-94); Mean Platelet Volume 8.9 fL (7.4-10.4); Platelet Count 305 10^3/uL (150-450); Red Blood Count 3.38 10^6 /uL (4.18-5.48); Red Cell Distribution Width 19 % (10-15); White Blood Count 25.2 10^3/uL (3.5-10.8)
[2021-05-02 14:41] LABS: Calcium 7.7 mg/dL (8.6-10.3); Magnesium 2.8 mg/dL (1.9-2.7); Phosphorus 3.8 mg/dL (2.5-5.0); Potassium 3.9 mmol/L (3.5-5.0); eGFR CKD-EPI 95.9 (>60)
[2021-05-02] MEDS ORDERED: Albuterol 2.5mg/3 ml (0.083%) NEB.SOLN INH SCH (15:00)
[2021-05-02] MEDS ORDERED: Heparin 5000 UNITS/ML 1 mL VIAL SUBCUT SCH ×2 (15:00→22:00)
[2021-05-02] MEDS: Albuterol HFA INHALER 8 gm MDI INH PRN (20:04)
[2021-05-02] MEDS: Pantoprazole VIAL 40 MG VIAL IV SCH (21:07)
[2021-05-02 22:02] LABS: Hematocrit 24 % (42-52); Hemoglobin 7.3 g/dL (14.0-18.0)
[2021-05-03] MEDS: methylPREDNISolone SOD 40 mg/ml 1 ml VIAL IV SCH ×2 (00:01→09:54)
[2021-05-03] MEDS: NS 0.9% 1000 ml BAG 1,000 ML IV SCH (02:10)
[2021-05-03] MEDS: ZOSYN 3.375 GM Q8H per EXTENDED INFUSION IV SCH ×3 (02:12→18:11)
[2021-05-03 05:37] LABS: Hematocrit 23 % (42-52); Hemoglobin 7.1 g/dL (14.0-18.0); Mean Corpuscular HGB Conc 31 g/dL (31-36); Mean Corpuscular Hemoglobin 25 pg (27-31); Mean Corpuscular Volume 80 fL (80-94); Mean Platelet Volume 8.5 fL (7.4-10.4); Platelet Count 291 10^3/uL (150-450); Red Blood Count 2.85 10^6 /uL (4.18-5.48); Red Cell Distribution Width 19 % (10-15); White Blood Count 21.6 10^3/uL (3.5-10.8)
[2021-05-03 05:53] LABS: Calcium 7.4 mg/dL (8.6-10.3); Magnesium 2.2 mg/dL (1.9-2.7); Phosphorus 3.5 mg/dL (2.5-5.0); Potassium 4.4 mmol/L (3.5-5.0); eGFR CKD-EPI 95.1 (>60)
[2021-05-03] MEDS: Albuterol HFA INHALER 8 gm MDI INH PRN (07:26)
[2021-05-03] MEDS: SPIRIVA Respimat (tiotropium) 2.5 mcg/inh Inhaler INH SCH (07:26)
[2021-05-03] MEDS: Budesonide NEB 0.5 MG/2 ML NEB.SOLN INH SCH ×2 (07:26→19:39)
[2021-05-03] MEDS ORDERED: Vancomycin Trough Check NOTE FOLLOW UP ONE (09:30)
[2021-05-03] MEDS: Azithromycin 500 mg/250 ml NS 500 MG/250 ML BAG IVPB SCH (09:50)
[2021-05-03] MEDS: Pantoprazole VIAL 40 MG VIAL IV SCH ×2 (09:54→23:02)
[2021-05-03 10:06] LABS: Vancomycin Trough 13.9 mcg/mL
[2021-05-03] MEDS: CMCS: Olopatadine 0.1% OPHTH (NF) 1 DROP BTL BOTH EYES SCH (10:45)
[2021-05-03 12:40] LABS: % Iron Saturation 7 % (15-55); Iron < 20 ug/dL (50-212); Total Iron Binding Capacity 281 mcg/dL (250-450); Transferrin 201 mg/dL (203-362); Unsaturated Iron Binding 261 ug/dL
[2021-05-03] MEDS: Vancomycin 1,250 MG in NS 0.9% 250 ml 250 ML IVPB SCH (12:44)
[2021-05-03] MEDS ORDERED: Perflutren Lipid Microsphere 3 ML VIAL ONE (13:51)
[2021-05-03 19:37] LABS: Hematocrit 26 % (42-52); Hemoglobin 8.2 g/dL (14.0-18.0)
[2021-05-04] MEDS: ZOSYN 3.375 GM Q8H per EXTENDED INFUSION IV SCH ×3 (02:20→17:07)
[2021-05-04 05:53] LABS: Hematocrit 25 % (42-52); Hemoglobin 7.8 g/dL (14.0-18.0); Mean Corpuscular HGB Conc 32 g/dL (31-36); Mean Corpuscular Hemoglobin 26 pg (27-31); Mean Corpuscular Volume 81 fL (80-94); Mean Platelet Volume 8.4 fL (7.4-10.4); Platelet Count 279 10^3/uL (150-450); Red Blood Count 3.05 10^6 /uL (4.18-5.48); Red Cell Distribution Width 18 % (10-15); White Blood Count 13.3 10^3/uL (3.5-10.8)
[2021-05-04 06:30] LABS: Calcium 7.9 mg/dL (8.6-10.3); Magnesium 2.3 mg/dL (1.9-2.7); Potassium 4.8 mmol/L (3.5-5.0)
[2021-05-04 06:35] LABS: eGFR CKD-EPI 96.3 (>60)
[2021-05-04] MEDS: SPIRIVA Respimat (tiotropium) 2.5 mcg/inh Inhaler INH SCH (08:17)
[2021-05-04] MEDS: Budesonide NEB 0.5 MG/2 ML NEB.SOLN INH SCH ×3 (08:17→19:35)
[2021-05-04] MEDS: Pantoprazole VIAL 40 MG VIAL IV SCH ×2 (09:38→21:47)
[2021-05-04] MEDS: CMCS: Olopatadine 0.1% OPHTH (NF) 1 DROP BTL BOTH EYES SCH (09:39)
[2021-05-04] MEDS: Ondansetron 4 mg VIAL 2 MG/ML 2 ml VIAL IV PRN ×2 (09:49→17:55)
[2021-05-05] MEDS: ZOSYN 3.375 GM Q8H per EXTENDED INFUSION IV SCH ×2 (03:15→23:01)
[2021-05-05 05:24] LABS: Hematocrit 29 % (42-52); Hemoglobin 9.2 g/dL (14.0-18.0); Mean Corpuscular HGB Conc 31 g/dL (31-36); Mean Corpuscular Hemoglobin 26 pg (27-31); Mean Corpuscular Volume 81 fL (80-94); Mean Platelet Volume 8.3 fL (7.4-10.4); Platelet Count 284 10^3/uL (150-450); Red Blood Count 3.59 10^6 /uL (4.18-5.48); Red Cell Distribution Width 18 % (10-15); White Blood Count 14.1 10^3/uL (3.5-10.8)
[2021-05-05 05:49] LABS: Calcium 8.1 mg/dL (8.6-10.3); Potassium 4.4 mmol/L (3.5-5.0)
[2021-05-05 05:54] LABS: eGFR CKD-EPI 97.5 (>60)
[2021-05-05] MEDS: Budesonide NEB 0.5 MG/2 ML NEB.SOLN INH SCH ×2 (08:50→19:06)
[2021-05-05] MEDS: SPIRIVA Respimat (tiotropium) 2.5 mcg/inh Inhaler INH SCH (08:50)
[2021-05-05] MEDS: Pantoprazole VIAL 40 MG VIAL IV SCH (10:46)
[2021-05-05] MEDS: CMCS: Olopatadine 0.1% OPHTH (NF) 1 DROP BTL BOTH EYES SCH (10:47)
[2021-05-05] MEDS ORDERED: fentaNYL 100 mcg/2 ml 50 MCG/ML VIAL ONE ×2 (11:38→18:58)
[2021-05-05] MEDS ORDERED: Propofol 10 MG/ML 20 ML BTL ONE (11:40)
[2021-05-05] MEDS ORDERED: EPHEDrine (Pressors) 50 MG/ML VIAL ONE ×3 (11:40→15:44)
[2021-05-05] MEDS ORDERED: Rocuronium 50 mg VIAL 10 mg/ml 5 ml VIAL (50 mg) ONE ×2 (11:40→13:14)
[2021-05-05] MEDS ORDERED: Dexamethasone IV 4 MG/ML VIAL 1 ml VIAL ONE (11:40)
[2021-05-05] MEDS ORDERED: Ondansetron 4 mg VIAL 2 MG/ML 2 ml VIAL ONE (11:40)
[2021-05-05] MEDS ORDERED: Sterile Water for Inj 10 ML ONE (11:40)
[2021-05-05] MEDS ORDERED: ceFAZolin 2 GM PREMIX 2 GM/50 ML BAG ONE (12:21)
[2021-05-05] MEDS ORDERED: Hydrocortisone INJ 100 MG/2ML 2 ML VIAL ONE (12:24)
[2021-05-05] MEDS ORDERED: Phenylephrine IV 10 MG/ML 1 ml VIAL ONE ×2 (15:36→18:26)
[2021-05-05] MEDS ORDERED: Levalbuterol HFA INHALER MDI ONE (15:38)
[2021-05-05] MEDS ORDERED: Sodium Chloride 0.9% 10 ML ONE (15:44)
[2021-05-05] MEDS ORDERED: Propofol 10 mg/ml 100 ML BTL 100 ML ONE (18:11)
[2021-05-05] MEDS ORDERED: Pantoprazole VIAL 40 MG VIAL IV ONE (18:29)
[2021-05-05] MEDS: Norepinephrine 16MCG/ML BAG NS 4,000 MCG/250 ML BAG IV SCH (18:30)
[2021-05-05] MEDS ORDERED: Vasopressin 100 UNITS in D5W 250 ml BAG 245 ML IV SCH (18:30)
[2021-05-05] MEDS ORDERED: NS 0.9% IV ONE (18:45)
[2021-05-05] MEDS ORDERED: Norepinephrine 16MCG/ML BAG NS 4,000 MCG/250 ML BAG IV ONE (18:45)
[2021-05-05] MEDS ORDERED: PHENYLEPHRINE DRIP IVPREMIX 50 MG/250 ML BAG IV SCH (19:00)
[2021-05-05] MEDS ORDERED: diPHENhydraMINE IV 50 MG/ML 1 ml VIAL (BENADRYL) ONE (19:04)
[2021-05-05 19:47] LABS: Hematocrit 21 % (42-52); Hemoglobin 6.7 g/dL (14.0-18.0); Mean Corpuscular HGB Conc 32 g/dL (31-36); Mean Corpuscular Hemoglobin 27 pg (27-31); Mean Corpuscular Volume 84 fL (80-94); Mean Platelet Volume 8.5 fL (7.4-10.4); Platelet Count 274 10^3/uL (150-450); Red Blood Count 2.48 10^6 /uL (4.18-5.48); Red Cell Distribution Width 16 % (10-15); White Blood Count 48.2 10^3/uL (3.5-10.8)
[2021-05-05 19:53] LABS: INR 1.46 (0.86-1.15)
[2021-05-05 20:26] LABS: Albumin 2.2 g/dL (3.2-5.2); Albumin/Globulin Ratio 2.2 (1-3); Total Bilirubin 0.9 mg/dL (0.2-1.0); Total Protein 3.2 g/dL (6.4-8.9)
[2021-05-05 20:50] LABS: Calcium 6.1 mg/dL (8.6-10.3)
[2021-05-05] MEDS: Pantoprazole 80 mg in NS BAG 80 MG/250 ML BAG IV SCH (20:50)
[2021-05-05] MEDS: Propofol 10 mg/ml 100 ML BTL 100 ML IV SCH (20:51)
[2021-05-05] MEDS ORDERED: CALCIUM GLUCONATE 1GM/50ML NS 1 GM/50 ML BAG IV ONE (20:55)
[2021-05-05] MEDS ORDERED: Iodixanol (CONTRAST) 320 MG/ML 100 ML SDV IV ONE (22:26)
[2021-05-05] MEDS: Famotidine IV 10 MG/ML 2 ml VIAL (20 mg) IV SLOW PU SCH (22:56)
[2021-05-05 22:59] LABS: Hematocrit 27 % (42-52); Mean Corpuscular HGB Conc 33 g/dL (31-36); Mean Corpuscular Hemoglobin 28 pg (27-31); Mean Corpuscular Volume 84 fL (80-94); Mean Platelet Volume 8.4 fL (7.4-10.4); Platelet Count 217 10^3/uL (150-450); Red Blood Count 3.24 10^6 /uL (4.18-5.48); Red Cell Distribution Width 15 % (10-15); White Blood Count 51.1 10^3/uL (3.5-10.8)
[2021-05-06] MEDS ORDERED: NS 0.9% 100 ml BAG 100 ML ONE ×2 (00:27→06:13)
[2021-05-06 00:36] LABS: Anisocytosis 2+; Hypochromasia 2+
[2021-05-06] MEDS: Chlorhexidine MOUTHWASH 0.12% 15 ML UDC TOPICAL SCH ×6 (00:39→20:46)
[2021-05-06] MEDS: ZOSYN 3.375 GM Q8H per EXTENDED INFUSION IV SCH ×3 (00:40→16:08)
[2021-05-06 00:41] LABS: ABS Basophils 0.1 10^3/ul (0-0.2); ABS Monocytes 6.3 10^3/ul (0-0.8); ABS Neutrophils 43.8 10^3/ul (1.5-7.7); ABS Nucleated RBC 0.2 10^3/ul; Lymphocyte % 1.9 %; Nucleated Red Blood Cells % 0.4
[2021-05-06] MEDS: Propofol 10 mg/ml 100 ML BTL 100 ML IV SCH ×5 (02:28→21:40)
[2021-05-06 02:33] LABS: Hematocrit 27 % (42-52); Hemoglobin 8.8 g/dL (14.0-18.0); Mean Corpuscular HGB Conc 33 g/dL (31-36); Mean Corpuscular Hemoglobin 28 pg (27-31); Mean Corpuscular Volume 85 fL (80-94); Mean Platelet Volume 8.5 fL (7.4-10.4); Platelet Count 214 10^3/uL (150-450); Red Blood Count 3.19 10^6 /uL (4.18-5.48); Red Cell Distribution Width 15 % (10-15); White Blood Count 39.7 10^3/uL (3.5-10.8)
[2021-05-06] MEDS ORDERED: fentaNYL 100 mcg/2 ml 50 MCG/ML VIAL IV SLOW PU PRN (02:37)
[2021-05-06] MEDS ORDERED: Calcium Gluconate 2 GM in NS 0.9% 100 ml BAG 100 ML IV ONE (03:18)
[2021-05-06] MEDS: fentaNYL 100 mcg/2 ml 50 MCG/ML VIAL IV SLOW PU PRN ×5 (03:32→20:46)
[2021-05-06] MEDS: Norepinephrine 16MCG/ML BAG NS 4,000 MCG/250 ML BAG IV SCH ×2 (03:36→14:38)
[2021-05-06 04:05] LABS: ABS Basophils 0.1 10^3/ul (0-0.2); ABS Lymphocytes 1.1 10^3/ul (1.0-4.8); ABS Monocytes 5.6 10^3/ul (0-0.8); ABS Neutrophils 32.9 10^3/ul (1.5-7.7); ABS Nucleated RBC 0.4 10^3/ul; Lymphocyte % 2.8 %; Nucleated Red Blood Cells % 0.9
[2021-05-06 05:29] LABS: PCO2 Arterial 45 mmHg (35-45); PO2 Arterial 75 mmHg (80-100)
[2021-05-06 05:31] LABS: Hematocrit 26 % (42-52); Hemoglobin 8.5 g/dL (14.0-18.0); Mean Corpuscular HGB Conc 34 g/dL (31-36); Mean Corpuscular Hemoglobin 28 pg (27-31); Mean Corpuscular Volume 84 fL (80-94); Mean Platelet Volume 8.7 fL (7.4-10.4); Platelet Count 219 10^3/uL (150-450); Red Blood Count 3.04 10^6 /uL (4.18-5.48); Red Cell Distribution Width 15 % (10-15); White Blood Count 32.1 10^3/uL (3.5-10.8)
[2021-05-06 05:38] LABS: ABS Lymphocytes 2.3 10^3/ul (1.0-4.8); ABS Monocytes 4.5 10^3/ul (0-0.8); ABS Neutrophils 25.2 10^3/ul (1.5-7.7); ABS Nucleated RBC 0.5 10^3/ul; INR 1.19 (0.86-1.15); Lymphocyte % 7.1 %; Nucleated Red Blood Cells % 1.5
[2021-05-06] MEDS: Pantoprazole 80 mg in NS BAG 80 MG/250 ML BAG IV SCH ×2 (05:56→15:20)
[2021-05-06] MEDS ORDERED: CALCIUM GLUCONATE 1GM/50ML NS 1 GM/50 ML BAG IV ONE (06:11)
[2021-05-06 06:20] LABS: Albumin 2.8 g/dL (3.2-5.2); Albumin/Globulin Ratio 1.9 (1-3); Calcium 7.4 mg/dL (8.6-10.3); Globulin 1.5 g/dL (2-4); Magnesium 1.6 mg/dL (1.9-2.7); Potassium 4.6 mmol/L (3.5-5.0); Total Bilirubin 0.9 mg/dL (0.2-1.0); Total Protein 4.3 g/dL (6.4-8.9); eGFR CKD-EPI 92.7 (>60)
[2021-05-06] MEDS: Budesonide NEB 0.5 MG/2 ML NEB.SOLN INH SCH (07:18)
[2021-05-06] MEDS ORDERED: Magnesium Sulf 4 GM/100 ML IV 4,000 MG/100 ML BAG IVPB ONE (07:21)
[2021-05-06] MEDS: Valproic Acid IV 250 MG in NS 0.9% 100 ml BAG 100 ML IVPB SCH (07:39)
[2021-05-06 10:24] LABS: Hematocrit 23 % (42-52); Hemoglobin 7.6 g/dL (14.0-18.0); Mean Corpuscular HGB Conc 33 g/dL (31-36); Mean Corpuscular Hemoglobin 28 pg (27-31); Mean Corpuscular Volume 84 fL (80-94); Mean Platelet Volume 8.6 fL (7.4-10.4); Platelet Count 188 10^3/uL (150-450); Red Blood Count 2.71 10^6 /uL (4.18-5.48); Red Cell Distribution Width 15 % (10-15); White Blood Count 21.3 10^3/uL (3.5-10.8)
[2021-05-06 10:50] LABS: ABS Basophils 0.1 10^3/ul (0-0.2); ABS Lymphocytes 2.3 10^3/ul (1.0-4.8); ABS Monocytes 3.6 10^3/ul (0-0.8); ABS Neutrophils 15.3 10^3/ul (1.5-7.7); ABS Nucleated RBC 0.3 10^3/ul; Lymphocyte % 10.7 %; Nucleated Red Blood Cells % 1.2
[2021-05-06] MEDS: Famotidine IV 10 MG/ML 2 ml VIAL (20 mg) IV SLOW PU SCH ×2 (10:55→20:46)
[2021-05-06] MEDS: SPIRIVA Respimat (tiotropium) 2.5 mcg/inh Inhaler INH SCH (11:06)
[2021-05-06] MEDS: CMCS: Olopatadine 0.1% OPHTH (NF) 1 DROP BTL BOTH EYES SCH (12:28)
[2021-05-06] MEDS ORDERED: fentaNYL 100 mcg/2 ml 50 MCG/ML VIAL IV SLOW PU ONE ×2 (15:44→16:00)
[2021-05-06] MEDS ORDERED: PEG 3000 GI LAVAGE 1 GALLON ONE (16:12)
[2021-05-06 17:30] LABS: Hematocrit 21 % (42-52); Hemoglobin 7.1 g/dL (14.0-18.0); Mean Corpuscular HGB Conc 33 g/dL (31-36); Mean Corpuscular Hemoglobin 28 pg (27-31); Mean Corpuscular Volume 84 fL (80-94); Mean Platelet Volume 8.3 fL (7.4-10.4); Platelet Count 178 10^3/uL (150-450); Red Blood Count 2.51 10^6 /uL (4.18-5.48); Red Cell Distribution Width 16 % (10-15); White Blood Count 17.5 10^3/uL (3.5-10.8)
[2021-05-06 18:59] LABS: ABS Basophils 0.1 10^3/ul (0-0.2); ABS Neutrophils 12.4 10^3/ul (1.5-7.7); ABS Nucleated RBC 0.2 10^3/ul; Eosinophil % 0.1 %; Lymphocyte % 11.2 %; Nucleated Red Blood Cells % 1.1
[2021-05-06 21:54] LABS: Hematocrit 24 % (42-52); Hemoglobin 7.9 g/dL (14.0-18.0); Mean Corpuscular HGB Conc 34 g/dL (31-36); Mean Corpuscular Hemoglobin 28 pg (27-31); Mean Corpuscular Volume 85 fL (80-94); Mean Platelet Volume 8.6 fL (7.4-10.4); Platelet Count 178 10^3/uL (150-450); Red Blood Count 2.79 10^6 /uL (4.18-5.48); Red Cell Distribution Width 15 % (10-15); White Blood Count 16.6 10^3/uL (3.5-10.8)
[2021-05-06 22:07] LABS: ABS Eosinophils 0.1 10^3/ul (0-0.6); ABS Lymphocytes 1.6 10^3/ul (1.0-4.8); ABS Monocytes 2.8 10^3/ul (0-0.8); ABS Nucleated RBC 0.1 10^3/ul; Eosinophil % 0.5 %; Lymphocyte % 9.9 %; Nucleated Red Blood Cells % 0.4
[2021-05-07] MEDS ORDERED: NS 0.9% 100 ml BAG 100 ML ONE (00:03)
[2021-05-07] MEDS: ZOSYN 3.375 GM Q8H per EXTENDED INFUSION IV SCH ×3 (00:11→16:30)
[2021-05-07] MEDS: Budesonide NEB 0.5 MG/2 ML NEB.SOLN INH SCH ×3 (00:11→18:56)
[2021-05-07] MEDS: Chlorhexidine MOUTHWASH 0.12% 15 ML UDC TOPICAL SCH ×6 (00:11→20:47)
[2021-05-07] MEDS: Pantoprazole 80 mg in NS BAG 80 MG/250 ML BAG IV SCH ×3 (00:14→20:59)
[2021-05-07] MEDS: Norepinephrine 16MCG/ML BAG NS 4,000 MCG/250 ML BAG IV SCH ×2 (00:22→12:16)
[2021-05-07 00:43] LABS: Hematocrit 24 % (42-52); Hemoglobin 7.9 g/dL (14.0-18.0)
[2021-05-07] MEDS: fentaNYL 100 mcg/2 ml 50 MCG/ML VIAL IV SLOW PU PRN ×3 (00:44→14:27)
[2021-05-07] MEDS: Propofol 10 mg/ml 100 ML BTL 100 ML IV SCH ×6 (01:20→19:55)
[2021-05-07 05:04] LABS: Hematocrit 22 % (42-52); Hemoglobin 7.5 g/dL (14.0-18.0); Mean Corpuscular HGB Conc 33 g/dL (31-36); Mean Corpuscular Hemoglobin 28 pg (27-31); Mean Corpuscular Volume 85 fL (80-94); Mean Platelet Volume 8.1 fL (7.4-10.4); Platelet Count 172 10^3/uL (150-450); Red Blood Count 2.63 10^6 /uL (4.18-5.48); Red Cell Distribution Width 15 % (10-15); White Blood Count 15.4 10^3/uL (3.5-10.8)
[2021-05-07 05:54] LABS: Calcium 6.8 mg/dL (8.6-10.3); Magnesium 2.2 mg/dL (1.9-2.7); Potassium 3.7 mmol/L (3.5-5.0)
[2021-05-07] MEDS ORDERED: NS 0.9% IV ONE ×2 (06:00→09:30)
[2021-05-07] MEDS ORDERED: CALCIUM GLUCONATE IV ONE ×2 (06:00→09:30)
[2021-05-07 06:32] LABS: eGFR CKD-EPI 93.7 (>60)
[2021-05-07] MEDS: SPIRIVA Respimat (tiotropium) 2.5 mcg/inh Inhaler INH SCH (07:31)
[2021-05-07] MEDS: Famotidine IV 10 MG/ML 2 ml VIAL (20 mg) IV SLOW PU SCH ×2 (07:56→20:47)
[2021-05-07] MEDS ORDERED: Calcium Gluconate 4 GM in NS 0.9% 250 ml 250 ML IVPB ONE (08:02)
[2021-05-07] MEDS: Valproic Acid IV 250 MG in NS 0.9% 100 ml BAG 100 ML IVPB SCH (08:11)
[2021-05-07 08:39] LABS: INR 1.1 (0.86-1.15)
[2021-05-07] MEDS ORDERED: Magnesium Sulfate 2 gm BAG 2 GM/50 ML BAG IVPB ONE (08:54)
[2021-05-07] MEDS: CMCS: Olopatadine 0.1% OPHTH (NF) 1 DROP BTL BOTH EYES SCH (09:23)
[2021-05-07] MEDS: KCL 20 MEQ/100 ML IVPREMIX 20 MEQ/100 ML BAG IV SCH ×3 (09:24→14:06)
[2021-05-07] MEDS ORDERED: PEG 3000 GI LAVAGE 1 GALLON PO ONE (09:30)
[2021-05-07] MEDS ORDERED: Vancomycin Trough Check NOTE FOLLOW UP ONE (09:30)
[2021-05-07 13:20] LABS: Hematocrit 21 % (42-52); Hemoglobin 6.9 g/dL (14.0-18.0); Mean Corpuscular HGB Conc 33 g/dL (31-36); Mean Corpuscular Hemoglobin 28 pg (27-31); Mean Corpuscular Volume 85 fL (80-94); Mean Platelet Volume 7.9 fL (7.4-10.4); Platelet Count 162 10^3/uL (150-450); Red Blood Count 2.42 10^6 /uL (4.18-5.48); Red Cell Distribution Width 16 % (10-15); White Blood Count 14.7 10^3/uL (3.5-10.8)
[2021-05-07] MEDS ORDERED: fentaNYL 100 mcg/2 ml 50 MCG/ML VIAL IV SLOW PU ONE (16:20)
[2021-05-07 20:57] LABS: Hematocrit 23 % (42-52); Hemoglobin 7.7 g/dL (14.0-18.0); Mean Corpuscular HGB Conc 34 g/dL (31-36); Mean Corpuscular Hemoglobin 29 pg (27-31); Mean Corpuscular Volume 86 fL (80-94); Mean Platelet Volume 8.2 fL (7.4-10.4); Platelet Count 137 10^3/uL (150-450); Red Blood Count 2.67 10^6 /uL (4.18-5.48); Red Cell Distribution Width 16 % (10-15); White Blood Count 12.5 10^3/uL (3.5-10.8)
[2021-05-08] MEDS: ZOSYN 3.375 GM Q8H per EXTENDED INFUSION IV SCH ×3 (00:09→16:19)
[2021-05-08] MEDS: Chlorhexidine MOUTHWASH 0.12% 15 ML UDC TOPICAL SCH ×6 (00:09→21:01)
[2021-05-08] MEDS: Propofol 10 mg/ml 100 ML BTL 100 ML IV SCH ×5 (00:17→21:45)
[2021-05-08 04:25] LABS: Hematocrit 24 % (42-52); Hemoglobin 7.8 g/dL (14.0-18.0); Mean Corpuscular HGB Conc 33 g/dL (31-36); Mean Corpuscular Hemoglobin 29 pg (27-31); Mean Corpuscular Volume 87 fL (80-94); Mean Platelet Volume 7.9 fL (7.4-10.4); Platelet Count 143 10^3/uL (150-450); Red Blood Count 2.72 10^6 /uL (4.18-5.48); Red Cell Distribution Width 15 % (10-15); White Blood Count 12.7 10^3/uL (3.5-10.8)
[2021-05-08 04:29] LABS: ABS Basophils 0.1 10^3/ul (0-0.2); ABS Eosinophils 0.3 10^3/ul (0-0.6); ABS Lymphocytes 1.1 10^3/ul (1.0-4.8); ABS Monocytes 2.1 10^3/ul (0-0.8); ABS Neutrophils 9.2 10^3/ul (1.5-7.7); Eosinophil % 2.6 %; Lymphocyte % 8.5 %; Nucleated Red Blood Cells % 0.2
[2021-05-08 05:00] LABS: Calcium 7.1 mg/dL (8.6-10.3); Magnesium 1.9 mg/dL (1.9-2.7); Potassium 3.7 mmol/L (3.5-5.0); eGFR CKD-EPI 101.6 (>60)
[2021-05-08] MEDS: Pantoprazole 80 mg in NS BAG 80 MG/250 ML BAG IV SCH ×2 (07:06→17:08)
[2021-05-08] MEDS: fentaNYL 100 mcg/2 ml 50 MCG/ML VIAL IV SLOW PU PRN (07:19)
[2021-05-08] MEDS: SPIRIVA Respimat (tiotropium) 2.5 mcg/inh Inhaler INH SCH (07:47)
[2021-05-08] MEDS: Budesonide NEB 0.5 MG/2 ML NEB.SOLN INH SCH ×2 (07:53→19:08)
[2021-05-08] MEDS: Norepinephrine 16MCG/ML BAGD5W 4,000 MCG/250 ML BAG IV SCH (08:06)
[2021-05-08] MEDS: CMCS: Olopatadine 0.1% OPHTH (NF) 1 DROP BTL BOTH EYES SCH (08:07)
[2021-05-08] MEDS: Valproic Acid IV 250 MG in NS 0.9% 100 ml BAG 100 ML IVPB SCH (08:10)
[2021-05-08] MEDS: Famotidine IV 10 MG/ML 2 ml VIAL (20 mg) IV SLOW PU SCH ×2 (08:13→21:01)
[2021-05-08] MEDS ORDERED: Calcium Gluconate 2 GM in NS 0.9% 100 ml BAG 100 ML IV ONE (09:00)
[2021-05-08] MEDS ORDERED: Furosemide 40 mg/4 ml IV VIAL IV ONE (09:24)
[2021-05-08] MEDS: Linezolid 600 MG/ 300 ML IVPB SCH (12:23)
[2021-05-08 15:20] LABS: Hematocrit 25 % (42-52); Hemoglobin 8.1 g/dL (14.0-18.0); Mean Corpuscular HGB Conc 33 g/dL (31-36); Mean Corpuscular Hemoglobin 29 pg (27-31); Mean Corpuscular Volume 88 fL (80-94); Mean Platelet Volume 8.7 fL (7.4-10.4); Platelet Count 164 10^3/uL (150-450); Red Cell Distribution Width 15 % (10-15); White Blood Count 13.8 10^3/uL (3.5-10.8)
[2021-05-08 16:04] LABS: Anisocytosis 1+
[2021-05-08 16:05] LABS: Polychromasia 1+
[2021-05-08 16:10] LABS: ABS Basophils 0.1 10^3/ul (0-0.2); ABS Eosinophils 0.3 10^3/ul (0-0.6); ABS Lymphocytes 1.2 10^3/ul (1.0-4.8); ABS Monocytes 2.1 10^3/ul (0-0.8); Eosinophil % 2.4 %; Lymphocyte % 8.9 %; Nucleated Red Blood Cells % 0.1
[2021-05-09] MEDS: ZOSYN 3.375 GM Q8H per EXTENDED INFUSION IV SCH ×3 (00:04→18:02)
[2021-05-09] MEDS: Chlorhexidine MOUTHWASH 0.12% 15 ML UDC TOPICAL SCH ×6 (00:06→22:18)
[2021-05-09] MEDS: Linezolid 600 MG/ 300 ML IVPB SCH ×2 (00:07→13:38)
[2021-05-09 01:52] LABS: Hematocrit 24 % (42-52); Mean Corpuscular HGB Conc 33 g/dL (31-36); Mean Corpuscular Hemoglobin 29 pg (27-31); Mean Corpuscular Volume 88 fL (80-94); Platelet Count 164 10^3/uL (150-450); Red Blood Count 2.77 10^6 /uL (4.18-5.48); Red Cell Distribution Width 16 % (10-15); White Blood Count 10.8 10^3/uL (3.5-10.8)
[2021-05-09] MEDS: Propofol 10 mg/ml 100 ML BTL 100 ML IV SCH ×2 (02:32→06:11)
[2021-05-09 03:25] LABS: Calcium 7.3 mg/dL (8.6-10.3); Magnesium 1.6 mg/dL (1.9-2.7); Potassium 3.3 mmol/L (3.5-5.0)
[2021-05-09 03:31] LABS: eGFR CKD-EPI 102.1 (>60)
[2021-05-09] MEDS ORDERED: Magnesium Sulfate 2 GM IV (Premix) IVPB ONE (03:47)
[2021-05-09] MEDS: Pantoprazole 80 mg in NS BAG 80 MG/250 ML BAG IV SCH (04:00)
[2021-05-09] MEDS: Potassium Chloride LIQUID 20 MEQ/15 ML LIQUID PEG TUBE SCH ×2 (04:13→08:01)
[2021-05-09] MEDS: SPIRIVA Respimat (tiotropium) 2.5 mcg/inh Inhaler INH SCH (07:21)
[2021-05-09] MEDS: Budesonide NEB 0.5 MG/2 ML NEB.SOLN INH SCH ×2 (07:21→19:08)
[2021-05-09] MEDS: Famotidine IV 10 MG/ML 2 ml VIAL (20 mg) IV SLOW PU SCH (08:16)
[2021-05-09] MEDS ORDERED: Furosemide 40 mg/4 ml IV VIAL IV SLOW PU ONE (08:30)
[2021-05-09 08:49] LABS: Potassium 3.8 mmol/L (3.5-5.0)
[2021-05-09 08:50] LABS: Calcium 7.2 mg/dL (8.6-10.3); eGFR CKD-EPI 103.1 (>60)
[2021-05-09] MEDS: Valproic Acid IV 250 MG in NS 0.9% 100 ml BAG 100 ML IVPB SCH (08:54)
[2021-05-09] MEDS: CMCS: Olopatadine 0.1% OPHTH (NF) 1 DROP BTL BOTH EYES SCH (09:00)
[2021-05-09 11:54] LABS: PCO2 Arterial 50 mmHg (35-45); PO2 Arterial 95 mmHg (80-100)
[2021-05-09] MEDS: Pantoprazole VIAL 40 MG VIAL IV SCH ×2 (12:26→20:06)
[2021-05-09] MEDS: KCL 20 MEQ/100 ML IVPREMIX 20 MEQ/100 ML BAG IV SCH ×4 (12:31→23:22)
[2021-05-09] MEDS: Dexmedetomidine 1,000 MCG in NS 0.9% 250 ml 240 ML IV SCH (15:17)
[2021-05-09 17:40] LABS: Hematocrit 26 % (42-52); Hemoglobin 8.5 g/dL (14.0-18.0); Mean Corpuscular HGB Conc 33 g/dL (31-36); Mean Corpuscular Hemoglobin 29 pg (27-31); Mean Corpuscular Volume 88 fL (80-94); Mean Platelet Volume 8.5 fL (7.4-10.4); Platelet Count 191 10^3/uL (150-450); Red Blood Count 2.92 10^6 /uL (4.18-5.48); Red Cell Distribution Width 16 % (10-15); White Blood Count 12.5 10^3/uL (3.5-10.8)
[2021-05-09 18:08] LABS: Calcium 7.5 mg/dL (8.6-10.3); Magnesium 1.7 mg/dL (1.9-2.7); Potassium 3.9 mmol/L (3.5-5.0); eGFR CKD-EPI 98.3 (>60)
[2021-05-09] MEDS ORDERED: Magnesium Sulfate 2 gm BAG 2 GM/50 ML BAG IVPB ONE (18:15)
[2021-05-09] MEDS: fentaNYL 100 mcg/2 ml 50 MCG/ML VIAL IV SLOW PU PRN ×2 (20:12→23:22)
[2021-05-10] MEDS: Propofol 10 mg/ml 100 ML BTL 100 ML IV SCH
[2021-05-10] MEDS: Linezolid 600 MG/ 300 ML IVPB SCH ×2 (00:01→11:59)
[2021-05-10] MEDS: Norepinephrine 16MCG/ML BAGD5W 4,000 MCG/250 ML BAG IV SCH (01:39)
[2021-05-10] MEDS: Chlorhexidine MOUTHWASH 0.12% 15 ML UDC TOPICAL SCH ×4 (01:42→11:59)
[2021-05-10] MEDS: ZOSYN 3.375 GM Q8H per EXTENDED INFUSION IV SCH ×3 (02:02→16:24)
[2021-05-10 03:59] LABS: Hematocrit 24 % (42-52); Mean Corpuscular HGB Conc 33 g/dL (31-36); Mean Corpuscular Hemoglobin 29 pg (27-31); Mean Corpuscular Volume 89 fL (80-94); Mean Platelet Volume 8.6 fL (7.4-10.4); Platelet Count 199 10^3/uL (150-450); Red Blood Count 2.74 10^6 /uL (4.18-5.48); Red Cell Distribution Width 16 % (10-15); White Blood Count 11.1 10^3/uL (3.5-10.8)
[2021-05-10 04:01] LABS: ABS Eosinophils 0.4 10^3/ul (0-0.6); ABS Lymphocytes 1.1 10^3/ul (1.0-4.8); ABS Neutrophils 7.6 10^3/ul (1.5-7.7); Eosinophil % 3.5 %; Lymphocyte % 10.2 %; Nucleated Red Blood Cells % 0.1
[2021-05-10 04:38] LABS: Calcium 7.4 mg/dL (8.6-10.3); Magnesium 2.3 mg/dL (1.9-2.7); eGFR CKD-EPI 101.1 (>60)
[2021-05-10] MEDS: Pantoprazole VIAL 40 MG VIAL IV SCH ×2 (07:43→20:35)
[2021-05-10] MEDS: SPIRIVA Respimat (tiotropium) 2.5 mcg/inh Inhaler INH SCH (07:45)
[2021-05-10] MEDS: Valproic Acid IV 250 MG in NS 0.9% 100 ml BAG 100 ML IVPB SCH (09:07)
[2021-05-10] MEDS ORDERED: Furosemide 40 mg/4 ml IV VIAL IV SLOW PU ONE (09:55)
[2021-05-10] MEDS: Budesonide NEB 0.5 MG/2 ML NEB.SOLN INH SCH ×2 (09:55→19:24)
[2021-05-10] MEDS: CMCS: Olopatadine 0.1% OPHTH (NF) 1 DROP BTL BOTH EYES SCH (10:34)
[2021-05-10 12:09] LABS: C Reactive Protein 114.99 mg/L (<8.01)
[2021-05-10 14:10] LABS: Erythrocyte Sed Rate 62 mm/Hr (0-19)
[2021-05-10] MEDS: Acetaminophen IV 1 GM/100ML 100 ML IV PRN (17:45)
[2021-05-10] MEDS: Dexmedetomidine 1,000 MCG in NS 0.9% 250 ml 240 ML IV SCH (17:49)
[2021-05-11] MEDS: Linezolid 600 MG/ 300 ML IVPB SCH ×2 (00:18→10:42)
[2021-05-11] MEDS: ZOSYN 3.375 GM Q8H per EXTENDED INFUSION IV SCH ×3 (00:20→16:32)
[2021-05-11 04:28] LABS: Hematocrit 26 % (42-52); Hemoglobin 8.5 g/dL (14.0-18.0); Mean Corpuscular HGB Conc 33 g/dL (31-36); Mean Corpuscular Hemoglobin 30 pg (27-31); Mean Corpuscular Volume 90 fL (80-94); Mean Platelet Volume 8.6 fL (7.4-10.4); Platelet Count 205 10^3/uL (150-450); Red Blood Count 2.86 10^6 /uL (4.18-5.48); Red Cell Distribution Width 16 % (10-15); White Blood Count 9.7 10^3/uL (3.5-10.8)
[2021-05-11 05:07] LABS: Anisocytosis 1+; Polychromasia 1+
[2021-05-11 05:08] LABS: ABS Eosinophils 0.3 10^3/ul (0-0.6); ABS Lymphocytes 0.8 10^3/ul (1.0-4.8); ABS Monocytes 1.7 10^3/ul (0-0.8); ABS Neutrophils 6.8 10^3/ul (1.5-7.7); Eosinophil % 3.1 %; Lymphocyte % 8.6 %
[2021-05-11 05:24] LABS: Calcium 7.6 mg/dL (8.6-10.3); Magnesium 1.6 mg/dL (1.9-2.7); Potassium 3.6 mmol/L (3.5-5.0); eGFR CKD-EPI 104.7 (>60)
[2021-05-11] MEDS ORDERED: Magnesium Sulf 4 GM/100 ML IV 4,000 MG/100 ML BAG IVPB ONE (07:30)
[2021-05-11] MEDS: Pantoprazole VIAL 40 MG VIAL IV SCH ×2 (07:43→22:14)
[2021-05-11] MEDS ORDERED: KCL 20 MEQ/100 ML IVPREMIX 20 MEQ/100 ML BAG IV ONE (07:46)
[2021-05-11] MEDS: SPIRIVA Respimat (tiotropium) 2.5 mcg/inh Inhaler INH SCH (07:48)
[2021-05-11] MEDS: CMCS: Olopatadine 0.1% OPHTH (NF) 1 DROP BTL BOTH EYES SCH (08:19)
[2021-05-11] MEDS: Acetaminophen IV 1 GM/100ML 100 ML IV PRN ×2 (08:40→22:34)
[2021-05-11] MEDS: Valproic Acid IV 250 MG in NS 0.9% 100 ml BAG 100 ML IVPB SCH (08:42)
[2021-05-11] MEDS ORDERED: Lidocaine 1% MPF 5 ML VIAL INJ ONE (09:44)
[2021-05-11] MEDS: Budesonide NEB 0.5 MG/2 ML NEB.SOLN INH SCH (09:50)
[2021-05-11] MEDS: Heparin 5000 UNITS/ML 1 mL VIAL SUBCUT SCH ×2 (10:42→22:13)
[2021-05-11] MEDS ORDERED: Furosemide 40 mg/4 ml IV VIAL IV SLOW PU ONE (11:35)
[2021-05-11] MEDS ORDERED: Norepinephrine 16MCG/ML BAGD5W 4,000 MCG/250 ML BAG IV ONE (23:21)
[2021-05-11 23:45] LABS: Hematocrit 28 % (42-52); Hemoglobin 8.9 g/dL (14.0-18.0); Mean Corpuscular HGB Conc 32 g/dL (31-36); Mean Corpuscular Hemoglobin 29 pg (27-31); Mean Corpuscular Volume 89 fL (80-94); Mean Platelet Volume 8.5 fL (7.4-10.4); Platelet Count 251 10^3/uL (150-450); Red Blood Count 3.12 10^6 /uL (4.18-5.48); Red Cell Distribution Width 16 % (10-15); White Blood Count 13.3 10^3/uL (3.5-10.8)
[2021-05-12 00:32] LABS: Polychromasia 1+
[2021-05-12 00:58] LABS: ABS Basophils 0.1 10^3/ul (0-0.2); ABS Eosinophils 0.3 10^3/ul (0-0.6); ABS Lymphocytes 1.2 10^3/ul (1.0-4.8); ABS Monocytes 2.4 10^3/ul (0-0.8); ABS Neutrophils 9.3 10^3/ul (1.5-7.7); Eosinophil % 2.3 %; Lymphocyte % 9.1 %; Nucleated Red Blood Cells % 0.1
[2021-05-12] MEDS: Linezolid 600 MG/ 300 ML IVPB SCH ×2 (01:00→13:54)
[2021-05-12 05:23] LABS: Hematocrit 27 % (42-52); Hemoglobin 8.9 g/dL (14.0-18.0); Mean Corpuscular HGB Conc 33 g/dL (31-36); Mean Corpuscular Hemoglobin 29 pg (27-31); Mean Corpuscular Volume 90 fL (80-94); Mean Platelet Volume 8.5 fL (7.4-10.4); Platelet Count 225 10^3/uL (150-450); Red Blood Count 3.03 10^6 /uL (4.18-5.48); Red Cell Distribution Width 17 % (10-15); White Blood Count 11.3 10^3/uL (3.5-10.8)
[2021-05-12 06:05] LABS: Calcium 7.6 mg/dL (8.6-10.3); Phosphorus 3.7 mg/dL (2.5-5.0); Potassium 3.4 mmol/L (3.5-5.0); eGFR CKD-EPI 94.8 (>60)
[2021-05-12 06:26] LABS: Polychromasia 1+
[2021-05-12 06:27] LABS: ABS Basophils 0.1 10^3/ul (0-0.2); ABS Eosinophils 0.2 10^3/ul (0-0.6); ABS Monocytes 1.9 10^3/ul (0-0.8); ABS Neutrophils 8.1 10^3/ul (1.5-7.7); Lymphocyte % 8.8 %; Nucleated Red Blood Cells % 0.1
[2021-05-12] MEDS ORDERED: Potassium Chlor 20 meq TAB.ER PO ONE (07:51)
[2021-05-12] MEDS: SPIRIVA Respimat (tiotropium) 2.5 mcg/inh Inhaler INH SCH (08:02)
[2021-05-12] MEDS: Acetaminophen IV 1 GM/100ML 100 ML IV PRN (08:39)
[2021-05-12] MEDS: Pantoprazole VIAL 40 MG VIAL IV SCH (08:59)
[2021-05-12] MEDS: CMCS: Olopatadine 0.1% OPHTH (NF) 1 DROP BTL BOTH EYES SCH (08:59)
[2021-05-12] MEDS ORDERED: Potassium Chloride LIQUID 20 MEQ/15 ML LIQUID PO ONE (09:15)
[2021-05-12] MEDS: Heparin 5000 UNITS/ML 1 mL VIAL SUBCUT SCH ×2 (09:27→20:37)
[2021-05-12] MEDS: Valproic Acid IV 250 MG in NS 0.9% 100 ml BAG 100 ML IVPB SCH (09:47)
[2021-05-12 15:46] LABS: C Reactive Protein 67.4 mg/L (<8.01)
[2021-05-13] MEDS: Linezolid 600 MG/ 300 ML IVPB SCH ×2 (01:17→12:36)
[2021-05-13 06:07] LABS: Hematocrit 27 % (42-52); Hemoglobin 8.7 g/dL (14.0-18.0); Mean Corpuscular HGB Conc 33 g/dL (31-36); Mean Corpuscular Hemoglobin 30 pg (27-31); Mean Corpuscular Volume 90 fL (80-94); Mean Platelet Volume 8.5 fL (7.4-10.4); Platelet Count 246 10^3/uL (150-450); Red Blood Count 2.93 10^6 /uL (4.18-5.48); Red Cell Distribution Width 17 % (10-15); White Blood Count 12.1 10^3/uL (3.5-10.8)
[2021-05-13 06:39] LABS: Calcium 7.6 mg/dL (8.6-10.3); Potassium 3.7 mmol/L (3.5-5.0); eGFR CKD-EPI 94.8 (>60)
[2021-05-13 07:15] LABS: ABS Basophils 0.1 10^3/ul (0-0.2); ABS Eosinophils 0.2 10^3/ul (0-0.6); ABS Lymphocytes 1.1 10^3/ul (1.0-4.8); ABS Monocytes 2.3 10^3/ul (0-0.8); ABS Neutrophils 8.5 10^3/ul (1.5-7.7); Eosinophil % 1.9 %; Lymphocyte % 8.7 %; Nucleated Red Blood Cells % 0.1
[2021-05-13] MEDS: SPIRIVA Respimat (tiotropium) 2.5 mcg/inh Inhaler INH SCH (07:18)
[2021-05-13] MEDS ORDERED: Piperacillin/Tazobac ADVAN 3.375 GM in NS 0.9% 100 ml BAG 100 ML IV ONE (09:01)
[2021-05-13] MEDS ORDERED: Albuterol HFA INHALER 8 gm MDI INH PRN (09:02)
[2021-05-13] MEDS: CMCS: Olopatadine 0.1% OPHTH (NF) 1 DROP BTL BOTH EYES SCH (09:10)
[2021-05-13] MEDS: Valproic Acid IV 250 MG in NS 0.9% 100 ml BAG 100 ML IVPB SCH (09:11)
[2021-05-13] MEDS: Heparin 5000 UNITS/ML 1 mL VIAL SUBCUT SCH ×2 (09:12→21:25)
[2021-05-13] MEDS ORDERED: Albuterol 2.5mg/3 ml (0.083%) NEB.SOLN INH PRN (09:32)
[2021-05-13] MEDS ORDERED: Zosyn per Pharmacy NOTE FOLLOW UP SCH (10:00)
[2021-05-13] MEDS ORDERED: Albuterol HFA INHALER 8 gm MDI INH SCH (10:00)
[2021-05-13] MEDS: ZOSYN 3.375 GM Q8H per EXTENDED INFUSION IV SCH ×2 (12:36→19:54)
[2021-05-13] MEDS: Albuterol HFA INHALER 8 gm MDI INH SCH ×2 (13:28→20:02)
[2021-05-14] MEDS: Albuterol HFA INHALER 8 gm MDI INH SCH ×5 (01:10→19:10)
[2021-05-14] MEDS: Linezolid 600 MG/ 300 ML IVPB SCH ×2 (01:19→12:42)
[2021-05-14] MEDS: ZOSYN 3.375 GM Q8H per EXTENDED INFUSION IV SCH ×3 (04:38→20:34)
[2021-05-14 05:06] LABS: Hematocrit 27 % (42-52); Hemoglobin 8.9 g/dL (14.0-18.0); Mean Corpuscular HGB Conc 32 g/dL (31-36); Mean Corpuscular Hemoglobin 29 pg (27-31); Mean Corpuscular Volume 91 fL (80-94); Mean Platelet Volume 8.7 fL (7.4-10.4); Platelet Count 226 10^3/uL (150-450); Red Blood Count 3.02 10^6 /uL (4.18-5.48); Red Cell Distribution Width 17 % (10-15); White Blood Count 10.8 10^3/uL (3.5-10.8)
[2021-05-14 05:31] LABS: ABS Eosinophils 0.2 10^3/ul (0-0.6); ABS Lymphocytes 1.1 10^3/ul (1.0-4.8); ABS Monocytes 2.2 10^3/ul (0-0.8); ABS Neutrophils 7.3 10^3/ul (1.5-7.7); Eosinophil % 1.9 %; Lymphocyte % 9.8 %; Nucleated Red Blood Cells % 0.1
[2021-05-14 05:32] LABS: Albumin 2.9 g/dL (3.2-5.2); Albumin/Globulin Ratio 1.4 (1-3); Calcium 7.8 mg/dL (8.6-10.3); Globulin 2.1 g/dL (2-4); Potassium 3.8 mmol/L (3.5-5.0); Total Bilirubin 0.8 mg/dL (0.2-1.0); eGFR CKD-EPI 102.6 (>60)
[2021-05-14] MEDS ORDERED: KCL 20 MEQ/100 ML IVPREMIX 20 MEQ/100 ML BAG IV ONE (06:42)
[2021-05-14] MEDS: SPIRIVA Respimat (tiotropium) 2.5 mcg/inh Inhaler INH SCH ×2 (07:07→07:11)
[2021-05-14 08:00] LABS: Magnesium 1.8 mg/dL (1.9-2.7)
[2021-05-14] MEDS: Heparin 5000 UNITS/ML 1 mL VIAL SUBCUT SCH ×2 (08:55→20:34)
[2021-05-14] MEDS: CMCS: Olopatadine 0.1% OPHTH (NF) 1 DROP BTL BOTH EYES SCH (08:55)
[2021-05-14] MEDS: Valproic Acid IV 250 MG in NS 0.9% 100 ml BAG 100 ML IVPB SCH (09:03)
[2021-05-14] MEDS: Potassium Chlor 20 meq TAB.ER PO SCH (11:05)
[2021-05-14] MEDS ORDERED: Furosemide 20 mg/2 ml IV VIAL IV ONE (14:44)
[2021-05-15] MEDS: Linezolid 600 MG/ 300 ML IVPB SCH ×2 (00:21→13:51)
[2021-05-15] MEDS: Albuterol HFA INHALER 8 gm MDI INH SCH ×2 (01:35→07:43)
[2021-05-15] MEDS: ZOSYN 3.375 GM Q8H per EXTENDED INFUSION IV SCH ×3 (05:23→21:36)
[2021-05-15 05:36] LABS: Hematocrit 28 % (42-52); Mean Corpuscular HGB Conc 33 g/dL (31-36); Mean Corpuscular Hemoglobin 29 pg (27-31); Mean Corpuscular Volume 90 fL (80-94); Mean Platelet Volume 8.4 fL (7.4-10.4); Platelet Count 228 10^3/uL (150-450); Red Blood Count 3.08 10^6 /uL (4.18-5.48); Red Cell Distribution Width 17 % (10-15); White Blood Count 12.8 10^3/uL (3.5-10.8)
[2021-05-15 05:50] LABS: ABS Basophils 0.1 10^3/ul (0-0.2); ABS Eosinophils 0.2 10^3/ul (0-0.6); ABS Monocytes 2.1 10^3/ul (0-0.8); ABS Neutrophils 9.4 10^3/ul (1.5-7.7); Eosinophil % 1.6 %; Lymphocyte % 7.8 %; Nucleated Red Blood Cells % 0.2
[2021-05-15 06:15] LABS: Calcium 8.3 mg/dL (8.6-10.3); eGFR CKD-EPI 103.6 (>60)
[2021-05-15] MEDS: SPIRIVA Respimat (tiotropium) 2.5 mcg/inh Inhaler INH SCH (07:44)
[2021-05-15] MEDS ORDERED: Albuterol HFA INHALER 8 gm MDI INH PRN (07:49)
[2021-05-15] MEDS: Potassium Chlor 20 meq TAB.ER PO SCH (09:32)
[2021-05-15] MEDS: Heparin 5000 UNITS/ML 1 mL VIAL SUBCUT SCH ×2 (09:32→21:44)
[2021-05-15] MEDS: CMCS: Olopatadine 0.1% OPHTH (NF) 1 DROP BTL BOTH EYES SCH (09:33)
[2021-05-15] MEDS: Albuterol/Ipratropium NEB.SOL (2.5/0.5 MG) 3 ML NEB.SOLN INH SCH ×3 (11:12→20:14)
[2021-05-15] MEDS: Budesonide NEB 0.5 MG/2 ML NEB.SOLN INH SCH ×2 (11:22→20:15)
[2021-05-15] MEDS ORDERED: Valproic Acid IV 250 MG in NS 0.9% 100 ml BAG 100 ML IVPB ONE (12:17)
[2021-05-15] MEDS: Valproic Acid IV 250 MG in NS 0.9% 100 ml BAG 100 ML IVPB SCH (13:01)
[2021-05-16] MEDS: Linezolid 600 MG/ 300 ML IVPB SCH ×2 (00:44→12:33)
[2021-05-16] MEDS: ZOSYN 3.375 GM Q8H per EXTENDED INFUSION IV SCH ×3 (05:00→20:26)
[2021-05-16 05:25] LABS: Hematocrit 26 % (42-52); Hemoglobin 8.3 g/dL (14.0-18.0); Mean Corpuscular HGB Conc 32 g/dL (31-36); Mean Corpuscular Hemoglobin 29 pg (27-31); Mean Corpuscular Volume 92 fL (80-94); Mean Platelet Volume 8.3 fL (7.4-10.4); Platelet Count 206 10^3/uL (150-450); Red Blood Count 2.86 10^6 /uL (4.18-5.48); Red Cell Distribution Width 18 % (10-15); White Blood Count 11.5 10^3/uL (3.5-10.8)
[2021-05-16 05:35] LABS: ABS Basophils 0.1 10^3/ul (0-0.2); ABS Eosinophils 0.2 10^3/ul (0-0.6); ABS Monocytes 1.7 10^3/ul (0-0.8); ABS Neutrophils 8.5 10^3/ul (1.5-7.7); Eosinophil % 1.6 %; Lymphocyte % 8.7 %; Nucleated Red Blood Cells % 0.2
[2021-05-16 06:03] LABS: Albumin 2.9 g/dL (3.2-5.2); Albumin/Globulin Ratio 1.3 (1-3); Direct Bilirubin 0.2 mg/dL (0.03-0.18); Globulin 2.2 g/dL (2-4); HDL Cholesterol 18.5 mg/dL; Indirect Bilirubin 0.6 mg/dL (0.3-1.0); Magnesium 1.7 mg/dL (1.9-2.7); Phosphorus 3.7 mg/dL (2.5-5.0); Total Bilirubin 0.8 mg/dL (0.2-1.0); Total Protein 5.1 g/dL (6.4-8.9)
[2021-05-16 06:05] LABS: Calcium 8.1 mg/dL (8.6-10.3); Potassium 3.9 mmol/L (3.5-5.0); eGFR CKD-EPI 98.8 (>60)
[2021-05-16 06:12] LABS: Anisocytosis 1+
[2021-05-16 06:17] LABS: TSH Ultra Thyroid Stim Horm 8.78 mcIU/mL (0.34-5.60)
[2021-05-16] MEDS ORDERED: Magnesium Sulf 4 GM/100 ML IV 4,000 MG/100 ML BAG IVPB ONE (06:27)
[2021-05-16 06:29] LABS: Folate 18.51 ng/mL (5.90-24.80)
[2021-05-16 06:32] LABS: Vitamin D Total 25(OH) 7.4 ng/mL (20-50)
[2021-05-16] MEDS: SPIRIVA Respimat (tiotropium) 2.5 mcg/inh Inhaler INH SCH (07:04)
[2021-05-16] MEDS: Budesonide NEB 0.5 MG/2 ML NEB.SOLN INH SCH ×2 (07:30→19:45)
[2021-05-16] MEDS: Albuterol/Ipratropium NEB.SOL (2.5/0.5 MG) 3 ML NEB.SOLN INH SCH ×3 (07:30→19:46)
[2021-05-16] MEDS: Potassium Chlor 20 meq TAB.ER PO SCH (09:20)
[2021-05-16] MEDS: Valproic Acid LIQ 250 MG/5 ML UDC PO SCH (09:21)
[2021-05-16] MEDS: Heparin 5000 UNITS/ML 1 mL VIAL SUBCUT SCH ×2 (09:21→20:26)
[2021-05-16] MEDS: CMCS: Olopatadine 0.1% OPHTH (NF) 1 DROP BTL BOTH EYES SCH (09:21)
[2021-05-16 15:49] LABS: C Reactive Protein 81.4 mg/L (<8.01)
[2021-05-17] MEDS: Linezolid 600 MG/ 300 ML IVPB SCH (00:25)
[2021-05-17] MEDS: ZOSYN 3.375 GM Q8H per EXTENDED INFUSION IV SCH (04:30)
[2021-05-17 05:22] LABS: Calcium 8.2 mg/dL (8.6-10.3); Potassium 3.9 mmol/L (3.5-5.0); eGFR CKD-EPI 95.9 (>60)
[2021-05-17 06:26] LABS: Hematocrit 28 % (42-52); Hemoglobin 8.8 g/dL (14.0-18.0); Mean Corpuscular HGB Conc 32 g/dL (31-36); Mean Corpuscular Hemoglobin 29 pg (27-31); Mean Corpuscular Volume 93 fL (80-94); Mean Platelet Volume 8.2 fL (7.4-10.4); Platelet Count 197 10^3/uL (150-450); Red Blood Count 2.98 10^6 /uL (4.18-5.48); Red Cell Distribution Width 18 % (10-15); White Blood Count 11.7 10^3/uL (3.5-10.8)
[2021-05-17] MEDS: Budesonide NEB 0.5 MG/2 ML NEB.SOLN INH SCH ×2 (07:16→19:12)
[2021-05-17] MEDS: Albuterol/Ipratropium NEB.SOL (2.5/0.5 MG) 3 ML NEB.SOLN INH SCH ×3 (07:17→19:12)
[2021-05-17] MEDS: SPIRIVA Respimat (tiotropium) 2.5 mcg/inh Inhaler INH SCH ×2 (07:22→07:24)
[2021-05-17] MEDS: Valproic Acid LIQ 250 MG/5 ML UDC PO SCH (08:39)
[2021-05-17] MEDS: Potassium Chlor 20 meq TAB.ER PO SCH (08:39)
[2021-05-17] MEDS: Heparin 5000 UNITS/ML 1 mL VIAL SUBCUT SCH ×2 (08:39→22:39)
[2021-05-17] MEDS: CMCS: Olopatadine 0.1% OPHTH (NF) 1 DROP BTL BOTH EYES SCH (08:41)
[2021-05-18 05:09] LABS: ABS Basophils 0.1 10^3/ul (0-0.2); ABS Eosinophils 0.2 10^3/ul (0-0.6); ABS Lymphocytes 1.1 10^3/ul (1.0-4.8); ABS Monocytes 1.3 10^3/ul (0-0.8); ABS Neutrophils 5.7 10^3/ul (1.5-7.7); Hematocrit 27 % (42-52); Hemoglobin 8.6 g/dL (14.0-18.0); Lymphocyte % 12.9 %; Mean Corpuscular HGB Conc 31 g/dL (31-36); Mean Corpuscular Hemoglobin 29 pg (27-31); Mean Corpuscular Volume 93 fL (80-94); Platelet Count 173 10^3/uL (150-450); Red Blood Count 2.93 10^6 /uL (4.18-5.48); Red Cell Distribution Width 18 % (10-15); White Blood Count 8.4 10^3/uL (3.5-10.8)
[2021-05-18 05:32] LABS: C Reactive Protein 119.97 mg/L (<8.01); Calcium 8.2 mg/dL (8.6-10.3); Potassium 3.9 mmol/L (3.5-5.0); eGFR CKD-EPI 98.3 (>60)
[2021-05-18] MEDS: Albuterol/Ipratropium NEB.SOL (2.5/0.5 MG) 3 ML NEB.SOLN INH SCH ×3 (07:27→19:15)
[2021-05-18] MEDS: Budesonide NEB 0.5 MG/2 ML NEB.SOLN INH SCH ×2 (07:27→19:15)
[2021-05-18] MEDS: Valproic Acid LIQ 250 MG/5 ML UDC PO SCH (08:39)
[2021-05-18] MEDS: Potassium Chlor 20 meq TAB.ER PO SCH (08:39)
[2021-05-18] MEDS: Heparin 5000 UNITS/ML 1 mL VIAL SUBCUT SCH ×2 (08:39→20:11)
[2021-05-18] MEDS: CMCS: Olopatadine 0.1% OPHTH (NF) 1 DROP BTL BOTH EYES SCH (08:40)
[2021-05-19] MEDS: Budesonide NEB 0.5 MG/2 ML NEB.SOLN INH SCH (07:29)
[2021-05-19] MEDS: Albuterol/Ipratropium NEB.SOL (2.5/0.5 MG) 3 ML NEB.SOLN INH SCH ×2 (07:29→14:02)
[2021-05-19] MEDS: Valproic Acid LIQ 250 MG/5 ML UDC PO SCH (08:48)
[2021-05-19] MEDS: Heparin 5000 UNITS/ML 1 mL VIAL SUBCUT SCH (08:48)
[2021-05-19] MEDS: Potassium Chlor 20 meq TAB.ER PO SCH (08:48)
[2021-05-19] MEDS: CMCS: Olopatadine 0.1% OPHTH (NF) 1 DROP BTL BOTH EYES SCH (08:49)
[2021-05-19 11:48] LABS: Rapid COVID-19 Molecular Undetected (Undetected)
[2021-05-19 15:20] VITALS: BP 117/43
== END 2021-05-19 16:40 | DRG 853 ==
LOC: ED 14:14 → SUATTDRO 18:55 → EDHOLD 18:55 → MED 23:59 → ICU 05-05 18:08 → MED 05-12 12:47
PROVIDERS: ADMIT Internal Medicine; ATTEND Student in an Organized Health Care Education/Training Program